=== PATIENT | female | born 1970 | race Caucasian/White ===

== ENCOUNTER 2022-07-17 17:46 | Outpatient (CLI) | payer OTHER | END 2022-07-17 17:47 | disposition short-term general hospital (02) | LOC: EMS 17:46 | DX: R51.9 Headache, unspecified (principal); R07.9 Chest pain, unspecified; R06.02 Shortness of breath; R11.0 Nausea; H53.8 Other visual disturbances; I10 Essential (primary) hypertension | CPT/HCPCS: A0425; A0429 ==

== ENCOUNTER 2022-10-08 18:05 | Emergency (ER) | payer OTHER ==
[2022-10-08] MEDS ORDERED: SODIUM CHLORIDE 0.9% 1,000 ML IV STA (18:20)
--- NOTE | 2022-10-08 18:20 | ED Physician Documentation ---
History of Present Illness - Stated complaint Stated Complaint: DIZZY/COLD SWEATS - Chief complaint Chief Complaint: Cardiac - History obtained from History obtained from: Patient - Additonal information Additional information: 52-year-old woman who works nights. She thinks she took her regular dose of medications, her routine meds at 10 and then inadvertently repeated them about 1 PM. Now she feels kind of dizzy and lightheaded with cold sweats. PD PAST MEDICAL HISTORY - Present Medications Home Medications: Ambulatory Orders Medication Instructions Recorded Confirmed Amlodipine Besylate [Norvasc] 10 mg PO DAILY 10/08/22 10/08/22 Carvedilol [Coreg] 25 mg PO BID 10/08/22 10/08/22 Estradiol 0.05 mg Patch [Climara 1 each TOP Q3D 10/08/22 10/08/22 0.05 mg] Losartan/Hydrochlorothiazide 1 each PO DAILY 10/08/22 10/08/22 [Losartan-Hctz 100-12.5 mg Tab] Metoprolol Tartrate [Lopressor] 50 mg PO BID 10/08/22 10/08/22 Spironolactone [Aldactone] 25 mg PO 10/08/22 10/08/22 - Allergies Allergies/Adverse Reactions: Allergies Allergy/AdvReac Type Severity Reaction Status Date / Time Penicillins Allergy Itching Verified 10/08/22 18:11 PD ED PE NORMAL - Vitals Vital signs reviewed: Yes - General General: Alert and oriented X 3, No acute distress - HEENT HEENT: PERRL, EOMI - Neck Neck: Supple, no meningeal sign, No bony TTP - Cardiac Cardiac: RRR, No murmur - Respiratory Respiratory: No respiratory distress, Clear bilaterally - Abdomen Abdomen: Non tender - Neuro Neuro: Alert and oriented X 3, Normal speech - Psych Psych: Normal mood, Normal affect Results - Vitals Vitals: Vital Signs - 24 hr 10/08/22 10/08/22 18:08 19:09 Temperature 36.6 C Heart Rate 82 67 Respiratory 16 21 Rate Blood Pressure 109/62 103/55 L O2 Saturation 96 97 Oxygen O2 Source Room air - EKG (time done) 1691 EKG releavant findings:: EKG personally interpreted by author of this note. Relevant findings are: Rate: Rate (enter#) (72) Rhythm: NSR [place]: Normal Intervals: Other (ivcd) Ischemia: Normal ST segments - Labs Labs: Laboratory Tests 10/08/22 10/08/22 18:31 18:31 WBC 10.9 H RBC 4.37 Hgb 13.3 Hct 38.6 MCV 88.3 MCH 30.4 MCHC 34.5 RDW 12.3 Plt Count 265 MPV 11.4 H Neut # (Auto) 7.9 H Lymph # (Auto) 1.9 [place] # (Auto) 0.9 Eos # (Auto) 0.2 Baso # (Auto) 0.0 Absolute Nucleated RBC 0.00 Nucleated RBC % 0.0 Sodium 140 Potassium 3.8 Chloride 105 Carbon Dioxide 24 Anion Gap 11.0 BUN 37 H Creatinine 1.1 H Estimated GFR (MDRD) 52 L Glucose 112 H Calcium 9.6 Magnesium 2.0 Total Bilirubin 0.5 AST 21 ALT 41 Alkaline Phosphatase 64 Total Protein 7.3 Albumin 4.2 Globulin 3.1 Albumin/Globulin Ratio 1.4 PD Medical Decision Making - ED course ED course: 52-year-old woman accidentally probably took an extra dose of her meds today. These are for the most part antihypertensives. She was feeling weak and dizzy. After the administration of 1 L of normal saline she felt back to normal. Work-up here shows a CBC with a mild nonspecific leukocytosis. CMP showing mild prerenal azotemia. Departure - Departure Disposition: 01 Home, Self Care Clinical Impression: Dizziness, Dehydration Condition: Good Record reviewed to determine appropriate education?: Yes Instructions: ED Near Syncope Unkn Comments: You were seen after inadvertently taking extra dose of your medications tonight which caused dehydration and dizziness. We gave you 1 L of IV fluids and you were feeling better. I would still recommend taking it easy tonight and not taking any more meds until tomorrow. Return if worse. Forms: Activity restrictions
[2022-10-08 18:39] LABS: BASOPHILS % (AUTO) 0.3 %; EOSINOPHILS # (AUTO) 0.2 10^3/uL (0.0-0.7); EOSINOPHILS % (AUTO) 2.1 %; HCT - HEMATOCRIT 38.6 % (37.0-47.0); HGB - HEMOGLOBIN 13.3 g/dL (12.0-16.0); LYMPHOCYTES # (AUTO) 1.9 10^3/uL (1.5-3.5); MEAN CORPUSCULAR HEMOGLOBIN 30.4 pg (27.0-31.0); MEAN CORPUSCULAR HGB CONC 34.5 g/dL (32.0-36.0); MEAN CORPUSCULAR VOLUME 88.3 fL (81.0-99.0); MEAN PLATELET VOLUME 11.4 fL (7.9-10.8); MONOCYTES # (AUTO) 0.9 10^3/uL (0.0-1.0); MONOCYTES % (AUTO) 7.9 %; NEUTROPHILS # (AUTO) 7.9 10^3/uL (1.5-6.6); NEUTROPHILS % (AUTO) 72.2 %; PLT - PLATELET COUNT 265 10^3/uL (130-450); RED BLOOD COUNT 4.37 10^6/uL (4.20-5.40); RED CELL DISTRIBUTION WIDTH 12.3 % (12.0-15.0); WHITE BLOOD COUNT 10.9 x10^3/uL (4.8-10.8)
--- OUTSIDE RECORDS SUMMARY | 2022-10-08 18:48 | EXTERNAL MEDICAL SUMMARY RPT | Continuity of Care Document ---
:1970 Author Organization [facility] Address [address] [place] [address] Phone Care Team Providers Name Role Phone Unavailable Unavailable Unavailable Poncho Cassidy Pa-C Unavailable Unavailable Leonardo Tate Unavailable Unavailable Allergies and Intolerances date description facility type (no date) Mild [facility] (unknown) (no date) PENICILLIN V POTASSIUM All (unknow n) (no date) Penicillins [facility] (unknown) (no date) amoxicillin [facility] (unknown) (no date) diphenhydramine [facility] (unknown) (no date) latex [facility] (unknown) (no date) magnesium citrate [facility] (unknown) Encounters No information. Functional Status No information. Immunizations No information. Medications date description facility 2022-07-17 00:00 losartan-hydrochlorothiazide [facility] 2022-07-22 00:00 losartan-hydrochlorothiazide All 2022-07-17 00:00 estradiol All 2022-07-22 00:00 estradiol [facility] 2022-07-17 00:00 carvedilol All 2022-07-22 00:00 carvedilol All 2022-07-17 00:[address] [facility] 2022-07-19 00:[address] [facility] 2022-07-17 00:00 estradiol All 2022-07-22 00:00 estradiol All 2022-07-17 00:00 estradiol All 2022-07-22 00:00 estradiol All 2022-07-18 00:[address] [facility] 2022-07-17 00:00 carvedilol All 2022-07-22 00:00 carvedilol All 2022-07-17 00:00 losartan-hydrochlorothiazide All 2022-07-22 00:00 losartan-hydrochlorothiazide All 2022-07-17 00:00 carvedilol All 2022-07-22 00:00 carvedilol All 2022-07-17 00:00 losartan-hydrochlorothiazide All 2022-07-22 00:00 losartan-hydrochlorothiazide All 2022-07-17 00:00 estradiol All 2022-07-22 00:00 estradiol All 2022-07-17 00:00 carvedilol All 2022-07-22 00:00 carvedilol All 2022-07-17 00:00 losartan-hydrochlorothiazide All 2022-07-22 00:00 losartan-hydrochlorothiazide All Problems date description facility 2022-07-17 00:00 Unspecified essential hypertension [facility] 2022-07-17 00:00 Hypertensive emergency [facility] 2022-07-17 00:[address] [facility] 2022-07-17 00:[address] [facility] 2022-07-17 00:[address] [facility] 2022-07-23 12:25 Essential (primary) hypertension [facility] 2022-08-10 00:[address] [facility] 2022-08-10 00:00 Sensation of chest pressure [facility] 2022-08-25 00:[address] [facility] Procedures date description facility 2022-07-17 00:[address] angio chest [facility] 2022-07-17 00:00 Visit Code Hold All 2022-07-17 00:00 Computed tomography of head or brain [facility] contrast 2022-07-17 00:00 X-ray of chest, single view [facility] 2022-07-18 00:00 Complete Doppler echocardiography [facility] 2022-07-17 00:00 CT angio abdomen pelvis [facility] Results/Labs test date author facility value unit interpret ation Result panel 1 (unknown) (no date) (unknown) [facility] Result panel 2 (unknown) (no date) (unknown) [facility] Result panel 3 (unknown) (no date) (unknown) [facility] Result panel 4 (unknown) (no date) (unknown) [facility] Result panel 5 (unknown) (no date[facility]) Result panel 6 (unknown) (no date) ([facility] Result panel 7 (unknown) (no date) ([facility] Result panel 8 (unknown) (no date) ([facility] Result panel 9 (unknown) (no date) (unknown[facility] Result panel 10 (unknown) (no date) (unknown[facility] Result panel 11 (unknown) (no date) (unknown[facility] Result panel 12 (unknown) (no date) (unknown[facility] Result panel 13 (unknown) (no date) (unknown[facility] Result panel 14 (unknown) (no date) (unknown[facility] Result panel 15 (unknown) (no date) (unknown[facility] Result panel 16 (unknown) (no date) (unknown[facility] Result panel 17 (unknown) (no date) (unknown[facility] Result panel 18 (unknown) (no date) (unknown[facility] Result panel 19 (unknown) (no date) (unknown[facility] Result panel 20 (unknown) (no date) (unknown[facility] Result panel 21 (unknown) (no date) (unknown[facility] Result panel 22 (unknown) (no date) (unknown[facility] Result panel 23 (unknown) (no date) (unknown[facility] Result panel 24 (unknown) (no date) (unknown[facility]) Result panel 25 (unknown) (no date) (unknown[facility] Result panel 26 (unknown) (no date) (unknown[facility] Result panel 27 (unknown) (no date) (unknown[facility] Result panel 28 (unknown) (no date) (unknown[facility] Result panel 29 (unknown) (no date) (unknown[facility] Result panel 30 (unknown) (no date) (unknown[facility]) Result panel 31 (unknown) (no date) (unknown[facility] Result panel 32 (unknown) (no date) (unknown[facility] Result panel 33 (unknown) (no date) (unknown[facility] Result panel 34 (unknown) (no date) (unknown[facility] Result panel 35 (unknown) (no date) (unknown[facility] Result panel 36 (unknown) (no date) (unknown[facility] Result panel 37 (unknown) (no date) (unknown[facility] Result panel 38 (unknown) (no date) (unknown[facility] Result panel 39 (unknown) (no date) (unknown[facility] Result panel 40 (unknown) (no date) (unknown[facility]) Result panel 41 (unknown) (no date) (unknown[facility] Result panel 42 (unknown) (no date) (unknown[facility] Result panel 43 (unknown) (no date) (unknown[facility] Result panel 44 (unknown) (no date) (unknown[facility] Result panel 45 (unknown) (no date) (unknown[facility] Result panel 46 (unknown) (no date) (unknown[facility] Result panel 47 (unknown) (no date) (unknown[facility]) Result panel 48 (unknown) (no date) (unknown[facility] Result panel 49 (unknown) (no date) (unknown[facility]) Result panel 50 (unknown) (no date) (unknown[facility] Result panel 51 (unknown) (no date) (unknown[facility]) Result panel 52 (unknown) (no date) (unknown[facility] Result panel 53 (unknown) (no date) (unknown[facility] Result panel 54 (unknown) (no date) (unknown[facility] Result panel 55 (unknown) (no date) (unknown[facility]) Result panel 56 (unknown) (no date) (unknown[facility] Result panel 57 (unknown) (no date) (unknown[facility] Result panel 58 (unknown) (no date) (unknown[facility] Result panel 59 (unknown) (no date) (unknown[facility] Result panel 60 (unknown) (no date) (unknown[facility] Result panel 61 (unknown) (no date) (unknown[facility] Result panel 62 (unknown) (no date) (unknown[facility] Result panel 63 (unknown) (no date) (unknown[facility]) Result panel 64 (unknown) (no date) (unknown[facility] Result panel 65 (unknown) (no date) (unknown[facility]) Result panel 66 (unknown) (no date) (unknown[facility]) Result panel 67 (unknown) (no date) (unknown[facility]) Result panel 68 (unknown) (no date) (unknown[facility] Result panel 69 (unknown) (no date) (unknown[facility] Result panel 70 (unknown) (no date) (unknown[facility]) Result panel 71 (unknown) (no date) (unknown[facility] Result panel 72 (unknown) (no date) (unknown[facility]) Result panel 73 (unknown) (no date) (unknown[facility] Result panel 74 (unknown) (no date) (unknown[facility]) Result panel 75 (unknown) (no date) (unknown[facility]) Result panel 76 (unknown) (no date) (unknown[facility] Result panel 77 (unknown) (no date) (unknown[facility]) Result panel 78 (unknown) (no date) (unknown[facility] Result panel 79 (unknown) (no date) (unknown[facility]) Result panel 80 (unknown) (no date) (unknown[facility] Result panel 81 (unknown) (no date) (unknown[facility]) Result panel 82 (unknown) (no date) (unknown[facility]) Result panel 83 (unknown) (no date) (unknown[facility]) Result panel 84 (unknown) (no date) (unknown[facility] Result panel 85 (unknown) (no date) (unknown[facility]) Result panel 86 (unknown) (no date) (unknown[facility]) Result panel 87 (unknown) (no date) (unknown[facility]) Result panel 88 (unknown) (no date) (unknown[facility] Result panel 89 (unknown) (no date) (unknown[facility]) Result panel 90 (unknown) (no date) (unknown[facility] Result panel 91 (unknown) (no date) (unknown[facility]) Result panel 92 (unknown) (no date) (unknown[facility]) Result panel 93 (unknown) (no date) (unknown[facility]) Result panel 94 (unknown) (no date) (unknown[facility] Result panel 95 (unknown) (no date) (unknown[facility]) Result panel 96 (unknown) (no date) (unknown[facility]) Result panel 97 (unknown) (no date) (unknown[facility]) Result panel 98 (unknown) (no date) (unknown[facility]) Result panel 99 (unknown) (no date) (unknown[facility]) Result panel 100 (unknown) (no date) (unknown[facility] Result panel 101 (unknown) (no date) (unknown[facility]) Result panel 102 (unknown) (no date) (unknown[facility] Result panel 103 (unknown) (no date) (unknown[facility]) Result panel 104 (unknown) (no date) (unknown[facility]) Result panel 105 (unknown) (no date) (unknown[facility] Result panel 106 (unknown) (no date) (unknown[facility]) Result panel 107 (unknown) (no date) (unknown[facility]) Result panel 108 (unknown) (no date) (unknown[facility] Result panel 109 (unknown) (no date) (unknown[facility]) Result panel 110 (unknown) (no date) (unknown[facility]) Result panel 111 (unknown) (no date) (unknown[facility]) Result panel 112 (unknown) (no date) (unknown[facility]) Result panel 113 (unknown) (no date) (unknown[facility]) Result panel 114 (unknown) (no date) (unknown[facility] Result panel 115 (unknown) (no date) (unknown[facility]) Result panel 116 (unknown) (no date) (unknown[facility] Result panel 117 (unknown) (no date) (unknown[facility]) Result panel 118 (unknown) (no date) (unknown[facility] Result panel 119 (unknown) (no date) (unknown[facility]) Result panel 120 (unknown) (no date) (unknown[facility]) Result panel 121 (unknown) (no date) (unknown[facility]) Result panel 122 (unknown) (no date) (unknown[facility]) Result panel 123 (unknown) (no date) (unknown[facility]) Result panel 124 (unknown) (no date) (unknown[facility]) Result panel 125 (unknown) (no date) (unknown[facility]) Result panel 126 (unknown) (no date) (unknown[facility]) Result panel 127 (unknown) (no date) (unknown[facility]) Result panel 128 (unknown) (no date) (unknown[facility]) Result panel 129 (unknown) (no date) (unknown[facility]) Result panel 130 (unknown) (no date) (unknown[facility] Result panel 131 (unknown) (no date) (unknown[facility]) Result panel 132 (unknown) (no date) (unknown[facility] Result panel 133 (unknown) (no date) (unknown[facility]) Result panel 134 (unknown) (no date) (unknown[facility]) Result panel 135 (unknown) (no date) (unknown[facility]) Result panel 136 (unknown) (no date) (unknown[facility]) Result panel 137 (unknown) (no date) (unknown[facility]) Result panel 138 (unknown) (no date) (unknown[facility]) Result panel 139 (unknown) (no date) (unknown[facility]) Result panel 140 (unknown) (no date) (unknown[facility]) Result panel 141 (unknown) (no date) (unknown[facility]) Result panel 142 (unknown) (no date) (unknown[facility]) Result panel 143 (unknown) (no date) (unknown[facility]) Result panel 144 (unknown) (no date) (unknown[facility]) Result panel 145 (unknown) (no date) (unknown[facility]) Result panel 146 (unknown) (no date) (unknown[facility]) Result panel 147 (unknown) (no date) (unknown[facility]) Result panel 148 (unknown) (no date) (unknown[facility]) Result panel 149 (unknown) (no date) (unknown[facility]) Result panel 150 (unknown) (no date) (unknown[facility]) Result panel 151 (unknown) (no date) (unknown[facility]) Result panel 152 (unknown) (no date) (unknown[facility]) Result panel 153 (unknown) (no date) (unknown[facility]) Result panel 154 (unknown) (no date) (unknown[facility] Result panel 155 (unknown) (no date) (unknown[facility]) Result panel 156 (unknown) (no date) (unknown[facility]) Result panel 157 (unknown) (no date) (unknown[facility]) Result panel 158 (unknown) (no date) (unknown[facility] Result panel 159 (unknown) (no date) (unknown[facility]) Result panel 160 (unknown) (no date) (unknown[facility]) Result panel 161 (unknown) (no date) (unknown[facility]) Result panel 162 (unknown) (no date) (unknown[facility]) Result panel 163 (unknown) (no date) (unknown[facility]) Result panel 164 (unknown) (no date) (unknown[facility]) Result panel 165 (unknown) (no date) (unknown[facility]) Result panel 166 (unknown) (no date) (unknown) [facility]) Result panel 167 (unknown) (no date) (unknown) [facility]) Result panel 168 (unknown) (no date) (unknown) [facility]) Result panel 169 (unknown) (no date) (unknown) [facility]) Result panel 170 (unknown) (no date) (unknown[facility] Result panel 171 (unknown) (no date) (unknown) [facility]) Result panel 172 (unknown) (no date) (unknown[facility]) Result panel 173 (unknown) (no date) (unknown[facility]) Result panel 174 (unknown) (no date) (unknown[facility]) Result panel 175 (unknown) (no date) (unknown[facility]) Result panel 176 (unknown) (no date) (unknown[facility]) Result panel 177 (unknown) (no date) (unknown) [facility]) Result panel 178 (unknown) (no date) (unknown) [facility]) Result panel 179 (unknown) (no date) (unknown) [facility]) Result panel 180 (unknown) (no date) (unknown) [facility]) Result panel 181 (unknown) (no date) (unknown[facility] Result panel 182 (unknown) (no date) (unknown[facility]) Result panel 183 (unknown) (no date) (unknown[facility] Result panel 184 (unknown) (no date) (unknown[facility]) Result panel 185 (unknown) (no date) (unknown[facility] Result panel 186 (unknown) (no date) (unknown[facility]) Result panel 187 (unknown) (no date) (unknown[facility] Result panel 188 (unknown) (no date) (unknown[facility]) Result panel 189 (unknown) (no date) (unknown[facility] Result panel 190 (unknown) (no date) (unknown[facility] Result panel 191 (unknown) (no date) (unknown[facility]) Result panel 192 (unknown) (no date) (unknown[facility] Result panel 193 (unknown) (no date) (unknown[facility] Result panel 194 (unknown) (no date) (unknown[facility]) Result panel 195 (unknown) (no date) (unknown[facility] Result panel 196 (unknown) (no date) (unknown[facility] Result panel 197 (unknown) (no date) (unknown[facility]) Result panel 198 (unknown) (no date) (unknown[facility] Result panel 199 (unknown) (no date) (unknown[facility] Result panel 200 (unknown) (no date) (unknown[facility]) Result panel 201 (unknown) (no date) (unknown[facility] Result panel 202 (unknown) (no date) (unknown[facility]) Result panel 203 (unknown) (no date) (unknown[facility] Result panel 204 (unknown) (no date) (unknown[facility] Result panel 205 (unknown) (no date) (unknown[facility] Result panel 206 (unknown) (no date) (unknown[facility]) Result panel 207 (unknown) (no date) (unknown[facility]) Result panel 208 (unknown) (no date) (unknown) [facility] [facility] Result panel 209 (unknown) (no date) (unknown) [facility]) Result panel 210 (unknown) (no date) (unknown) [facility]) Result panel 211 (unknown) (no date) (unknown) [facility] Result panel 212 (unknown) (no date) (unknown) [facility]) Result panel 213 (unknown) (no date) (unknown) [facility] Result panel 214 (unknown) (no date) (unknown) [facility]) Result panel 215 (unknown) (no date) (unknown[facility]) Result panel 216 (unknown) (no date) (unknown) [facility]) Result panel 217 (unknown) (no date) (unknown) [facility]) Result panel 218 (unknown) (no date) (unknown) [facility]) Result panel 219 (unknown) (no date) (unknown[facility]) Result panel 220 (unknown) (no date) (unknown) [facility]) Result panel 221 (unknown) (no date) (unknown) [facility]) Result panel 222 (unknown) (no date) (unknown) [facility]) Result panel 223 (unknown) (no date) (unknown) [facility]) Result panel 224 (unknown) (no date) (unknown) [facility]) Result panel 225 (unknown) (no date) (unknown) [facility]) Result panel 226 (unknown) (no date) (unknown) [facility]) Result panel 227 (unknown) (no date) (unknown) [facility]) Result panel 228 (unknown) (no date) (unknown) [facility]) Result panel 229 (unknown) (no date) (unknown) [facility]) Result panel 230 (unknown) (no date) (unknown) [facility]) Result panel 231 (unknown) (no date) (unknown) [facility]) Result panel 232 (unknown) (no date) (unknown) [facility]) Result panel 233 (unknown) (no date) (unknown) [facility] Result panel 234 (unknown) (no date) (unknown) [facility]) Result panel 235 (unknown) (no date) (unknown) [facility]) Result panel 236 (unknown) (no date) (unknown[facility]) Result panel 237 (unknown) (no date) (unknown[facility]) Result panel 238 (unknown) (no date) (unknown) [facility]) Result panel 239 (unknown) (no date) (unknown) [facility]) Result panel 240 (unknown) (no date) (unknown) [facility]) Result panel 241 (unknown) (no date) (unknown) [facility]) Result panel 242 (unknown) (no date) (unknown) [facility]) Result panel 243 (unknown) (no date) (unknown[facility]) Result panel 244 (unknown) (no date) (unknown) [facility]) Result panel 245 (unknown) (no date) (unknown) [facility]) Result panel 246 (unknown) (no date) (unknown) [facility]) Result panel 247 (unknown) (no date) (unknown) [facility]) Result panel 248 (unknown) (no date) (unknown) [facility]) Result panel 249 (unknown) (no date) (unknown) [facility]) Result panel 250 (unknown) (no date) (unknown) [facility]) Result panel 251 (unknown) (no date) (unknown) [facility]) Result panel 252 (unknown) (no date) (unknown) [facility]) Result panel 253 (unknown) (no date) (unknown) [facility]) Result panel 254 (unknown) (no date) (unknown) [facility]) Result panel 255 (unknown) (no date) (unknown) [facility]) Result panel 256 (unknown) (no date) (unknown) [facility]) Result panel 257 (unknown) (no date) (unknown) [facility]) Result panel 258 (unknown) (no date) (unknown) [facility]) Result panel 259 (unknown) (no date) (unknown) [facility]) Result panel 260 (unknown) (no date) (unknown) [facility]) Result panel 261 (unknown) (no date) (unknown) [facility]) Result panel 262 (unknown) (no date) (unknown) [facility]) Result panel 263 (unknown) (no date) (unknown) [facility] Result panel 264 (unknown) (no date) (unknown[facility]) Result panel 265 (unknown) (no date) (unknown) [facility]) Result panel 266 (unknown) (no date) (unknown) [facility]) Result panel 267 (unknown) (no date) (unknown) [facility]) Result panel 268 (unknown) (no date) (unknown) [facility]) Result panel 269 (unknown) (no date) (unknown) [facility]) Result panel 270 (unknown) (no date) (unknown[facility]) Result panel 271 (unknown) (no date) (unknown) [facility]) Result panel 272 (unknown) (no date) (unknown) [facility]) Result panel 273 (unknown) (no date) (unknown) [facility]) Result panel 274 (unknown) (no date) (unknown) [facility]) Result panel 275 (unknown) (no date) (unknown) [facility]) Result panel 276 (unknown) (no date) (unknown) [facility]) Result panel 277 (unknown) (no date) (unknown) [facility]) Result panel 278 (unknown) (no date) (unknown) [facility]) Result panel 279 (unknown) (no date) (unknown) [facility]) Result panel 280 (unknown) (no date) (unknown) [facility]) Result panel 281 (unknown) (no date) (unknown) [facility]) Result panel 282 (unknown) (no date) (unknown) [facility]) Result panel 283 (unknown) (no date) (unknown) [facility]) Result panel 284 (unknown) (no date) (unknown) [facility]) Result panel 285 (unknown) (no date) (unknown) [facility]) Result panel 286 (unknown) (no date) (unknown) [facility]) Result panel 287 (unknown) (no date) (unknown) [facility]) Result panel 288 (unknown) (no date) (unknown) [facility]) Result panel 289 (unknown) (no date) (unknown) [facility]) Result panel 290 (unknown) (no date) (unknown) [facility]) Result panel 291 (unknown) (no date) (unknown) [facility]) Result panel 292 (unknown) (no date) (unknown) [facility]) Result panel 293 (unknown) (no date) (unknown) [facility]) Result panel 294 (unknown) (no date) (unknown) [facility]) Result panel 295 (unknown) (no date) (unknown) [facility]) Result panel 296 (unknown) (no date) (unknown) [facility]) Result panel 297 (unknown) (no date) (unknown) [facility]) Result panel 298 (unknown) (no date) (unknown) [facility]) Result panel 299 (unknown) (no date) (unknown) [facility]) Result panel 300 (unknown) (no date) (unknown) [facility]) Result panel 301 (unknown) (no date) (unknown) [facility]) Result panel 302 (unknown) (no date) (unknown) [facility]) Result panel 303 (unknown) (no date) (unknown) [facility]) Result panel 304 (unknown) (no date) (unknown) [facility]) Result panel 305 (unknown) (no date) (unknown) [facility]) Result panel 306 (unknown) (no date) (unknown) [facility]) Result panel 307 (unknown) (no date) (unknown) [facility]) Result panel 308 (unknown) (no date) (unknown[facility]) Result panel 309 (unknown) (no date) (unknown) [facility]) Result panel 310 (unknown) (no date) (unknown[facility]) Result panel 311 (unknown) (no date) (unknown) [facility]) Result panel 312 (unknown) (no date) (unknown) [facility]) Result panel 313 (unknown) (no date) (unknown) [facility]) Result panel 314 (unknown) (no date) (unknown) [facility]) Result panel 315 (unknown) (no date) (unknown) [facility]) Result panel 316 (unknown) (no date) (unknown) [facility]) Result panel 317 (unknown) (no date) (unknown) [facility]) Result panel 318 (unknown) (no date) (unknown) [facility]) Result panel 319 (unknown) (no date) (unknown[facility]) Result panel 320 (unknown) (no date) (unknown) [facility]) Result panel 321 (unknown) (no date) (unknown) [facility]) Result panel 322 (unknown) (no date) (unknown) [facility]) Result panel 323 (unknown) (no date) (unknown[facility]) Result panel 324 (unknown) (no date) (unknown) [facility]) Result panel 325 (unknown) (no date) (unknown) [facility]) Result panel 326 (unknown) (no date) (unknown) [facility]) Result panel 327 (unknown) (no date) (unknown) [facility]) Result panel 328 (unknown) (no date) (unknown) [facility]) Result panel 329 (unknown) (no date) (unknown) [facility]) Result panel 330 (unknown) (no date) (unknown) [facility]) Result panel 331 (unknown) (no date) (unknown) [facility]) Result panel 332 (unknown) (no date) (unknown) [facility]) Result panel 333 (unknown) (no date) (unknown) [facility]) Result panel 334 (unknown) (no date) (unknown) [facility]) Result panel 335 (unknown) (no date) (unknown) [facility]) Result panel 336 (unknown) (no date) (unknown) [facility]) Result panel 337 (unknown) (no date) (unknown) [facility]) Result panel 338 (unknown) (no date) (unknown) [facility]) Result panel 339 (unknown) (no date) (unknown) [facility]) Result panel 340 (unknown) (no date) (unknown) [facility]) Result panel 341 (unknown) (no date) (unknown) [facility]) Result panel 342 (unknown) (no date) (unknown) [facility]) Result panel 343 (unknown) (no date) (unknown) [facility]) Result panel 344 (unknown) (no date) (unknown) [facility]) Result panel 345 (unknown) (no date) (unknown) [facility]) Result panel 346 (unknown) (no date) (unknown) [facility]) Result panel 347 (unknown) (no date) (unknown) [facility]) Result panel 348 (unknown) (no date) (unknown) [facility]) Result panel 349 (unknown) (no date) (unknown) [facility]) Result panel 350 (unknown) (no date) (unknown) [facility]) Result panel 351 (unknown) (no date) (unknown) [facility]) Result panel 352 (unknown) (no date) (unknown) [facility]) Result panel 353 (unknown) (no date) (unknown) [facility]) Result panel 354 (unknown) (no date) (unknown) [facility]) Result panel 355 (unknown) (no date) (unknown) [facility]) Result panel 356 (unknown) (no date) (unknown) [facility]) Result panel 357 (unknown) (no date) (unknown) [facility]) Result panel 358 (unknown) (no date) (unknown) [facility]) Result panel 359 (unknown) (no date) (unknown) [facility]) Result panel 360 (unknown) (no date) (unknown) [facility]) Result panel 361 (unknown) (no date) (unknown) [facility]) Result panel 362 (unknown) (no date) (unknown) [facility]) Result panel 363 (unknown) (no date) (unknown) [facility]) Result panel 364 (unknown) (no date) (unknown) [facility]) Result panel 365 (unknown) (no date) (unknown) [facility]) Result panel 366 (unknown) (no date) (unknown) [facility]) Result panel 367 (unknown) (no date) (unknown) [facility]) Result panel 368 (unknown) (no date) (unknown) [facility]) Result panel 369 (unknown) (no date) (unknown) [facility]) Result panel 370 (unknown) (no date) (unknown) [facility]) Result panel 371 (unknown) (no date) (unknown) [facility]) Result panel 372 (unknown) (no date) (unknown) [facility]) Result panel 373 (unknown) (no date) (unknown) [facility]) Result panel 374 (unknown) (no date) (unknown) [facility]) Result panel 375 (unknown) (no date) (unknown) [facility]) Result panel 376 (unknown) (no date) (unknown) [facility]) Result panel 377 (unknown) (no date) (unknown) [facility]) Result panel 378 (unknown) (no date) (unknown) [facility]) Result panel 379 (unknown) (no date) (unknown) [facility]) Result panel 380 (unknown) (no date) (unknown) [facility]) Result panel 381 (unknown) (no date) (unknown) [facility]) Result panel 382 (unknown) (no date) (unknown) [facility]) Result panel 383 (unknown) (no date) (unknown) [facility]) Result panel 384 (unknown) (no date) (unknown) [facility]) Result panel 385 (unknown) (no date) (unknown) [facility]) Result panel 386 (unknown) (no date) (unknown[facility]) Result panel 387 (unknown) (no date) (unknown) [facility]) Result panel 388 (unknown) (no date) (unknown) [facility]) Result panel 389 (unknown) (no date) (unknown[facility]) Result panel 390 (unknown) (no date) (unknown) [facility]) Result panel 391 (unknown) (no date) (unknown) [facility]) Result panel 392 (unknown) (no date) (unknown) [facility]) Result panel 393 (unknown) (no date) (unknown) [facility]) Result panel 394 (unknown) (no date) (unknown) [facility]) Result panel 395 (unknown) (no date) (unknown[facility]) Result panel 396 (unknown) (no date) (unknown) [facility]) Result panel 397 (unknown) (no date) (unknown) [facility]) Result panel 398 (unknown) (no date) (unknown) [facility]) Result panel 399 (unknown) (no date) (unknown) [facility]) Result panel 400 (unknown) (no date) (unknown) [facility]) Result panel 401 (unknown) (no date) (unknown) [facility]) Result panel 402 (unknown) (no date) (unknown) [facility]) Result panel 403 (unknown) (no date) (unknown) [facility]) Result panel 404 (unknown) (no date) (unknown) [facility]) Result panel 405 (unknown) (no date) (unknown) [facility]) Result panel 406 (unknown) (no date) (unknown) [facility]) Result panel 407 (unknown) (no date) (unknown) [facility]) Result panel 408 (unknown) (no date) (unknown) [facility]) Result panel 409 (unknown) (no date) (unknown) [facility]) Result panel 410 (unknown) (no date) (unknown) [facility]) Result panel 411 (unknown) (no date) (unknown) [facility]) Result panel 412 (unknown) (no date) (unknown) [facility]) Result panel 413 (unknown) (no date) (unknown) [facility]) Result panel 414 (unknown) (no date) (unknown) [facility]) Result panel 415 (unknown) (no date) (unknown) [facility]) Result panel 416 (unknown) (no date) (unknown) [facility]) Result panel 417 (unknown) (no date) (unknown) [facility]) Result panel 418 (unknown) (no date) (unknown) [facility]) Result panel 419 (unknown) (no date) (unknown) [facility]) Result panel 420 (unknown) (no date) (unknown) [facility]) Result panel 421 (unknown) (no date) (unknown) [facility]) Result panel 422 (unknown) (no date) (unknown) [facility]) Result panel 423 (unknown) (no date) (unknown) [facility]) Result panel 424 (unknown) (no date) (unknown) [facility]) Result panel 425 (unknown) (no date) (unknown) [facility]) Result panel 426 (unknown) (no date) (unknown) [facility]) Result panel 427 (unknown) (no date) (unknown) [facility]) Result panel 428 (unknown) (no date) (unknown) [facility]) Result panel 429 (unknown) (no date) (unknown) [facility]) Result panel 430 (unknown) (no date) (unknown) [facility]) Result panel 431 (unknown) (no date) (unknown) [facility]) Result panel 432 (unknown) (no date) (unknown) [facility]) Result panel 433 (unknown) (no date) (unknown) [facility]) Result panel 434 (unknown) (no date) (unknown[facility]) Result panel 435 (unknown) (no date) (unknown[facility]) Result panel 436 (unknown) (no date) (unknown) [facility]) Result panel 437 (unknown) (no date) (unknown) [facility]) Result panel 438 (unknown) (no date) (unknown) [facility]) Result panel 439 (unknown) (no date) (unknown) [facility]) Result panel 440 (unknown) (no date) (unknown) [facility]) Result panel 441 (unknown) (no date) (unknown) [facility]) Result panel 442 (unknown) (no date) (unknown) [facility]) Result panel 443 (unknown) (no date) (unknown) [facility]) Result panel 444 (unknown) (no date) (unknown) [facility]) Result panel 445 (unknown) (no date) (unknown) [facility]) Result panel 446 (unknown) (no date) (unknown[facility]) Result panel 447 (unknown) (no date) (unknown) [facility] Result panel 448 (unknown) (no date) (unknown) [facility] Result panel 449 (unknown) (no date) (unknown) [facility]) Result panel 450 (unknown) (no date) (unknown) [facility]) Result panel 451 (unknown) (no date) (unknown) [facility]) Result panel 452 (unknown) (no date) (unknown) [facility]) Result panel 453 (unknown) (no date) (unknown) [facility]) Result panel 454 (unknown) (no date) (unknown) [facility]) Result panel 455 (unknown) (no date) (unknown) [facility]) Result panel 456 (unknown) (no date) (unknown) [facility]) Result panel 457 (unknown) (no date) (unknown) [facility] Result panel 458 (unknown) (no date) (unknown[facility]) Result panel 459 (unknown) (no date) (unknown) [facility]) Result panel 460 (unknown) (no date) (unknown) [facility]) Result panel 461 (unknown) (no date) (unknown) [facility]) Result panel 462 (unknown) (no date) (unknown) [facility]) Result panel 463 (unknown) (no date) (unknown) [facility] Result panel 464 (unknown) (no date) (unknown) [facility]) Result panel 465 (unknown) (no date) (unknown) [facility]) Result panel 466 (unknown) (no date) (unknown) [facility]) Result panel 467 (unknown) (no date) (unknown) [facility]) Result panel 468 (unknown) (no date) (unknown) [facility]) Result panel 469 (unknown) (no date) (unknown) [facility]) Result panel 470 (unknown) (no date) (unknown) [facility]) Result panel 471 (unknown) (no date) (unknown) [facility]) Result panel 472 (unknown) (no date) (unknown) [facility]) Result panel 473 (unknown) (no date) (unknown) [facility]) Result panel 474 (unknown) (no date) (unknown) [facility]) Result panel 475 (unknown) (no date) (unknown) [facility]) Result panel 476 (unknown) (no date) (unknown) [facility]) Result panel 477 (unknown) (no date) (unknown) [facility]) Result panel 478 (unknown) (no date) (unknown) [facility]) Result panel 479 (unknown) (no date) (unknown) [facility]) Result panel 480 (unknown) (no date) (unknown) [facility]) Result panel 481 (unknown) (no date) (unknown) [facility]) Result panel 482 (unknown) (no date) (unknown) [facility]) Result panel 483 (unknown) (no date) (unknown) [facility]) Result panel 484 (unknown) (no date) (unknown) [facility]) Result panel 485 (unknown) (no date) (unknown) [facility]) Result panel 486 (unknown) (no date) (unknown) [facility]) Result panel 487 (unknown) (no date) (unknown) [facility]) Result panel 488 (unknown) (no date) (unknown) [facility]) Result panel 489 (unknown) (no date) (unknown) [facility]) Result panel 490 (unknown) (no date) (unknown) [facility]) Result panel 491 (unknown) (no date) (unknown) [facility]) Result panel 492 (unknown) (no date) (unknown) [facility]) Result panel 493 (unknown) (no date) (unknown) [facility]) Result panel 494 (unknown) (no date) (unknown) [facility]) Result panel 495 (unknown) (no date) (unknown) [facility]) Result panel 496 (unknown) (no date) (unknown) [facility]) Result panel 497 (unknown) (no date) (unknown) [facility]) Result panel 498 (unknown) (no date) (unknown) [facility]) Result panel 499 (unknown) (no date) (unknown) [facility]) Result panel 500 (unknown) (no date) (unknown) [facility]) Result panel 501 (unknown) (no date) (unknown) [facility]) Result panel 502 (unknown) (no date) (unknown) [facility]) Result panel 503 (unknown) (no date) (unknown) [facility]) Result panel 504 (unknown) (no date) (unknown) [facility]) Result panel 505 (unknown) (no date) (unknown) [facility]) Result panel 506 (unknown) (no date) (unknown) [facility]) Result panel 507 (unknown) (no date) (unknown) [facility]) Result panel 508 (unknown) (no date) (unknown) [facility]) Result panel 509 (unknown) (no date) (unknown) [facility]) Result panel 510 (unknown) (no date) (unknown) [facility]) Result panel 511 (unknown) (no date) (unknown) [facility]) Result panel 512 (unknown) (no date) (unknown) [facility]) Result panel 513 (unknown) (no (unknown) (unknown) (no value) (units (unk nown) date) unknown) (unknown) (no (unknown) (unknown) [id number] (units (unkn own) date) unknown) (unknown) (no (unknown) (unknown) 07/17/22 (units (unkno wn) date) unknown) (unknown) (no (unknown) (unknown) [address] [place] [address] (units (unknown) date) unknown) (unknown) (no (unknown) (unknown) 03/09/2022, 9:01. (units (unknown) date) unknown) (unknown) (no (unknown) (unknown) Accession Number: (units (unknown) date) [id number] unknown) (unknown) (no (unknown) (unknown) Age/Sex: 51 / F (units (unknown) date) Date of Service: unknown) (unknown) (no (unknown) (unknown) [facility] [place] (units ( unknown) date) [id number] unknown) (unknown) (no (unknown) (unknown) Approved by: (units (u nknown) date) devora Goodrich M.D. on 07/17/2022 at 18:00 (unknown) (no (unknown) (unknown) Bones and chest (units (unknown) date) wall: No unknown) suspicious bony lesions. Overlying soft tissues (unknown) (no (unknown) (unknown) CHEST 1V, (units (unkn own) date) 07/01/2019, 15:03. unknown) [facility], CT, CT ANGIO CHEST ABDOMEN (unknown) (no (unknown) (unknown) COMPARISON: (units (un known) date) [facility], unknown) CR, XR CHEST 1V, 03/09/2022, 8:25. [facility] ([facility] (no (unknown) (unknown) : 1970 (units (unknown) date) Acct:[id number] unknown) (unknown) (no (unknown) (unknown) Dictated by: (units (u nknown) date) Rudy Aden, unknownBrooke Merrill on 07/17/2022 at 17:59 (unknown) (no (unknown) (unknown) FINDINGS: (units (unkn own) date) unknown) (unknown) (no (unknown) (unknown) Hospital, CR, XR (units (unknown) date) unknown) (unknown) (no (unknown) (unknown) IMPRESSION: (units (un known) date) unknown) (unknown) (no (unknown) (unknown) INDICATIONS: (units (u nknown) date) chest pain unknown) (unknown) (no (unknown) (unknown) [facility] (units (unknown) date) unknown) (unknown) (no (unknown) (unknown) Loc: ED (units (unkno wn) date) unknown) (unknown) (no (unknown) (unknown) Lungs and pleura: (units (unknown) date) Lungs are clear. unknown) No pleural effusions or pneumothorax. (unknown) (no (unknown) (unknown) Mediastinum: (units (u nknown) date) Mediastinal unknown) contours appear normal. Heart size is normal. (unknown) (no (unknown) (unknown) No acute (units (unkno wn) date) cardiopulmonary unknown) process is seen. (unknown) (no (unknown) (unknown) Ordering (units (unkno wn) date) Provider: unknown) Marycruz Kim MD (unknown) (no (unknown) (unknown) PELVIS, (units (unkno wn) date) unknown) (unknown) (no (unknown) (unknown) PROCEDURE: XR (units ( unknown) date) CHEST 1V unknown) (unknown) (no (unknown) (unknown) Patient: (units (unkno wn) date) Nona Guzman unknown) MR#: [id number] (unknown) (no (unknown) (unknown) Procedure: XR (units ( unknown) date) chest 1V unknown) (unknown) (no (unknown) (unknown) Signed (units (unkno wn) date) unknown) (unknown) (no (unknown) (unknown) Surgical changes (units (unknown) date) and devices: Left unknown) upper quadrant postoperative change is (unknown) (no (unknown) (unknown) TECHNIQUE: One (units (unknown) date) view of the chest unknown) was acquired. (unknown) (no (unknown) (unknown) XRay Report (units (un known) date) unknown) (unknown) (no (unknown) (unknown) appear (units (unkno wn) date) unknown) (unknown) (no (unknown) (unknown) partially (units (unkn own) date) unknown) (unknown) (no (unknown) (unknown) seen. (units (unkno wn) date) unknown) (unknown) (no (unknown) (unknown) unremarkable. (units ( unknown) date) unknown) Result panel 514 (unknown) (no (unknown) (unknown) (no value) (units (unk nown) date) unknown) (unknown) (no (unknown) (unknown) 0.1 mg topical (units (unknown) date) QWEEK Qty: 4 2RF unknown) (unknown) (no (unknown) (unknown) [id number] (units (unkno wn) date) unknown) (unknown) (no (unknown) (unknown) 07/17/22 18:24 (units (unknown) date) unknown) (unknown) (no (unknown) (unknown) 07/17/22 (units (unkno wn) date) unknown) (unknown) (no (unknown) (unknown) 1 tab PO DAILY (units (unknown) date) Qty: 30 2RF unknown) (unknown) (no (unknown) (unknown) 12.5 mg PO BID (units (unknown) date) Qty: 60 1RF unknown) (unknown) (no (unknown) (unknown) 18:20 (units (unkno wn) date) unknown) (unknown) (no (unknown) (unknown) 18:24 (units (unkno wn) date) unknown) (unknown) (no (unknown) (unknown) 6.25 mg PO BID (units (unknown) date) Qty: 180 1RF unknown) (unknown) (no (unknown) (unknown) Age/Sex: 51 / F (units (unknown) date) unknown) (unknown) (no (unknown) (unknown) Allergies (units (unkn own) date) unknown) (unknown) (no (unknown) (unknown) Allergy/AdvReac (units (unknown) date) Type Severity unknown) Reaction Status Date / Time (unknown) (no (unknown) (unknown) Apply 1 patch, (units (unknown) date) once a week unknown) (unknown) (no (unknown) (unknown) BREATHING. (units (unk nown) date) unknown) (unknown) (no (unknown) (unknown) Blood Pressure (units (unknown) date) 202/89 H 07/17/22 unknown) 18:20 (unknown) (no (unknown) (unknown) Blood Pressure (units (unknown) date) 202/89 H unknown) (unknown) (no (unknown) (unknown) Chief complaint: (units (unknown) date) Hypertension unknown) (unknown) (no (unknown) (unknown) Complete Blood (units (unknown) date) Count AUTO DIFF unknown) Stat (unknown) (no (unknown) (unknown) Comprehensive (units ( unknown) date) Metabolic Panel unknown) Stat (unknown) (no (unknown) (unknown) Course (units (unkno wn) date) unknown) (unknown) (no (unknown) (unknown) : 1970 (units (unknown) date) Acct:[id number] unknown) (unknown) (no (unknown) (unknown) Date of Service: (units (unknown) date) 07/17/22 unknown) (unknown) (no (unknown) (unknown) Departure (units (unkn own) date) unknown) (unknown) (no (unknown) (unknown) Discharge Plan (units (unknown) date) unknown) (unknown) (no (unknown) (unknown) ED Orders (units (unkn own) date) unknown) (unknown) (no (unknown) (unknown) EKG-12 Lead Stat (units (unknown) date) unknown) (unknown) (no (unknown) (unknown) ER Physician: (units ( unknown) date) Marycruz Kim unknown) (unknown) (no (unknown) (unknown) Emergency Report (units (unknown) date) unknown) (unknown) (no (unknown) (unknown) Exam (units (unkno wn) date) unknown) (unknown) (no (unknown) (unknown) FACE, (units (unkno wn) date) unknown) (unknown) (no (unknown) (unknown) Fibromyalgia (units (u nknown) date) unknown) (unknown) (no (unknown) (unknown) General (units (unkno wn) date) unknown) (unknown) (no (unknown) (unknown) H/O gastric (units (un known) date) bypass unknown) (unknown) (no (unknown) (unknown) HIVES ALL (units (unkn own) date) unknown) (unknown) (no (unknown) (unknown) HPI - General (units ( unknown) date) Adult unknown) (unknown) (no (unknown) (unknown) History of (units (unk nown) date) prediabetes unknown) (unknown) (no (unknown) (unknown) Hypertension (units (u nknown) date) unknown) (unknown) (no (unknown) (unknown) Initial Vital (units ( unknown) date) Signs unknown) (unknown) (no (unknown) (unknown) Initial Vital (units ( unknown) date) Signs: unknown) (unknown) (no (unknown) (unknown) [facility] (units (unknown) date) [address] [place] [address] unknown) [place] [address] (unknown) (no (unknown) (unknown) Lipase Stat (units (un known) date) unknown) (unknown) (no (unknown) (unknown) Magnesium Stat (units (unknown) date) unknown) (unknown) (no (unknown) (unknown) Medical History (units (unknown) date) (Reviewed 06/04/22 unknown) @ 15:01 by Julio Sandoval DO) (unknown) (no (unknown) (unknown) Medication (units (unk nown) date) Instructions unknown) Recorded (unknown) (no (unknown) (unknown) Mode of arrival: (units (unknown) date) EMS unknown) (unknown) (no (unknown) (unknown) No Action (units (unkn own) date) unknown) (unknown) (no (unknown) (unknown) OVER. (units (unkno wn) date) unknown) (unknown) (no (unknown) (unknown) Ordered: (units (unkno wn) date) unknown) (unknown) (no (unknown) (unknown) Orders (units (unkno wn) date) unknown) (unknown) (no (unknown) (unknown) Oxygen Delivery (units (unknown) date) Method 07/17/22 unknown) 18:20 (unknown) (no (unknown) (unknown) Oxygen Delivery (units (unknown) date) Method Room Air unknown) (unknown) (no (unknown) (unknown) Partial (units (unkno wn) date) Thromboplastin unknown) Time Stat (unknown) (no (unknown) (unknown) Patient History (units (unknown) date) unknown) (unknown) (no (unknown) (unknown) Patient: (units (unkno wn) date) Nona Guzman unknown) MR#: [id number] (unknown) (no (unknown) (unknown) Penicillins (units (un known) date) [PENICILLINS] unknown) Allergy Intermediate RASH/ITCHING, Verified 07/17/22 (unknown) (no (unknown) (unknown) Julio Sandoval, (units (unknown) date) DO [Primary Care unknown) Provider] (unknown) (no (unknown) (unknown) Prescriptions: (units (unknown) date) unknown) (unknown) (no (unknown) (unknown) Previous Rx's (units ( unknown) date) unknown) (unknown) (no (unknown) (unknown) Prothrombin Time (units (unknown) date) INR Stat unknown) (unknown) (no (unknown) (unknown) Pulse Oximetry 99 (units (unknown) date) 07/17/22 18:20 unknown) (unknown) (no (unknown) (unknown) Pulse Oximetry 99 (units (unknown) date) unknown) (unknown) (no (unknown) (unknown) Pulse Rate 67 (units ( unknown) date) 07/17/22 18:20 unknown) (unknown) (no (unknown) (unknown) Pulse Rate 67 (units ( unknown) date) unknown) (unknown) (no (unknown) (unknown) Referrals: (units (unk nown) date) unknown) (unknown) (no (unknown) (unknown) Related Data (units (u nknown) date) unknown) (unknown) (no (unknown) (unknown) Respiratory Rate (units (unknown) date) 16 07/17/22 18:20 unknown) (unknown) (no (unknown) (unknown) Respiratory Rate (units (unknown) date) 16 unknown) (unknown) (no (unknown) (unknown) Rx Instructions: (units (unknown) date) unknown) (unknown) (no (unknown) (unknown) Signed By: (units (unk nown) date) unknown) (unknown) (no (unknown) (unknown) Smoking Status: (units (unknown) date) Current every day unknown) smoker (unknown) (no (unknown) (unknown) Social History (units (unknown) date) (Reviewed 03/09/22 unknown) @ 10:33 by Mariella Rico DO) (unknown) (no (unknown) (unknown) Source: patient (units (unknown) date) and EMS unknown) (unknown) (no (unknown) (unknown) Stated complaint: (units (unknown) date) Nausea and HTN unknown) (unknown) (no (unknown) (unknown) Substance Use (units ( unknown) date) Type: does not use unknown) (unknown) (no (unknown) (unknown) Surgical History (units (unknown) date) (Reviewed 06/04/22 unknown) @ 15:01 by Julio Sandoval DO) (unknown) (no (unknown) (unknown) THROAT (units (unkno wn) date) unknown) (unknown) (no (unknown) (unknown) TROUBLE (units (unkno wn) date) unknown) (unknown) (no (unknown) (unknown) Temperature 97.6 (units (unknown) date) F 07/17/22 18:20 unknown) (unknown) (no (unknown) (unknown) Temperature 97.6 (units (unknown) date) F unknown) (unknown) (no (unknown) (unknown) Time Seen by (units (u nknown) date) Provider: 07/17/22 unknown) 18:29 (unknown) (no (unknown) (unknown) Troponin + CK (units ( unknown) date) Cardiac Panel Stat unknown) (unknown) (no (unknown) (unknown) Vital Signs - 8 (units (unknown) date) hr unknown) (unknown) (no (unknown) (unknown) Vital Signs (units (un known) date) unknown) (unknown) (no (unknown) (unknown) Vital signs: (units (u nknown) date) unknown) (unknown) (no (unknown) (unknown) XR chest 1V Stat (units (unknown) date) unknown) (unknown) (no (unknown) (unknown) [DIPHENHYDRAMINE] (units (unknown) date) unknown) (unknown) (no (unknown) (unknown) [MAGNESIUM (units (unk nown) date) CITRATE] unknown) (unknown) (no (unknown) (unknown) alcohol intake (units (unknown) date) frequency: 0-2 unknown) drinks per day (unknown) (no (unknown) (unknown) amoxicillin (units (un known) date) [AMOXICILLIN] unknown) Allergy Severe SWELLING Verified 07/17/22 18:24 (unknown) (no (unknown) (unknown) carvedilol 12.5 (units (unknown) date) mg tablet 12.5 mg unknown) PO BID #60 tabs 07/17/22 (unknown) (no (unknown) (unknown) carvedilol 12.5 (units (unknown) date) mg tablet unknown) (unknown) (no (unknown) (unknown) carvedilol 6.25 (units (unknown) date) mg tablet 6.25 mg unknown) PO BID #180 tabs 05/14/22 (unknown) (no (unknown) (unknown) carvedilol 6.25 (units (unknown) date) mg tablet unknown) (unknown) (no (unknown) (unknown) diphenhydramine (units (unknown) date) Allergy Mild unknown) SWELLING. Verified 07/17/22 18:24 (unknown) (no (unknown) (unknown) estradiol 0.1 (units ( unknown) date) mg/24 hr patch unknown) weekly (unknown) (no (unknown) (unknown) estradiol 0.1 (units ( unknown) date) mg/24 hr weekly unknown) 0.1 mg topical QWEEK #4 ea 06/04/22 (unknown) (no (unknown) (unknown) latex [LATEX] (units ( unknown) date) Allergy Mild RASH unknown) Verified 07/17/22 18:24 (unknown) (no (unknown) (unknown) losartan 100 1 (units (unknown) date) tab PO DAILY #30 unknown) tabs 06/03/22 (unknown) (no (unknown) (unknown) losartan-hydrochl (units (unknown) date) orothiazide 100-25 unknown) mg tablet (unknown) (no (unknown) (unknown) magnesium citrate (units (unknown) date) AdvReac Unknown unknown) VOMITING Verified 07/17/22 18:24 (unknown) (no (unknown) (unknown) mg-hydrochlorothi (units (unknown) date) azide 25 mg tablet unknown) (unknown) (no (unknown) (unknown) must administer (units (unknown) date) with a meal/food unknown) (unknown) (no (unknown) (unknown) transdermal patch (units (unknown) date) unknown) Result panel 515 (unknown) (no (unknown) (unknown) (no value) (units (unk nown) date) unknown) (unknown) (no (unknown) (unknown) [id number] (units (unkn own) date) unknown) (unknown) (no (unknown) (unknown) 07/17/22 (units (unkno wn) date) unknown) (unknown) (no (unknown) (unknown) [address] [place] [address] (units (unknown) date) unknown) (unknown) (no (unknown) (unknown) 9:01. (units (unkno wn) date) unknown) (unknown) (no (unknown) (unknown) Accession Number: (units (unknown) date) [id number] unknown) (unknown) (no (unknown) (unknown) Accession Number: (units (unknown) date) [id number] unknown) (unknown) (no (unknown) (unknown) After the (units (unkn own) date) administration of unknown) intravenous contrast, 2.5 mm thick sections (unknown) (no (unknown) (unknown) Age/Sex: 51 / F (units (unknown) date) Date of Service: unknown) (unknown) (no (unknown) (unknown) [facility] (units ( unknown) date) [id number] unknown) (unknown) (no (unknown) (unknown) Approved by: (units (u nknown) date) Poncho Headley M.D. on unknown) 07/17/2022 at 19:58 (unknown) (no (unknown) (unknown) Approved by: (units (u nknown) date) Poncho Headley M.D. on unknown) 07/17/2022 at 20:11 (unknown) (no (unknown) (unknown) Body wall: (units (unk nown) date) Unremarkable unknown) (unknown) (no (unknown) (unknown) Bones: No acute (units (unknown) date) or suspicious unknown) osseous abnormality. (unknown) (no (unknown) (unknown) Bowel and (units (unkn own) date) peritoneum: No unknown) pathologic adenopathy by size criteria. (unknown) (no (unknown) (unknown) Brain: Stable (units ( unknown) date) hypoattenuating unknown) focus adjacent to the left lateral ventricle (unknown) (no (unknown) (unknown) COMPARISON: (units (un known) date) [facility], unknown) CT, CT ANGIO CHEST ABDOMEN PELVIS, 03/09/2022, (unknown) (no (unknown) (unknown) COMPARISON: (units (un known) date) [facility], unknown) CT, HEAD WITHOUT CONTRAST, 02/25/2017, 14:59. (unknown) (no (unknown) (unknown) CSF spaces: Basal (units (unknown) date) cisterns are unknown) patent. Lateral ventricles are symmetric. (unknown) (no (unknown) (unknown) CT Scan Report (units (unknown) date) unknown) (unknown) (no (unknown) (unknown) Craniofacial (units (u nknown) date) structures: Mild unknown) paranasal sinus opacification. (unknown) (no (unknown) (unknown) : 1970 (units (unknown) date) Acct:[id number] unknown) (unknown) (no (unknown) (unknown) Dictated by: (units (u nknown) date) Poncho Headley M.D. on unknown) 07/17/2022 at 19:55 (unknown) (no (unknown) (unknown) Dictated by: (units (u nknown) date) Poncho Headley M.D. on unknown) 07/17/2022 at 20:04 (unknown) (no (unknown) (unknown) FINDINGS: (units (unkn own) date) unknown) (unknown) (no (unknown) (unknown) IMPRESSION: No (units (unknown) date) acute unknown) abdominopelvic pathology. No evidence of aneurysm, (unknown) (no (unknown) (unknown) IMPRESSION: No (units (unknown) date) acute intracranial unknown) abnormality. (unknown) (no (unknown) (unknown) INDICATIONS: (units (u nknown) date) hypertensive unknown) crisis with headache, prior bleed with similar (unknown) (no (unknown) (unknown) INDICATIONS: (units (u nknown) date) hypertensive unknown) emergency with severe mediastinal pain (unknown) (no (unknown) (unknown) Image quality: (units (unknown) date) Good unknown) (unknown) (no (unknown) (unknown) [facility] (units (unknown) date) unknown) (unknown) (no (unknown) (unknown) Loc: ED (units (unkno wn) date) unknown) (unknown) (no (unknown) (unknown) Lower chest: (units (u nknown) date) Unremarkable. unknown) Postsurgical bypass changes of the stomach and (unknown) (no (unknown) (unknown) No hydronephrosis (units (unknown) date) unknown) (unknown) (no (unknown) (unknown) Noncontrast 4.5 (units (unknown) date) mm thick angled unknown) axial sections acquired from the foramen magnum (unknown) (no (unknown) (unknown) Ordering (units (unkno wn) date) Provider: unknown) Marycruz Kim MD (unknown) (no (unknown) (unknown) PROCEDURE: CT (units ( unknown) date) ANGIO ABDOMEN unknown) PELVIS (unknown) (no (unknown) (unknown) PROCEDURE: CT (units ( unknown) date) HEAD/BRAIN WO CON unknown) (unknown) (no (unknown) (unknown) Patient: (units (unkno wn) date) Nona Guzman unknown) MR#: [id number] (unknown) (no (unknown) (unknown) Pelvis: There is (units (unknown) date) air at the vaginal unknown) cuff, of uncertain etiology. Pelvis is (unknown) (no (unknown) (unknown) Procedure: CT (units ( unknown) date) angio abdomen unknown) pelvis (unknown) (no (unknown) (unknown) Procedure: CT (units ( unknown) date) head/brain wo con unknown) (unknown) (no (unknown) (unknown) Signed (units (unkno wn) date) unknown) (unknown) (no (unknown) (unknown) Solid organs: (units ( unknown) date) Mild hepatic unknown) steatosis. Gallbladder is absent. No (unknown) (no (unknown) (unknown) TECHNIQUE: (units (unk nown) date) unknown) (unknown) (no (unknown) (unknown) The (units (unkno wn) date) unknown) (unknown) (no (unknown) (unknown) Vessels and lymph (units (unknown) date) nodes: No unknown) dissection, aneurysm. No high-grade stenosis. (unknown) (no (unknown) (unknown) Volume: Minimal (units (unknown) date) volume loss unknown) (unknown) (no (unknown) (unknown) acquired from the (units (unknown) date) unknown) (unknown) (no (unknown) (unknown) acquired. For (units ( unknown) date) radiation dose unknown) reduction, the following was used: automated (unknown) (no (unknown) (unknown) adenomatous (units (un known) date) unknown) (unknown) (no (unknown) (unknown) artery partially (units (unknown) date) seen may be unknown) iatrogenic, trace volume. (unknown) (no (unknown) (unknown) control. (units (unkno wn) date) unknown) (unknown) (no (unknown) (unknown) diaphragm to the (units (unknown) date) symphysis. 10 mm unknown) maximum-intensity projection (MIP) reformats (unknown) (no (unknown) (unknown) disease. The (units (u nknown) date) unknown) (unknown) (no (unknown) (unknown) dissection, or (units (unknown) date) unknown) (unknown) (no (unknown) (unknown) esophagus, (units (unk nown) date) unknown) (unknown) (no (unknown) (unknown) evaluated on CT. (units (unknown) date) Bladder is unknown) unremarkable. (unknown) (no (unknown) (unknown) exposure (units (unkno wn) date) unknown) (unknown) (no (unknown) (unknown) following (units (unkn own) date) unknown) (unknown) (no (unknown) (unknown) high-grade (units (unk nown) date) stenosis. Other unknown) findings as above. (unknown) (no (unknown) (unknown) mesenteric (units (unk nown) date) vessels and renal unknown) arteries are patent. Mild atherosclerotic (unknown) (no (unknown) (unknown) not well (units (unkno wn) date) unknown) (unknown) (no (unknown) (unknown) pathologic (units (unk nown) date) dilation of the unknown) biliary tree or pancreatic duct. Left adrenal (unknown) (no (unknown) (unknown) patient (units (unkno wn) date) unknown) (unknown) (no (unknown) (unknown) possibly a (units (unk nown) date) unknown) (unknown) (no (unknown) (unknown) prior infarct or (units (unknown) date) perivascular unknown) space. No acute hemorrhage. (unknown) (no (unknown) (unknown) pulmonary (units (unkn own) date) unknown) (unknown) (no (unknown) (unknown) renal cysts. (units (u nknown) date) unknown) (unknown) (no (unknown) (unknown) size. (units (unkno wn) date) unknown) (unknown) (no (unknown) (unknown) splenomegaly. No (units (unknown) date) unknown) (unknown) (no (unknown) (unknown) thickening, as (units (unknown) date) before. No unknown) hydronephrosis. Possible small left parapelvic (unknown) (no (unknown) (unknown) to the (units (unkno wn) date) unknown) (unknown) (no (unknown) (unknown) veins and portal (units (unknown) date) system are not unknown) well evaluated on this study. Air in the main (unknown) (no (unknown) (unknown) vertex, with (units (u nknown) date) coronal and unknown) sagittal reformats. For radiation dose reduction, the (unknown) (no (unknown) (unknown) was used: (units (unkn own) date) automated exposure unknown) control, adjustment of mA and/or kV according to (unknown) (no (unknown) (unknown) were then (units (unkn own) date) unknown) (unknown) (no (unknown) (unknown) with hiatal (units (un known) date) hernia unknown) Result panel 516 (unknown) (no (unknown) (unknown) (no value) (units (unk nown) date) unknown) (unknown) (no (unknown) (unknown) 0.1 mg topical (units (unknown) date) QWEEK Qty: 4 2RF unknown) (unknown) (no (unknown) (unknown) [id number] (units (unkno wn) date) unknown) (unknown) (no (unknown) (unknown) 07/17/22 18:24 (units (unknown) date) unknown) (unknown) (no (unknown) (unknown) 07/17/22 18:49 (units (unknown) date) unknown) (unknown) (no (unknown) (unknown) 07/17/22 (units (unkno wn) date) unknown) (unknown) (no (unknown) (unknown) 1 tab PO DAILY (units (unknown) date) Qty: 30 2RF unknown) (unknown) (no (unknown) (unknown) 12.5 mg PO BID (units (unknown) date) Qty: 60 1RF unknown) (unknown) (no (unknown) (unknown) 18:20 07/17/22 (units (unknown) date) unknown) (unknown) (no (unknown) (unknown) 18:24 (units (unkno wn) date) unknown) (unknown) (no (unknown) (unknown) 18:43 (units (unkno wn) date) unknown) (unknown) (no (unknown) (unknown) 6.25 mg PO BID (units (unknown) date) Qty: 180 1RF unknown) (unknown) (no (unknown) (unknown) Acetaminophen (units ( unknown) date) (Acetaminophen 325 unknown) Mg Tablet) 975 mg PO NOW ONE (unknown) (no (unknown) (unknown) Age/Sex: 51 / F (units (unknown) date) unknown) (unknown) (no (unknown) (unknown) Allergies (units (unkn own) date) unknown) (unknown) (no (unknown) (unknown) Allergy/AdvReac (units (unknown) date) Type Severity unknown) Reaction Status Date / Time (unknown) (no (unknown) (unknown) Apply 1 patch, (units (unknown) date) once a week unknown) (unknown) (no (unknown) (unknown) BREATHING. (units (unk nown) date) unknown) (unknown) (no (unknown) (unknown) Blood Pressure (units (unknown) date) 202/89 H 07/17/22 unknown) 18:20 (unknown) (no (unknown) (unknown) Blood Pressure (units (unknown) date) 202/89 H 202/89 H unknown) (unknown) (no (unknown) (unknown) Chief complaint: (units (unknown) date) Hypertension unknown) (unknown) (no (unknown) (unknown) Complete Blood (units (unknown) date) Count AUTO DIFF unknown) Stat (unknown) (no (unknown) (unknown) Comprehensive (units ( unknown) date) Metabolic Panel unknown) Stat (unknown) (no (unknown) (unknown) Course (units (unkno wn) date) unknown) (unknown) (no (unknown) (unknown) : 1970 (units (unknown) date) Acct:[id number] unknown) (unknown) (no (unknown) (unknown) Date of Service: (units (unknown) date) 07/17/22 unknown) (unknown) (no (unknown) (unknown) Departure (units (unkn own) date) unknown) (unknown) (no (unknown) (unknown) Discharge Plan (units (unknown) date) unknown) (unknown) (no (unknown) (unknown) Discontinued (units (u nknown) date) Medications unknown) (unknown) (no (unknown) (unknown) ED Orders (units (unkn own) date) unknown) (unknown) (no (unknown) (unknown) EKG-12 Lead Stat (units (unknown) date) unknown) (unknown) (no (unknown) (unknown) ER Physician: (units ( unknown) date) Marycruz Kim unknown) (unknown) (no (unknown) (unknown) Emergency Report (units (unknown) date) unknown) (unknown) (no (unknown) (unknown) Exam (units (unkno wn) date) unknown) (unknown) (no (unknown) (unknown) FACE, (units (unkno wn) date) unknown) (unknown) (no (unknown) (unknown) Fibromyalgia (units (u nknown) date) unknown) (unknown) (no (unknown) (unknown) General (units (unkno wn) date) unknown) (unknown) (no (unknown) (unknown) H/O gastric (units (un known) date) bypass unknown) (unknown) (no (unknown) (unknown) HIVES ALL (units (unkn own) date) unknown) (unknown) (no (unknown) (unknown) HPI - General (units ( unknown) date) Adult unknown) (unknown) (no (unknown) (unknown) History of (units (unk nown) date) prediabetes unknown) (unknown) (no (unknown) (unknown) Hypertension (units (u nknown) date) unknown) (unknown) (no (unknown) (unknown) Initial Vital (units ( unknown) date) Signs unknown) (unknown) (no (unknown) (unknown) Initial Vital (units ( unknown) date) Signs: unknown) (unknown) (no (unknown) (unknown) [facility] (units (unknown) date) [address] [place] [address] unknown) [place] [address] (unknown) (no (unknown) (unknown) Lab Data (units (unkno wn) date) unknown) (unknown) (no (unknown) (unknown) Last Admin: (units (un known) date) 07/17/22 18:43 unknown) Dose: 4 mg (unknown) (no (unknown) (unknown) Last Admin: (units (un known) date) 07/17/22 18:43 unknown) Dose: 50 mg (unknown) (no (unknown) (unknown) Last Admin: (units (un known) date) 07/17/22 18:43 unknown) Dose: 975 mg (unknown) (no (unknown) (unknown) Lipase Stat (units (un known) date) unknown) (unknown) (no (unknown) (unknown) Losartan (units (unkno wn) date) Potassium unknown) (Losartan 50 Mg Tablet) 50 mg PO NOW ONE (unknown) (no (unknown) (unknown) Magnesium Stat (units (unknown) date) unknown) (unknown) (no (unknown) (unknown) Medical Decision (units (unknown) date) Making unknown) (unknown) (no (unknown) (unknown) Medical History (units (unknown) date) (Reviewed 06/04/22 unknown) @ 15:01 by Julio Sandoval DO) (unknown) (no (unknown) (unknown) Medication (units (unk nown) date) Instructions unknown) Recorded (unknown) (no (unknown) (unknown) Mode of arrival: (units (unknown) date) EMS unknown) (unknown) (no (unknown) (unknown) No Action (units (unkn own) date) unknown) (unknown) (no (unknown) (unknown) OVER. (units (unkno wn) date) unknown) (unknown) (no (unknown) (unknown) Ondansetron HCl (units (unknown) date) (Ondansetron 4 unknown) Mg/2 Ml Inj) 4 mg IV NOW ONE (unknown) (no (unknown) (unknown) Ordered: (units (unkno wn) date) unknown) (unknown) (no (unknown) (unknown) Orders (units (unkno wn) date) unknown) (unknown) (no (unknown) (unknown) Oxygen Delivery (units (unknown) date) Method 07/17/22 unknown) 18:20 (unknown) (no (unknown) (unknown) Oxygen Delivery (units (unknown) date) Method Room Air unknown) (unknown) (no (unknown) (unknown) Partial (units (unkno wn) date) Thromboplastin unknown) Time Stat (unknown) (no (unknown) (unknown) Patient History (units (unknown) date) unknown) (unknown) (no (unknown) (unknown) Patient: (units (unkno wn) date) Nona Guzman unknown) MR#: [id number] (unknown) (no (unknown) (unknown) Penicillins (units (un known) date) [PENICILLINS] unknown) Allergy Intermediate RASH/ITCHING, Verified 07/17/22 (unknown) (no (unknown) (unknown) Julio Sandoval, (units (unknown) date) [Primary Care unknown) Provider] (unknown) (no (unknown) (unknown) Prescriptions: (units (unknown) date) unknown) (unknown) (no (unknown) (unknown) Previous Rx's (units ( unknown) date) unknown) (unknown) (no (unknown) (unknown) Prothrombin Time (units (unknown) date) INR Stat unknown) (unknown) (no (unknown) (unknown) Pulse Oximetry 99 (units (unknown) date) 07/17/22 18:20 unknown) (unknown) (no (unknown) (unknown) Pulse Oximetry 99 (units (unknown) date) unknown) (unknown) (no (unknown) (unknown) Pulse Rate 67 (units ( unknown) date) 07/17/22 18:20 unknown) (unknown) (no (unknown) (unknown) Pulse Rate 67 (units ( unknown) date) unknown) (unknown) (no (unknown) (unknown) Referrals: (units (unk nown) date) unknown) (unknown) (no (unknown) (unknown) Related Data (units (u nknown) date) unknown) (unknown) (no (unknown) (unknown) Respiratory Rate (units (unknown) date) 16 07/17/22 18:20 unknown) (unknown) (no (unknown) (unknown) Respiratory Rate (units (unknown) date) 16 unknown) (unknown) (no (unknown) (unknown) Rx Instructions: (units (unknown) date) unknown) (unknown) (no (unknown) (unknown) Signed By: (units (unk nown) date) unknown) (unknown) (no (unknown) (unknown) Smoking Status: (units (unknown) date) Current every day unknown) smoker (unknown) (no (unknown) (unknown) Social History (units (unknown) date) (Reviewed 03/09/22 unknown) @ 10:33 by Mariella Rico DO) (unknown) (no (unknown) (unknown) Source: patient (units (unknown) date) and EMS unknown) (unknown) (no (unknown) (unknown) Stated complaint: (units (unknown) date) Nausea and HTN unknown) (unknown) (no (unknown) (unknown) Stop: 07/17/22 (units (unknown) date) 18:31 unknown) (unknown) (no (unknown) (unknown) Substance Use (units ( unknown) date) Type: does not use unknown) (unknown) (no (unknown) (unknown) Surgical History (units (unknown) date) (Reviewed 06/04/22 unknown) @ 15:01 by Julio Sandoval DO) (unknown) (no (unknown) (unknown) THROAT (units (unkno wn) date) unknown) (unknown) (no (unknown) (unknown) TROUBLE (units (unkno wn) date) unknown) (unknown) (no (unknown) (unknown) Temperature 97.6 (units (unknown) date) F 07/17/22 18:20 unknown) (unknown) (no (unknown) (unknown) Temperature 97.6 (units (unknown) date) F unknown) (unknown) (no (unknown) (unknown) Time Seen by (units (u nknown) date) Provider: 07/17/22 unknown) 18:29 (unknown) (no (unknown) (unknown) Troponin + CK (units ( unknown) date) Cardiac Panel Stat unknown) (unknown) (no (unknown) (unknown) Vital Signs - 8 (units (unknown) date) hr unknown) (unknown) (no (unknown) (unknown) Vital Signs (units (un known) date) unknown) (unknown) (no (unknown) (unknown) Vital signs: (units (u nknown) date) unknown) (unknown) (no (unknown) (unknown) XR chest 1V Stat (units (unknown) date) unknown) (unknown) (no (unknown) (unknown) [DIPHENHYDRAMINE] (units (unknown) date) unknown) (unknown) (no (unknown) (unknown) [Embedded Image (units (unknown) date) Not Available] unknown) (unknown) (no (unknown) (unknown) [MAGNESIUM (units (unk nown) date) CITRATE] unknown) (unknown) (no (unknown) (unknown) alcohol intake (units (unknown) date) frequency: 0-2 unknown) drinks per day (unknown) (no (unknown) (unknown) amoxicillin (units (un known) date) [AMOXICILLIN] unknown) Allergy Severe SWELLING Verified 07/17/22 18:24 (unknown) (no (unknown) (unknown) carvedilol 12.5 (units (unknown) date) mg tablet 12.5 mg unknown) PO BID #60 tabs 07/17/22 (unknown) (no (unknown) (unknown) carvedilol 12.5 (units (unknown) date) mg tablet unknown) (unknown) (no (unknown) (unknown) carvedilol 6.25 (units (unknown) date) mg tablet 6.25 mg unknown) PO BID #180 tabs 05/14/22 (unknown) (no (unknown) (unknown) carvedilol 6.25 (units (unknown) date) mg tablet unknown) (unknown) (no (unknown) (unknown) diphenhydramine (units (unknown) date) Allergy Mild unknown) SWELLING. Verified 07/17/22 18:24 (unknown) (no (unknown) (unknown) estradiol 0.1 (units ( unknown) date) mg/24 hr patch unknown) weekly (unknown) (no (unknown) (unknown) estradiol 0.1 (units ( unknown) date) mg/24 hr weekly unknown) 0.1 mg topical QWEEK #4 ea 06/04/22 (unknown) (no (unknown) (unknown) latex [LATEX] (units ( unknown) date) Allergy Mild RASH unknown) Verified 07/17/22 18:24 (unknown) (no (unknown) (unknown) losartan 100 1 (units (unknown) date) tab PO DAILY #30 unknown) tabs 06/03/22 (unknown) (no (unknown) (unknown) losartan-hydrochl (units (unknown) date) orothiazide 100-25 unknown) mg tablet (unknown) (no (unknown) (unknown) magnesium citrate (units (unknown) date) AdvReac Unknown unknown) VOMITING Verified 07/17/22 18:24 (unknown) (no (unknown) (unknown) mg-hydrochlorothi (units (unknown) date) azide 25 mg tablet unknown) (unknown) (no (unknown) (unknown) must administer (units (unknown) date) with a meal/food unknown) (unknown) (no (unknown) (unknown) transdermal patch (units (unknown) date) unknown) Result panel 517 (unknown) (no date) (unknown) (unknown) 0.7 % (unkn own) (unknown) (no date) (unknown) (unknown) 0.8 % (unkn own) (unknown) (no date) (unknown) (unknown) 100 /ul (unkn own) (unknown) (no date) (unknown) (unknown) 100 /ul (unkn own) (unknown) (no date) (unknown) (unknown) 14.0 g/dl (unkn own) (unknown) (no date) (unknown) (unknown) 14.2 % (unkn own) (unknown) (no date) (unknown) (unknown) 1900 /ul (unkn own) (unknown) (no date) (unknown) (unknown) 229 x10 3/ul (unkn own) (unknown) (no date) (unknown) (unknown) 23.2 % (unkn own) (unknown) (no date) (unknown) (unknown) 30.8 pg (unkn own) (unknown) (no date) (unknown) (unknown) 33.3 % (unkn own) (unknown) (no date) (unknown) (unknown) 4.56 x10 6/ul (unkn own) (unknown) (no date) (unknown) (unknown) 400 /ul (unkn own) (unknown) (no date) (unknown) (unknown) 42.1 % (unkn own) (unknown) (no date) (unknown) (unknown) 5.4 % (unkn own) (unknown) (no date) (unknown) (unknown) 5700 /ul (unkn own) (unknown) (no date) (unknown) (unknown) 69.9 % (unkn own) (unknown) (no date) (unknown) (unknown) 8.1 x10 3/ul (unkn own) (unknown) (no date) (unknown) (unknown) 92.5 fl (unkn own) Result panel 518 (unknown) (no date) (unknown) (unknown) > 60 ml/min (unkn own) (unknown) (no date) (unknown) (unknown) > 60 ml/min (unkn own) (unknown) (no date) (unknown) (unknown) 0.7 mg/dl (unkn own) (unknown) (no date) (unknown) (unknown) 0.74 mg/dl (unkn own) (unknown) (no date) (unknown) (unknown) 1.3 (units (unkn own) unknown) (unknown) (no date) (unknown) (unknown) 100 u/l (unkn own) (unknown) (no date) (unknown) (unknown) 104 mmol/l (unkn own) (unknown) (no date) (unknown) (unknown) 139 mmol/l (unkn own) (unknown) (no date) (unknown) (unknown) 185 u/l (unkn own) (unknown) (no date) (unknown) (unknown) 19 mg/dl (unkn own) (unknown) (no date) (unknown) (unknown) 2.0 mg/dl (unkn own) (unknown) (no date) (unknown) (unknown) 24 iu/l (unkn own) (unknown) (no date) (unknown) (unknown) 25.7 (units (unkn own) unknown) (unknown) (no date) (unknown) (unknown) 28 mmol/l (unkn own) (unknown) (no date) (unknown) (unknown) 3.1 g/dl (unkn own) (unknown) (no date) (unknown) (unknown) 3.7 mmol/l (unkn own) (unknown) (no date) (unknown) (unknown) 30 iu/l (unkn own) (unknown) (no date) (unknown) (unknown) 35 u/l (unkn own) (unknown) (no date) (unknown) (unknown) 4.1 g/dl (unkn own) (unknown) (no date) (unknown) (unknown) 7.2 g/dl (unkn own) (unknown) (no date) (unknown) (unknown) 9.2 mg/dl (unkn own) (unknown) (no date) (unknown) (unknown) 91 mg/dl (unkn own) (unknown) (no date) (unknown) (unknown) 91 mg/dl (unkn own) (unknown) (no date) (unknown) (unknown) Test not % (unkn own) performed (unknown) (no date) (unknown) (unknown) Test not % (unkn own) performed (unknown) (no date) (unknown) (unknown) Test not ng/ml (unkn own) performed (unknown) (no date) (unknown) (unknown) Test not ng/ml (unkn own) performed Result panel 519 (unknown) (no date) (unknown) (unknown) > 60 ml/min (unkn own) (unknown) (no date) (unknown) (unknown) > 60 ml/min (unkn own) (unknown) (no date) (unknown) (unknown) < 0.012 ng/ml (unkn own) (unknown) (no date) (unknown) (unknown) < 0.012 ng/ml (unkn own) (unknown) (no date) (unknown) (unknown) 0.7 mg/dl (unkn own) (unknown) (no date) (unknown) (unknown) 0.74 mg/dl (unkn own) (unknown) (no date) (unknown) (unknown) 1.3 (units (unkn own) unknown) (unknown) (no date) (unknown) (unknown) 100 u/l (unkn own) (unknown) (no date) (unknown) (unknown) 104 mmol/l (unkn own) (unknown) (no date) (unknown) (unknown) 139 mmol/l (unkn own) (unknown) (no date) (unknown) (unknown) 185 u/l (unkn own) (unknown) (no date) (unknown) (unknown) 19 mg/dl (unkn own) (unknown) (no date) (unknown) (unknown) 2.0 mg/dl (unkn own) (unknown) (no date) (unknown) (unknown) 24 iu/l (unkn own) (unknown) (no date) (unknown) (unknown) 25.7 (units (unkn own) unknown) (unknown) (no date) (unknown) (unknown) 28 mmol/l (unkn own) (unknown) (no date) (unknown) (unknown) 3.1 g/dl (unkn own) (unknown) (no date) (unknown) (unknown) 3.7 mmol/l (unkn own) (unknown) (no date) (unknown) (unknown) 30 iu/l (unkn own) (unknown) (no date) (unknown) (unknown) 35 u/l (unkn own) (unknown) (no date) (unknown) (unknown) 4.1 g/dl (unkn own) (unknown) (no date) (unknown) (unknown) 7.2 g/dl (unkn own) (unknown) (no date) (unknown) (unknown) 9.2 mg/dl (unkn own) (unknown) (no date) (unknown) (unknown) 91 mg/dl (unkn own) (unknown) (no date) (unknown) (unknown) 91 mg/dl (unkn own) (unknown) (no date) (unknown) (unknown) Test not % (unkn own) performed (unknown) (no date) (unknown) (unknown) Test not % (unkn own) performed (unknown) (no date) (unknown) (unknown) Test not ng/ml (unkn own) performed (unknown) (no date) (unknown) (unknown) Test not ng/ml (unkn own) performed Result panel 520 (unknown) (no date) (unknown) (unknown) 0.9 (units unknown) (unknown) (unknown) (no date) (unknown) (unknown) 10.7 seconds (unkn own) (unknown) (no date) (unknown) (unknown) 32 seconds (unkn own) (unknown) (no date) (unknown) (unknown) 32 seconds (unkn own) Result panel 521 (unknown) (no (unknown) (unknown) (no value) (units (unk nown) date) unknown) (unknown) (no (unknown) (unknown) 0.1 mg topical (units (unknown) date) QWEEK Qty: 4 2RF unknown) (unknown) (no (unknown) (unknown) [id number] (units (unkno wn) date) unknown) (unknown) (no (unknown) (unknown) 07/17/22 07/17/22 (units (unknown) date) 07/17/22 unknown) Range/Units (unknown) (no (unknown) (unknown) 07/17/22 18:24 (units (unknown) date) unknown) (unknown) (no (unknown) (unknown) 07/17/22 18:49 (units (unknown) date) unknown) (unknown) (no (unknown) (unknown) 07/17/22 19:01 (units (unknown) date) unknown) (unknown) (no (unknown) (unknown) 07/17/22 19:02 (units (unknown) date) unknown) (unknown) (no (unknown) (unknown) 07/17/22 (units (unkno wn) date) unknown) (unknown) (no (unknown) (unknown) 1 tab PO DAILY (units (unknown) date) Qty: 30 2RF unknown) (unknown) (no (unknown) (unknown) 12.5 mg PO BID (units (unknown) date) Qty: 60 1RF unknown) (unknown) (no (unknown) (unknown) 18:20 07/17/22 (units (unknown) date) unknown) (unknown) (no (unknown) (unknown) 18:24 (units (unkno wn) date) unknown) (unknown) (no (unknown) (unknown) 18:38 (units (unkno wn) date) unknown) (unknown) (no (unknown) (unknown) 18:43 07/17/22 (units (unknown) date) unknown) (unknown) (no (unknown) (unknown) 18:49 07/17/22 (units (unknown) date) unknown) (unknown) (no (unknown) (unknown) 18:49 18:49 18:49 (units (unknown) date) unknown) (unknown) (no (unknown) (unknown) 19:00 07/17/22 (units (unknown) date) unknown) (unknown) (no (unknown) (unknown) 19:00 (units (unkno wn) date) unknown) (unknown) (no (unknown) (unknown) 19:09 07/17/22 (units (unknown) date) unknown) (unknown) (no (unknown) (unknown) 19:09 (units (unkno wn) date) unknown) (unknown) (no (unknown) (unknown) 6.25 mg PO BID (units (unknown) date) Qty: 180 1RF unknown) (unknown) (no (unknown) (unknown) ALT 30 (<35) IU/L (units (unknown) date) unknown) (unknown) (no (unknown) (unknown) APTT 32 (26-36) (units (unknown) date) SECONDS unknown) (unknown) (no (unknown) (unknown) AST 24 (14-36) (units (unknown) date) IU/L unknown) (unknown) (no (unknown) (unknown) Acetaminophen (units ( unknown) date) (Acetaminophen 325 unknown) Mg Tablet) 975 mg PO NOW ONE (unknown) (no (unknown) (unknown) Age/Sex: 51 / F (units (unknown) date) unknown) (unknown) (no (unknown) (unknown) Albumin 4.1 (units (un known) date) (3.5-5.0) g/dL unknown) (unknown) (no (unknown) (unknown) Albumin/Globulin (units (unknown) date) Ratio 1.3 unknown) (1.0-2.8) (unknown) (no (unknown) (unknown) Alkaline (units (unkno wn) date) Phosphatase 100 unknown) (38-126) U/L (unknown) (no (unknown) (unknown) Allergies (units (unkn own) date) unknown) (unknown) (no (unknown) (unknown) Allergy/AdvReac (units (unknown) date) Type Severity unknown) Reaction Status Date / Time (unknown) (no (unknown) (unknown) Apply 1 patch, (units (unknown) date) once a week unknown) (unknown) (no (unknown) (unknown) BREATHING. (units (unk nown) date) unknown) (unknown) (no (unknown) (unknown) BUN 19 H (7-17) (units (unknown) date) mg/dL unknown) (unknown) (no (unknown) (unknown) BUN/Creatinine (units (unknown) date) Ratio 25.7 H unknown) (6-22) (unknown) (no (unknown) (unknown) Baso # (Auto) 100 (units (unknown) date) (0-100) /uL unknown) (unknown) (no (unknown) (unknown) Baso % (Auto) 0.8 (units (unknown) date) (0-2) % unknown) (unknown) (no (unknown) (unknown) Blood Pressure (units (unknown) date) 202/79 H unknown) (unknown) (no (unknown) (unknown) Blood Pressure (units (unknown) date) 202/89 H /09/03 unknown) 18:20 (unknown) (no (unknown) (unknown) Blood Pressure (units (unknown) date) 202/89 H 202/89 H unknown) (unknown) (no (unknown) (unknown) Blood Pressure (units (unknown) date) 218/93 H 208/93 H unknown) (unknown) (no (unknown) (unknown) CK-MB (CK-2) Rel (units (unknown) date) Index TNP unknown) (unknown) (no (unknown) (unknown) CK-MB (CK-2) TNP (units (unknown) date) unknown) (unknown) (no (unknown) (unknown) COVID19 -Nasal (units (unknown) date) RAPID/Pre-Proc unknown) Stat (unknown) (no (unknown) (unknown) CT angio abdomen (units (unknown) date) pelvis Stat unknown) (unknown) (no (unknown) (unknown) CT head/brain wo (units (unknown) date) con Stat unknown) (unknown) (no (unknown) (unknown) Calcium 9.2 (units (un known) date) (8.4-10.2) mg/dL unknown) (unknown) (no (unknown) (unknown) Carbon Dioxide 28 (units (unknown) date) (22-32) mmol/L unknown) (unknown) (no (unknown) (unknown) Chief complaint: (units (unknown) date) Hypertension unknown) (unknown) (no (unknown) (unknown) Chloride 104 (units (u nknown) date) (98-107) mmol/L unknown) (unknown) (no (unknown) (unknown) Complete Blood (units (unknown) date) Count AUTO DIFF unknown) Stat (unknown) (no (unknown) (unknown) Comprehensive (units ( unknown) date) Metabolic Panel unknown) Stat (unknown) (no (unknown) (unknown) Course (units (unkno wn) date) unknown) (unknown) (no (unknown) (unknown) Creatinine 0.74 (units (unknown) date) (0.52-1.04) mg/dL unknown) (unknown) (no (unknown) (unknown) : 1970 (units (unknown) date) Acct:[id number] unknown) (unknown) (no (unknown) (unknown) Date of Service: (units (unknown) date) 07/17/22 unknown) (unknown) (no (unknown) (unknown) Departure (units (unkn own) date) unknown) (unknown) (no (unknown) (unknown) Discharge Plan (units (unknown) date) unknown) (unknown) (no (unknown) (unknown) Discontinued (units (u nknown) date) Medications unknown) (unknown) (no (unknown) (unknown) ED Orders (units (unkn own) date) unknown) (unknown) (no (unknown) (unknown) EKG-12 Lead Stat (units (unknown) date) unknown) (unknown) (no (unknown) (unknown) ER Physician: (units ( unknown) date) Marycruz Kim unknown) (unknown) (no (unknown) (unknown) Emergency Report (units (unknown) date) unknown) (unknown) (no (unknown) (unknown) Eos # (Auto) 100 (units (unknown) date) (0-450) /uL unknown) (unknown) (no (unknown) (unknown) Eos % (Auto) 0.7 (units (unknown) date) L (2-4) % unknown) (unknown) (no (unknown) (unknown) Estimated GFR > (units (unknown) date) 60 (>60) mL/min unknown) (unknown) (no (unknown) (unknown) Exam (units (unkno wn) date) unknown) (unknown) (no (unknown) (unknown) FACE, (units (unkno wn) date) unknown) (unknown) (no (unknown) (unknown) Fibromyalgia (units (u nknown) date) unknown) (unknown) (no (unknown) (unknown) General (units (unkno wn) date) unknown) (unknown) (no (unknown) (unknown) Globulin 3.1 (units (u nknown) date) (1.7-4.1) g/dL unknown) (unknown) (no (unknown) (unknown) Glucose 91 (units (unk nown) date) (70-100) mg/dL unknown) (unknown) (no (unknown) (unknown) H/O gastric (units (un known) date) bypass unknown) (unknown) (no (unknown) (unknown) HIVES ALL (units (unkn own) date) unknown) (unknown) (no (unknown) (unknown) HPI - General (units ( unknown) date) Adult unknown) (unknown) (no (unknown) (unknown) Hct 42.1 (36-46) (units (unknown) date) % unknown) (unknown) (no (unknown) (unknown) Hgb 14.0 (units (unkno wn) date) (12.0-16.0) g/dL unknown) (unknown) (no (unknown) (unknown) History of (units (unk nown) date) prediabetes unknown) (unknown) (no (unknown) (unknown) Hypertension (units (u nknown) date) unknown) (unknown) (no (unknown) (unknown) INR 0.9 (0.9-1.3) (units (unknown) date) unknown) (unknown) (no (unknown) (unknown) Initial Vital (units ( unknown) date) Signs unknown) (unknown) (no (unknown) (unknown) Initial Vital (units ( unknown) date) Signs: unknown) (unknown) (no (unknown) (unknown) [facility] (units (unknown) date) [address] unknown) [place] [address] (unknown) (no (unknown) (unknown) Lab Data (units (unkno wn) date) unknown) (unknown) (no (unknown) (unknown) Lab Results (units (un known) date) unknown) (unknown) (no (unknown) (unknown) Labs: (units (unkno wn) date) unknown) (unknown) (no (unknown) (unknown) Last Admin: (units (un known) date) 07/17/22 18:43 unknown) Dose: 4 mg (unknown) (no (unknown) (unknown) Last Admin: (units (un known) date) 07/17/22 18:43 unknown) Dose: 50 mg (unknown) (no (unknown) (unknown) Last Admin: (units (un known) date) 07/17/22 18:43 unknown) Dose: 975 mg (unknown) (no (unknown) (unknown) Last Admin: (units (un known) date) 07/17/22 19:09 unknown) Dose: 5 mg/hr, 50 mls/hr (unknown) (no (unknown) (unknown) Lipase 185 (units (unk nown) date) (23-300) U/L unknown) (unknown) (no (unknown) (unknown) Lipase Stat (units (un known) date) unknown) (unknown) (no (unknown) (unknown) Losartan (units (unkno wn) date) Potassium unknown) (Losartan 50 Mg Tablet) 50 mg PO NOW ONE (unknown) (no (unknown) (unknown) Lymph # (Auto) (units (unknown) date) 1900 (7911-5705) unknown) /uL (unknown) (no (unknown) (unknown) Lymph % (Auto) (units (unknown) date) 23.2 L (25-40) % unknown) (unknown) (no (unknown) (unknown) MCH 30.8 (26-34) (units (unknown) date) PG unknown) (unknown) (no (unknown) (unknown) MCHC 33.3 (30-36) (units (unknown) date) % unknown) (unknown) (no (unknown) (unknown) MCV 92.5 (80-100) (units (unknown) date) fL unknown) (unknown) (no (unknown) (unknown) Magnesium 2.0 (units ( unknown) date) (1.6-2.3) mg/dL unknown) (unknown) (no (unknown) (unknown) Magnesium Stat (units (unknown) date) unknown) (unknown) (no (unknown) (unknown) Medical Decision (units (unknown) date) Making unknown) (unknown) (no (unknown) (unknown) Medical History (units (unknown) date) (Reviewed 06/04/22 unknown) @ 15:01 by Julio Sandoval DO) (unknown) (no (unknown) (unknown) Medication (units (unk nown) date) Instructions unknown) Recorded (unknown) (no (unknown) (unknown) Mode of arrival: (units (unknown) date) EMS unknown) (unknown) (no (unknown) (unknown) Larue # (Auto) 400 (units (unknown) date) (0-900) /uL unknown) (unknown) (no (unknown) (unknown) Larue % (Auto) 5.4 (units (unknown) date) (3-14) % unknown) (unknown) (no (unknown) (unknown) Neut # (Auto) (units ( unknown) date) 5700 (2568-3431) unknown) /uL (unknown) (no (unknown) (unknown) Neut % (Auto) (units ( unknown) date) 69.9 (50-75) % unknown) (unknown) (no (unknown) (unknown) Nicardipine HCl (units (unknown) date) 25 mg/ Sodium unknown) (Chloride) 250 mls @ 50 mls/hr IV TITRATE SHANA; (unknown) (no (unknown) (unknown) No Action (units (unkn own) date) unknown) (unknown) (no (unknown) (unknown) OVER. (units (unkno wn) date) unknown) (unknown) (no (unknown) (unknown) Ondansetron HCl (units (unknown) date) (Ondansetron 4 unknown) Mg/2 Ml Inj) 4 mg IV NOW ONE (unknown) (no (unknown) (unknown) Ordered: (units (unkno wn) date) unknown) (unknown) (no (unknown) (unknown) Orders (units (unkno wn) date) unknown) (unknown) (no (unknown) (unknown) Oxygen Delivery (units (unknown) date) Method 07/17/22 unknown) 18:20 (unknown) (no (unknown) (unknown) Oxygen Delivery (units (unknown) date) Method Room Air unknown) (unknown) (no (unknown) (unknown) Oxygen Delivery (units (unknown) date) Method unknown) (unknown) (no (unknown) (unknown) PT 10.7 (units (unkno wn) date) (10.1-12.7) unknown) SECONDS (unknown) (no (unknown) (unknown) Partial (units (unkno wn) date) Thromboplastin unknown) Time Stat (unknown) (no (unknown) (unknown) Patient History (units (unknown) date) unknown) (unknown) (no (unknown) (unknown) Patient: (units (unkno wn) date) Nona Guzman unknown) MR#: [id number] (unknown) (no (unknown) (unknown) Penicillins (units (un known) date) [PENICILLINS] unknown) Allergy Intermediate RASH/ITCHING, Verified 07/17/22 (unknown) (no (unknown) (unknown) Julio Sandoval, (units (unknown) date) DO [Primary Care unknown) Provider] (unknown) (no (unknown) (unknown) Plt Count 229 (units ( unknown) date) (150-400) X103/uL unknown) (unknown) (no (unknown) (unknown) Potassium 3.7 (units ( unknown) date) (3.4-5.1) mmol/L unknown) (unknown) (no (unknown) (unknown) Prescriptions: (units (unknown) date) unknown) (unknown) (no (unknown) (unknown) Previous Rx's (units ( unknown) date) unknown) (unknown) (no (unknown) (unknown) Prothrombin Time (units (unknown) date) INR Stat unknown) (unknown) (no (unknown) (unknown) Protocol (units (unkno wn) date) unknown) (unknown) (no (unknown) (unknown) Pulse Oximetry (units (unknown) date) 100 unknown) (unknown) (no (unknown) (unknown) Pulse Oximetry 98 (units (unknown) date) 98 unknown) (unknown) (no (unknown) (unknown) Pulse Oximetry 99 (units (unknown) date) 07/17/22 18:20 unknown) (unknown) (no (unknown) (unknown) Pulse Oximetry 99 (units (unknown) date) 99 unknown) (unknown) (no (unknown) (unknown) Pulse Rate 65 (units ( unknown) date) unknown) (unknown) (no (unknown) (unknown) Pulse Rate 67 (units ( unknown) date) 07/17/22 18:20 unknown) (unknown) (no (unknown) (unknown) Pulse Rate 67 65 (units (unknown) date) unknown) (unknown) (no (unknown) (unknown) Pulse Rate 68 68 (units (unknown) date) unknown) (unknown) (no (unknown) (unknown) RBC 4.56 (units (unkno wn) date) (4.0-5.2) X106/uL unknown) (unknown) (no (unknown) (unknown) RDW 14.2 (units (unkno wn) date) (11.6-14.8) % unknown) (unknown) (no (unknown) (unknown) Referrals: (units (unk nown) date) unknown) (unknown) (no (unknown) (unknown) Related Data (units (u nknown) date) unknown) (unknown) (no (unknown) (unknown) Respiratory Rate (units (unknown) date) 16 07/17/22 18:20 unknown) (unknown) (no (unknown) (unknown) Respiratory Rate (units (unknown) date) 16 31 H unknown) (unknown) (no (unknown) (unknown) Respiratory Rate (units (unknown) date) 30 H 23 unknown) (unknown) (no (unknown) (unknown) Respiratory Rate (units (unknown) date) 35 H unknown) (unknown) (no (unknown) (unknown) Rx Instructions: (units (unknown) date) unknown) (unknown) (no (unknown) (unknown) Signed By: (units (unk nown) date) unknown) (unknown) (no (unknown) (unknown) Smoking Status: (units (unknown) date) Current every day unknown) smoker (unknown) (no (unknown) (unknown) Social History (units (unknown) date) (Reviewed 03/09/22 unknown) @ 10:33 by Mariella Rico DO) (unknown) (no (unknown) (unknown) Sodium 139 (units (unk nown) date) (137-145) mmol/L unknown) (unknown) (no (unknown) (unknown) Source: patient (units (unknown) date) and EMS unknown) (unknown) (no (unknown) (unknown) Stated complaint: (units (unknown) date) Nausea and HTN unknown) (unknown) (no (unknown) (unknown) Stop: 07/17/22 (units (unknown) date) 18:31 unknown) (unknown) (no (unknown) (unknown) Substance Use (units ( unknown) date) Type: does not use unknown) (unknown) (no (unknown) (unknown) Surgical History (units (unknown) date) (Reviewed 06/04/22 unknown) @ 15:01 by Julio Sandoval DO) (unknown) (no (unknown) (unknown) THROAT (units (unkno wn) date) unknown) (unknown) (no (unknown) (unknown) TROUBLE (units (unkno wn) date) unknown) (unknown) (no (unknown) (unknown) Temperature 97.6 (units (unknown) date) F 07/17/22 18:20 unknown) (unknown) (no (unknown) (unknown) Temperature 97.6 (units (unknown) date) F unknown) (unknown) (no (unknown) (unknown) Temperature (units (un known) date) unknown) (unknown) (no (unknown) (unknown) Time Seen by (units (u nknown) date) Provider: 07/17/22 unknown) 18:29 (unknown) (no (unknown) (unknown) Total Bilirubin (units (unknown) date) 0.7 (0.2-1.3) unknown) mg/dL (unknown) (no (unknown) (unknown) Total Creatine (units (unknown) date) Kinase 35 (30-135) unknown) U/L (unknown) (no (unknown) (unknown) Total Protein 7.2 (units (unknown) date) (6.3-8.2) g/dL unknown) (unknown) (no (unknown) (unknown) Troponin + CK (units ( unknown) date) Cardiac Panel Stat unknown) (unknown) (no (unknown) (unknown) Troponin I < (units (u nknown) date) 0.012 (0.01-0.034) unknown) ng/mL (unknown) (no (unknown) (unknown) Vital Signs - 8 (units (unknown) date) hr unknown) (unknown) (no (unknown) (unknown) Vital Signs (units (un known) date) unknown) (unknown) (no (unknown) (unknown) Vital signs: (units (u nknown) date) unknown) (unknown) (no (unknown) (unknown) WBC 8.1 (units (unkno wn) date) (4.5-11.0) X103/uL unknown) (unknown) (no (unknown) (unknown) XR chest 1V Stat (units (unknown) date) unknown) (unknown) (no (unknown) (unknown) [DIPHENHYDRAMINE] (units (unknown) date) unknown) (unknown) (no (unknown) (unknown) [Embedded Image (units (unknown) date) Not Available] unknown) (unknown) (no (unknown) (unknown) [MAGNESIUM (units (unk nown) date) CITRATE] unknown) (unknown) (no (unknown) (unknown) alcohol intake (units (unknown) date) frequency: 0-2 unknown) drinks per day (unknown) (no (unknown) (unknown) amoxicillin (units (un known) date) [AMOXICILLIN] unknown) Allergy Severe SWELLING Verified 07/17/22 18:24 (unknown) (no (unknown) (unknown) carvedilol 12.5 (units (unknown) date) mg tablet 12.5 mg unknown) PO BID #60 tabs 07/17/22 (unknown) (no (unknown) (unknown) carvedilol 12.5 (units (unknown) date) mg tablet unknown) (unknown) (no (unknown) (unknown) carvedilol 6.25 (units (unknown) date) mg tablet 6.25 mg unknown) PO BID #180 tabs 05/14/22 (unknown) (no (unknown) (unknown) carvedilol 6.25 (units (unknown) date) mg tablet unknown) (unknown) (no (unknown) (unknown) diphenhydramine (units (unknown) date) Allergy Mild unknown) SWELLING. Verified 07/17/22 18:24 (unknown) (no (unknown) (unknown) estradiol 0.1 (units ( unknown) date) mg/24 hr patch unknown) weekly (unknown) (no (unknown) (unknown) estradiol 0.1 (units ( unknown) date) mg/24 hr weekly unknown) 0.1 mg topical QWEEK #4 ea 06/04/22 (unknown) (no (unknown) (unknown) latex [LATEX] (units ( unknown) date) Allergy Mild RASH unknown) Verified 07/17/22 18:24 (unknown) (no (unknown) (unknown) losartan 100 1 (units (unknown) date) tab PO DAILY #30 unknown) tabs 06/03/22 (unknown) (no (unknown) (unknown) losartan-hydrochl (units (unknown) date) orothiazide 100-25 unknown) mg tablet (unknown) (no (unknown) (unknown) magnesium citrate (units (unknown) date) AdvReac Unknown unknown) VOMITING Verified 07/17/22 18:24 (unknown) (no (unknown) (unknown) mg-hydrochlorothi (units (unknown) date) azide 25 mg tablet unknown) (unknown) (no (unknown) (unknown) must administer (units (unknown) date) with a meal/food unknown) (unknown) (no (unknown) (unknown) transdermal patch (units (unknown) date) unknown) Result panel 522 (unknown) (no (unknown) (unknown) (no value) (units (unk nown) date) unknown) (unknown) (no (unknown) (unknown) 0.1 mg topical QWEEK (uni ts (unknown) date) Qty: 4 2RF unknown) (unknown) (no (unknown) (unknown) [id number] (units (unkno wn) date) unknown) (unknown) (no (unknown) (unknown) 07/17/22 07/17/22 (units (unknown) date) 07/17/22 Range/Units unknown) (unknown) (no (unknown) (unknown) 07/17/22 18:24 (units (unknown) date) unknown) (unknown) (no (unknown) (unknown) 07/17/22 18:49 (units (unknown) date) unknown) (unknown) (no (unknown) (unknown) 07/17/22 19:01 (units (unknown) date) unknown) (unknown) (no (unknown) (unknown) 07/17/22 19:02 (units (unknown) date) unknown) (unknown) (no (unknown) (unknown) 07/17/22 (units (unkno wn) date) unknown) (unknown) (no (unknown) (unknown) 1 tab PO DAILY Qty: (unit s (unknown) date) 30 2RF unknown) (unknown) (no (unknown) (unknown) 12.5 mg PO BID Qty: (unit s (unknown) date) 60 1RF unknown) (unknown) (no (unknown) (unknown) 18:20 07/17/22 (units (unknown) date) unknown) (unknown) (no (unknown) (unknown) 18:24 (units (unkno wn) date) unknown) (unknown) (no (unknown) (unknown) 18:38 (units (unkno wn) date) unknown) (unknown) (no (unknown) (unknown) 18:43 07/17/22 (units (unknown) date) unknown) (unknown) (no (unknown) (unknown) 18:49 07/17/22 (units (unknown) date) unknown) (unknown) (no (unknown) (unknown) 18:49 18:49 18:49 (units (unknown) date) unknown) (unknown) (no (unknown) (unknown) 19:00 07/17/22 (units (unknown) date) unknown) (unknown) (no (unknown) (unknown) 19:00 (units (unkno wn) date) unknown) (unknown) (no (unknown) (unknown) 19:09 07/17/22 (units (unknown) date) unknown) (unknown) (no (unknown) (unknown) 19:09 (units (unkno wn) date) unknown) (unknown) (no (unknown) (unknown) 6.25 mg PO BID Qty: (unit s (unknown) date) 180 1RF unknown) (unknown) (no (unknown) (unknown) 8pm blood pressures (unit s (unknown) date) come down nicely with unknown) carvedilol drip currently at 157/68 (unknown) (no (unknown) (unknown) ALT 30 (<35) IU/L (units (unknown) date) unknown) (unknown) (no (unknown) (unknown) APTT 32 (26-36) (units (unknown) date) SECONDS unknown) (unknown) (no (unknown) (unknown) AST 24 (14-36) IU/L (unit s (unknown) date) unknown) (unknown) (no (unknown) (unknown) Acetaminophen (units ( unknown) date) (Acetaminophen 325 Mg unknown) Tablet) 975 mg PO NOW ONE (unknown) (no (unknown) (unknown) Age/Sex: 51 / F (units (unknown) date) unknown) (unknown) (no (unknown) (unknown) Albumin 4.1 (units (un known) date) (3.5-5.0) g/dL unknown) (unknown) (no (unknown) (unknown) Albumin/Globulin (units (unknown) date) Ratio 1.3 (1.0-2.8) unknown) (unknown) (no (unknown) (unknown) Alkaline Phosphatase (uni ts (unknown) date) 100 (38-126) U/L unknown) (unknown) (no (unknown) (unknown) Allergies (units (unkn own) date) unknown) (unknown) (no (unknown) (unknown) Allergy/AdvReac Type (uni ts (unknown) date) Severity Reaction unknown) Status Date / Time (unknown) (no (unknown) (unknown) Apply 1 patch, once (unit s (unknown) date) a week unknown) (unknown) (no (unknown) (unknown) BREATHING. (units (unk nown) date) unknown) (unknown) (no (unknown) (unknown) BUN 19 H (7-17) (units (unknown) date) mg/dL unknown) (unknown) (no (unknown) (unknown) BUN/Creatinine Ratio (uni ts (unknown) date) 25.7 H (6-22) unknown) (unknown) (no (unknown) (unknown) Baso # (Auto) 100 (units (unknown) date) (0-100) /uL unknown) (unknown) (no (unknown) (unknown) Baso % (Auto) 0.8 (units (unknown) date) (0-2) % unknown) (unknown) (no (unknown) (unknown) Blood Pressure (units (unknown) date) 202/79 H unknown) (unknown) (no (unknown) (unknown) Blood Pressure (units (unknown) date) 202/89 H 07/17/22 unknown) 18:20 (unknown) (no (unknown) (unknown) Blood Pressure (units (unknown) date) 202/89 H 202/89 H unknown) (unknown) (no (unknown) (unknown) Blood Pressure (units (unknown) date) 218/93 H 208/93 H unknown) (unknown) (no (unknown) (unknown) CC: Hypertensive (units (unknown) date) crisis with headache unknown) and chest pain. New diagnosis, uncertain (unknown) (no (unknown) (unknown) CK-MB (CK-2) Rel (units (unknown) date) Index TNP unknown) (unknown) (no (unknown) (unknown) CK-MB (CK-2) TNP (units (unknown) date) unknown) (unknown) (no (unknown) (unknown) COVID19 -Nasal (units (unknown) date) RAPID/Pre-Proc Stat unknown) (unknown) (no (unknown) (unknown) CT angio abdomen (units (unknown) date) pelvis Stat unknown) (unknown) (no (unknown) (unknown) CT head/brain wo con (uni ts (unknown) date) Stat unknown) (unknown) (no (unknown) (unknown) Calcium 9.2 (units (un known) date) (8.4-10.2) mg/dL unknown) (unknown) (no (unknown) (unknown) Carbon Dioxide 28 (units (unknown) date) (22-32) mmol/L unknown) (unknown) (no (unknown) (unknown) Chief complaint: (units (unknown) date) Hypertension unknown) (unknown) (no (unknown) (unknown) Chloride 104 (units (u nknown) date) (98-107) mmol/L unknown) (unknown) (no (unknown) (unknown) Complete Blood Count (uni ts (unknown) date) AUTO DIFF Stat unknown) (unknown) (no (unknown) (unknown) Complicating (units (u nknown) date) co-morbidities: unknown) Baseline hypertension poorly controlled with (unknown) (no (unknown) (unknown) Comprehensive (units ( unknown) date) Metabolic Panel Stat unknown) (unknown) (no (unknown) (unknown) Consultations: (units (unknown) date) unknown) (unknown) (no (unknown) (unknown) Corroborating data: (unit s (unknown) date) unknown) (unknown) (no (unknown) (unknown) Course (units (unkno wn) date) unknown) (unknown) (no (unknown) (unknown) Creatinine 0.74 (units (unknown) date) (0.52-1.04) mg/dL unknown) (unknown) (no (unknown) (unknown) : 1970 (units (unknown) date) Acct:[id number] unknown) (unknown) (no (unknown) (unknown) Data collected from: (uni ts (unknown) date) patient, unknown) (unknown) (no (unknown) (unknown) Date of Service: (units (unknown) date) 07/17/22 unknown) (unknown) (no (unknown) (unknown) Departure (units (unkn own) date) unknown) (unknown) (no (unknown) (unknown) Differential (units (u nknown) date) considered: unknown) Hypertensive emergency, intracranial hemorrhage, (unknown) (no (unknown) (unknown) Discharge Plan (units (unknown) date) unknown) (unknown) (no (unknown) (unknown) Discontinued (units (u nknown) date) Medications unknown) (unknown) (no (unknown) (unknown) Discussion: (units (un known) date) unknown) (unknown) (no (unknown) (unknown) Disposition: see (units (unknown) date) below, along with unknown) detailed discharge instructions that have (unknown) (no (unknown) (unknown) ED Orders (units (unkn own) date) unknown) (unknown) (no (unknown) (unknown) EKG-12 Lead Stat (units (unknown) date) unknown) (unknown) (no (unknown) (unknown) ER Physician: (units ( unknown) date) Marycruz Kim MD unknown) (unknown) (no (unknown) (unknown) Emergency Report (units (unknown) date) unknown) (unknown) (no (unknown) (unknown) Eos # (Auto) 100 (units (unknown) date) (0-450) /uL unknown) (unknown) (no (unknown) (unknown) Eos % (Auto) 0.7 L (units (unknown) date) (2-4) % unknown) (unknown) (no (unknown) (unknown) Estimated GFR > 60 (units (unknown) date) (>60) mL/min unknown) (unknown) (no (unknown) (unknown) Exam documented (units (unknown) date) above, pertinent unknown) findings include: Alert and appropriate, (unknown) (no (unknown) (unknown) Exam (units (unkno wn) date) unknown) (unknown) (no (unknown) (unknown) FACE, (units (unkno wn) date) unknown) (unknown) (no (unknown) (unknown) Fibromyalgia (units (u nknown) date) unknown) (unknown) (no (unknown) (unknown) General (units (unkno wn) date) unknown) (unknown) (no (unknown) (unknown) Globulin 3.1 (units (u nknown) date) (1.7-4.1) g/dL unknown) (unknown) (no (unknown) (unknown) Glucose 91 (70-100) (unit s (unknown) date) mg/dL unknown) (unknown) (no (unknown) (unknown) H/O gastric bypass (units (unknown) date) unknown) (unknown) (no (unknown) (unknown) HIVES ALL (units (unkn own) date) unknown) (unknown) (no (unknown) (unknown) HPI - General Adult (unit s (unknown) date) unknown) (unknown) (no (unknown) (unknown) Hct 42.1 (36-46) % (units (unknown) date) unknown) (unknown) (no (unknown) (unknown) Hgb 14.0 (12.0-16.0) (uni ts (unknown) date) g/dL unknown) (unknown) (no (unknown) (unknown) History of (units (unk nown) date) prediabetes unknown) (unknown) (no (unknown) (unknown) Hypertension (units (u nknown) date) unknown) (unknown) (no (unknown) (unknown) INR 0.9 (0.9-1.3) (units (unknown) date) unknown) (unknown) (no (unknown) (unknown) Imaging studies (units (unknown) date) independently unknown) reviewed: (unknown) (no (unknown) (unknown) Independently (units ( unknown) date) reviewed EKG as above unknown) (unknown) (no (unknown) (unknown) Initial Vital Signs (unit s (unknown) date) unknown) (unknown) (no (unknown) (unknown) Initial Vital Signs: (uni ts (unknown) date) unknown) (unknown) (no (unknown) (unknown) [facility] [address] (uni ts (unknown) date) [address] unknown) [place] [address] (unknown) (no (unknown) (unknown) Lab Data (units (unkno wn) date) unknown) (unknown) (no (unknown) (unknown) Lab Results (units (un known) date) unknown) (unknown) (no (unknown) (unknown) Lab Test results (units (unknown) date) independently unknown) reviewed as above. Pertinent findings: (unknown) (no (unknown) (unknown) Labs: (units (unkno wn) date) unknown) (unknown) (no (unknown) (unknown) Last Admin: 07/17/22 (uni ts (unknown) date) 18:43 Dose: 4 mg unknown) (unknown) (no (unknown) (unknown) Last Admin: 07/17/22 (uni ts (unknown) date) 18:43 Dose: 50 mg unknown) (unknown) (no (unknown) (unknown) Last Admin: 07/17/22 (uni ts (unknown) date) 18:43 Dose: 975 mg unknown) (unknown) (no (unknown) (unknown) Last Admin: 07/17/22 (uni ts (unknown) date) 19:09 Dose: 5 mg/hr, unknown) 50 mls/hr (unknown) (no (unknown) (unknown) Lipase 185 (23-300) (unit s (unknown) date) U/L unknown) (unknown) (no (unknown) (unknown) Lipase Stat (units (un known) date) unknown) (unknown) (no (unknown) (unknown) Losartan Potassium (units (unknown) date) (Losartan 50 Mg unknown) Tablet) 50 mg PO NOW ONE (unknown) (no (unknown) (unknown) Lymph # (Auto) 1900 (unit s (unknown) date) ([id number]) /uL unknown) (unknown) (no (unknown) (unknown) Lymph % (Auto) 23.2 (unit s (unknown) date) L (25-40) % unknown) (unknown) (no (unknown) (unknown) MCH 30.8 (26-34) PG (unit s (unknown) date) unknown) (unknown) (no (unknown) (unknown) MCHC 33.3 (30-36) % (unit s (unknown) date) unknown) (unknown) (no (unknown) (unknown) MCV 92.5 (80-100) fL (uni ts (unknown) date) unknown) (unknown) (no (unknown) (unknown) MDM Narrative (units ( unknown) date) unknown) (unknown) (no (unknown) (unknown) Magnesium 2.0 (units ( unknown) date) (1.6-2.3) mg/dL unknown) (unknown) (no (unknown) (unknown) Magnesium Stat (units (unknown) date) unknown) (unknown) (no (unknown) (unknown) Medical Decision (units (unknown) date) Making unknown) (unknown) (no (unknown) (unknown) Medical History (units (unknown) date) (Reviewed 06/04/22 @ unknown) 15:01 by Julio Sandoval DO) (unknown) (no (unknown) (unknown) Medical decision (units (unknown) date) making narrative: unknown) (unknown) (no (unknown) (unknown) Medical records (units (unknown) date) reviewed: Primary unknown) care notes, today her carvedilol which had (unknown) (no (unknown) (unknown) Medication (units (unk nown) date) Instructions Recorded unknown) (unknown) (no (unknown) (unknown) Mode of arrival: EMS (uni ts (unknown) date) unknown) (unknown) (no (unknown) (unknown) Larue # (Auto) 400 (units (unknown) date) (0-900) /uL unknown) (unknown) (no (unknown) (unknown) Larue % (Auto) 5.4 (units (unknown) date) (3-14) % unknown) (unknown) (no (unknown) (unknown) Neut # (Auto) 5700 (units (unknown) date) (0871-3448) /uL unknown) (unknown) (no (unknown) (unknown) Neut % (Auto) 69.9 (units (unknown) date) (50-75) % unknown) (unknown) (no (unknown) (unknown) Nicardipine HCl 25 (units (unknown) date) mg/ Sodium (Chloride) unknown) 250 mls @ 50 mls/hr IV TITRATE SHANA; (unknown) (no (unknown) (unknown) No Action (units (unkn own) date) unknown) (unknown) (no (unknown) (unknown) OVER. (units (unkno wn) date) unknown) (unknown) (no (unknown) (unknown) Ondansetron HCl (units (unknown) date) (Ondansetron 4 Mg/2 unknown) Ml Inj) 4 mg IV NOW ONE (unknown) (no (unknown) (unknown) Ordered: (units (unkno wn) date) unknown) (unknown) (no (unknown) (unknown) Orders (units (unkno wn) date) unknown) (unknown) (no (unknown) (unknown) Oxygen Delivery (units (unknown) date) Method 07/17/22 18:20 unknown) (unknown) (no (unknown) (unknown) Oxygen Delivery (units (unknown) date) Method Room Air unknown) (unknown) (no (unknown) (unknown) Oxygen Delivery (units (unknown) date) Method unknown) (unknown) (no (unknown) (unknown) PT 10.7 (10.1-12.7) (unit s (unknown) date) SECONDS unknown) (unknown) (no (unknown) (unknown) Partial (units (unkno wn) date) Thromboplastin Time unknown) Stat (unknown) (no (unknown) (unknown) Patient History (units (unknown) date) unknown) (unknown) (no (unknown) (unknown) Patient: (units (unkno wn) date) GuzmanNona MR#: unknown) M0 (unknown) (no (unknown) (unknown) Penicillins (units (un known) date) [PENICILLINS] Allergy unknown) Intermediate RASH/ITCHING, Verified 07/17/22 (unknown) (no (unknown) (unknown) Julio Sandoval DO (units (unknown) date) [Primary Care unknown) Provider] (unknown) (no (unknown) (unknown) Plt Count 229 (units ( unknown) date) (150-400) X103/uL unknown) (unknown) (no (unknown) (unknown) Potassium 3.7 (units ( unknown) date) (3.4-5.1) mmol/L unknown) (unknown) (no (unknown) (unknown) Prescriptions: (units (unknown) date) unknown) (unknown) (no (unknown) (unknown) Previous Rx's (units ( unknown) date) unknown) (unknown) (no (unknown) (unknown) Prothrombin Time INR (uni ts (unknown) date) Stat unknown) (unknown) (no (unknown) (unknown) Protocol (units (unkno wn) date) unknown) (unknown) (no (unknown) (unknown) Pulse Oximetry 100 (units (unknown) date) unknown) (unknown) (no (unknown) (unknown) Pulse Oximetry 98 98 (uni ts (unknown) date) unknown) (unknown) (no (unknown) (unknown) Pulse Oximetry 99 (units (unknown) date) 07/17/22 18:20 unknown) (unknown) (no (unknown) (unknown) Pulse Oximetry 99 99 (uni ts (unknown) date) unknown) (unknown) (no (unknown) (unknown) Pulse Rate 65 (units ( unknown) date) unknown) (unknown) (no (unknown) (unknown) Pulse Rate 67 (units ( unknown) date) 07/17/22 18:20 unknown) (unknown) (no (unknown) (unknown) Pulse Rate 67 65 (units (unknown) date) unknown) (unknown) (no (unknown) (unknown) Pulse Rate 68 68 (units (unknown) date) unknown) (unknown) (no (unknown) (unknown) RBC 4.56 (4.0-5.2) (units (unknown) date) X106/uL unknown) (unknown) (no (unknown) (unknown) RDW 14.2 (11.6-14.8) (uni ts (unknown) date) % unknown) (unknown) (no (unknown) (unknown) Re-evaluations: (units (unknown) date) unknown) (unknown) (no (unknown) (unknown) Referrals: (units (unk nown) date) unknown) (unknown) (no (unknown) (unknown) Related Data (units (u nknown) date) unknown) (unknown) (no (unknown) (unknown) Respiratory Rate 16 (unit s (unknown) date) 07/17/22 18:20 unknown) (unknown) (no (unknown) (unknown) Respiratory Rate 16 (unit s (unknown) date) 31 H unknown) (unknown) (no (unknown) (unknown) Respiratory Rate 30 (unit s (unknown) date) H 23 unknown) (unknown) (no (unknown) (unknown) Respiratory Rate 35 (unit s (unknown) date) H unknown) (unknown) (no (unknown) (unknown) Rx Instructions: (units (unknown) date) unknown) (unknown) (no (unknown) (unknown) Signed By: (units (unk nown) date) unknown) (unknown) (no (unknown) (unknown) Smoking Status: (units (unknown) date) Current every day unknown) smoker (unknown) (no (unknown) (unknown) Social History (units (unknown) date) (Reviewed 03/09/22 @ unknown) 10:33 by Mariella Rico DO) (unknown) (no (unknown) (unknown) Sodium 139 (137-145) (uni ts (unknown) date) mmol/L unknown) (unknown) (no (unknown) (unknown) Source: patient and (unit s (unknown) date) EMS unknown) (unknown) (no (unknown) (unknown) Stated complaint: (units (unknown) date) Nausea and HTN unknown) (unknown) (no (unknown) (unknown) Stop: 07/17/22 18:31 (uni ts (unknown) date) unknown) (unknown) (no (unknown) (unknown) Substance Use Type: (unit s (unknown) date) does not use unknown) (unknown) (no (unknown) (unknown) Surgical History (units (unknown) date) (Reviewed 06/04/22 @ unknown) 15:01 by Julio Sandoval DO) (unknown) (no (unknown) (unknown) THROAT (units (unkno wn) date) unknown) (unknown) (no (unknown) (unknown) TROUBLE (units (unkno wn) date) unknown) (unknown) (no (unknown) (unknown) Temperature 97.6 F (units (unknown) date) 07/17/22 18:20 unknown) (unknown) (no (unknown) (unknown) Temperature 97.6 F (units (unknown) date) unknown) (unknown) (no (unknown) (unknown) Temperature (units (un known) date) unknown) (unknown) (no (unknown) (unknown) Time Seen by (units (u nknown) date) Provider: 07/17/22 unknown) 18:29 (unknown) (no (unknown) (unknown) Total Bilirubin 0.7 (unit s (unknown) date) (0.2-1.3) mg/dL unknown) (unknown) (no (unknown) (unknown) Total Creatine (units (unknown) date) Kinase 35 (30-135) unknown) U/L (unknown) (no (unknown) (unknown) Total Protein 7.2 (units (unknown) date) (6.3-8.2) g/dL unknown) (unknown) (no (unknown) (unknown) Treatments: (units (un known) date) unknown) (unknown) (no (unknown) (unknown) Troponin + CK (units ( unknown) date) Cardiac Panel Stat unknown) (unknown) (no (unknown) (unknown) Troponin I < 0.012 (units (unknown) date) (0.01-0.034) ng/mL unknown) (unknown) (no (unknown) (unknown) Vital Signs - 8 hr (units (unknown) date) unknown) (unknown) (no (unknown) (unknown) Vital Signs (units (un known) date) unknown) (unknown) (no (unknown) (unknown) Vital signs: (units (u nknown) date) unknown) (unknown) (no (unknown) (unknown) WBC 8.1 (4.5-11.0) (units (unknown) date) X103/uL unknown) (unknown) (no (unknown) (unknown) XR chest 1V Stat (units (unknown) date) unknown) (unknown) (no (unknown) (unknown) [DIPHENHYDRAMINE] (units (unknown) date) unknown) (unknown) (no (unknown) (unknown) [Embedded Image Not (unit s (unknown) date) Available] unknown) (unknown) (no (unknown) (unknown) [MAGNESIUM CITRATE] (unit s (unknown) date) unknown) (unknown) (no (unknown) (unknown) additional (units (unk nown) date) outpatient follow up unknown) (unknown) (no (unknown) (unknown) alcohol intake (units (unknown) date) frequency: 0-2 drinks unknown) per day (unknown) (no (unknown) (unknown) amoxicillin (units (un known) date) [AMOXICILLIN] Allergy unknown) Severe SWELLING Verified 07/17/22 18:24 (unknown) (no (unknown) (unknown) and 25 mg of (units (u nknown) date) hydrochlorothiazide unknown) (unknown) (no (unknown) (unknown) angiogram from that (unit s (unknown) date) date does not support unknown) this. (unknown) (no (unknown) (unknown) been 6.25 b.i.d. was (uni ts (unknown) date) increased to 12.5 unknown) b.i.d.. She remains on 100 of losartan (unknown) (no (unknown) (unknown) been reviewed with (units (unknown) date) patient as well as unknown) indications for ED re-evaluation and (unknown) (no (unknown) (unknown) carvedilol 12.5 mg (units (unknown) date) tablet 12.5 mg PO BID unknown) #60 tabs 07/17/22 (unknown) (no (unknown) (unknown) carvedilol 12.5 mg (units (unknown) date) tablet unknown) (unknown) (no (unknown) (unknown) carvedilol 6.25 mg (units (unknown) date) tablet 6.25 mg PO BID unknown) #180 tabs 05/14/22 (unknown) (no (unknown) (unknown) carvedilol 6.25 mg (units (unknown) date) tablet unknown) (unknown) (no (unknown) (unknown) chest pain through (units (unknown) date) the center of her unknown) body, GCS of 15 (unknown) (no (unknown) (unknown) diphenhydramine (units (unknown) date) Allergy Mild unknown) SWELLING. Verified 07/17/22 18:24 (unknown) (no (unknown) (unknown) dissection, acute (units (unknown) date) coronary syndrome, unknown) reflux, medication noncompliance (unknown) (no (unknown) (unknown) documented blood (units (unknown) date) pressures over the unknown) last number of months in the 220/140 range (unknown) (no (unknown) (unknown) estradiol 0.1 mg/24 (unit s (unknown) date) hr patch weekly unknown) (unknown) (no (unknown) (unknown) estradiol 0.1 mg/24 (unit s (unknown) date) hr weekly 0.1 mg unknown) topical QWEEK #4 ea 06/04/22 (unknown) (no (unknown) (unknown) fairly (units (unkno wn) date) consistently,. Prior unknown) difficulties with hypertension, reported (unknown) (no (unknown) (unknown) intracranial bleed (units (unknown) date) associated with unknown) hypertensive urgency in February however CT (unknown) (no (unknown) (unknown) latex [LATEX] (units ( unknown) date) Allergy Mild RASH unknown) Verified 07/17/22 18:24 (unknown) (no (unknown) (unknown) losartan 100 1 tab (units (unknown) date) PO DAILY #30 tabs unknown) 06/03/22 (unknown) (no (unknown) (unknown) losartan-hydrochloro (uni ts (unknown) date) thiazide 100-25 mg unknown) tablet (unknown) (no (unknown) (unknown) magnesium citrate (units (unknown) date) AdvReac Unknown unknown) VOMITING Verified 07/17/22 18:24 (unknown) (no (unknown) (unknown) mg-hydrochlorothiazi (uni ts (unknown) date) de 25 mg tablet unknown) (unknown) (no (unknown) (unknown) mortality (units (unkn own) date) unknown) (unknown) (no (unknown) (unknown) must administer with (uni ts (unknown) date) a meal/food unknown) (unknown) (no (unknown) (unknown) patient continues to (uni ts (unknown) date) complain of unknown) significant fatigue. Notes the headache is (unknown) (no (unknown) (unknown) prognosis with (units (unknown) date) systemic symptoms and unknown) potential for significant morbidity and (unknown) (no (unknown) (unknown) significantly (units (u nknown) date) elevated blood unknown) pressures even on repeat, complains of headache and (unknown) (no (unknown) (unknown) still present even (units (unknown) date) after Tylenol. The unknown) central chest pain has resolved. (unknown) (no (unknown) (unknown) transdermal patch (units (unknown) date) unknown) Result panel 523 (unknown) (no (unknown) (unknown) (no value) (units (unk nown) date) unknown) (unknown) (no (unknown) (unknown) [id number] (units (unkn own) date) unknown) (unknown) (no (unknown) (unknown) 07/17/22 (units (unkno wn) date) unknown) (unknown) (no (unknown) (unknown) 1. No evidence of (units (unknown) date) aortic aneurysm or unknown) dissection within the thoracic aorta. (unknown) (no (unknown) (unknown) [address] [place] [address] (units (unknown) date) unknown) (unknown) (no (unknown) (unknown) 2. No evidence of (units (unknown) date) pulmonary unknown) embolism. (unknown) (no (unknown) (unknown) 3. No acute (units (un known) date) airspace unknown) consolidation. (unknown) (no (unknown) (unknown) Abdomen: (units (unkno wn) date) Visualized upper unknown) abdomen demonstrates postsurgical changes consistent (unknown) (no (unknown) (unknown) Accession Number: (units (unknown) date) [id number] unknown) (unknown) (no (unknown) (unknown) After the (units (unkn own) date) administration of unknown) intravenous contrast, 2.5 mm thick sections (unknown) (no (unknown) (unknown) Age/Sex: 51 / F (units (unknown) date) Date of Service: unknown) (unknown) (no (unknown) (unknown) [place], [place] (units ( unknown) date) [id number] unknown) (unknown) (no (unknown) (unknown) Aorta: The (units (unk nown) date) thoracic and unknown) visualized abdominal aorta is normal in caliber and (unknown) (no (unknown) (unknown) Approved by: (units (u nknown) date) Obed Mccollum unknownBrooke Merrill on 07/17/2022 at 22:05 (unknown) (no (unknown) (unknown) Axillae: No (units (un known) date) lymphadenopathy by unknown) size criteria. (unknown) (no (unknown) (unknown) Bones: Visualized (units (unknown) date) osseous structures unknown) demonstrate no suspicious lesions. (unknown) (no (unknown) (unknown) COMPARISON: (units (un known) date) [facility], unknown) CT, CT ANGIO ABDOMEN PELVIS, 07/17/2022, 19:16. (unknown) (no (unknown) (unknown) CT Scan Report (units (unknown) date) unknown) (unknown) (no (unknown) (unknown) Chest Wall: (units (un known) date) Unremarkable. unknown) (unknown) (no (unknown) (unknown) : 1970 (units (unknown) date) Acct:[id number] unknown) (unknown) (no (unknown) (unknown) Dictated by: (units (u nknown) date) Obed Mccollum, unknown) [place] on 07/17/2022 at 22:01 (unknown) (no (unknown) (unknown) Esophagus: No (units ( unknown) date) wall thickening. unknown) There is a small hiatal hernia. (unknown) (no (unknown) (unknown) FINDINGS: (units (unkn own) date) unknown) (unknown) (no (unknown) (unknown) Heart: Heart size (units (unknown) date) is normal. No unknown) pericardial effusion. (unknown) (no (unknown) (unknown) Hospital, CT, CT (units (unknown) date) ANGIO CHEST unknown) ABDOMEN PELVIS, 03/09/2022, 9:01. (unknown) (no (unknown) (unknown) IMPRESSION: (units (un known) date) unknown) (unknown) (no (unknown) (unknown) INDICATIONS: to (units (unknown) date) complete entire unknown) aortic study - abd/pelvis done earlier (unknown) (no (unknown) (unknown) Image quality: (units (unknown) date) Excellent. unknown) (unknown) (no (unknown) (unknown) [facility] (units (unknown) date) unknown) (unknown) (no (unknown) (unknown) [place] (units (unkno wn) date) unknown) (unknown) (no (unknown) (unknown) Loc: AC 90A-1 (units ( unknown) date) unknown) (unknown) (no (unknown) (unknown) [place]: No (units (unknown) date) lymphadenopathy by unknown) size criteria. (unknown) (no (unknown) (unknown) Lungs and (units (unkn own) date) Airways: No acute unknown) consolidation. There is mild dependent (unknown) (no (unknown) (unknown) Mediastinum and (units (unknown) date) Sivan: No unknown) lymphadenopathy by size criteria. (unknown) (no (unknown) (unknown) Ordering (units (unkno wn) date) Provider: unknown) Marycruz Kim MD (unknown) (no (unknown) (unknown) PROCEDURE: CT (units ( unknown) date) ANGIO CHEST unknown) (unknown) (no (unknown) (unknown) Patient: (units (unkno wn) date) Nona Guzman unknown) MR#: M (unknown) (no (unknown) (unknown) Pleura: No (units (unk nown) date) pneumothorax or unknown) pleural effusions. (unknown) (no (unknown) (unknown) Procedure: CT (units ( unknown) date) angio chest unknown) (unknown) (no (unknown) (unknown) Signed (units (unkno wn) date) unknown) (unknown) (no (unknown) (unknown) TECHNIQUE: (units (unk nown) date) unknown) (unknown) (no (unknown) (unknown) Thoracic Vessels: (units (unknown) date) The pulmonary unknown) arteries are normal in size and demonstrate no (unknown) (no (unknown) (unknown) Thyroid: (units (unkno wn) date) Visualized thyroid unknown) demonstrates no discrete nodules. (unknown) (no (unknown) (unknown) acquired from the (units (unknown) date) unknown) (unknown) (no (unknown) (unknown) aortic arch. The (units (unknown) date) visualized great unknown) vessels are normal in caliber and appear (unknown) (no (unknown) (unknown) atelectasis. The (units (unknown) date) unknown) (unknown) (no (unknown) (unknown) bilaterally. (units (u nknown) date) unknown) (unknown) (no (unknown) (unknown) contour (units (unkno wn) date) unknown) (unknown) (no (unknown) (unknown) defects to (units (unk nown) date) suggest central unknown) pulmonary embolism. (unknown) (no (unknown) (unknown) filling (units (unkno wn) date) unknown) (unknown) (no (unknown) (unknown) lung apices to (units (unknown) date) the posterior lung unknown) bases. Maximum intensity projection (MIP) (unknown) (no (unknown) (unknown) oblique (units (unkno wn) date) unknown) (unknown) (no (unknown) (unknown) of the (units (unkno wn) date) unknown) (unknown) (no (unknown) (unknown) patent. (units (unkno wn) date) unknown) (unknown) (no (unknown) (unknown) prior gastric (units ( unknown) date) bypass. There is unknown) nodular thickening of the adrenal glands (unknown) (no (unknown) (unknown) radiation dose (units (unknown) date) unknown) (unknown) (no (unknown) (unknown) redemonstrated (units (unknown) date) unknown) (unknown) (no (unknown) (unknown) reduction, the (units (unknown) date) following was unknown) used: automated exposure control. (unknown) (no (unknown) (unknown) sagittal (units (unkno wn) date) reformats were unknown) then acquired parallel to the aortic arch. For (unknown) (no (unknown) (unknown) trachea and (units (un known) date) central airways unknown) are patent. (unknown) (no (unknown) (unknown) with (units (unkno wn) date) unknown) (unknown) (no (unknown) (unknown) without intimal (units (unknown) date) flaps to suggest unknown) dissection. There is conventional branching Result panel 524 (unknown) (no (unknown) (unknown) (no value) (units (unk nown) date) unknown) (unknown) (no (unknown) (unknown) 0.1 mg topical QWEEK (uni ts (unknown) date) Qty: 4 2RF unknown) (unknown) (no (unknown) (unknown) [id number] (units (unkno wn) date) unknown) (unknown) (no (unknown) (unknown) 07/17/22 07/17/22 (units (unknown) date) 07/17/22 Range/Units unknown) (unknown) (no (unknown) (unknown) 07/17/22 18:24 (units (unknown) date) unknown) (unknown) (no (unknown) (unknown) 07/17/22 18:49 (units (unknown) date) unknown) (unknown) (no (unknown) (unknown) 07/17/22 19:01 (units (unknown) date) unknown) (unknown) (no (unknown) (unknown) 07/17/22 19:02 (units (unknown) date) unknown) (unknown) (no (unknown) (unknown) 07/17/22 20:19 (units (unknown) date) unknown) (unknown) (no (unknown) (unknown) 07/17/22 (units (unkno wn) date) unknown) (unknown) (no (unknown) (unknown) 1 tab PO DAILY Qty: (unit s (unknown) date) 30 2RF unknown) (unknown) (no (unknown) (unknown) 12.5 mg PO BID Qty: (unit s (unknown) date) 60 1RF unknown) (unknown) (no (unknown) (unknown) 18:20 07/17/22 (units (unknown) date) unknown) (unknown) (no (unknown) (unknown) 18:24 (units (unkno wn) date) unknown) (unknown) (no (unknown) (unknown) 18:38 (units (unkno wn) date) unknown) (unknown) (no (unknown) (unknown) 18:43 07/17/22 (units (unknown) date) unknown) (unknown) (no (unknown) (unknown) 18:49 07/17/22 (units (unknown) date) unknown) (unknown) (no (unknown) (unknown) 18:49 18:49 18:49 (units (unknown) date) unknown) (unknown) (no (unknown) (unknown) 19:00 07/17/22 (units (unknown) date) unknown) (unknown) (no (unknown) (unknown) 19:00 (units (unkno wn) date) unknown) (unknown) (no (unknown) (unknown) 19:09 07/17/22 (units (unknown) date) unknown) (unknown) (no (unknown) (unknown) 19:09 (units (unkno wn) date) unknown) (unknown) (no (unknown) (unknown) 19:30 02/03/23 (units (unknown) date) unknown) (unknown) (no (unknown) (unknown) 19:35 07/17/22 (units (unknown) date) unknown) (unknown) (no (unknown) (unknown) 19:35 (units (unkno wn) date) unknown) (unknown) (no (unknown) (unknown) 19:40 07/17/22 (units (unknown) date) unknown) (unknown) (no (unknown) (unknown) 19:50 07/17/22 (units (unknown) date) unknown) (unknown) (no (unknown) (unknown) 19:50 (units (unkno wn) date) unknown) (unknown) (no (unknown) (unknown) 20:00 07/17/22 (units (unknown) date) unknown) (unknown) (no (unknown) (unknown) 20:00 (units (unkno wn) date) unknown) (unknown) (no (unknown) (unknown) 20:10 07/17/22 (units (unknown) date) unknown) (unknown) (no (unknown) (unknown) 20:20 (units (unkno wn) date) unknown) (unknown) (no (unknown) (unknown) 6.25 mg PO BID Qty: (unit s (unknown) date) 180 1RF unknown) (unknown) (no (unknown) (unknown) 8pm blood pressures (unit s (unknown) date) come down nicely with unknown) carvedilol drip currently at 157/68 (unknown) (no (unknown) (unknown) ALT 30 (<35) IU/L (units (unknown) date) unknown) (unknown) (no (unknown) (unknown) APTT 32 (26-36) (units (unknown) date) SECONDS unknown) (unknown) (no (unknown) (unknown) AST 24 (14-36) IU/L (unit s (unknown) date) unknown) (unknown) (no (unknown) (unknown) Acetaminophen (units ( unknown) date) (Acetaminophen 325 Mg unknown) Tablet) 975 mg PO NOW ONE (unknown) (no (unknown) (unknown) Age/Sex: 51 / F (units (unknown) date) unknown) (unknown) (no (unknown) (unknown) Albumin 4.1 (units (un known) date) (3.5-5.0) g/dL unknown) (unknown) (no (unknown) (unknown) Albumin/Globulin (units (unknown) date) Ratio 1.3 (1.0-2.8) unknown) (unknown) (no (unknown) (unknown) Alkaline Phosphatase (uni ts (unknown) date) 100 (38-126) U/L unknown) (unknown) (no (unknown) (unknown) Allergies (units (unkn own) date) unknown) (unknown) (no (unknown) (unknown) Allergy/AdvReac Type (uni ts (unknown) date) Severity Reaction unknown) Status Date / Time (unknown) (no (unknown) (unknown) Apply 1 patch, once (unit s (unknown) date) a week unknown) (unknown) (no (unknown) (unknown) BREATHING. (units (unk nown) date) unknown) (unknown) (no (unknown) (unknown) BUN 19 H (7-17) (units (unknown) date) mg/dL unknown) (unknown) (no (unknown) (unknown) BUN/Creatinine Ratio (uni ts (unknown) date) 25.7 H (6-22) unknown) (unknown) (no (unknown) (unknown) Baso # (Auto) 100 (units (unknown) date) (0-100) /uL unknown) (unknown) (no (unknown) (unknown) Baso % (Auto) 0.8 (units (unknown) date) (0-2) % unknown) (unknown) (no (unknown) (unknown) Blood Pressure (units (unknown) date) 154/70 H 150/68 H unknown) (unknown) (no (unknown) (unknown) Blood Pressure (units (unknown) date) 157/68 H 155/68 H unknown) (unknown) (no (unknown) (unknown) Blood Pressure (units (unknown) date) 175/56 H unknown) (unknown) (no (unknown) (unknown) Blood Pressure (units (unknown) date) 202/79 H unknown) (unknown) (no (unknown) (unknown) Blood Pressure (units (unknown) date) 202/89 H 07/17/22 unknown) 18:20 (unknown) (no (unknown) (unknown) Blood Pressure (units (unknown) date) 202/89 H 202/89 H unknown) (unknown) (no (unknown) (unknown) Blood Pressure (units (unknown) date) 210/84 H unknown) (unknown) (no (unknown) (unknown) Blood Pressure (units (unknown) date) 218/93 H 208/93 H unknown) (unknown) (no (unknown) (unknown) Blood Pressure (units (unknown) date) unknown) (unknown) (no (unknown) (unknown) CC: Hypertensive (units (unknown) date) crisis with headache unknown) and chest pain. New diagnosis, uncertain (unknown) (no (unknown) (unknown) CK-MB (CK-2) Rel (units (unknown) date) Index TNP unknown) (unknown) (no (unknown) (unknown) CK-MB (CK-2) TNP (units (unknown) date) unknown) (unknown) (no (unknown) (unknown) COVID19 -Nasal (units (unknown) date) RAPID/Pre-Proc Stat unknown) (unknown) (no (unknown) (unknown) CT angio abdomen (units (unknown) date) pelvis Stat unknown) (unknown) (no (unknown) (unknown) CT angio chest Stat (unit s (unknown) date) unknown) (unknown) (no (unknown) (unknown) CT head/brain wo con (uni ts (unknown) date) Stat unknown) (unknown) (no (unknown) (unknown) Calcium 9.2 (units (un known) date) (8.4-10.2) mg/dL unknown) (unknown) (no (unknown) (unknown) Carbon Dioxide 28 (units (unknown) date) (22-32) mmol/L unknown) (unknown) (no (unknown) (unknown) Chief complaint: (units (unknown) date) Hypertension unknown) (unknown) (no (unknown) (unknown) Chloride 104 (units (u nknown) date) (98-107) mmol/L unknown) (unknown) (no (unknown) (unknown) Complete Blood Count (uni ts (unknown) date) AUTO DIFF Stat unknown) (unknown) (no (unknown) (unknown) Complicating (units (u nknown) date) co-morbidities: unknown) Baseline hypertension poorly controlled with (unknown) (no (unknown) (unknown) Comprehensive (units ( unknown) date) Metabolic Panel Stat unknown) (unknown) (no (unknown) (unknown) Consultations: (units (unknown) date) unknown) (unknown) (no (unknown) (unknown) Corroborating data: (unit s (unknown) date) unknown) (unknown) (no (unknown) (unknown) Course (units (unkno wn) date) unknown) (unknown) (no (unknown) (unknown) Creatinine 0.74 (units (unknown) date) (0.52-1.04) mg/dL unknown) (unknown) (no (unknown) (unknown) : 1970 (units (unknown) date) Acct:[id number] unknown) (unknown) (no (unknown) (unknown) Data collected from: (uni ts (unknown) date) patient, unknown) (unknown) (no (unknown) (unknown) Date of Service: (units (unknown) date) 07/17/22 unknown) (unknown) (no (unknown) (unknown) Departure (units (unkn own) date) unknown) (unknown) (no (unknown) (unknown) Differential (units (u nknown) date) considered: unknown) Hypertensive emergency, intracranial hemorrhage, (unknown) (no (unknown) (unknown) Discharge Plan (units (unknown) date) unknown) (unknown) (no (unknown) (unknown) Discontinued (units (u nknown) date) Medications unknown) (unknown) (no (unknown) (unknown) Discussion: (units (un known) date) unknown) (unknown) (no (unknown) (unknown) Disposition: see (units (unknown) date) below, along with unknown) detailed discharge instructions that have (unknown) (no (unknown) (unknown) Documented By: CTS (units (unknown) date) unknown) (unknown) (no (unknown) (unknown) Documented By: GC (units (unknown) date) unknown) (unknown) (no (unknown) (unknown) Documented By: KB (units (unknown) date) unknown) (unknown) (no (unknown) (unknown) ED Orders (units (unkn own) date) unknown) (unknown) (no (unknown) (unknown) EKG-12 Lead Stat (units (unknown) date) unknown) (unknown) (no (unknown) (unknown) ER Physician: (units ( unknown) date) Marycruz Kim MD unknown) (unknown) (no (unknown) (unknown) Emergency Report (units (unknown) date) unknown) (unknown) (no (unknown) (unknown) Eos # (Auto) 100 (units (unknown) date) (0-450) /uL unknown) (unknown) (no (unknown) (unknown) Eos % (Auto) 0.7 L (units (unknown) date) (2-4) % unknown) (unknown) (no (unknown) (unknown) Estimated GFR > 60 (units (unknown) date) (>60) mL/min unknown) (unknown) (no (unknown) (unknown) Exam documented (units (unknown) date) above, pertinent unknown) findings include: Alert and appropriate, (unknown) (no (unknown) (unknown) Exam (units (unkno wn) date) unknown) (unknown) (no (unknown) (unknown) FACE, (units (unkno wn) date) unknown) (unknown) (no (unknown) (unknown) Fibromyalgia (units (u nknown) date) unknown) (unknown) (no (unknown) (unknown) General (units (unkno wn) date) unknown) (unknown) (no (unknown) (unknown) Globulin 3.1 (units (u nknown) date) (1.7-4.1) g/dL unknown) (unknown) (no (unknown) (unknown) Glucose 91 (70-100) (unit s (unknown) date) mg/dL unknown) (unknown) (no (unknown) (unknown) H/O gastric bypass (units (unknown) date) unknown) (unknown) (no (unknown) (unknown) HIVES ALL (units (unkn own) date) unknown) (unknown) (no (unknown) (unknown) HPI - General Adult (unit s (unknown) date) unknown) (unknown) (no (unknown) (unknown) Hct 42.1 (36-46) % (units (unknown) date) unknown) (unknown) (no (unknown) (unknown) Hgb 14.0 (12.0-16.0) (uni ts (unknown) date) g/dL unknown) (unknown) (no (unknown) (unknown) History of (units (unk nown) date) prediabetes unknown) (unknown) (no (unknown) (unknown) Hydromorphone HCl (units (unknown) date) (Hydromorphone 0.5 Mg unknown) Inj) 0.5 mg IV Q15MIN PRN (unknown) (no (unknown) (unknown) Hypertension (units (u nknown) date) unknown) (unknown) (no (unknown) (unknown) INR 0.9 (0.9-1.3) (units (unknown) date) unknown) (unknown) (no (unknown) (unknown) Imaging studies (units (unknown) date) independently unknown) reviewed: (unknown) (no (unknown) (unknown) Independently (units ( unknown) date) reviewed EKG as above unknown) (unknown) (no (unknown) (unknown) Initial Vital Signs (unit s (unknown) date) unknown) (unknown) (no (unknown) (unknown) Initial Vital Signs: (uni ts (unknown) date) unknown) (unknown) (no (unknown) (unknown) [facility] [address] (uni ts (unknown) date) [address] unknown) [place] [address] (unknown) (no (unknown) (unknown) Lab Data (units (unkno wn) date) unknown) (unknown) (no (unknown) (unknown) Lab Results (units (un known) date) unknown) (unknown) (no (unknown) (unknown) Lab Test results (units (unknown) date) independently unknown) reviewed as above. Pertinent findings: (unknown) (no (unknown) (unknown) Labs: (units (unkno wn) date) unknown) (unknown) (no (unknown) (unknown) Last Admin: 07/17/22 (uni ts (unknown) date) 18:43 Dose: 4 mg unknown) (unknown) (no (unknown) (unknown) Last Admin: 07/17/22 (uni ts (unknown) date) 18:43 Dose: 50 mg unknown) (unknown) (no (unknown) (unknown) Last Admin: 07/17/22 (uni ts (unknown) date) 18:43 Dose: 975 mg unknown) (unknown) (no (unknown) (unknown) Last Admin: 07/17/22 (uni ts (unknown) date) 19:09 Dose: 5 mg/hr, unknown) 50 mls/hr (unknown) (no (unknown) (unknown) Last Admin: 07/17/22 (uni ts (unknown) date) 21:26 Dose: 0.5 mg unknown) (unknown) (no (unknown) (unknown) Lipase 185 (23-300) (unit s (unknown) date) U/L unknown) (unknown) (no (unknown) (unknown) Lipase Stat (units (un known) date) unknown) (unknown) (no (unknown) (unknown) Losartan Potassium (units (unknown) date) (Losartan 50 Mg unknown) Tablet) 50 mg PO NOW ONE (unknown) (no (unknown) (unknown) Lymph # (Auto) 1900 (unit s (unknown) date) (1096-7643) /uL unknown) (unknown) (no (unknown) (unknown) Lymph % (Auto) 23.2 (unit s (unknown) date) L (25-40) % unknown) (unknown) (no (unknown) (unknown) MCH 30.8 (26-34) PG (unit s (unknown) date) unknown) (unknown) (no (unknown) (unknown) MCHC 33.3 (30-36) % (unit s (unknown) date) unknown) (unknown) (no (unknown) (unknown) MCV 92.5 (80-100) fL (uni ts (unknown) date) unknown) (unknown) (no (unknown) (unknown) MDM Narrative (units ( unknown) date) unknown) (unknown) (no (unknown) (unknown) Magnesium 2.0 (units ( unknown) date) (1.6-2.3) mg/dL unknown) (unknown) (no (unknown) (unknown) Magnesium Stat (units (unknown) date) unknown) (unknown) (no (unknown) (unknown) Medical Decision (units (unknown) date) Making unknown) (unknown) (no (unknown) (unknown) Medical History (units (unknown) date) (Reviewed 06/04/22 @ unknown) 15:01 by Julio Sandoval DO) (unknown) (no (unknown) (unknown) Medical decision (units (unknown) date) making narrative: unknown) (unknown) (no (unknown) (unknown) Medical records (units (unknown) date) reviewed: Primary unknown) care notes, today her carvedilol which had (unknown) (no (unknown) (unknown) Medication (units (unk nown) date) Instructions Recorded unknown) (unknown) (no (unknown) (unknown) Mode of arrival: EMS (uni ts (unknown) date) unknown) (unknown) (no (unknown) (unknown) Larue # (Auto) 400 (units (unknown) date) (0-900) /uL unknown) (unknown) (no (unknown) (unknown) Larue % (Auto) 5.4 (units (unknown) date) (3-14) % unknown) (unknown) (no (unknown) (unknown) Neut # (Auto) 5700 (units (unknown) date) (8317-2955) /uL unknown) (unknown) (no (unknown) (unknown) Neut % (Auto) 69.9 (units (unknown) date) (50-75) % unknown) (unknown) (no (unknown) (unknown) Nicardipine HCl 25 (units (unknown) date) mg/ Sodium (Chloride) unknown) 250 mls @ 50 mls/hr IV TITRATE SHANA; (unknown) (no (unknown) (unknown) No Action (units (unkn own) date) unknown) (unknown) (no (unknown) (unknown) OVER. (units (unkno wn) date) unknown) (unknown) (no (unknown) (unknown) Ondansetron HCl (units (unknown) date) (Ondansetron 4 Mg/2 unknown) Ml Inj) 4 mg IV NOW ONE (unknown) (no (unknown) (unknown) Ordered: (units (unkno wn) date) unknown) (unknown) (no (unknown) (unknown) Orders (units (unkno wn) date) unknown) (unknown) (no (unknown) (unknown) Oxygen Delivery (units (unknown) date) Method 07/17/22 18:20 unknown) (unknown) (no (unknown) (unknown) Oxygen Delivery (units (unknown) date) Method Room Air unknown) (unknown) (no (unknown) (unknown) Oxygen Delivery (units (unknown) date) Method unknown) (unknown) (no (unknown) (unknown) PRN Reason: Pain, (units (unknown) date) unknown) (unknown) (no (unknown) (unknown) PT 10.7 (10.1-12.7) (unit s (unknown) date) SECONDS unknown) (unknown) (no (unknown) (unknown) Partial (units (unkno wn) date) Thromboplastin Time unknown) Stat (unknown) (no (unknown) (unknown) Patient History (units (unknown) date) unknown) (unknown) (no (unknown) (unknown) Patient: (units (unkno wn) date) Nona Guzman MR#: unknown) M0 (unknown) (no (unknown) (unknown) Penicillins (units (un known) date) [PENICILLINS] Allergy unknown) Intermediate RASH/ITCHING, Verified 07/17/22 (unknown) (no (unknown) (unknown) Julio Sandoval DO (units (unknown) date) [Primary Care unknown) Provider] (unknown) (no (unknown) (unknown) Plt Count 229 (units ( unknown) date) (150-400) X103/uL unknown) (unknown) (no (unknown) (unknown) Potassium 3.7 (units ( unknown) date) (3.4-5.1) mmol/L unknown) (unknown) (no (unknown) (unknown) Prescriptions: (units (unknown) date) unknown) (unknown) (no (unknown) (unknown) Previous Rx's (units ( unknown) date) unknown) (unknown) (no (unknown) (unknown) Prothrombin Time INR (uni ts (unknown) date) Stat unknown) (unknown) (no (unknown) (unknown) Protocol (units (unkno wn) date) unknown) (unknown) (no (unknown) (unknown) Pulse Oximetry 100 (units (unknown) date) unknown) (unknown) (no (unknown) (unknown) Pulse Oximetry 95 (units (unknown) date) unknown) (unknown) (no (unknown) (unknown) Pulse Oximetry 96 96 (uni ts (unknown) date) unknown) (unknown) (no (unknown) (unknown) Pulse Oximetry 96 (units (unknown) date) unknown) (unknown) (no (unknown) (unknown) Pulse Oximetry 98 98 (uni ts (unknown) date) unknown) (unknown) (no (unknown) (unknown) Pulse Oximetry 99 (units (unknown) date) 07/17/22 18:20 unknown) (unknown) (no (unknown) (unknown) Pulse Oximetry 99 99 (uni ts (unknown) date) unknown) (unknown) (no (unknown) (unknown) Pulse Oximetry 99 (units (unknown) date) unknown) (unknown) (no (unknown) (unknown) Pulse Rate 65 (units ( unknown) date) unknown) (unknown) (no (unknown) (unknown) Pulse Rate 67 (units ( unknown) date) 07/17/22 18:20 unknown) (unknown) (no (unknown) (unknown) Pulse Rate 67 65 (units (unknown) date) unknown) (unknown) (no (unknown) (unknown) Pulse Rate 68 68 (units (unknown) date) unknown) (unknown) (no (unknown) (unknown) Pulse Rate 71 65 (units (unknown) date) unknown) (unknown) (no (unknown) (unknown) Pulse Rate 72 75 (units (unknown) date) unknown) (unknown) (no (unknown) (unknown) Pulse Rate 77 (units ( unknown) date) unknown) (unknown) (no (unknown) (unknown) Pulse Rate 78 (units ( unknown) date) unknown) (unknown) (no (unknown) (unknown) RBC 4.56 (4.0-5.2) (units (unknown) date) X106/uL unknown) (unknown) (no (unknown) (unknown) RDW 14.2 (11.6-14.8) (uni ts (unknown) date) % unknown) (unknown) (no (unknown) (unknown) Re-evaluations: (units (unknown) date) unknown) (unknown) (no (unknown) (unknown) Referrals: (units (unk nown) date) unknown) (unknown) (no (unknown) (unknown) Related Data (units (u nknown) date) unknown) (unknown) (no (unknown) (unknown) Respiratory Rate 14 (unit s (unknown) date) unknown) (unknown) (no (unknown) (unknown) Respiratory Rate 16 (unit s (unknown) date) 07/17/22 18:20 unknown) (unknown) (no (unknown) (unknown) Respiratory Rate 16 (unit s (unknown) date) 31 H unknown) (unknown) (no (unknown) (unknown) Respiratory Rate 20 (unit s (unknown) date) 17 unknown) (unknown) (no (unknown) (unknown) Respiratory Rate 20 (unit s (unknown) date) unknown) (unknown) (no (unknown) (unknown) Respiratory Rate 21 (unit s (unknown) date) unknown) (unknown) (no (unknown) (unknown) Respiratory Rate 30 (unit s (unknown) date) H 23 unknown) (unknown) (no (unknown) (unknown) Respiratory Rate 35 (unit s (unknown) date) H unknown) (unknown) (no (unknown) (unknown) Rx Instructions: (units (unknown) date) unknown) (unknown) (no (unknown) (unknown) Signed By: (units (unk nown) date) unknown) (unknown) (no (unknown) (unknown) Smoking Status: (units (unknown) date) Current every day unknown) smoker (unknown) (no (unknown) (unknown) Social History (units (unknown) date) (Reviewed 03/09/22 @ unknown) 10:33 by Mariella Rico DO) (unknown) (no (unknown) (unknown) Sodium 139 (137-145) (uni ts (unknown) date) mmol/L unknown) (unknown) (no (unknown) (unknown) Source: patient and (unit s (unknown) date) EMS unknown) (unknown) (no (unknown) (unknown) Stated complaint: (units (unknown) date) Nausea and HTN unknown) (unknown) (no (unknown) (unknown) Stop: 07/17/22 18:31 (uni ts (unknown) date) unknown) (unknown) (no (unknown) (unknown) Substance Use Type: (unit s (unknown) date) does not use unknown) (unknown) (no (unknown) (unknown) Surgical History (units (unknown) date) (Reviewed 06/04/22 @ unknown) 15:01 by Julio Sandoval DO) (unknown) (no (unknown) (unknown) THROAT (units (unkno wn) date) unknown) (unknown) (no (unknown) (unknown) TROUBLE (units (unkno wn) date) unknown) (unknown) (no (unknown) (unknown) Temperature 97.6 F (units (unknown) date) 07/17/22 18:20 unknown) (unknown) (no (unknown) (unknown) Temperature 97.6 F (units (unknown) date) unknown) (unknown) (no (unknown) (unknown) Temperature (units (un known) date) unknown) (unknown) (no (unknown) (unknown) Time Seen by (units (u nknown) date) Provider: 07/17/22 unknown) 18:29 (unknown) (no (unknown) (unknown) Total Bilirubin 0.7 (unit s (unknown) date) (0.2-1.3) mg/dL unknown) (unknown) (no (unknown) (unknown) Total Creatine (units (unknown) date) Kinase 35 (30-135) unknown) U/L (unknown) (no (unknown) (unknown) Total Protein 7.2 (units (unknown) date) (6.3-8.2) g/dL unknown) (unknown) (no (unknown) (unknown) Treatments: (units (un known) date) unknown) (unknown) (no (unknown) (unknown) Troponin + CK (units ( unknown) date) Cardiac Panel Stat unknown) (unknown) (no (unknown) (unknown) Troponin I < 0.012 (units (unknown) date) (0.01-0.034) ng/mL unknown) (unknown) (no (unknown) (unknown) Vital Signs - 8 hr (units (unknown) date) unknown) (unknown) (no (unknown) (unknown) Vital Signs (units (un known) date) unknown) (unknown) (no (unknown) (unknown) Vital signs: (units (u nknown) date) unknown) (unknown) (no (unknown) (unknown) WBC 8.1 (4.5-11.0) (units (unknown) date) X103/uL unknown) (unknown) (no (unknown) (unknown) XR chest 1V Stat (units (unknown) date) unknown) (unknown) (no (unknown) (unknown) [DIPHENHYDRAMINE] (units (unknown) date) unknown) (unknown) (no (unknown) (unknown) [Embedded Image Not (unit s (unknown) date) Available] unknown) (unknown) (no (unknown) (unknown) [MAGNESIUM CITRATE] (unit s (unknown) date) unknown) (unknown) (no (unknown) (unknown) additional (units (unk nown) date) outpatient follow up unknown) (unknown) (no (unknown) (unknown) alcohol intake (units (unknown) date) frequency: 0-2 drinks unknown) per day (unknown) (no (unknown) (unknown) amoxicillin (units (un known) date) [AMOXICILLIN] Allergy unknown) Severe SWELLING Verified 07/17/22 18:24 (unknown) (no (unknown) (unknown) and 25 mg of (units (u nknown) date) hydrochlorothiazide unknown) (unknown) (no (unknown) (unknown) angiogram from that (unit s (unknown) date) date does not support unknown) this. (unknown) (no (unknown) (unknown) been 6.25 b.i.d. was (uni ts (unknown) date) increased to 12.5 unknown) b.i.d.. She remains on 100 of losartan (unknown) (no (unknown) (unknown) been reviewed with (units (unknown) date) patient as well as unknown) indications for ED re-evaluation and (unknown) (no (unknown) (unknown) carvedilol 12.5 mg (units (unknown) date) tablet 12.5 mg PO BID unknown) #60 tabs 07/17/22 (unknown) (no (unknown) (unknown) carvedilol 12.5 mg (units (unknown) date) tablet unknown) (unknown) (no (unknown) (unknown) carvedilol 6.25 mg (units (unknown) date) tablet 6.25 mg PO BID unknown) #180 tabs 05/14/22 (unknown) (no (unknown) (unknown) carvedilol 6.25 mg (units (unknown) date) tablet unknown) (unknown) (no (unknown) (unknown) chest pain through (units (unknown) date) the center of her unknown) body, GCS of 15 (unknown) (no (unknown) (unknown) diphenhydramine (units (unknown) date) Allergy Mild unknown) SWELLING. Verified 07/17/22 18:24 (unknown) (no (unknown) (unknown) dissection, acute (units (unknown) date) coronary syndrome, unknown) reflux, medication noncompliance (unknown) (no (unknown) (unknown) documented blood (units (unknown) date) pressures over the unknown) last number of months in the 220/140 range (unknown) (no (unknown) (unknown) estradiol 0.1 mg/24 (unit s (unknown) date) hr patch weekly unknown) (unknown) (no (unknown) (unknown) estradiol 0.1 mg/24 (unit s (unknown) date) hr weekly 0.1 mg unknown) topical QWEEK #4 ea 06/04/22 (unknown) (no (unknown) (unknown) fairly (units (unkno wn) date) consistently,. Prior unknown) difficulties with hypertension, reported (unknown) (no (unknown) (unknown) intracranial bleed (units (unknown) date) associated with unknown) hypertensive urgency in February however CT (unknown) (no (unknown) (unknown) latex [LATEX] (units ( unknown) date) Allergy Mild RASH unknown) Verified 07/17/22 18:24 (unknown) (no (unknown) (unknown) losartan 100 1 tab (units (unknown) date) PO DAILY #30 tabs unknown) 06/03/22 (unknown) (no (unknown) (unknown) losartan-hydrochloro (uni ts (unknown) date) thiazide 100-25 mg unknown) tablet (unknown) (no (unknown) (unknown) magnesium citrate (units (unknown) date) AdvReac Unknown unknown) VOMITING Verified 07/17/22 18:24 (unknown) (no (unknown) (unknown) mg-hydrochlorothiazi (uni ts (unknown) date) de 25 mg tablet unknown) (unknown) (no (unknown) (unknown) mortality (units (unkn own) date) unknown) (unknown) (no (unknown) (unknown) must administer with (uni ts (unknown) date) a meal/food unknown) (unknown) (no (unknown) (unknown) patient continues to (uni ts (unknown) date) complain of unknown) significant fatigue. Notes the headache is (unknown) (no (unknown) (unknown) prognosis with (units (unknown) date) systemic symptoms and unknown) potential for significant morbidity and (unknown) (no (unknown) (unknown) significantly (units (u nknown) date) elevated blood unknown) pressures even on repeat, complains of headache and (unknown) (no (unknown) (unknown) still present even (units (unknown) date) after Tylenol. The unknown) central chest pain has resolved. (unknown) (no (unknown) (unknown) transdermal patch (units (unknown) date) unknown) Result panel 525 (unknown) (no (unknown) (unknown) (no value) (units (unk nown) date) unknown) (unknown) (no (unknown) (unknown) 0.1 mg topical QWEEK (uni ts (unknown) date) Qty: 4 2RF unknown) (unknown) (no (unknown) (unknown) [id number] (units (unkno wn) date) unknown) (unknown) (no (unknown) (unknown) 07/17/22 07/17/22 (units (unknown) date) 07/17/22 Range/Units unknown) (unknown) (no (unknown) (unknown) 07/17/22 18:24 (units (unknown) date) unknown) (unknown) (no (unknown) (unknown) 07/17/22 18:49 (units (unknown) date) unknown) (unknown) (no (unknown) (unknown) 07/17/22 19:01 (units (unknown) date) unknown) (unknown) (no (unknown) (unknown) 07/17/22 19:02 (units (unknown) date) unknown) (unknown) (no (unknown) (unknown) 07/17/22 20:19 (units (unknown) date) unknown) (unknown) (no (unknown) (unknown) 07/17/22 (units (unkno wn) date) unknown) (unknown) (no (unknown) (unknown) 1 tab PO DAILY Qty: (unit s (unknown) date) 30 2RF unknown) (unknown) (no (unknown) (unknown) 10pm imaging studies (uni ts (unknown) date) do not show acute unknown) abnormalities. She was inadvertently (unknown) (no (unknown) (unknown) 12.5 mg PO BID Qty: (unit s (unknown) date) 60 1RF unknown) (unknown) (no (unknown) (unknown) 18:20 07/17/22 (units (unknown) date) unknown) (unknown) (no (unknown) (unknown) 18:24 (units (unkno wn) date) unknown) (unknown) (no (unknown) (unknown) 18:38 (units (unkno wn) date) unknown) (unknown) (no (unknown) (unknown) 18:43 07/17/22 (units (unknown) date) unknown) (unknown) (no (unknown) (unknown) 18:49 07/17/22 (units (unknown) date) unknown) (unknown) (no (unknown) (unknown) 18:49 18:49 18:49 (units (unknown) date) unknown) (unknown) (no (unknown) (unknown) 19:00 07/17/22 (units (unknown) date) unknown) (unknown) (no (unknown) (unknown) 19:00 (units (unkno wn) date) unknown) (unknown) (no (unknown) (unknown) 19:09 07/17/22 (units (unknown) date) unknown) (unknown) (no (unknown) (unknown) 19:09 (units (unkno wn) date) unknown) (unknown) (no (unknown) (unknown) 19:30 07/17/22 (units (unknown) date) unknown) (unknown) (no (unknown) (unknown) 19:35 07/17/22 (units (unknown) date) unknown) (unknown) (no (unknown) (unknown) 19:35 (units (unkno wn) date) unknown) (unknown) (no (unknown) (unknown) 19:40 07/17/22 (units (unknown) date) unknown) (unknown) (no (unknown) (unknown) 19:50 07/17/22 (units (unknown) date) unknown) (unknown) (no (unknown) (unknown) 19:50 (units (unkno wn) date) unknown) (unknown) (no (unknown) (unknown) 20:00 07/17/22 (units (unknown) date) unknown) (unknown) (no (unknown) (unknown) 20:00 (units (unkno wn) date) unknown) (unknown) (no (unknown) (unknown) 20:10 07/17/22 (units (unknown) date) unknown) (unknown) (no (unknown) (unknown) 20:20 (units (unkno wn) date) unknown) (unknown) (no (unknown) (unknown) 242-260 systolic (units (unknown) date) range and 110-140 unknown) diastolic range. (unknown) (no (unknown) (unknown) 260/140 she was (units (unknown) date) started on a unknown) nicardipine drip with excellent response. It did (unknown) (no (unknown) (unknown) 51-year-old woman (units (unknown) date) with a history of unknown) severe and poorly controlled hypertension (unknown) (no (unknown) (unknown) 6.25 mg PO BID Qty: (unit s (unknown) date) 180 1RF unknown) (unknown) (no (unknown) (unknown) 8pm blood pressures (unit s (unknown) date) come down nicely with unknown) carvedilol drip currently at 157/68 (unknown) (no (unknown) (unknown) ALT 30 (<35) IU/L (units (unknown) date) unknown) (unknown) (no (unknown) (unknown) APTT 32 (26-36) (units (unknown) date) SECONDS unknown) (unknown) (no (unknown) (unknown) AST 24 (14-36) IU/L (unit s (unknown) date) unknown) (unknown) (no (unknown) (unknown) Abdomen: Soft, (units (unknown) date) nontender, good bowel unknown) tones, no flank pain (unknown) (no (unknown) (unknown) Acetaminophen (units ( unknown) date) (Acetaminophen 325 Mg unknown) Tablet) 975 mg PO NOW ONE (unknown) (no (unknown) (unknown) Age/Sex: 51 / F (units (unknown) date) unknown) (unknown) (no (unknown) (unknown) Albumin 4.1 (units (un known) date) (3.5-5.0) g/dL unknown) (unknown) (no (unknown) (unknown) Albumin/Globulin (units (unknown) date) Ratio 1.3 (1.0-2.8) unknown) (unknown) (no (unknown) (unknown) Alkaline Phosphatase (uni ts (unknown) date) 100 (38-126) U/L unknown) (unknown) (no (unknown) (unknown) Allergies (units (unkn own) date) unknown) (unknown) (no (unknown) (unknown) Allergy/AdvReac Type (uni ts (unknown) date) Severity Reaction unknown) Status Date / Time (unknown) (no (unknown) (unknown) Apply 1 patch, once (unit s (unknown) date) a week unknown) (unknown) (no (unknown) (unknown) Attestation: (units (u nknown) date) unknown) (unknown) (no (unknown) (unknown) BREATHING. (units (unk nown) date) unknown) (unknown) (no (unknown) (unknown) BUN 19 H (7-17) (units (unknown) date) mg/dL unknown) (unknown) (no (unknown) (unknown) BUN/Creatinine Ratio (uni ts (unknown) date) 25.7 H (6-22) unknown) (unknown) (no (unknown) (unknown) Baso # (Auto) 100 (units (unknown) date) (0-100) /uL unknown) (unknown) (no (unknown) (unknown) Baso % (Auto) 0.8 (units (unknown) date) (0-2) % unknown) (unknown) (no (unknown) (unknown) Blood Pressure (units (unknown) date) 154/70 H 150/68 H unknown) (unknown) (no (unknown) (unknown) Blood Pressure (units (unknown) date) 157/68 H 155/68 H unknown) (unknown) (no (unknown) (unknown) Blood Pressure (units (unknown) date) 175/56 H unknown) (unknown) (no (unknown) (unknown) Blood Pressure (units (unknown) date) 202/79 H unknown) (unknown) (no (unknown) (unknown) Blood Pressure (units (unknown) date) 202/89 H 07/17/22 unknown) 18:20 (unknown) (no (unknown) (unknown) Blood Pressure (units (unknown) date) 202/89 H 202/89 H unknown) (unknown) (no (unknown) (unknown) Blood Pressure (units (unknown) date) 210/84 H unknown) (unknown) (no (unknown) (unknown) Blood Pressure (units (unknown) date) 218/93 H 208/93 H unknown) (unknown) (no (unknown) (unknown) Blood Pressure (units (unknown) date) unknown) (unknown) (no (unknown) (unknown) CC: Hypertensive (units (unknown) date) crisis with headache unknown) and chest pain. New diagnosis, uncertain (unknown) (no (unknown) (unknown) CK-MB (CK-2) Rel (units (unknown) date) Index TNP unknown) (unknown) (no (unknown) (unknown) CK-MB (CK-2) TNP (units (unknown) date) unknown) (unknown) (no (unknown) (unknown) COVID19 -Nasal (units (unknown) date) RAPID/Pre-Proc Stat unknown) (unknown) (no (unknown) (unknown) CT angio abdomen (units (unknown) date) pelvis Stat unknown) (unknown) (no (unknown) (unknown) CT angio chest Stat (unit s (unknown) date) unknown) (unknown) (no (unknown) (unknown) CT angiogram of the (unit s (unknown) date) chest abdomen and unknown) pelvis does not show dissection or other (unknown) (no (unknown) (unknown) CT head/brain wo con (uni ts (unknown) date) Stat unknown) (unknown) (no (unknown) (unknown) Calcium 9.2 (units (un known) date) (8.4-10.2) mg/dL unknown) (unknown) (no (unknown) (unknown) Carbon Dioxide 28 (units (unknown) date) (22-32) mmol/L unknown) (unknown) (no (unknown) (unknown) Cardiac: Regular (units (unknown) date) rate and rhythm no unknown) murmurs no bruits (unknown) (no (unknown) (unknown) Chief complaint: (units (unknown) date) Hypertension unknown) (unknown) (no (unknown) (unknown) Chloride 104 (units (u nknown) date) (98-107) mmol/L unknown) (unknown) (no (unknown) (unknown) Clinical Impression: (uni ts (unknown) date) unknown) (unknown) (no (unknown) (unknown) Complete Blood Count (uni ts (unknown) date) AUTO DIFF Stat unknown) (unknown) (no (unknown) (unknown) Complicating (units (u nknown) date) co-morbidities: unknown) Baseline hypertension poorly controlled with (unknown) (no (unknown) (unknown) Comprehensive (units ( unknown) date) Metabolic Panel Stat unknown) (unknown) (no (unknown) (unknown) Consultations: (units (unknown) date) unknown) (unknown) (no (unknown) (unknown) Corroborating data: (unit s (unknown) date) unknown) (unknown) (no (unknown) (unknown) Course (units (unkno wn) date) unknown) (unknown) (no (unknown) (unknown) Creatinine 0.74 (units (unknown) date) (0.52-1.04) mg/dL unknown) (unknown) (no (unknown) (unknown) Critical Care Time (units (unknown) date) unknown) (unknown) (no (unknown) (unknown) Critical Care Time: (unit s (unknown) date) Yes unknown) (unknown) (no (unknown) (unknown) Critical care time (units (unknown) date) is separate from unknown) other billable procedures. There is a high (unknown) (no (unknown) (unknown) : 1970 (units (unknown) date) Acct:[id number] unknown) (unknown) (no (unknown) (unknown) Data collected from: (uni ts (unknown) date) patient, unknown) (unknown) (no (unknown) (unknown) Date of Service: (units (unknown) date) 07/17/22 unknown) (unknown) (no (unknown) (unknown) Departure (units (unkn own) date) unknown) (unknown) (no (unknown) (unknown) Differential (units (u nknown) date) considered: unknown) Hypertensive emergency, intracranial hemorrhage, (unknown) (no (unknown) (unknown) Discharge Plan (units (unknown) date) unknown) (unknown) (no (unknown) (unknown) Discontinued (units (u nknown) date) Medications unknown) (unknown) (no (unknown) (unknown) Discussion: (units (un known) date) 51-year-old woman unknown) with dramatically elevated blood pressure witn (unknown) (no (unknown) (unknown) Disposition: see (units (unknown) date) below, along with unknown) detailed discharge instructions that have (unknown) (no (unknown) (unknown) Documented By: CTS (units (unknown) date) unknown) (unknown) (no (unknown) (unknown) Documented By: GC (units (unknown) date) unknown) (unknown) (no (unknown) (unknown) Documented By: KB (units (unknown) date) unknown) (unknown) (no (unknown) (unknown) ECG Data (units (unkno wn) date) unknown) (unknown) (no (unknown) (unknown) ED Orders (units (unkn own) date) unknown) (unknown) (no (unknown) (unknown) EKG-12 Lead Stat (units (unknown) date) unknown) (unknown) (no (unknown) (unknown) ER Physician: (units ( unknown) date) Marycruz Kim MD unknown) (unknown) (no (unknown) (unknown) Emergency Report (units (unknown) date) unknown) (unknown) (no (unknown) (unknown) Eos # (Auto) 100 (units (unknown) date) (0-450) /uL unknown) (unknown) (no (unknown) (unknown) Eos % (Auto) 0.7 L (units (unknown) date) (2-4) % unknown) (unknown) (no (unknown) (unknown) Estimated GFR > 60 (units (unknown) date) (>60) mL/min unknown) (unknown) (no (unknown) (unknown) Exam documented (units (unknown) date) above, pertinent unknown) findings include: Alert and appropriate, (unknown) (no (unknown) (unknown) Exam (units (unkno wn) date) unknown) (unknown) (no (unknown) (unknown) Extremities: No (units (unknown) date) trauma, well perfused unknown) (unknown) (no (unknown) (unknown) FACE, (units (unkno wn) date) unknown) (unknown) (no (unknown) (unknown) Fibromyalgia (units (u nknown) date) unknown) (unknown) (no (unknown) (unknown) Full and symmetrical (uni ts (unknown) date) air movement unknown) (unknown) (no (unknown) (unknown) General (units (unkno wn) date) unknown) (unknown) (no (unknown) (unknown) General: Healthy (units (unknown) date) appearing, in mild unknown) distress secondary to headache and chest (unknown) (no (unknown) (unknown) Globulin 3.1 (units (u nknown) date) (1.7-4.1) g/dL unknown) (unknown) (no (unknown) (unknown) Glucose 91 (70-100) (unit s (unknown) date) mg/dL unknown) (unknown) (no (unknown) (unknown) H/O gastric bypass (units (unknown) date) unknown) (unknown) (no (unknown) (unknown) HEENT: Moist mucous (unit s (unknown) date) membranes, normal unknown) sclera with reactive pupils, (unknown) (no (unknown) (unknown) HIVES ALL (units (unkn own) date) unknown) (unknown) (no (unknown) (unknown) HPI - General Adult (unit s (unknown) date) unknown) (unknown) (no (unknown) (unknown) HPI narrative: (units (unknown) date) unknown) (unknown) (no (unknown) (unknown) Hct 42.1 (36-46) % (units (unknown) date) unknown) (unknown) (no (unknown) (unknown) Hgb 14.0 (12.0-16.0) (uni ts (unknown) date) g/dL unknown) (unknown) (no (unknown) (unknown) History of Present (units (unknown) date) Illness unknown) (unknown) (no (unknown) (unknown) History of (units (unk nown) date) prediabetes unknown) (unknown) (no (unknown) (unknown) Hydromorphone HCl (units (unknown) date) (Hydromorphone 0.5 Mg unknown) Inj) 0.5 mg IV Q15MIN PRN (unknown) (no (unknown) (unknown) Hypertension (units (u nknown) date) unknown) (unknown) (no (unknown) (unknown) Hypertensive crisis, (uni ts (unknown) date) Chest pain, Headache unknown) (unknown) (no (unknown) (unknown) INR 0.9 (0.9-1.3) (units (unknown) date) unknown) (unknown) (no (unknown) (unknown) Imaging studies (units (unknown) date) independently unknown) reviewed: CT head does not show any acute bleeds. (unknown) (no (unknown) (unknown) Independently (units ( unknown) date) reviewed EKG as above unknown) (unknown) (no (unknown) (unknown) Initial Vital Signs (unit s (unknown) date) unknown) (unknown) (no (unknown) (unknown) Initial Vital Signs: (uni ts (unknown) date) unknown) (unknown) (no (unknown) (unknown) Interpretation: (units (unknown) date) unknown) (unknown) (no (unknown) (unknown) [facility] [address] (uni ts (unknown) date) [address] unknown) [place] [address] (unknown) (no (unknown) (unknown) Lab Data (units (unkno wn) date) unknown) (unknown) (no (unknown) (unknown) Lab Results (units (un known) date) unknown) (unknown) (no (unknown) (unknown) Lab Test results (units (unknown) date) independently unknown) reviewed as above. Pertinent findings: (unknown) (no (unknown) (unknown) Labs: (units (unkno wn) date) unknown) (unknown) (no (unknown) (unknown) Last Admin: 07/17/22 (uni ts (unknown) date) 18:43 Dose: 4 mg unknown) (unknown) (no (unknown) (unknown) Last Admin: 07/17/22 (uni ts (unknown) date) 18:43 Dose: 50 mg unknown) (unknown) (no (unknown) (unknown) Last Admin: 07/17/22 (uni ts (unknown) date) 18:43 Dose: 975 mg unknown) (unknown) (no (unknown) (unknown) Last Admin: 07/17/22 (uni ts (unknown) date) 19:09 Dose: 5 mg/hr, unknown) 50 mls/hr (unknown) (no (unknown) (unknown) Last Admin: 07/17/22 (uni ts (unknown) date) 21:26 Dose: 0.5 mg unknown) (unknown) (no (unknown) (unknown) Lipase 185 (23-300) (unit s (unknown) date) U/L unknown) (unknown) (no (unknown) (unknown) Lipase Stat (units (un known) date) unknown) (unknown) (no (unknown) (unknown) Losartan Potassium (units (unknown) date) (Losartan 50 Mg unknown) Tablet) 50 mg PO NOW ONE (unknown) (no (unknown) (unknown) Lymph # (Auto) 1900 (unit s (unknown) date) (9481-0664) /uL unknown) (unknown) (no (unknown) (unknown) Lymph % (Auto) 23.2 (unit s (unknown) date) L (25-40) % unknown) (unknown) (no (unknown) (unknown) MCH 30.8 (26-34) PG (unit s (unknown) date) unknown) (unknown) (no (unknown) (unknown) MCHC 33.3 (30-36) % (unit s (unknown) date) unknown) (unknown) (no (unknown) (unknown) MCV 92.5 (80-100) fL (uni ts (unknown) date) unknown) (unknown) (no (unknown) (unknown) MDM Narrative (units ( unknown) date) unknown) (unknown) (no (unknown) (unknown) Magnesium 2.0 (units ( unknown) date) (1.6-2.3) mg/dL unknown) (unknown) (no (unknown) (unknown) Magnesium Stat (units (unknown) date) unknown) (unknown) (no (unknown) (unknown) Medical Decision (units (unknown) date) Making unknown) (unknown) (no (unknown) (unknown) Medical History (units (unknown) date) (Reviewed 06/04/22 @ unknown) 15:01 by Julio Sandoval DO) (unknown) (no (unknown) (unknown) Medical decision (units (unknown) date) making narrative: unknown) (unknown) (no (unknown) (unknown) Medical records (units (unknown) date) reviewed: Primary unknown) care notes, today her carvedilol which had (unknown) (no (unknown) (unknown) Medication (units (unk nown) date) Instructions Recorded unknown) (unknown) (no (unknown) (unknown) Mode of arrival: EMS (uni ts (unknown) date) unknown) (unknown) (no (unknown) (unknown) Larue # (Auto) 400 (units (unknown) date) (0-900) /uL unknown) (unknown) (no (unknown) (unknown) Larue % (Auto) 5.4 (units (unknown) date) (3-14) % unknown) (unknown) (no (unknown) (unknown) Narrative: (units (unk nown) date) unknown) (unknown) (no (unknown) (unknown) Neck: No JVD, supple (uni ts (unknown) date) unknown) (unknown) (no (unknown) (unknown) Neurologic: Grossly (unit s (unknown) date) neurologically intact unknown) with no obvious asymmetries or (unknown) (no (unknown) (unknown) Neut # (Auto) 5700 (units (unknown) date) (4304-4044) /uL unknown) (unknown) (no (unknown) (unknown) Neut % (Auto) 69.9 (units (unknown) date) (50-75) % unknown) (unknown) (no (unknown) (unknown) Nicardipine HCl 25 (units (unknown) date) mg/ Sodium (Chloride) unknown) 250 mls @ 50 mls/hr IV TITRATE SHANA; (unknown) (no (unknown) (unknown) No Action (units (unkn own) date) unknown) (unknown) (no (unknown) (unknown) No acute ischemic (units (unknown) date) changes unknown) (unknown) (no (unknown) (unknown) Normal intervals, (units (unknown) date) normal axis unknown) (unknown) (no (unknown) (unknown) OVER. (units (unkno wn) date) unknown) (unknown) (no (unknown) (unknown) Ondansetron HCl (units (unknown) date) (Ondansetron 4 Mg/2 unknown) Ml Inj) 4 mg IV NOW ONE (unknown) (no (unknown) (unknown) Ordered: (units (unkno wn) date) unknown) (unknown) (no (unknown) (unknown) Orders (units (unkno wn) date) unknown) (unknown) (no (unknown) (unknown) Oxygen Delivery (units (unknown) date) Method 07/17/22 18:20 unknown) (unknown) (no (unknown) (unknown) Oxygen Delivery (units (unknown) date) Method Room Air unknown) (unknown) (no (unknown) (unknown) Oxygen Delivery (units (unknown) date) Method unknown) (unknown) (no (unknown) (unknown) PRN Reason: Pain, (units (unknown) date) unknown) (unknown) (no (unknown) (unknown) PT 10.7 (10.1-12.7) (unit s (unknown) date) SECONDS unknown) (unknown) (no (unknown) (unknown) Partial (units (unkno wn) date) Thromboplastin Time unknown) Stat (unknown) (no (unknown) (unknown) Patient Disposition: (uni ts (unknown) date) Admitted as unknown) Observation (unknown) (no (unknown) (unknown) Patient History (units (unknown) date) unknown) (unknown) (no (unknown) (unknown) Patient: (units (unkno wn) date) Nona Guzman MR#: unknown) M0 (unknown) (no (unknown) (unknown) Penicillins (units (un known) date) [PENICILLINS] Allergy unknown) Intermediate RASH/ITCHING, Verified 07/17/22 (unknown) (no (unknown) (unknown) Julio Sandoval DO (units (unknown) date) [Primary Care unknown) Provider] (unknown) (no (unknown) (unknown) Plt Count 229 (units ( unknown) date) (150-400) X103/uL unknown) (unknown) (no (unknown) (unknown) Potassium 3.7 (units ( unknown) date) (3.4-5.1) mmol/L unknown) (unknown) (no (unknown) (unknown) Prescriptions: (units (unknown) date) unknown) (unknown) (no (unknown) (unknown) Previous Rx's (units ( unknown) date) unknown) (unknown) (no (unknown) (unknown) Prothrombin Time INR (uni ts (unknown) date) Stat unknown) (unknown) (no (unknown) (unknown) Protocol (units (unkno wn) date) unknown) (unknown) (no (unknown) (unknown) Psych: Cooperative, (unit s (unknown) date) appropriate insight unknown) and affect (unknown) (no (unknown) (unknown) Pulse Oximetry 100 (units (unknown) date) unknown) (unknown) (no (unknown) (unknown) Pulse Oximetry 95 (units (unknown) date) unknown) (unknown) (no (unknown) (unknown) Pulse Oximetry 96 96 (uni ts (unknown) date) unknown) (unknown) (no (unknown) (unknown) Pulse Oximetry 96 (units (unknown) date) unknown) (unknown) (no (unknown) (unknown) Pulse Oximetry 98 98 (uni ts (unknown) date) unknown) (unknown) (no (unknown) (unknown) Pulse Oximetry 99 (units (unknown) date) 07/17/22 18:20 unknown) (unknown) (no (unknown) (unknown) Pulse Oximetry 99 99 (uni ts (unknown) date) unknown) (unknown) (no (unknown) (unknown) Pulse Oximetry 99 (units (unknown) date) unknown) (unknown) (no (unknown) (unknown) Pulse Rate 65 (units ( unknown) date) unknown) (unknown) (no (unknown) (unknown) Pulse Rate 67 (units ( unknown) date) 07/17/22 18:20 unknown) (unknown) (no (unknown) (unknown) Pulse Rate 67 65 (units (unknown) date) unknown) (unknown) (no (unknown) (unknown) Pulse Rate 68 68 (units (unknown) date) unknown) (unknown) (no (unknown) (unknown) Pulse Rate 71 65 (units (unknown) date) unknown) (unknown) (no (unknown) (unknown) Pulse Rate 72 75 (units (unknown) date) unknown) (unknown) (no (unknown) (unknown) Pulse Rate 77 (units ( unknown) date) unknown) (unknown) (no (unknown) (unknown) Pulse Rate 78 (units ( unknown) date) unknown) (unknown) (no (unknown) (unknown) RBC 4.56 (4.0-5.2) (units (unknown) date) X106/uL unknown) (unknown) (no (unknown) (unknown) RDW 14.2 (11.6-14.8) (uni ts (unknown) date) % unknown) (unknown) (no (unknown) (unknown) Re-evaluations: (units (unknown) date) unknown) (unknown) (no (unknown) (unknown) Referrals: (units (unk nown) date) unknown) (unknown) (no (unknown) (unknown) Related Data (units (u nknown) date) unknown) (unknown) (no (unknown) (unknown) Remainder of (units (u nknown) date) complete review of unknown) systems is otherwise unremarkable except for (unknown) (no (unknown) (unknown) Respiratory Rate 14 (unit s (unknown) date) unknown) (unknown) (no (unknown) (unknown) Respiratory Rate 16 (unit s (unknown) date) 07/17/22 18:20 unknown) (unknown) (no (unknown) (unknown) Respiratory Rate 16 (unit s (unknown) date) 31 H unknown) (unknown) (no (unknown) (unknown) Respiratory Rate 20 (unit s (unknown) date) 17 unknown) (unknown) (no (unknown) (unknown) Respiratory Rate 20 (unit s (unknown) date) unknown) (unknown) (no (unknown) (unknown) Respiratory Rate 21 (unit s (unknown) date) unknown) (unknown) (no (unknown) (unknown) Respiratory Rate 30 (unit s (unknown) date) H 23 unknown) (unknown) (no (unknown) (unknown) Respiratory Rate 35 (unit s (unknown) date) H unknown) (unknown) (no (unknown) (unknown) Respiratory: Lungs (units (unknown) date) are clear to unknown) auscultation, no wheezing no rales no rhonchi. (unknown) (no (unknown) (unknown) Review of Systems (units (unknown) date) unknown) (unknown) (no (unknown) (unknown) Rx Instructions: (units (unknown) date) unknown) (unknown) (no (unknown) (unknown) Signed By: (units (unk nown) date) unknown) (unknown) (no (unknown) (unknown) Sinus rhythm at a (units (unknown) date) rate of 64 unknown) (unknown) (no (unknown) (unknown) Skin: Warm and dry, (unit s (unknown) date) no rashes unknown) (unknown) (no (unknown) (unknown) Smoking Status: (units (unknown) date) Current every day unknown) smoker (unknown) (no (unknown) (unknown) Social History (units (unknown) date) (Reviewed 03/09/22 @ unknown) 10:33 by Mariella Rico DO) (unknown) (no (unknown) (unknown) Sodium 139 (137-145) (uni ts (unknown) date) mmol/L unknown) (unknown) (no (unknown) (unknown) Source: patient and (unit s (unknown) date) EMS unknown) (unknown) (no (unknown) (unknown) Stated complaint: (units (unknown) date) Nausea and HTN unknown) (unknown) (no (unknown) (unknown) Stop: 07/17/22 18:31 (uni ts (unknown) date) unknown) (unknown) (no (unknown) (unknown) Substance Use Type: (unit s (unknown) date) does not use unknown) (unknown) (no (unknown) (unknown) Surgical History (units (unknown) date) (Reviewed 06/04/22 @ unknown) 15:01 by Julio Sandoval DO) (unknown) (no (unknown) (unknown) THROAT (units (unkno wn) date) unknown) (unknown) (no (unknown) (unknown) TROUBLE (units (unkno wn) date) unknown) (unknown) (no (unknown) (unknown) Temperature 97.6 F (units (unknown) date) 07/17/22 18:20 unknown) (unknown) (no (unknown) (unknown) Temperature 97.6 F (units (unknown) date) unknown) (unknown) (no (unknown) (unknown) Temperature (units (un known) date) unknown) (unknown) (no (unknown) (unknown) This critical care (units (unknown) date) time includes unknown) consultation with family and other consulting (unknown) (no (unknown) (unknown) Time Seen by (units (u nknown) date) Provider: 07/17/22 unknown) 18:29 (unknown) (no (unknown) (unknown) Total Bilirubin 0.7 (unit s (unknown) date) (0.2-1.3) mg/dL unknown) (unknown) (no (unknown) (unknown) Total Creatine (units (unknown) date) Kinase 35 (30-135) unknown) U/L (unknown) (no (unknown) (unknown) Total Critical Care (unit s (unknown) date) Time: 36 unknown) (unknown) (no (unknown) (unknown) Total Protein 7.2 (units (unknown) date) (6.3-8.2) g/dL unknown) (unknown) (no (unknown) (unknown) Treatments: Upon (units (unknown) date) arrival complaining unknown) initially of hypertension with mild (unknown) (no (unknown) (unknown) Troponin + CK (units ( unknown) date) Cardiac Panel Stat unknown) (unknown) (no (unknown) (unknown) Troponin I < 0.012 (units (unknown) date) (0.01-0.034) ng/mL unknown) (unknown) (no (unknown) (unknown) Vital Signs - 8 hr (units (unknown) date) unknown) (unknown) (no (unknown) (unknown) Vital Signs (units (un known) date) unknown) (unknown) (no (unknown) (unknown) Vital signs: (units (u nknown) date) unknown) (unknown) (no (unknown) (unknown) WBC 8.1 (4.5-11.0) (units (unknown) date) X103/uL unknown) (unknown) (no (unknown) (unknown) XR chest 1V Stat (units (unknown) date) unknown) (unknown) (no (unknown) (unknown) [DIPHENHYDRAMINE] (units (unknown) date) unknown) (unknown) (no (unknown) (unknown) [Embedded Image Not (unit s (unknown) date) Available] unknown) (unknown) (no (unknown) (unknown) [MAGNESIUM CITRATE] (unit s (unknown) date) unknown) (unknown) (no (unknown) (unknown) abnormalities (units ( unknown) date) unknown) (unknown) (no (unknown) (unknown) additional (units (unk nown) date) outpatient follow up unknown) (unknown) (no (unknown) (unknown) alcohol intake (units (unknown) date) frequency: 0-2 drinks unknown) per day (unknown) (no (unknown) (unknown) amoxicillin (units (un known) date) [AMOXICILLIN] Allergy unknown) Severe SWELLING Verified 07/17/22 18:24 (unknown) (no (unknown) (unknown) and 25 mg of (units (u nknown) date) hydrochlorothiazide unknown) (unknown) (no (unknown) (unknown) and blood pressure (units (unknown) date) is 167/80. unknown) (unknown) (no (unknown) (unknown) angiogram from that (unit s (unknown) date) date does not support unknown) this. (unknown) (no (unknown) (unknown) associated severe (units (unknown) date) headache and then unknown) central chest pain radiating through to her (unknown) (no (unknown) (unknown) back concerning for (unit s (unknown) date) dissection. Imaging unknown) studies do not confirm stroke or (unknown) (no (unknown) (unknown) been 6.25 b.i.d. was (uni ts (unknown) date) increased to 12.5 unknown) b.i.d.. She remains on 100 of losartan (unknown) (no (unknown) (unknown) been reviewed with (units (unknown) date) patient as well as unknown) indications for ED re-evaluation and (unknown) (no (unknown) (unknown) blood pressure (units (unknown) date) medication. Since unknown) that time she has been more consistent in his (unknown) (no (unknown) (unknown) carvedilol 12.5 mg (units (unknown) date) tablet 12.5 mg PO BID unknown) #60 tabs 07/17/22 (unknown) (no (unknown) (unknown) carvedilol 12.5 mg (units (unknown) date) tablet unknown) (unknown) (no (unknown) (unknown) carvedilol 6.25 mg (units (unknown) date) tablet 6.25 mg PO BID unknown) #180 tabs 05/14/22 (unknown) (no (unknown) (unknown) carvedilol 6.25 mg (units (unknown) date) tablet unknown) (unknown) (no (unknown) (unknown) chest pain through (units (unknown) date) the center of her unknown) body, GCS of 15 (unknown) (no (unknown) (unknown) chills recently. She (uni ts (unknown) date) has been checking her unknown) blood pressures recently and has (unknown) (no (unknown) (unknown) currently on losartan (uni ts (unknown) date) 100 mg with unknown) hydrochlorothiazide 25 mg and carvedilol today (unknown) (no (unknown) (unknown) diphenhydramine (units (unknown) date) Allergy Mild unknown) SWELLING. Verified 07/17/22 18:24 (unknown) (no (unknown) (unknown) dissection, acute (units (unknown) date) coronary syndrome, unknown) reflux, medication noncompliance (unknown) (no (unknown) (unknown) dissection. She is (units (unknown) date) slightly more unknown) comfortable with nicardipine drip running. We (unknown) (no (unknown) (unknown) doctors, review of (units (unknown) date) records, and unknown) interpretation of data from labs, EKGs and (unknown) (no (unknown) (unknown) documented blood (units (unknown) date) pressures over the unknown) last number of months in the 220/140 range (unknown) (no (unknown) (unknown) during that (units (un known) date) consultation she unknown) checked her home blood pressure and found it to be (unknown) (no (unknown) (unknown) emergency department (uni ts (unknown) date) she is complaining of unknown) severe headache, slightly blurry (unknown) (no (unknown) (unknown) estradiol 0.1 mg/24 (unit s (unknown) date) hr patch weekly unknown) (unknown) (no (unknown) (unknown) estradiol 0.1 mg/24 (unit s (unknown) date) hr weekly 0.1 mg unknown) topical QWEEK #4 ea 06/04/22 (unknown) (no (unknown) (unknown) extremity edema, no (unit s (unknown) date) nausea, vomiting, unknown) diarrhea. Has not been having fevers or (unknown) (no (unknown) (unknown) fairly (units (unkno wn) date) consistently,. Prior unknown) difficulties with hypertension, reported (unknown) (no (unknown) (unknown) headache she was (units (unknown) date) given an additional unknown) 50 mg of her losartan and Tylenol. When (unknown) (no (unknown) (unknown) help with (units (unkn own) date) transitioning to unknown) additional oral hypertensives for safe discharge (unknown) (no (unknown) (unknown) home. (units (unkno wn) date) unknown) (unknown) (no (unknown) (unknown) imaging as well as (units (unknown) date) managements of unknown) hypertensive crisis with IV blood pressure (unknown) (no (unknown) (unknown) in the in the (units ( unknown) date) 220/120 range. She unknown) did have a headache and was instructed come to (unknown) (no (unknown) (unknown) intracranial bleed (units (unknown) date) associated with unknown) hypertensive urgency in February however CT (unknown) (no (unknown) (unknown) latex [LATEX] (units ( unknown) date) Allergy Mild RASH unknown) Verified 07/17/22 18:24 (unknown) (no (unknown) (unknown) losartan 100 1 tab (units (unknown) date) PO DAILY #30 tabs unknown) 06/03/22 (unknown) (no (unknown) (unknown) losartan-hydrochloro (uni ts (unknown) date) thiazide 100-25 mg unknown) tablet (unknown) (no (unknown) (unknown) magnesium citrate (units (unknown) date) AdvReac Unknown unknown) VOMITING Verified 07/17/22 18:24 (unknown) (no (unknown) (unknown) management required (unit s (unknown) date) unknown) (unknown) (no (unknown) (unknown) mg-hydrochlorothiazi (uni ts (unknown) date) de 25 mg tablet unknown) (unknown) (no (unknown) (unknown) mortality (units (unkn own) date) unknown) (unknown) (no (unknown) (unknown) must administer with (uni ts (unknown) date) a meal/food unknown) (unknown) (no (unknown) (unknown) not alleviate her (units (unknown) date) headache to have her unknown) blood pressure in the 160/80 range. She (unknown) (no (unknown) (unknown) pain. Able to give a (uni ts (unknown) date) complete and coherent unknown) history. Well-nourished well-develo (unknown) (no (unknown) (unknown) patient continues to (uni ts (unknown) date) complain of unknown) significant fatigue. Notes the headache is (unknown) (no (unknown) (unknown) ped (units (unkno wn) date) unknown) (unknown) (no (unknown) (unknown) photographs of the (units (unknown) date) device reading and unknown) blood pressures are consistently in the (unknown) (no (unknown) (unknown) presents with (units ( unknown) date) significantly unknown) elevated blood pressure. She was having a tele (unknown) (no (unknown) (unknown) probability of a (units (unknown) date) significant, sudden unknown) or life-threatening deterioration that (unknown) (no (unknown) (unknown) prognosis with (units (unknown) date) systemic symptoms and unknown) potential for significant morbidity and (unknown) (no (unknown) (unknown) reports chronic (units (unknown) date) headaches, occasional unknown) chest pain, no palpitations no lower (unknown) (no (unknown) (unknown) requires my full and (uni ts (unknown) date) direct attention, unknown) intervention and personal management. (unknown) (no (unknown) (unknown) sharp pain through (units (unknown) date) the center of her unknown) chest radiating through to her back. She (unknown) (no (unknown) (unknown) she began (units (unkn own) date) complaining of chest unknown) pain and her blood pressure was found to be (unknown) (no (unknown) (unknown) significantly (units (u nknown) date) elevated blood unknown) pressures even on repeat, complains of headache and (unknown) (no (unknown) (unknown) specific (units (unkno wn) date) abnormalities to unknown) explain her pain (unknown) (no (unknown) (unknown) still present even (units (unknown) date) after Tylenol. The unknown) central chest pain has resolved. (unknown) (no (unknown) (unknown) taken off her (units ( unknown) date) nicardipine for the unknown) 2nd imaging study and blood pressure was back (unknown) (no (unknown) (unknown) that included in the (uni ts (unknown) date) HPI. unknown) (unknown) (no (unknown) (unknown) the emergency (units ( unknown) date) department. She would unknown) similar complaints in February of last (unknown) (no (unknown) (unknown) transdermal patch (units (unknown) date) unknown) (unknown) (no (unknown) (unknown) up to 190/100 (units ( unknown) date) shortly after the unknown) nicardipine was discontinued. It is restarted (unknown) (no (unknown) (unknown) video appointment (units (unknown) date) with her primary care unknown) doctor to discuss her hypertension and (unknown) (no (unknown) (unknown) vision and shortly (units (unknown) date) after arrival with unknown) blood pressure appreciated 240/120 noted a (unknown) (no (unknown) (unknown) was given a dose of (unit s (unknown) date) hydromorphone with unknown) some relief. (unknown) (no (unknown) (unknown) was increased from (units (unknown) date) 6.25 mg b.i.d. up to unknown) 12.5 mg b.i.d.. On arrival in the (unknown) (no (unknown) (unknown) will recommend (units (unknown) date) hospitalization for unknown) management of her hypertensive crisis and (unknown) (no (unknown) (unknown) year with headache (units (unknown) date) and blurry vision and unknown) notes that she had not been taking her Result panel 526 (unknown) (no (unknown) (unknown) (no value) (units (unk nown) date) unknown) (unknown) (no (unknown) (unknown) [id number] (units (unkno wn) date) unknown) (unknown) (no (unknown) (unknown) 07/17/22 07/17/22 (units (unknown) date) 07/17/22 Range/Units unknown) (unknown) (no (unknown) (unknown) 07/17/22 18:24 (units (unknown) date) unknown) (unknown) (no (unknown) (unknown) 07/17/22 18:49 (units (unknown) date) unknown) (unknown) (no (unknown) (unknown) 07/17/22 19:01 (units (unknown) date) unknown) (unknown) (no (unknown) (unknown) 07/17/22 19:02 (units (unknown) date) unknown) (unknown) (no (unknown) (unknown) 07/17/22 20:19 (units (unknown) date) unknown) (unknown) (no (unknown) (unknown) 07/17/22 (units (unkno wn) date) unknown) (unknown) (no (unknown) (unknown) 10pm imaging studies (uni ts (unknown) date) do not show acute unknown) abnormalities. She was inadvertently (unknown) (no (unknown) (unknown) 18:20 07/17/22 (units (unknown) date) unknown) (unknown) (no (unknown) (unknown) 18:24 (units (unkno wn) date) unknown) (unknown) (no (unknown) (unknown) 18:38 (units (unkno wn) date) unknown) (unknown) (no (unknown) (unknown) 18:43 07/17/22 (units (unknown) date) unknown) (unknown) (no (unknown) (unknown) 18:49 07/17/22 (units (unknown) date) unknown) (unknown) (no (unknown) (unknown) 18:49 18:49 18:49 (units (unknown) date) unknown) (unknown) (no (unknown) (unknown) 19:00 07/17/22 (units (unknown) date) unknown) (unknown) (no (unknown) (unknown) 19:00 (units (unkno wn) date) unknown) (unknown) (no (unknown) (unknown) 19:09 07/17/22 (units (unknown) date) unknown) (unknown) (no (unknown) (unknown) 19:09 (units (unkno wn) date) unknown) (unknown) (no (unknown) (unknown) 19:30 07/17/22 (units (unknown) date) unknown) (unknown) (no (unknown) (unknown) 19:35 07/17/22 (units (unknown) date) unknown) (unknown) (no (unknown) (unknown) 19:35 (units (unkno wn) date) unknown) (unknown) (no (unknown) (unknown) 19:40 07/17/22 (units (unknown) date) unknown) (unknown) (no (unknown) (unknown) 19:50 07/17/22 (units (unknown) date) unknown) (unknown) (no (unknown) (unknown) 19:50 (units (unkno wn) date) unknown) (unknown) (no (unknown) (unknown) 20:00 07/17/22 (units (unknown) date) unknown) (unknown) (no (unknown) (unknown) 20:00 (units (unkno wn) date) unknown) (unknown) (no (unknown) (unknown) 20:10 07/17/22 (units (unknown) date) unknown) (unknown) (no (unknown) (unknown) 20:20 (units (unkno wn) date) unknown) (unknown) (no (unknown) (unknown) 242-260 systolic (units (unknown) date) range and 110-140 unknown) diastolic range. (unknown) (no (unknown) (unknown) 260/140 she was (units (unknown) date) started on a unknown) nicardipine drip with excellent response. It did (unknown) (no (unknown) (unknown) 51-year-old woman (units (unknown) date) with a history of unknown) severe and poorly controlled hypertension (unknown) (no (unknown) (unknown) 8pm blood pressures (unit s (unknown) date) come down nicely with unknown) nicardipine drip currently at 157/68 (unknown) (no (unknown) (unknown) ALT 30 (<35) IU/L (units (unknown) date) unknown) (unknown) (no (unknown) (unknown) APTT 32 (26-36) (units (unknown) date) SECONDS unknown) (unknown) (no (unknown) (unknown) AST 24 (14-36) IU/L (unit s (unknown) date) unknown) (unknown) (no (unknown) (unknown) Abdomen: Soft, (units (unknown) date) nontender, good bowel unknown) tones, no flank pain (unknown) (no (unknown) (unknown) Acetaminophen (units ( unknown) date) (Acetaminophen 325 Mg unknown) Tablet) 975 mg PO NOW ONE (unknown) (no (unknown) (unknown) Admit Date/Time: (units (unknown) date) 07/17/22 22:04 unknown) (unknown) (no (unknown) (unknown) Age/Sex: 51 / F (units (unknown) date) unknown) (unknown) (no (unknown) (unknown) Albumin 4.1 (units (un known) date) (3.5-5.0) g/dL unknown) (unknown) (no (unknown) (unknown) Albumin/Globulin (units (unknown) date) Ratio 1.3 (1.0-2.8) unknown) (unknown) (no (unknown) (unknown) Alkaline Phosphatase (uni ts (unknown) date) 100 (38-126) U/L unknown) (unknown) (no (unknown) (unknown) Allergies (units (unkn own) date) unknown) (unknown) (no (unknown) (unknown) Allergy/AdvReac Type (uni ts (unknown) date) Severity Reaction unknown) Status Date / Time (unknown) (no (unknown) (unknown) Attestation: (units (u nknown) date) unknown) (unknown) (no (unknown) (unknown) BREATHING. (units (unk nown) date) unknown) (unknown) (no (unknown) (unknown) BUN 19 H (7-17) (units (unknown) date) mg/dL unknown) (unknown) (no (unknown) (unknown) BUN/Creatinine Ratio (uni ts (unknown) date) 25.7 H (6-22) unknown) (unknown) (no (unknown) (unknown) Baso # (Auto) 100 (units (unknown) date) (0-100) /uL unknown) (unknown) (no (unknown) (unknown) Baso % (Auto) 0.8 (units (unknown) date) (0-2) % unknown) (unknown) (no (unknown) (unknown) Blood Pressure (units (unknown) date) 154/70 H 150/68 H unknown) (unknown) (no (unknown) (unknown) Blood Pressure (units (unknown) date) 157/68 H 155/68 H unknown) (unknown) (no (unknown) (unknown) Blood Pressure (units (unknown) date) 175/56 H unknown) (unknown) (no (unknown) (unknown) Blood Pressure (units (unknown) date) 202/79 H unknown) (unknown) (no (unknown) (unknown) Blood Pressure (units (unknown) date) 202/89 H 07/17/22 unknown) 18:20 (unknown) (no (unknown) (unknown) Blood Pressure (units (unknown) date) 202/89 H 202/89 H unknown) (unknown) (no (unknown) (unknown) Blood Pressure (units (unknown) date) 210/84 H unknown) (unknown) (no (unknown) (unknown) Blood Pressure (units (unknown) date) 218/93 H 208/93 H unknown) (unknown) (no (unknown) (unknown) Blood Pressure (units (unknown) date) unknown) (unknown) (no (unknown) (unknown) CC: Hypertensive (units (unknown) date) crisis with headache unknown) and chest pain. New diagnosis, uncertain (unknown) (no (unknown) (unknown) CK-MB (CK-2) Rel (units (unknown) date) Index TNP unknown) (unknown) (no (unknown) (unknown) CK-MB (CK-2) TNP (units (unknown) date) unknown) (unknown) (no (unknown) (unknown) COVID19 -Nasal (units (unknown) date) RAPID/Pre-Proc Stat unknown) (unknown) (no (unknown) (unknown) CT angio abdomen (units (unknown) date) pelvis Stat unknown) (unknown) (no (unknown) (unknown) CT angio chest Stat (unit s (unknown) date) unknown) (unknown) (no (unknown) (unknown) CT angiogram of the (unit s (unknown) date) chest abdomen and unknown) pelvis does not show dissection or other (unknown) (no (unknown) (unknown) CT head/brain wo con (uni ts (unknown) date) Stat unknown) (unknown) (no (unknown) (unknown) Calcium 9.2 (units (un known) date) (8.4-10.2) mg/dL unknown) (unknown) (no (unknown) (unknown) Carbon Dioxide 28 (units (unknown) date) (22-32) mmol/L unknown) (unknown) (no (unknown) (unknown) Cardiac: Regular (units (unknown) date) rate and rhythm no unknown) murmurs no bruits (unknown) (no (unknown) (unknown) Chest pain type: (units (unknown) date) unspecified Qualified unknown) Code(s): R07.9 - Chest pain, unspecified (unknown) (no (unknown) (unknown) Chest pain (units (unk nown) date) unknown) (unknown) (no (unknown) (unknown) Chief complaint: (units (unknown) date) Hypertension unknown) (unknown) (no (unknown) (unknown) Chloride 104 (units (u nknown) date) (98-107) mmol/L unknown) (unknown) (no (unknown) (unknown) Clinical Impression: (uni ts (unknown) date) unknown) (unknown) (no (unknown) (unknown) Complete Blood Count (uni ts (unknown) date) AUTO DIFF Stat unknown) (unknown) (no (unknown) (unknown) Complicating (units (u nknown) date) co-morbidities: unknown) Baseline hypertension poorly controlled with (unknown) (no (unknown) (unknown) Comprehensive (units ( unknown) date) Metabolic Panel Stat unknown) (unknown) (no (unknown) (unknown) Consultations: Night (uni ts (unknown) date) [facility] hospitalist, unknown) accepts admit (unknown) (no (unknown) (unknown) Corroborating data: (unit s (unknown) date) unknown) (unknown) (no (unknown) (unknown) Course (units (unkno wn) date) unknown) (unknown) (no (unknown) (unknown) Creatinine 0.74 (units (unknown) date) (0.52-1.04) mg/dL unknown) (unknown) (no (unknown) (unknown) Critical Care Time (units (unknown) date) unknown) (unknown) (no (unknown) (unknown) Critical Care Time: (unit s (unknown) date) Yes unknown) (unknown) (no (unknown) (unknown) Critical care time (units (unknown) date) is separate from unknown) other billable procedures. There is a high (unknown) (no (unknown) (unknown) : 1970 (units (unknown) date) Acct:[id number] unknown) (unknown) (no (unknown) (unknown) Data collected from: (uni ts (unknown) date) patient, unknown) (unknown) (no (unknown) (unknown) Date of Service: (units (unknown) date) 07/17/22 unknown) (unknown) (no (unknown) (unknown) Departure (units (unkn own) date) unknown) (unknown) (no (unknown) (unknown) Differential (units (u nknown) date) considered: unknown) Hypertensive emergency, intracranial hemorrhage, (unknown) (no (unknown) (unknown) Discharge Plan (units (unknown) date) unknown) (unknown) (no (unknown) (unknown) Discontinued (units (u nknown) date) Medications unknown) (unknown) (no (unknown) (unknown) Discussion: (units (un known) date) 51-year-old woman unknown) with dramatically elevated blood pressure witn (unknown) (no (unknown) (unknown) Documented By: CTS (units (unknown) date) unknown) (unknown) (no (unknown) (unknown) Documented By: GC (units (unknown) date) unknown) (unknown) (no (unknown) (unknown) Documented By: KB (units (unknown) date) unknown) (unknown) (no (unknown) (unknown) ECG Data (units (unkno wn) date) unknown) (unknown) (no (unknown) (unknown) ED Orders (units (unkn own) date) unknown) (unknown) (no (unknown) (unknown) EKG-12 Lead Stat (units (unknown) date) unknown) (unknown) (no (unknown) (unknown) ER Physician: (units ( unknown) date) Marycruz Kim MD unknown) (unknown) (no (unknown) (unknown) Emergency Report (units (unknown) date) unknown) (unknown) (no (unknown) (unknown) Eos # (Auto) 100 (units (unknown) date) (0-450) /uL unknown) (unknown) (no (unknown) (unknown) Eos % (Auto) 0.7 L (units (unknown) date) (2-4) % unknown) (unknown) (no (unknown) (unknown) Estimated GFR > 60 (units (unknown) date) (>60) mL/min unknown) (unknown) (no (unknown) (unknown) Exam documented (units (unknown) date) above, pertinent unknown) findings include: Alert and appropriate, (unknown) (no (unknown) (unknown) Exam (units (unkno wn) date) unknown) (unknown) (no (unknown) (unknown) Extremities: No (units (unknown) date) trauma, well perfused unknown) (unknown) (no (unknown) (unknown) FACE, (units (unkno wn) date) unknown) (unknown) (no (unknown) (unknown) Fibromyalgia (units (u nknown) date) unknown) (unknown) (no (unknown) (unknown) Full and symmetrical (uni ts (unknown) date) air movement unknown) (unknown) (no (unknown) (unknown) General (units (unkno wn) date) unknown) (unknown) (no (unknown) (unknown) General: Healthy (units (unknown) date) appearing, in mild unknown) distress secondary to headache and chest (unknown) (no (unknown) (unknown) Globulin 3.1 (units (u nknown) date) (1.7-4.1) g/dL unknown) (unknown) (no (unknown) (unknown) Glucose 91 (70-100) (unit s (unknown) date) mg/dL unknown) (unknown) (no (unknown) (unknown) H/O gastric bypass (units (unknown) date) unknown) (unknown) (no (unknown) (unknown) HEENT: Moist mucous (unit s (unknown) date) membranes, normal unknown) sclera with reactive pupils, (unknown) (no (unknown) (unknown) HIVES ALL (units (unkn own) date) unknown) (unknown) (no (unknown) (unknown) HPI - General Adult (unit s (unknown) date) unknown) (unknown) (no (unknown) (unknown) HPI narrative: (units (unknown) date) unknown) (unknown) (no (unknown) (unknown) Hct 42.1 (36-46) % (units (unknown) date) unknown) (unknown) (no (unknown) (unknown) Headache type: (units (unknown) date) unspecified Headache unknown) chronicity pattern: acute headache (unknown) (no (unknown) (unknown) Headache (units (unkno wn) date) unknown) (unknown) (no (unknown) (unknown) Hgb 14.0 (12.0-16.0) (uni ts (unknown) date) g/dL unknown) (unknown) (no (unknown) (unknown) History of Present (units (unknown) date) Illness unknown) (unknown) (no (unknown) (unknown) History of (units (unk nown) date) prediabetes unknown) (unknown) (no (unknown) (unknown) Hydromorphone HCl (units (unknown) date) (Hydromorphone 0.5 Mg unknown) Inj) 0.5 mg IV Q15MIN PRN (unknown) (no (unknown) (unknown) Hypertension (units (u nknown) date) unknown) (unknown) (no (unknown) (unknown) Hypertensive crisis (unit s (unknown) date) unknown) (unknown) (no (unknown) (unknown) INR 0.9 (0.9-1.3) (units (unknown) date) unknown) (unknown) (no (unknown) (unknown) Imaging studies (units (unknown) date) independently unknown) reviewed: CT head does not show any acute bleeds. (unknown) (no (unknown) (unknown) Independently (units ( unknown) date) reviewed EKG as above unknown) (unknown) (no (unknown) (unknown) Initial Vital Signs (unit s (unknown) date) unknown) (unknown) (no (unknown) (unknown) Initial Vital Signs: (uni ts (unknown) date) unknown) (unknown) (no (unknown) (unknown) Interpretation: (units (unknown) date) unknown) (unknown) (no (unknown) (unknown) Intractability: not (units (unknown) date) intractable Qualified unknown) Code(s): R51.9 - Headache, unspecified (unknown) (no (unknown) (unknown) [facility] [address] (uni ts (unknown) date) [address]) [place] [address] (unknown) (no (unknown) (unknown) Lab Data (units (unkno wn) date) unknown) (unknown) (no (unknown) (unknown) Lab Results (units (un known) date) unknown) (unknown) (no (unknown) (unknown) Lab Test results (units (unknown) date) independently unknown) reviewed as above. Pertinent findings: (unknown) (no (unknown) (unknown) Labs: (units (unkno wn) date) unknown) (unknown) (no (unknown) (unknown) Last Admin: 07/17/22 (uni ts (unknown) date) 18:43 Dose: 4 mg unknown) (unknown) (no (unknown) (unknown) Last Admin: 07/17/22 (uni ts (unknown) date) 18:43 Dose: 50 mg unknown) (unknown) (no (unknown) (unknown) Last Admin: 07/17/22 (uni ts (unknown) date) 18:43 Dose: 975 mg unknown) (unknown) (no (unknown) (unknown) Last Admin: 07/17/22 (uni ts (unknown) date) 19:09 Dose: 5 mg/hr, unknown) 50 mls/hr (unknown) (no (unknown) (unknown) Last Admin: 07/17/22 (uni ts (unknown) date) 21:26 Dose: 0.5 mg unknown) (unknown) (no (unknown) (unknown) Lipase 185 (23-300) (unit s (unknown) date) U/L unknown) (unknown) (no (unknown) (unknown) Lipase Stat (units (un known) date) unknown) (unknown) (no (unknown) (unknown) Losartan Potassium (units (unknown) date) (Losartan 50 Mg unknown) Tablet) 50 mg PO NOW ONE (unknown) (no (unknown) (unknown) Lymph # (Auto) 1900 (unit s (unknown) date) (8993-0146) /uL unknown) (unknown) (no (unknown) (unknown) Lymph % (Auto) 23.2 (unit s (unknown) date) L (25-40) % unknown) (unknown) (no (unknown) (unknown) MCH 30.8 (26-34) PG (unit s (unknown) date) unknown) (unknown) (no (unknown) (unknown) MCHC 33.3 (30-36) % (unit s (unknown) date) unknown) (unknown) (no (unknown) (unknown) MCV 92.5 (80-100) fL (uni ts (unknown) date) unknown) (unknown) (no (unknown) (unknown) MDM Narrative (units ( unknown) date) unknown) (unknown) (no (unknown) (unknown) Magnesium 2.0 (units ( unknown) date) (1.6-2.3) mg/dL unknown) (unknown) (no (unknown) (unknown) Magnesium Stat (units (unknown) date) unknown) (unknown) (no (unknown) (unknown) Medical Decision (units (unknown) date) Making unknown) (unknown) (no (unknown) (unknown) Medical History (units (unknown) date) (Reviewed 06/04/22 @ unknown) 15:01 by Julio Sandoval DO) (unknown) (no (unknown) (unknown) Medical decision (units (unknown) date) making narrative: unknown) (unknown) (no (unknown) (unknown) Medical records (units (unknown) date) reviewed: Primary unknown) care notes, today her carvedilol which had (unknown) (no (unknown) (unknown) Medication (units (unk nown) date) Instructions Recorded unknown) (unknown) (no (unknown) (unknown) Mode of arrival: EMS (uni ts (unknown) date) unknown) (unknown) (no (unknown) (unknown) Larue # (Auto) 400 (units (unknown) date) (0-900) /uL unknown) (unknown) (no (unknown) (unknown) Larue % (Auto) 5.4 (units (unknown) date) (3-14) % unknown) (unknown) (no (unknown) (unknown) Narrative: (units (unk nown) date) unknown) (unknown) (no (unknown) (unknown) Neck: No JVD, supple (uni ts (unknown) date) unknown) (unknown) (no (unknown) (unknown) Neurologic: Grossly (unit s (unknown) date) neurologically intact unknown) with no obvious asymmetries or (unknown) (no (unknown) (unknown) Neut # (Auto) 5700 (units (unknown) date) (1421-8517) /uL unknown) (unknown) (no (unknown) (unknown) Neut % (Auto) 69.9 (units (unknown) date) (50-75) % unknown) (unknown) (no (unknown) (unknown) Nicardipine HCl 25 (units (unknown) date) mg/ Sodium (Chloride) unknown) 250 mls @ 50 mls/hr IV TITRATE SHANA; (unknown) (no (unknown) (unknown) No acute ischemic (units (unknown) date) changes unknown) (unknown) (no (unknown) (unknown) Normal intervals, (units (unknown) date) normal axis unknown) (unknown) (no (unknown) (unknown) OVER. (units (unkno wn) date) unknown) (unknown) (no (unknown) (unknown) Ondansetron HCl (units (unknown) date) (Ondansetron 4 Mg/2 unknown) Ml Inj) 4 mg IV NOW ONE (unknown) (no (unknown) (unknown) Ordered: (units (unkno wn) date) unknown) (unknown) (no (unknown) (unknown) Orders (units (unkno wn) date) unknown) (unknown) (no (unknown) (unknown) Oxygen Delivery (units (unknown) date) Method 07/17/22 18:20 unknown) (unknown) (no (unknown) (unknown) Oxygen Delivery (units (unknown) date) Method Room Air unknown) (unknown) (no (unknown) (unknown) Oxygen Delivery (units (unknown) date) Method unknown) (unknown) (no (unknown) (unknown) PRN Reason: Pain, (units (unknown) date) unknown) (unknown) (no (unknown) (unknown) PT 10.7 (10.1-12.7) (unit s (unknown) date) SECONDS unknown) (unknown) (no (unknown) (unknown) Partial (units (unkno wn) date) Thromboplastin Time unknown) Stat (unknown) (no (unknown) (unknown) Patient Disposition: (uni ts (unknown) date) Admitted as unknown) Observation (unknown) (no (unknown) (unknown) Patient History (units (unknown) date) unknown) (unknown) (no (unknown) (unknown) Patient: (units (unkno wn) date) Nona Guzman MR#: unknown) M0 (unknown) (no (unknown) (unknown) Penicillins (units (un known) date) [PENICILLINS] Allergy unknown) Intermediate RASH/ITCHING, Verified 07/17/22 (unknown) (no (unknown) (unknown) Plt Count 229 (units ( unknown) date) (150-400) X103/uL unknown) (unknown) (no (unknown) (unknown) Potassium 3.7 (units ( unknown) date) (3.4-5.1) mmol/L unknown) (unknown) (no (unknown) (unknown) Previous Rx's (units ( unknown) date) unknown) (unknown) (no (unknown) (unknown) Prothrombin Time INR (uni ts (unknown) date) Stat unknown) (unknown) (no (unknown) (unknown) Protocol (units (unkno wn) date) unknown) (unknown) (no (unknown) (unknown) Psych: Cooperative, (unit s (unknown) date) appropriate insight unknown) and affect (unknown) (no (unknown) (unknown) Pulse Oximetry 100 (units (unknown) date) unknown) (unknown) (no (unknown) (unknown) Pulse Oximetry 95 (units (unknown) date) unknown) (unknown) (no (unknown) (unknown) Pulse Oximetry 96 96 (uni ts (unknown) date) unknown) (unknown) (no (unknown) (unknown) Pulse Oximetry 96 (units (unknown) date) unknown) (unknown) (no (unknown) (unknown) Pulse Oximetry 98 98 (uni ts (unknown) date) unknown) (unknown) (no (unknown) (unknown) Pulse Oximetry 99 (units (unknown) date) 07/17/22 18:20 unknown) (unknown) (no (unknown) (unknown) Pulse Oximetry 99 99 (uni ts (unknown) date) unknown) (unknown) (no (unknown) (unknown) Pulse Oximetry 99 (units (unknown) date) unknown) (unknown) (no (unknown) (unknown) Pulse Rate 65 (units ( unknown) date) unknown) (unknown) (no (unknown) (unknown) Pulse Rate 67 (units ( unknown) date) 07/17/22 18:20 unknown) (unknown) (no (unknown) (unknown) Pulse Rate 67 65 (units (unknown) date) unknown) (unknown) (no (unknown) (unknown) Pulse Rate 68 68 (units (unknown) date) unknown) (unknown) (no (unknown) (unknown) Pulse Rate 71 65 (units (unknown) date) unknown) (unknown) (no (unknown) (unknown) Pulse Rate 72 75 (units (unknown) date) unknown) (unknown) (no (unknown) (unknown) Pulse Rate 77 (units ( unknown) date) unknown) (unknown) (no (unknown) (unknown) Pulse Rate 78 (units ( unknown) date) unknown) (unknown) (no (unknown) (unknown) Qualifiers: (units (un known) date) unknown) (unknown) (no (unknown) (unknown) RBC 4.56 (4.0-5.2) (units (unknown) date) X106/uL unknown) (unknown) (no (unknown) (unknown) RDW 14.2 (11.6-14.8) (uni ts (unknown) date) % unknown) (unknown) (no (unknown) (unknown) Re-evaluations: (units (unknown) date) unknown) (unknown) (no (unknown) (unknown) Related Data (units (u nknown) date) unknown) (unknown) (no (unknown) (unknown) Remainder of (units (u nknown) date) complete review of unknown) systems is otherwise unremarkable except for (unknown) (no (unknown) (unknown) Respiratory Rate 14 (unit s (unknown) date) unknown) (unknown) (no (unknown) (unknown) Respiratory Rate 16 (unit s (unknown) date) 07/17/22 18:20 unknown) (unknown) (no (unknown) (unknown) Respiratory Rate 16 (unit s (unknown) date) 31 H unknown) (unknown) (no (unknown) (unknown) Respiratory Rate 20 (unit s (unknown) date) 17 unknown) (unknown) (no (unknown) (unknown) Respiratory Rate 20 (unit s (unknown) date) unknown) (unknown) (no (unknown) (unknown) Respiratory Rate 21 (unit s (unknown) date) unknown) (unknown) (no (unknown) (unknown) Respiratory Rate 30 (unit s (unknown) date) H 23 unknown) (unknown) (no (unknown) (unknown) Respiratory Rate 35 (unit s (unknown) date) H unknown) (unknown) (no (unknown) (unknown) Respiratory: Lungs (units (unknown) date) are clear to unknown) auscultation, no wheezing no rales no rhonchi. (unknown) (no (unknown) (unknown) Review of Systems (units (unknown) date) unknown) (unknown) (no (unknown) (unknown) Signed By: (units (unk nown) date) unknown) (unknown) (no (unknown) (unknown) Sinus rhythm at a (units (unknown) date) rate of 64 unknown) (unknown) (no (unknown) (unknown) Skin: Warm and dry, (unit s (unknown) date) no rashes unknown) (unknown) (no (unknown) (unknown) Smoking Status: (units (unknown) date) Current every day unknown) smoker (unknown) (no (unknown) (unknown) Social History (units (unknown) date) (Reviewed 03/09/22 @ unknown) 10:33 by Mariella Rico DO) (unknown) (no (unknown) (unknown) Sodium 139 (137-145) (uni ts (unknown) date) mmol/L unknown) (unknown) (no (unknown) (unknown) Source: patient and (unit s (unknown) date) EMS unknown) (unknown) (no (unknown) (unknown) Stated complaint: (units (unknown) date) Nausea and HTN unknown) (unknown) (no (unknown) (unknown) Stop: 07/17/22 18:31 (uni ts (unknown) date) unknown) (unknown) (no (unknown) (unknown) Substance Use Type: (unit s (unknown) date) does not use unknown) (unknown) (no (unknown) (unknown) Surgical History (units (unknown) date) (Reviewed 06/04/22 @ unknown) 15:01 by Julio Sandoval DO) (unknown) (no (unknown) (unknown) THROAT (units (unkno wn) date) unknown) (unknown) (no (unknown) (unknown) TROUBLE (units (unkno wn) date) unknown) (unknown) (no (unknown) (unknown) Temperature 97.6 F (units (unknown) date) 07/17/22 18:20 unknown) (unknown) (no (unknown) (unknown) Temperature 97.6 F (units (unknown) date) unknown) (unknown) (no (unknown) (unknown) Temperature (units (un known) date) unknown) (unknown) (no (unknown) (unknown) Time Seen by (units (u nknown) date) Provider: 07/17/22 unknown) 18:29 (unknown) (no (unknown) (unknown) Total Bilirubin 0.7 (unit s (unknown) date) (0.2-1.3) mg/dL unknown) (unknown) (no (unknown) (unknown) Total Creatine (units (unknown) date) Kinase 35 (30-135) unknown) U/L (unknown) (no (unknown) (unknown) Total Critical Care (unit s (unknown) date) Time: 36 unknown) (unknown) (no (unknown) (unknown) Total Protein 7.2 (units (unknown) date) (6.3-8.2) g/dL unknown) (unknown) (no (unknown) (unknown) Treatments: Upon (units (unknown) date) arrival complaining unknown) initially of hypertension with mild (unknown) (no (unknown) (unknown) Troponin + CK (units ( unknown) date) Cardiac Panel Stat unknown) (unknown) (no (unknown) (unknown) Troponin I < 0.012 (units (unknown) date) (0.01-0.034) ng/mL unknown) (unknown) (no (unknown) (unknown) Vital Signs - 8 hr (units (unknown) date) unknown) (unknown) (no (unknown) (unknown) Vital Signs (units (un known) date) unknown) (unknown) (no (unknown) (unknown) Vital signs: (units (u nknown) date) unknown) (unknown) (no (unknown) (unknown) WBC 8.1 (4.5-11.0) (units (unknown) date) X103/uL unknown) (unknown) (no (unknown) (unknown) XR chest 1V Stat (units (unknown) date) unknown) (unknown) (no (unknown) (unknown) [DIPHENHYDRAMINE] (units (unknown) date) unknown) (unknown) (no (unknown) (unknown) [Embedded Image Not (unit s (unknown) date) Available] unknown) (unknown) (no (unknown) (unknown) [MAGNESIUM CITRATE] (unit s (unknown) date) unknown) (unknown) (no (unknown) (unknown) abnormalities (units ( unknown) date) unknown) (unknown) (no (unknown) (unknown) alcohol intake (units (unknown) date) frequency: 0-2 drinks unknown) per day (unknown) (no (unknown) (unknown) amoxicillin (units (un known) date) [AMOXICILLIN] Allergy unknown) Severe SWELLING Verified 07/17/22 18:24 (unknown) (no (unknown) (unknown) and 25 mg of (units (u nknown) date) hydrochlorothiazide unknown) (unknown) (no (unknown) (unknown) and blood pressure (units (unknown) date) is 167/80. unknown) (unknown) (no (unknown) (unknown) angiogram from that (unit s (unknown) date) date does not support unknown) this. (unknown) (no (unknown) (unknown) associated severe (units (unknown) date) headache and then unknown) central chest pain radiating through to her (unknown) (no (unknown) (unknown) back concerning for (unit s (unknown) date) dissection. Imaging unknown) studies do not confirm stroke or (unknown) (no (unknown) (unknown) been 6.25 b.i.d. was (uni ts (unknown) date) increased to 12.5 unknown) b.i.d.. She remains on 100 of losartan (unknown) (no (unknown) (unknown) blood pressure (units (unknown) date) medication. Since unknown) that time she has been more consistent in his (unknown) (no (unknown) (unknown) carvedilol 12.5 mg (units (unknown) date) tablet 12.5 mg PO BID unknown) #60 tabs 07/17/22 (unknown) (no (unknown) (unknown) carvedilol 6.25 mg (units (unknown) date) tablet 6.25 mg PO BID unknown) #180 tabs 05/14/22 (unknown) (no (unknown) (unknown) chest pain through (units (unknown) date) the center of her unknown) body, GCS of 15 (unknown) (no (unknown) (unknown) chills recently. She (uni ts (unknown) date) has been checking her unknown) blood pressures recently and has (unknown) (no (unknown) (unknown) critical care time (units (unknown) date) includes consultation unknown) with family and other consulting (unknown) (no (unknown) (unknown) currently on losartan (uni ts (unknown) date) 100 mg with unknown) hydrochlorothiazide 25 mg and carvedilol today (unknown) (no (unknown) (unknown) diphenhydramine (units (unknown) date) Allergy Mild unknown) SWELLING. Verified 07/17/22 18:24 (unknown) (no (unknown) (unknown) dissection, acute (units (unknown) date) coronary syndrome, unknown) reflux, medication noncompliance (unknown) (no (unknown) (unknown) dissection. She is (units (unknown) date) slightly more unknown) comfortable with nicardipine drip running. We (unknown) (no (unknown) (unknown) doctors, review of (units (unknown) date) records, and unknown) interpretation of data from labs, EKGs and (unknown) (no (unknown) (unknown) documented blood (units (unknown) date) pressures over the unknown) last number of months in the 220/140 range (unknown) (no (unknown) (unknown) during that (units (un known) date) consultation she unknown) checked her home blood pressure and found it to be (unknown) (no (unknown) (unknown) emergency department (uni ts (unknown) date) she is complaining of unknown) severe headache, slightly blurry (unknown) (no (unknown) (unknown) estradiol 0.1 mg/24 (unit s (unknown) date) hr weekly 0.1 mg unknown) topical QWEEK #4 ea 06/04/22 (unknown) (no (unknown) (unknown) extremity edema, no (unit s (unknown) date) nausea, vomiting, unknown) diarrhea. Has not been having fevers or (unknown) (no (unknown) (unknown) fairly (units (unkno wn) date) consistently,. Prior unknown) difficulties with hypertension, reported (unknown) (no (unknown) (unknown) headache she was (units (unknown) date) given an additional unknown) 50 mg of her losartan and Tylenol. When (unknown) (no (unknown) (unknown) help with (units (unkn own) date) transitioning to unknown) additional oral hypertensives for safe discharge (unknown) (no (unknown) (unknown) home. Second trop is (uni ts (unknown) date) ordered and 5mg of unknown) oral nifedipine is administered to help (unknown) (no (unknown) (unknown) imaging as well as (units (unknown) date) managements of unknown) hypertensive crisis with IV blood pressure (unknown) (no (unknown) (unknown) in the in the (units ( unknown) date) 220/120 range. She unknown) did have a headache and was instructed come to (unknown) (no (unknown) (unknown) intracranial bleed (units (unknown) date) associated with unknown) hypertensive urgency in February however CT (unknown) (no (unknown) (unknown) latex [LATEX] (units ( unknown) date) Allergy Mild RASH unknown) Verified 07/17/22 18:24 (unknown) (no (unknown) (unknown) losartan 100 1 tab (units (unknown) date) PO DAILY #30 tabs unknown) 06/03/22 (unknown) (no (unknown) (unknown) magnesium citrate (units (unknown) date) AdvReac Unknown unknown) VOMITING Verified 07/17/22 18:24 (unknown) (no (unknown) (unknown) management required (unit s (unknown) date) unknown) (unknown) (no (unknown) (unknown) mg-hydrochlorothiazi (uni ts (unknown) date) de 25 mg tablet unknown) (unknown) (no (unknown) (unknown) mortality (units (unkn own) date) unknown) (unknown) (no (unknown) (unknown) not alleviate her (units (unknown) date) headache to have her unknown) blood pressure in the 160/80 range. She (unknown) (no (unknown) (unknown) pain. Able to give a (uni ts (unknown) date) complete and coherent unknown) history. Well-nourished well-develo (unknown) (no (unknown) (unknown) patient continues to (uni ts (unknown) date) complain of unknown) significant fatigue. Notes the headache is (unknown) (no (unknown) (unknown) ped (units (unkno wn) date) unknown) (unknown) (no (unknown) (unknown) photographs of the (units (unknown) date) device reading and unknown) blood pressures are consistently in the (unknown) (no (unknown) (unknown) presents with (units ( unknown) date) significantly unknown) elevated blood pressure. She was having a tele (unknown) (no (unknown) (unknown) probability of a (units (unknown) date) significant, sudden unknown) or life-threatening deterioration that req (unknown) (no (unknown) (unknown) prognosis with (units (unknown) date) systemic symptoms and unknown) potential for significant morbidity and (unknown) (no (unknown) (unknown) reports chronic (units (unknown) date) headaches, occasional unknown) chest pain, no palpitations no lower (unknown) (no (unknown) (unknown) sharp pain through (units (unknown) date) the center of her unknown) chest radiating through to her back. She (unknown) (no (unknown) (unknown) she began (units (unkn own) date) complaining of chest unknown) pain and her blood pressure was found to be (unknown) (no (unknown) (unknown) significantly (units (u nknown) date) elevated blood unknown) pressures even on repeat, complains of headache and (unknown) (no (unknown) (unknown) specific (units (unkno wn) date) abnormalities to unknown) explain her pain (unknown) (no (unknown) (unknown) still present even (units (unknown) date) after Tylenol. The unknown) central chest pain has resolved. (unknown) (no (unknown) (unknown) taken off her (units ( unknown) date) nicardipine for the unknown) 2nd imaging study and blood pressure was back (unknown) (no (unknown) (unknown) that included in the (uni ts (unknown) date) HPI. unknown) (unknown) (no (unknown) (unknown) the emergency (units ( unknown) date) department. She would unknown) similar complaints in February of last (unknown) (no (unknown) (unknown) transdermal patch (units (unknown) date) unknown) (unknown) (no (unknown) (unknown) uires my full and (units (unknown) date) direct attention, unknown) intervention and personal management. This (unknown) (no (unknown) (unknown) up to 190/100 (units ( unknown) date) shortly after the unknown) nicardipine was discontinued. It is restarted (unknown) (no (unknown) (unknown) video appointment (units (unknown) date) with her primary care unknown) doctor to discuss her hypertension and (unknown) (no (unknown) (unknown) vision and shortly (units (unknown) date) after arrival with unknown) blood pressure appreciated 240/120 noted a (unknown) (no (unknown) (unknown) was given a dose of (unit s (unknown) date) hydromorphone with unknown) some relief. (unknown) (no (unknown) (unknown) was increased from (units (unknown) date) 6.25 mg b.i.d. up to unknown) 12.5 mg b.i.d.. On arrival in the (unknown) (no (unknown) (unknown) will recommend (units (unknown) date) hospitalization for unknown) management of her hypertensive crisis and (unknown) (no (unknown) (unknown) wtih weaning the IV (unit s (unknown) date) nicardipine over the unknown) next hours (unknown) (no (unknown) (unknown) year with headache (units (unknown) date) and blurry vision and unknown) notes that she had not been taking her Result panel 527 (unknown) (no date) (unknown) (unknown) < 0.012 ng/ml (unkn own) (unknown) (no date) (unknown) (unknown) < 0.012 ng/ml (unkn own) Result panel 528 (unknown) (no date) (unknown) (unknown) Negative (units (unkn own) unknown) (unknown) (no date) (unknown) (unknown) Negative (units (unkn own) unknown) Result panel 529 (unknown) (no (unknown) (unknown) (no value) (units (unk nown) date) unknown) (unknown) (no (unknown) (unknown) +---------+ (units (un known) date) [phone] +--------- unknown) (unknown) (no (unknown) (unknown) +---------+ (units (un known) date) Hospital +--------- unknown) (unknown) (no (unknown) (unknown) + (units (unknown) date) unknown) --- (unknown) (no (unknown) (unknown) [phone] (units (unkn own) date) unknown) (unknown) (no (unknown) (unknown) 07/18/22 (units (unkno wn) date) unknown) (unknown) (no (unknown) (unknown) 1) Small left (units ( unknown) date) ventricular cavity unknown) with normal systolic function (EF 65-70%). (unknown) (no (unknown) (unknown) [address] (units (unknown) date) unknown) (unknown) (no (unknown) (unknown) 192mmHg. The (units (u nknown) date) ejection fraction unknown) is estimated to be 65-70%. Left ventricular (unknown) (no (unknown) (unknown) 2) Increased (units (u nknown) date) septal thickness unknown) (1.4cm) with systolic anterior motion of the (unknown) (no (unknown) (unknown) 3) The right (units (u nknown) date) ventricle is normal unknown) in size and function. (unknown) (no (unknown) (unknown) 4) No signficant (units (unknown) date) valvular stenosis unknown) or regurgitation. (unknown) (no (unknown) (unknown) 5) Compared to the (units (unknown) date) Echo done unknown) 09/07/2014, hypertrophic obstructive (unknown) (no (unknown) (unknown) : : [address] (units (unknown) date) : : unknown) (unknown) (no (unknown) (unknown) : : [id number] : : (units ( unknown) date) unknown) (unknown) (no (unknown) (unknown) : : GWEN Lobo (units (unknown) date) : : unknown) (unknown) (no (unknown) (unknown) : : Phone: [phone] (units (unknown) date) : unknown) (unknown) (no (unknown) (unknown) :Account #: (units (un known) date) [id number] Gender: unknown) Female BSA: 2.1 m2 : (unknown) (no (unknown) (unknown) :: 1970 (units (unknown) date) Age: 51 yrs BP: unknown) 122/59 mmHg: (unknown) (no (unknown) (unknown) :Hospital MRN #: (units (unknown) date) [id number] unknown) ReadingLocation: Weight: 234 lb : (unknown) (no (unknown) (unknown) :Name: JUAN CARLOS, (units (unknown) date) NONA [place] Study unknown) Date: 07/18/2022 Height: 64 in : (unknown) (no (unknown) (unknown) :Ordering (units (unkn own) date) Physician: ENDY, unknown) DEBRAPerformed By: Sujatha Davalos : (unknown) (no (unknown) (unknown) :Reason For Study: (units (unknown) date) HYPERTENSIVE unknown) EMERGENCY, CHEST PAIN : (unknown) (no (unknown) (unknown) :Referring: ENDY, (units (unknown) date) CLARISSA : unknown) (unknown) (no (unknown) (unknown) Accession Number: (units (unknown) date) [id number] unknown) (unknown) (no (unknown) (unknown) Age/Sex: 51 / F (units (unknown) date) Date of Service: unknown) (unknown) (no (unknown) (unknown) [place], [place] (units ( unknown) date) [address] unknown) (unknown) (no (unknown) (unknown) Ao V2 VTI: 49.2 cm (units (unknown) date) E/E' med: 10.9 unknown) (unknown) (no (unknown) (unknown) Ao V2 max: 240.3 (units (unknown) date) cm/sec MV E max unknown) bipin: 75.7 cm/sec (unknown) (no (unknown) (unknown) Ao V2 mean: 177.0 (units (unknown) date) cm/sec MV A max unknown) bipin: 97.7 cm/sec (unknown) (no (unknown) (unknown) Ao max P.1 (units (unknown) date) mmHg MV E/A: 0.77 unknown) (unknown) (no (unknown) (unknown) Ao mean P.3 (units (unknown) date) mmHg Med Peak E' unknown) Bipin: 6.9 cm/sec (unknown) (no (unknown) (unknown) Aortic Valve: The (units (unknown) date) aortic valve is not unknown) well visualized. There is no aortic (unknown) (no (unknown) (unknown) Atria: The left (units (unknown) date) atrial size is unknown) normal. Right atrial size is normal. There is (unknown) (no (unknown) (unknown) Comparison is made (units (unknown) date) with the unknown) echocardiogram of 09/07/2014. The patient was in (unknown) (no (unknown) (unknown) : 1970 (units (unknown) date) Acct:[id number] unknown) (unknown) (no (unknown) (unknown) Diastolic (units (unkn own) date) parameters suggest unknown) a relaxation abnormality of the left ventricle, (unknown) (no (unknown) (unknown) Doppler (units (unkno wn) date) Measurements + unknown) Calculations (unknown) (no (unknown) (unknown) E/E' lat: 9.6 (units ( unknown) date) unknown) (unknown) (no (unknown) (unknown) E/e' average: 10.3 (units (unknown) date) unknown) (unknown) (no (unknown) (unknown) Echocardiogram (units (unknown) date) Report unknown) (unknown) (no (unknown) (unknown) Echocardiography (units (unknown) date) Report unknown) (unknown) (no (unknown) (unknown) Electronically (units (unknown) date) signed by: Monika unknown) Garfield Truong on 07/18/2022 (unknown) (no (unknown) (unknown) FS: 35.7 % asc (units (unknown) date) Aorta Diam: 3.6 cm unknown) (unknown) (no (unknown) (unknown) Great Vessels: The (units (unknown) date) aortic root is unknown) normal size. The ascending aorta is at the (unknown) (no (unknown) (unknown) IVSd: 1.4 cm Ao (units (unknown) date) Arch Diam (Prox unknown) Trans): 3.2 cm (unknown) (no (unknown) (unknown) Interpretation (units (unknown) date) Summary unknown) (unknown) (no (unknown) (unknown) [facility] (units (unknown) date) unknown) (unknown) (no (unknown) (unknown) [place] (units (unkno wn) date) unknown) (unknown) (no (unknown) (unknown) LA A2 area: 22.8 (units (unknown) date) cm2 RA long axis: unknown) 4.6 cm (unknown) (no (unknown) (unknown) LA A4 area: 16.9 (units (unknown) date) cm2 RA area: 11.4 unknown) cm2 (unknown) (no (unknown) (unknown) LA length (vol): (units (unknown) date) 5.1 cm RA vol: 24.1 unknown) ml (unknown) (no (unknown) (unknown) LA vol index: 30.5 (units (unknown) date) ml/m2 IVC diam: unknown) 0.97 cm (unknown) (no (unknown) (unknown) LA vol: 63.9 ml RA (units (unknown) date) : 11.5 ml/m2 unknown) (unknown) (no (unknown) (unknown) LV salter. (units () date) diameter/BSA unknown) (cm/m2): 2.0 (unknown) (no (unknown) (unknown) LV sys. (units () date) diameter/BSA unknown) (cm/m2): 1.3 (unknown) (no (unknown) (unknown) LVIDd: 4.1 cm LVOT (units (unknown) date) diam: 2.0 cm unknown) (unknown) (no (unknown) (unknown) LVIDs: 2.7 cm Ao (units (unknown) date) root diam: 3.0 cm unknown) (unknown) (no (unknown) (unknown) LVPWd: 1.0 cm (units ( unknown) date) unknown) (unknown) (no (unknown) (unknown) Lat Peak E' Bipin: (units (unknown) date) 7.9 cm/sec unknown) (unknown) (no (unknown) (unknown) Left Ventricle: (units (unknown) date) The left unknown) ventricular cavity is small. There is normal left (unknown) (no (unknown) (unknown) Loc: AC 208-1 (units ( unknown) date) unknown) (unknown) (no (unknown) (unknown) MMode/2D (units () ) Measurements + unknown) Calculations (unknown) (no (unknown) (unknown) MV dec time: 0.23 (units (unknown) date) sec unknown) (unknown) (no (unknown) (unknown) Mitral Valve: (units ( unknown) date) There is systolic unknown) anterior motion of the mitral valve. There (unknown) (no (unknown) (unknown) Ordering Provider: (units (unknown) date) Clarissa Washington unknown) (unknown) (no (unknown) (unknown) PA V2 max: 103.0 (units (unknown) date) cm/sec unknown) (unknown) (no (unknown) (unknown) PA V2 mean: 76.2 (units (unknown) date) cm/sec unknown) (unknown) (no (unknown) (unknown) PA mean P.5 (units (unknown) date) mmHg unknown) (unknown) (no (unknown) (unknown) PA pr(Accel): 32.8 (units (unknown) date) mmHg unknown) (unknown) (no (unknown) (unknown) Patient: (units (unkno wn) date) Nona Guzman unknown) MR#: M (unknown) (no (unknown) (unknown) Pericardium/ (units (u nknown) date) Pleura There is no unknown) pericardial effusion. There is no pleural (unknown) (no (unknown) (unknown) Procedure: A (units (u nknown) date) two-dimensional unknown) transthoracic echocardiogram with color flow (unknown) (no (unknown) (unknown) Procedure: EC echo (units (unknown) date) doppler complete unknown) (unknown) (no (unknown) (unknown) Pulmonic Valve: (units (unknown) date) The pulmonic valve unknown) is not well visualized. There is no (unknown) (no (unknown) (unknown) RVD1 (basal): 3.7 (units (unknown) date) cm unknown) (unknown) (no (unknown) (unknown) RVD2 (mid): 2.7 cm (units (unknown) date) unknown) (unknown) (no (unknown) (unknown) Reading (units (unkno wn) date) Physician:12:54 PM unknown) (unknown) (no (unknown) (unknown) Right Ventricle: (units (unknown) date) The right ventricle unknown) is normal in size and function. (unknown) (no (unknown) (unknown) Signed (units (unkno wn) date) unknown) (unknown) (no (unknown) (unknown) TAPSE: 2.3 cm (units ( unknown) date) unknown) (unknown) (no (unknown) (unknown) There is trace (units (unknown) date) tricuspid unknown) regurgitation. (unknown) (no (unknown) (unknown) Tricuspid Valve: (units (unknown) date) The tricuspid valve unknown) is normal in structure and function. (unknown) (no (unknown) (unknown) (units (unknown) date) unknown) ___ (unknown) (no (unknown) (unknown) and Doppler was (units (unknown) date) performed. The unknown) study quality was technically adequate. (unknown) (no (unknown) (unknown) cardiomyopathy is (units (unknown) date) apparent on this unknown) study. (unknown) (no (unknown) (unknown) consistent with (units (unknown) date) probable normal unknown) filling pressures. (unknown) (no (unknown) (unknown) effusion. (units (unkn own) date) unknown) (unknown) (no (unknown) (unknown) greater than 50% (units (unknown) date) with a sniff. 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 (unknown) (no (unknown) (unknown) is mild mitral (units (unknown) date) regurgitation. unknown) (unknown) (no (unknown) (unknown) mitral valve and (units (unknown) date) peak LVOT gradient unknown) 192mmHg. This is suggestive of (unknown) (no (unknown) (unknown) mm Hg. (units (unkno wn) date) unknown) (unknown) (no (unknown) (unknown) no Doppler (units (unk nown) date) evidence for an unknown) interatrial shunt. (unknown) (no (unknown) (unknown) pulmonic valvular (units (unknown) date) regurgitation. unknown) (unknown) (no (unknown) (unknown) sinus rhythm with (units (unknown) date) heart rates between unknown) 64-76 bpm during the exam. (unknown) (no (unknown) (unknown) systolic function (units (unknown) date) appears normal unknown) without focal wall motion abnormalities. (unknown) (no (unknown) (unknown) upper limits of (units (unknown) date) normal in size. The unknown) IVC is of normal diameter and collapses (unknown) (no (unknown) (unknown) valve stenosis. No (units (unknown) date) aortic unknown) regurgitation is present. (unknown) (no (unknown) (unknown) ventricular (units (un known) date) outflow velocity unknown) with valsalva is 6.93. Peak LVOT gradient (unknown) (no (unknown) (unknown) ventricular wall (units (unknown) date) thickness. Proximal unknown) septal thickening is noted. The left Result panel 530 (unknown) (no (unknown) (unknown) (no value) (units (unk nown) date) unknown) (unknown) (no (unknown) (unknown) (past 8 hours): (units (unknown) date) unknown) (unknown) (no (unknown) (unknown) * Echo in the am (units (unknown) date) unknown) (unknown) (no (unknown) (unknown) * Fasting lipids (units (unknown) date) in the am unknown) (unknown) (no (unknown) (unknown) * She had an A1c (units (unknown) date) in May 2022 unknown) and it was 5.0 (unknown) (no (unknown) (unknown) * She is admitted (units (unknown) date) to ICU status, unknown) however, she is boarding in the ED due to lack (unknown) (no (unknown) (unknown) * She is on a (units ( unknown) date) nifedipine drip unknown) which is cross tapored w/amlodipine 5 mg (unknown) (no (unknown) (unknown) * She is (units (unkno wn) date) recommended to unknown) cease estrogen patches and tobacco use. (unknown) (no (unknown) (unknown) * TSH (units (unkno wn) date) unknown) (unknown) (no (unknown) (unknown) [id number] (units (unkno wn) date) unknown) (unknown) (no (unknown) (unknown) 07/17/22 07/17/22 (units (unknown) date) 07/17/22 unknown) (unknown) (no (unknown) (unknown) 07/17/22 07/17/22 (units (unknown) date) unknown) (unknown) (no (unknown) (unknown) 07/17/22 18:49 (units (unknown) date) unknown) (unknown) (no (unknown) (unknown) 07/17/22 (units (unkno wn) date) unknown) (unknown) (no (unknown) (unknown) 125 lbs, she (units (u nknown) date) attempted to unknown) increase her weight as she stated she looked poorly. (unknown) (no (unknown) (unknown) 18:20 07/17/22 (units (unknown) date) unknown) (unknown) (no (unknown) (unknown) 18:24 (units (unkno wn) date) unknown) (unknown) (no (unknown) (unknown) 18:38 (units (unkno wn) date) unknown) (unknown) (no (unknown) (unknown) 18:43 07/17/22 (units (unknown) date) unknown) (unknown) (no (unknown) (unknown) 18:49 07/17/22 (units (unknown) date) unknown) (unknown) (no (unknown) (unknown) 18:49 18:49 18:49 (units (unknown) date) unknown) (unknown) (no (unknown) (unknown) 19:00 07/17/22 (units (unknown) date) unknown) (unknown) (no (unknown) (unknown) 19:00 (units (unkno wn) date) unknown) (unknown) (no (unknown) (unknown) 19:09 07/17/22 (units (unknown) date) unknown) (unknown) (no (unknown) (unknown) 19:09 (units (unkno wn) date) unknown) (unknown) (no (unknown) (unknown) 19:30 07/17/22 (units (unknown) date) unknown) (unknown) (no (unknown) (unknown) 19:35 07/17/22 (units (unknown) date) unknown) (unknown) (no (unknown) (unknown) 19:35 (units (unkno wn) date) unknown) (unknown) (no (unknown) (unknown) 19:40 07/17/22 (units (unknown) date) unknown) (unknown) (no (unknown) (unknown) 19:50 07/17/22 (units (unknown) date) unknown) (unknown) (no (unknown) (unknown) 19:50 (units (unkno wn) date) unknown) (unknown) (no (unknown) (unknown) 20:00 07/17/22 (units (unknown) date) unknown) (unknown) (no (unknown) (unknown) 20:00 (units (unkno wn) date) unknown) (unknown) (no (unknown) (unknown) 20:10 07/17/22 (units (unknown) date) unknown) (unknown) (no (unknown) (unknown) 20:20 07/17/22 (units (unknown) date) unknown) (unknown) (no (unknown) (unknown) 20:20 (units (unkno wn) date) unknown) (unknown) (no (unknown) (unknown) 20:30 07/17/22 (units (unknown) date) unknown) (unknown) (no (unknown) (unknown) 20:30 (units (unkno wn) date) unknown) (unknown) (no (unknown) (unknown) 20:40 07/17/22 (units (unknown) date) unknown) (unknown) (no (unknown) (unknown) 21:00 (units (unkno wn) date) unknown) (unknown) (no (unknown) (unknown) 21:20 07/17/22 (units (unknown) date) unknown) (unknown) (no (unknown) (unknown) 21:25 07/17/22 (units (unknown) date) unknown) (unknown) (no (unknown) (unknown) 21:25 (units (unkno wn) date) unknown) (unknown) (no (unknown) (unknown) 21:30 07/17/22 (units (unknown) date) unknown) (unknown) (no (unknown) (unknown) 21:40 07/17/22 (units (unknown) date) unknown) (unknown) (no (unknown) (unknown) 21:40 (units (unkno wn) date) unknown) (unknown) (no (unknown) (unknown) 21:44 07/17/22 (units (unknown) date) unknown) (unknown) (no (unknown) (unknown) 21:44 (units (unkno wn) date) unknown) (unknown) (no (unknown) (unknown) 21:50 07/17/22 (units (unknown) date) unknown) (unknown) (no (unknown) (unknown) 22:00 07/17/22 (units (unknown) date) unknown) (unknown) (no (unknown) (unknown) 22:00 (units (unkno wn) date) unknown) (unknown) (no (unknown) (unknown) 22:11 07/17/22 (units (unknown) date) unknown) (unknown) (no (unknown) (unknown) 22:11 (units (unkno wn) date) unknown) (unknown) (no (unknown) (unknown) 22:20 07/17/22 (units (unknown) date) unknown) (unknown) (no (unknown) (unknown) 22:25 23:26 (units (un known) date) unknown) (unknown) (no (unknown) (unknown) 22:30 07/17/22 (units (unknown) date) unknown) (unknown) (no (unknown) (unknown) 22:30 (units (unkno wn) date) unknown) (unknown) (no (unknown) (unknown) 22:40 07/17/22 (units (unknown) date) unknown) (unknown) (no (unknown) (unknown) 22:40 (units (unkno wn) date) unknown) (unknown) (no (unknown) (unknown) 22:50 07/17/22 (units (unknown) date) unknown) (unknown) (no (unknown) (unknown) 23:02 (units (unkno wn) date) unknown) (unknown) (no (unknown) (unknown) 23:03 07/17/22 (units (unknown) date) unknown) (unknown) (no (unknown) (unknown) 23:10 07/17/22 (units (unknown) date) unknown) (unknown) (no (unknown) (unknown) 23:10 (units (unkno wn) date) unknown) (unknown) (no (unknown) (unknown) 23:20 07/17/22 (units (unknown) date) unknown) (unknown) (no (unknown) (unknown) 23:20 (units (unkno wn) date) unknown) (unknown) (no (unknown) (unknown) 23:30 07/17/22 (units (unknown) date) unknown) (unknown) (no (unknown) (unknown) 23:40 (units (unkno wn) date) unknown) (unknown) (no (unknown) (unknown) ALT 30 (units (unkno wn) date) unknown) (unknown) (no (unknown) (unknown) ALT (units (unkno wn) date) unknown) (unknown) (no (unknown) (unknown) APTT 32 (units (unkno wn) date) unknown) (unknown) (no (unknown) (unknown) APTT (units (unkno wn) date) unknown) (unknown) (no (unknown) (unknown) AST 24 (units (unkno wn) date) unknown) (unknown) (no (unknown) (unknown) AST (units (unkno wn) date) unknown) (unknown) (no (unknown) (unknown) Abd: soft, (units (unk nown) date) non-tender, unknown) normoactive BTs (unknown) (no (unknown) (unknown) Advanced care (units ( unknown) date) planning [ ] unknown) minutes. (unknown) (no (unknown) (unknown) Age/Sex: 51 / F (units (unknown) date) unknown) (unknown) (no (unknown) (unknown) Albumin 4.1 (units (un known) date) unknown) (unknown) (no (unknown) (unknown) Albumin (units (unkno wn) date) unknown) (unknown) (no (unknown) (unknown) Albumin/Globulin (units (unknown) date) Ratio 1.3 unknown) (unknown) (no (unknown) (unknown) Albumin/Globulin (units (unknown) date) Ratio unknown) (unknown) (no (unknown) (unknown) Alkaline (units (unkno wn) date) Phosphatase 100 unknown) (unknown) (no (unknown) (unknown) Alkaline (units (unkno wn) date) Phosphatase unknown) (unknown) (no (unknown) (unknown) Allergies (units (unkn own) date) unknown) (unknown) (no (unknown) (unknown) Allergy/AdvReac (units (unknown) date) Type Severity unknown) Reaction Status Date / Time (unknown) (no (unknown) (unknown) Assessment + Plan (units (unknown) date) narrative: unknown) (unknown) (no (unknown) (unknown) Assessment + Plan (units (unknown) date) unknown) (unknown) (no (unknown) (unknown) BREATHING. (units (unk nown) date) unknown) (unknown) (no (unknown) (unknown) BUN 19 H (units (unkno wn) date) unknown) (unknown) (no (unknown) (unknown) BUN (units (unkno wn) date) unknown) (unknown) (no (unknown) (unknown) BUN/Creatinine (units (unknown) date) Ratio 25.7 H unknown) (unknown) (no (unknown) (unknown) BUN/Creatinine (units (unknown) date) Ratio unknown) (unknown) (no (unknown) (unknown) Baso # (Auto) 100 (units (unknown) date) unknown) (unknown) (no (unknown) (unknown) Baso # (Auto) (units ( unknown) date) unknown) (unknown) (no (unknown) (unknown) Baso % (Auto) 0.8 (units (unknown) date) unknown) (unknown) (no (unknown) (unknown) Baso % (Auto) (units ( unknown) date) unknown) (unknown) (no (unknown) (unknown) Been Physically (units (unknown) date) Hurt or No unknown) (unknown) (no (unknown) (unknown) Blood Pressure (units (unknown) date) 126/64 unknown) (unknown) (no (unknown) (unknown) Blood Pressure (units (unknown) date) 138/78 unknown) (unknown) (no (unknown) (unknown) Blood Pressure (units (unknown) date) 143/67 H unknown) (unknown) (no (unknown) (unknown) Blood Pressure (units (unknown) date) 144/90 H unknown) (unknown) (no (unknown) (unknown) Blood Pressure (units (unknown) date) 145/85 H 147/76 H unknown) (unknown) (no (unknown) (unknown) Blood Pressure (units (unknown) date) 147/80 H unknown) (unknown) (no (unknown) (unknown) Blood Pressure (units (unknown) date) 152/87 H unknown) (unknown) (no (unknown) (unknown) Blood Pressure (units (unknown) date) 153/87 H 147/83 H unknown) (unknown) (no (unknown) (unknown) Blood Pressure (units (unknown) date) 154/70 H 150/68 H unknown) (unknown) (no (unknown) (unknown) Blood Pressure (units (unknown) date) 157/68 H 155/68 H unknown) (unknown) (no (unknown) (unknown) Blood Pressure (units (unknown) date) 158/78 H unknown) (unknown) (no (unknown) (unknown) Blood Pressure (units (unknown) date) 167/80 H 169/78 H unknown) (unknown) (no (unknown) (unknown) Blood Pressure (units (unknown) date) 170/88 H unknown) (unknown) (no (unknown) (unknown) Blood Pressure (units (unknown) date) 171/89 H unknown) (unknown) (no (unknown) (unknown) Blood Pressure (units (unknown) date) 175/56 H unknown) (unknown) (no (unknown) (unknown) Blood Pressure (units (unknown) date) 177/81 H unknown) (unknown) (no (unknown) (unknown) Blood Pressure (units (unknown) date) 180/91 H 187/100 H unknown) (unknown) (no (unknown) (unknown) Blood Pressure (units (unknown) date) 202/79 H unknown) (unknown) (no (unknown) (unknown) Blood Pressure (units (unknown) date) 202/89 H 202/89 H unknown) (unknown) (no (unknown) (unknown) Blood Pressure (units (unknown) date) 210/84 H unknown) (unknown) (no (unknown) (unknown) Blood Pressure (units (unknown) date) 218/93 H 208/93 H unknown) (unknown) (no (unknown) (unknown) CK-MB (CK-2) Rel (units (unknown) date) Index TNP unknown) (unknown) (no (unknown) (unknown) CK-MB (CK-2) Rel (units (unknown) date) Index unknown) (unknown) (no (unknown) (unknown) CK-MB (CK-2) TNP (units (unknown) date) unknown) (unknown) (no (unknown) (unknown) CK-MB (CK-2) (units (u nknown) date) unknown) (unknown) (no (unknown) (unknown) COVID-19 status: (units (unknown) date) Negative unknown) (unknown) (no (unknown) (unknown) COVID-19 (units (unkno wn) date) unknown) (unknown) (no (unknown) (unknown) CV: RRR, no (units (un known) date) murmur or rubs unknown) (unknown) (no (unknown) (unknown) Calcium 9.2 (units (un known) date) unknown) (unknown) (no (unknown) (unknown) Calcium (units (unkno wn) date) unknown) (unknown) (no (unknown) (unknown) Carbon Dioxide 28 (units (unknown) date) unknown) (unknown) (no (unknown) (unknown) Carbon Dioxide (units (unknown) date) unknown) (unknown) (no (unknown) (unknown) Chief complaint: (units (unknown) date) Nausea and HTN unknown) (unknown) (no (unknown) (unknown) Chloride 104 (units (u nknown) date) unknown) (unknown) (no (unknown) (unknown) Chloride (units (unkno wn) date) unknown) (unknown) (no (unknown) (unknown) Code status: [] as (units (unknown) date) discussed with the unknown) patient who identifies [] as [] his [] her (unknown) (no (unknown) (unknown) Consultants [] (units (unknown) date) None [] care and unknown) involvement in the patient?s care is (unknown) (no (unknown) (unknown) Creatinine 0.74 (units (unknown) date) unknown) (unknown) (no (unknown) (unknown) Creatinine (units (unk nown) date) unknown) (unknown) (no (unknown) (unknown) Critical Care (units ( unknown) date) time: unknown) (unknown) (no (unknown) (unknown) : 1970 (units (unknown) date) Acct:[id number] unknown) (unknown) (no (unknown) (unknown) Date Patient (units (u nknown) date) Seen: 07/18/22 unknown) (unknown) (no (unknown) (unknown) Date of Service: (units (unknown) date) 07/17/22 unknown) (unknown) (no (unknown) (unknown) Nona Guzman is (units (unknown) date) a 51 y.o. female unknown) who with a history of severe and poorly (unknown) (no (unknown) (unknown) Nona Guzman is (units (unknown) date) admitted to ICU unknown) status for a hypertensive urgency. (unknown) (no (unknown) (unknown) Deep Vein (units (unkn own) date) Thrombosis/Pulmona unknown) ry Embolism Present on Admission: No (unknown) (no (unknown) (unknown) Discussion of (units ( unknown) date) results, plan of unknown) care with independent HCP/other ED provider (unknown) (no (unknown) (unknown) Dispo: [] (units (unkn own) date) unknown) (unknown) (no (unknown) (unknown) Environment (units (un known) date) unknown) (unknown) (no (unknown) (unknown) Eos # (Auto) 100 (units (unknown) date) unknown) (unknown) (no (unknown) (unknown) Eos # (Auto) (units (u nknown) date) unknown) (unknown) (no (unknown) (unknown) Eos % (Auto) 0.7 (units (unknown) date) L unknown) (unknown) (no (unknown) (unknown) Eos % (Auto) (units (u nknown) date) unknown) (unknown) (no (unknown) (unknown) Estimated GFR > (units (unknown) date) 60 unknown) (unknown) (no (unknown) (unknown) Estimated GFR (units ( unknown) date) unknown) (unknown) (no (unknown) (unknown) Exam Narrative: (units (unknown) date) unknown) (unknown) (no (unknown) (unknown) Exam (units (unkno wn) date) unknown) (unknown) (no (unknown) (unknown) Extremities: (units (u nknown) date) moves all 4 unknown) extremities, is ambulatory, negative Garret?s sign (unknown) (no (unknown) (unknown) FACE, (units (unkno wn) date) unknown) (unknown) (no (unknown) (unknown) FEN: IV fluids: (units (unknown) date) saline lock, diet: unknown) heart healthy, labs: CBC, C/BMP, liver (unknown) (no (unknown) (unknown) Family + Social (units (unknown) date) History unknown) (unknown) (no (unknown) (unknown) Feels Safe in (units ( unknown) date) Current Yes unknown) (unknown) (no (unknown) (unknown) Fibromyalgia (units (u nknown) date) unknown) (unknown) (no (unknown) (unknown) Gen: Alert, (units (un known) date) oriented, morbidly unknown) obese 51 y.o. female, NAD (unknown) (no (unknown) (unknown) Globulin 3.1 (units (u nknown) date) unknown) (unknown) (no (unknown) (unknown) Globulin (units (unkno wn) date) unknown) (unknown) (no (unknown) (unknown) Glucose 91 (units (unk nown) date) unknown) (unknown) (no (unknown) (unknown) Glucose (units (unkno wn) date) unknown) (unknown) (no (unknown) (unknown) H/O gastric (units (un known) date) bypass unknown) (unknown) (no (unknown) (unknown) HEENT: (units (unkno wn) date) normocephalic, unknown) atraumatic, conjunctiva clear, sclera non-icteric, oral (unknown) (no (unknown) (unknown) HIVES ALL (units (unkn own) date) unknown) (unknown) (no (unknown) (unknown) Hct 42.1 (units (unkno wn) date) unknown) (unknown) (no (unknown) (unknown) Hct (units (unkno wn) date) unknown) (unknown) (no (unknown) (unknown) Hgb 14.0 (units (unkno wn) date) unknown) (unknown) (no (unknown) (unknown) Hgb (units (unkno wn) date) unknown) (unknown) (no (unknown) (unknown) History + (units (unkn own) date) Physical Report unknown) (unknown) (no (unknown) (unknown) History of (units (unk nown) date) Present Illness unknown) (unknown) (no (unknown) (unknown) History of (units (unk nown) date) prediabetes unknown) (unknown) (no (unknown) (unknown) Home Medications (units (unknown) date) and Allergies unknown) (unknown) (no (unknown) (unknown) Home Medications (units (unknown) date) unknown) (unknown) (no (unknown) (unknown) Hypertension (units (u nknown) date) unknown) (unknown) (no (unknown) (unknown) Hypertensive (units (u nknown) date) urgency, unknown) malignant, acute and present on admission (unknown) (no (unknown) (unknown) I confirm the (units (u nknown) date) patient?s Advance unknown) Care Plan is present, Code status is documented, (unknown) (no (unknown) (unknown) I spent a total (units (unknown) date) of [] minutes of unknown) critical care time on this patient's care (unknown) (no (unknown) (unknown) INR 0.9 (units (unkno wn) date) unknown) (unknown) (no (unknown) (unknown) INR (units (unkno wn) date) unknown) (unknown) (no (unknown) (unknown) In the ED, she (units (unknown) date) was started on a unknown) nifedipine drip, then administered a one time (unknown) (no (unknown) (unknown) [facility] (units (unknown) date) [address] unknown) [place] [address] (unknown) (no (unknown) (unknown) Laboratory (units (unk nown) date) Results - last 24 unknown) hr (unknown) (no (unknown) (unknown) Labs (units (unkno wn) date) unknown) (unknown) (no (unknown) (unknown) Labs: (units (unkno wn) date) unknown) (unknown) (no (unknown) (unknown) Lipase 185 (units (unk nown) date) unknown) (unknown) (no (unknown) (unknown) Lipase (units (unkno wn) date) unknown) (unknown) (no (unknown) (unknown) Lymph # (Auto) (units (unknown) date) 1900 unknown) (unknown) (no (unknown) (unknown) Lymph # (Auto) (units (unknown) date) unknown) (unknown) (no (unknown) (unknown) Lymph % (Auto) (units (unknown) date) 23.2 L unknown) (unknown) (no (unknown) (unknown) Lymph % (Auto) (units (unknown) date) unknown) (unknown) (no (unknown) (unknown) MCH 30.8 (units (unkno wn) date) unknown) (unknown) (no (unknown) (unknown) MCH (units (unkno wn) date) unknown) (unknown) (no (unknown) (unknown) MCHC 33.3 (units (unkn own) date) unknown) (unknown) (no (unknown) (unknown) MCHC (units (unkno wn) date) unknown) (unknown) (no (unknown) (unknown) MCV 92.5 (units (unkno wn) date) unknown) (unknown) (no (unknown) (unknown) MCV (units (unkno wn) date) unknown) (unknown) (no (unknown) (unknown) MIPS - Admit (units (u nknown) date) unknown) (unknown) (no (unknown) (unknown) MIPS - DC (units (unkn own) date) unknown) (unknown) (no (unknown) (unknown) Magnesium 2.0 (units ( unknown) date) unknown) (unknown) (no (unknown) (unknown) Magnesium (units (unkn own) date) unknown) (unknown) (no (unknown) (unknown) Medical History (units (unknown) date) (Reviewed 07/18/22 unknown) @ 00:52 by EDENILSON Amezquita) (unknown) (no (unknown) (unknown) Medication (units (unk nown) date) Instructions unknown) Recorded Confirmed Type (unknown) (no (unknown) (unknown) Meds (units (unkno wn) date) unknown) (unknown) (no (unknown) (unknown) Larue # (Auto) 400 (units (unknown) date) unknown) (unknown) (no (unknown) (unknown) Larue # (Auto) (units ( unknown) date) unknown) (unknown) (no (unknown) (unknown) Larue % (Auto) 5.4 (units (unknown) date) unknown) (unknown) (no (unknown) (unknown) Larue % (Auto) (units ( unknown) date) unknown) (unknown) (no (unknown) (unknown) Narrative (units (unkn own) date) unknown) (unknown) (no (unknown) (unknown) Narrative: (units (unk nown) date) unknown) (unknown) (no (unknown) (unknown) Neck: supple, (units ( unknown) date) full ROM, no JVD, unknown) trachea is midline (unknown) (no (unknown) (unknown) Neuro: Alert and (units (unknown) date) oriented X 4 w/no unknown) focal deficits. Speech clear and coherent. (unknown) (no (unknown) (unknown) Neut # (Auto) (units ( unknown) date) 5700 unknown) (unknown) (no (unknown) (unknown) Neut # (Auto) (units ( unknown) date) unknown) (unknown) (no (unknown) (unknown) Neut % (Auto) (units ( unknown) date) 69.9 unknown) (unknown) (no (unknown) (unknown) Neut % (Auto) (units ( unknown) date) unknown) (unknown) (no (unknown) (unknown) OVER. (units (unkno wn) date) unknown) (unknown) (no (unknown) (unknown) Objective (units (unkn own) date) unknown) (unknown) (no (unknown) (unknown) Other independent (units (unknown) date) historians: none unknown) (unknown) (no (unknown) (unknown) Oxygen Delivery (units (unknown) date) Method Room Air unknown) Room Air (unknown) (no (unknown) (unknown) Oxygen Delivery (units (unknown) date) Method Room Air unknown) (unknown) (no (unknown) (unknown) Oxygen Delivery (units (unknown) date) Method unknown) (unknown) (no (unknown) (unknown) PCR is negative. (units (unknown) date) unknown) (unknown) (no (unknown) (unknown) PT 10.7 (units (unkno wn) date) unknown) (unknown) (no (unknown) (unknown) PT (units (unkno wn) date) unknown) (unknown) (no (unknown) (unknown) Patient History (units (unknown) date) unknown) (unknown) (no (unknown) (unknown) Patient is (units (unk nown) date) admitted to the unknown) inpatient intensive service due to the severity of (unknown) (no (unknown) (unknown) Patient states (units (unknown) date) she uses estrogen unknown) patches, smokes 4 cigarrettes/day and drinks 2 (unknown) (no (unknown) (unknown) Patient: (units (unkno wn) date) Nona Guzman unknown) MR#: [id number] (unknown) (no (unknown) (unknown) Penicillins (units (un known) date) [PENICILLINS] unknown) Allergy Intermediate RASH/ITCHING, Verified 07/17/22 (unknown) (no (unknown) (unknown) Plt Count 229 (units ( unknown) date) unknown) (unknown) (no (unknown) (unknown) Plt Count (units (unkn own) date) unknown) (unknown) (no (unknown) (unknown) Potassium 3.7 (units ( unknown) date) unknown) (unknown) (no (unknown) (unknown) Potassium (units (unkn own) date) unknown) (unknown) (no (unknown) (unknown) Provider: (units (unkn own) date) Clarissa Washington unknown) (unknown) (no (unknown) (unknown) Psyche: normal (units (unknown) date) mood and affect. unknown) (unknown) (no (unknown) (unknown) Pulse Oximetry (units (unknown) date) 100 unknown) (unknown) (no (unknown) (unknown) Pulse Oximetry 94 (units (unknown) date) 94 unknown) (unknown) (no (unknown) (unknown) Pulse Oximetry 94 (units (unknown) date) 95 unknown) (unknown) (no (unknown) (unknown) Pulse Oximetry 94 (units (unknown) date) unknown) (unknown) (no (unknown) (unknown) Pulse Oximetry 95 (units (unknown) date) 94 unknown) (unknown) (no (unknown) (unknown) Pulse Oximetry 95 (units (unknown) date) 97 unknown) (unknown) (no (unknown) (unknown) Pulse Oximetry 95 (units (unknown) date) unknown) (unknown) (no (unknown) (unknown) Pulse Oximetry 96 (units (unknown) date) 94 unknown) (unknown) (no (unknown) (unknown) Pulse Oximetry 96 (units (unknown) date) 96 unknown) (unknown) (no (unknown) (unknown) Pulse Oximetry 96 (units (unknown) date) unknown) (unknown) (no (unknown) (unknown) Pulse Oximetry 97 (units (unknown) date) 97 unknown) (unknown) (no (unknown) (unknown) Pulse Oximetry 97 (units (unknown) date) unknown) (unknown) (no (unknown) (unknown) Pulse Oximetry 98 (units (unknown) date) 98 unknown) (unknown) (no (unknown) (unknown) Pulse Oximetry 98 (units (unknown) date) unknown) (unknown) (no (unknown) (unknown) Pulse Oximetry 99 (units (unknown) date) 95 unknown) (unknown) (no (unknown) (unknown) Pulse Oximetry 99 (units (unknown) date) 99 unknown) (unknown) (no (unknown) (unknown) Pulse Oximetry 99 (units (unknown) date) unknown) (unknown) (no (unknown) (unknown) Pulse Oximetry (units (unknown) date) unknown) (unknown) (no (unknown) (unknown) Pulse Rate 65 (units ( unknown) date) unknown) (unknown) (no (unknown) (unknown) Pulse Rate 67 65 (units (unknown) date) unknown) (unknown) (no (unknown) (unknown) Pulse Rate 67 77 (units (unknown) date) unknown) (unknown) (no (unknown) (unknown) Pulse Rate 68 68 (units (unknown) date) unknown) (unknown) (no (unknown) (unknown) Pulse Rate 70 78 (units (unknown) date) unknown) (unknown) (no (unknown) (unknown) Pulse Rate 71 65 (units (unknown) date) unknown) (unknown) (no (unknown) (unknown) Pulse Rate 71 67 (units (unknown) date) unknown) (unknown) (no (unknown) (unknown) Pulse Rate 72 75 (units (unknown) date) unknown) (unknown) (no (unknown) (unknown) Pulse Rate 76 (units ( unknown) date) unknown) (unknown) (no (unknown) (unknown) Pulse Rate 77 79 (units (unknown) date) unknown) (unknown) (no (unknown) (unknown) Pulse Rate 77 (units ( unknown) date) unknown) (unknown) (no (unknown) (unknown) Pulse Rate 78 87 (units (unknown) date) unknown) (unknown) (no (unknown) (unknown) Pulse Rate 78 (units ( unknown) date) unknown) (unknown) (no (unknown) (unknown) Pulse Rate 79 77 (units (unknown) date) unknown) (unknown) (no (unknown) (unknown) Pulse Rate 79 94 (units (unknown) date) H unknown) (unknown) (no (unknown) (unknown) Pulse Rate 79 (units ( unknown) date) unknown) (unknown) (no (unknown) (unknown) Pulse Rate 80 75 (units (unknown) date) unknown) (unknown) (no (unknown) (unknown) Pulse Rate 84 (units ( unknown) date) unknown) (unknown) (no (unknown) (unknown) Pulse Rate 91 H (units (unknown) date) 83 unknown) (unknown) (no (unknown) (unknown) Pulse Rate (units (unk nown) date) unknown) (unknown) (no (unknown) (unknown) RBC 4.56 (units (unkno wn) date) unknown) (unknown) (no (unknown) (unknown) RBC (units (unkno wn) date) unknown) (unknown) (no (unknown) (unknown) RDW 14.2 (units (unkno wn) date) unknown) (unknown) (no (unknown) (unknown) RDW (units (unkno wn) date) unknown) (unknown) (no (unknown) (unknown) ROS: Yes All (units (u nknown) date) systems reviewed unknown) with the patient and are negative except as (unknown) (no (unknown) (unknown) Resp: Lungs CTA, (units (unknown) date) non-labored unknown) breathing (unknown) (no (unknown) (unknown) Respiratory Rate (units (unknown) date) 14 unknown) (unknown) (no (unknown) (unknown) Respiratory Rate (units (unknown) date) 16 31 H unknown) (unknown) (no (unknown) (unknown) Respiratory Rate (units (unknown) date) 20 17 unknown) (unknown) (no (unknown) (unknown) Respiratory Rate (units (unknown) date) 20 20 unknown) (unknown) (no (unknown) (unknown) Respiratory Rate (units (unknown) date) 20 unknown) (unknown) (no (unknown) (unknown) Respiratory Rate (units (unknown) date) 21 unknown) (unknown) (no (unknown) (unknown) Respiratory Rate (units (unknown) date) 30 H 23 unknown) (unknown) (no (unknown) (unknown) Respiratory Rate (units (unknown) date) 35 H unknown) (unknown) (no (unknown) (unknown) Respiratory Rate (units (unknown) date) unknown) (unknown) (no (unknown) (unknown) Result date/Date (units (unknown) date) tested (Pos, unknown) Neg/Pending): 07/18/22 (unknown) (no (unknown) (unknown) Review of Systems (units (unknown) date) unknown) (unknown) (no (unknown) (unknown) Reviewed outside (units (unknown) date) records: PCP unknown) records (unknown) (no (unknown) (unknown) Risk (units (unkno wn) date) stratification unknown) (unknown) (no (unknown) (unknown) SARS-CoV-2 (PCR) (units (unknown) date) Negative unknown) (unknown) (no (unknown) (unknown) SARS-CoV-2 (PCR) (units (unknown) date) unknown) (unknown) (no (unknown) (unknown) SCDs (units (unkno wn) date) unknown) (unknown) (no (unknown) (unknown) Safety + (units (unkno wn) date) Behavioral: unknown) (unknown) (no (unknown) (unknown) Signed By: (units (unk nown) date) unknown) (unknown) (no (unknown) (unknown) Skin: trace edema (units (unknown) date) bilat. LE. No unknown) lesions or rashes, dry and intact (unknown) (no (unknown) (unknown) Smoking Status (units (unknown) date) Current every day unknown) smoker (unknown) (no (unknown) (unknown) Social (units (unkno wn) date) determinants of unknown) health: [ ] (unknown) (no (unknown) (unknown) Sodium 139 (units (unk nown) date) unknown) (unknown) (no (unknown) (unknown) Sodium (units (unkno wn) date) unknown) (unknown) (no (unknown) (unknown) States her (units (unkn own) date) father's side has unknown) had heart disease, he at age 59 of asbestosis, (unknown) (no (unknown) (unknown) Substance Use (units ( unknown) date) Type does not use unknown) (unknown) (no (unknown) (unknown) Surgical History (units (unknown) date) (Reviewed 07/18/22 unknown) @ 00:52 by EDENILSON Amezquita) (unknown) (no (unknown) (unknown) Surrogate (units (unkn own) date) decision maker is unknown) in patient?s record: Yes (unknown) (no (unknown) (unknown) THROAT (units (unkno wn) date) unknown) (unknown) (no (unknown) (unknown) TROUBLE (units (unkno wn) date) unknown) (unknown) (no (unknown) (unknown) Temperature 97.6 (units (unknown) date) F unknown) (unknown) (no (unknown) (unknown) Temperature (units (un known) date) unknown) (unknown) (no (unknown) (unknown) The patient has (units (unknown) date) current or prior unknown) documentation of left ventricular ejection (unknown) (no (unknown) (unknown) Threatened By a (units (unknown) date) Person unknown) (unknown) (no (unknown) (unknown) Time Patient (units (u nknown) date) Seen: 00:35 unknown) (unknown) (no (unknown) (unknown) Time Spent With (units (unknown) date) Patient unknown) (unknown) (no (unknown) (unknown) Tobacco + (units (unkn own) date) Substance use: unknown) (unknown) (no (unknown) (unknown) Total Bilirubin (units (unknown) date) 0.7 unknown) (unknown) (no (unknown) (unknown) Total Bilirubin (units (unknown) date) unknown) (unknown) (no (unknown) (unknown) Total Creatine (units (unknown) date) Kinase 35 unknown) (unknown) (no (unknown) (unknown) Total Creatine (units (unknown) date) Kinase unknown) (unknown) (no (unknown) (unknown) Total Protein 7.2 (units (unknown) date) unknown) (unknown) (no (unknown) (unknown) Total Protein (units ( unknown) date) unknown) (unknown) (no (unknown) (unknown) Troponin I < (units (u nknown) date) 0.012 unknown) (unknown) (no (unknown) (unknown) VTE Prophylaxis: (units (unknown) date) Wells risk score 1 unknown) Enoxaparin 40 mg subQ once daily Bilateral (unknown) (no (unknown) (unknown) VTE (units (unkno wn) date) unknown) (unknown) (no (unknown) (unknown) Vital Signs (units (un known) date) unknown) (unknown) (no (unknown) (unknown) WBC 8.1 (units (unkno wn) date) unknown) (unknown) (no (unknown) (unknown) WBC (units (unkno wn) date) unknown) (unknown) (no (unknown) (unknown) When the pandemic (units (unknown) date) hit, she states unknown) she put most of the weight back on due to (unknown) (no (unknown) (unknown) [DIPHENHYDRAMINE] (units (unknown) date) unknown) (unknown) (no (unknown) (unknown) [Embedded Image (units (unknown) date) Not Available] unknown) (unknown) (no (unknown) (unknown) [MAGNESIUM (units (unk nown) date) CITRATE] unknown) (unknown) (no (unknown) (unknown) [X] I have (units (unk nown) date) utilized all unknown) available immediate resources to obtain, update, or (unknown) (no (unknown) (unknown) abdominal and (units ( unknown) date) back cramping and unknown) bilateral leg pain. She states she has backed (unknown) (no (unknown) (unknown) alcohol intake (units (unknown) date) frequency 0-2 unknown) drinks per day (unknown) (no (unknown) (unknown) amoxicillin (units (un known) date) [AMOXICILLIN] unknown) Allergy Severe SWELLING Verified 07/17/22 18:24 (unknown) (no (unknown) (unknown) appreciated. (units (u nknown) date) unknown) (unknown) (no (unknown) (unknown) as 218/93. (units (unk nown) date) Currently her unknown) blood pressure is 126/64 she is afebrile heart rate 78 (unknown) (no (unknown) (unknown) blood pressure (units (unknown) date) and found it to be unknown) in the in the 220/120 range.? She did have a (unknown) (no (unknown) (unknown) carvedilol 12.5 (units (unknown) date) mg tablet 12.5 mg unknown) PO BID #60 tabs 07/17/22 Rx (unknown) (no (unknown) (unknown) carvedilol 6.25 (units (unknown) date) mg tablet 6.25 mg unknown) PO BID #180 tabs 05/14/22 06/04/22 Rx (unknown) (no (unknown) (unknown) complaints in (units ( unknown) date) February of last unknown) year with headache, blurred vision and chest (unknown) (no (unknown) (unknown) controlled (units (unk nown) date) hypertension unknown) presented to the ED with significantly elevated blood (unknown) (no (unknown) (unknown) diphenhydramine (units (unknown) date) Allergy Mild unknown) SWELLING. Verified 07/17/22 18:24 (unknown) (no (unknown) (unknown) disease, cardiac (units (unknown) date) drips and close unknown) monitoring, risks of further disease (unknown) (no (unknown) (unknown) dose of (units (unkno wn) date) amlopdipine 5 mg. unknown) Imaging studies ruled out any acute cardiopulmonary (unknown) (no (unknown) (unknown) enzymes, Mag, (units ( unknown) date) PT/INR unknown) (unknown) (no (unknown) (unknown) estradiol 0.1 (units ( unknown) date) mg/24 hr weekly unknown) 0.1 mg topical QWEEK #4 ea 06/04/22 06/04/22 Rx (unknown) (no (unknown) (unknown) fraction (LVEF) (units (unknown) date) less than 40%, or unknown) moderate or severely depressed left (unknown) (no (unknown) (unknown) glasses of (units (unk nown) date) wine/day. 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 She had similar (unknown) (no (unknown) (unknown) latex [LATEX] (units ( unknown) date) Allergy Mild RASH unknown) Verified 07/17/22 18:24 (unknown) (no (unknown) (unknown) losartan 100 1 (units (unknown) date) tab PO DAILY #30 unknown) tabs 06/03/22 06/04/22 Rx (unknown) (no (unknown) (unknown) magnesium citrate (units (unknown) date) AdvReac Unknown unknown) VOMITING Verified 07/17/22 18:24 (unknown) (no (unknown) (unknown) mg-hydrochlorothi (units (unknown) date) azide 25 mg tablet unknown) (unknown) (no (unknown) (unknown) mother age (units (unknown) date) 57 of alcohol unknown) abuse. (unknown) (no (unknown) (unknown) mucosa pink and (units (unknown) date) moist unknown) (unknown) (no (unknown) (unknown) negative. (units (unkn own) date) Presenting blood unknown) pressure in the ED was 202/89 and trended up as high (unknown) (no (unknown) (unknown) of room/staff (units ( unknown) date) availability., She unknown) will likely become floor status by the am. (unknown) (no (unknown) (unknown) off on exersize (units (unknown) date) because she gets unknown) very short of breath. States she does get dizzy (unknown) (no (unknown) (unknown) ompany. (units (unkno wn) date) unknown) (unknown) (no (unknown) (unknown) otherwise (units (unkn own) date) documented unknown) (unknown) (no (unknown) (unknown) pain lasting from (units (unknown) date) 30-45 seconds. She unknown) endorses having nausea and vomiting, (unknown) (no (unknown) (unknown) pressure.? She (units (unknown) date) was having a tele unknown) video appointment with her primary care doctor (unknown) (no (unknown) (unknown) process, ruled (units (unknown) date) out PE, head CT unknown) was negative for CVA or injury, chest x-ray was (unknown) (no (unknown) (unknown) progression and (units (unknown) date) this stay is unknown) expected to exceed 2 midnights. (unknown) (no (unknown) (unknown) respiratory rate (units (unknown) date) 21 oxygen unknown) saturation of 94% on room air she weighs 106.14 kg (unknown) (no (unknown) (unknown) review of the (units ( unknown) date) patient's current unknown) medications (unknown) (no (unknown) (unknown) surrogate and (units ( unknown) date) POA. unknown) (unknown) (no (unknown) (unknown) to discuss her (units (unknown) date) hypertension and unknown) during that consultation she checked her home (unknown) (no (unknown) (unknown) to the point of (units (unknown) date) severe vertigo. unknown) She a a gastric bypass in 2015 and lost about (unknown) (no (unknown) (unknown) today; this time (units (unknown) date) is exclusive of unknown) procedural time. (unknown) (no (unknown) (unknown) transdermal patch (units (unknown) date) unknown) (unknown) (no (unknown) (unknown) ventricular (units (un known) date) systolic unknown) function.: No (unknown) (no (unknown) (unknown) with a BMI of (units ( unknown) date) 40.2. CBC is unknown) unremarkable, chemistry is unremarkable and COVID-19 (unknown) (no (unknown) (unknown) working at home (units (unknown) date) and not being able unknown) to exercise. Result panel 531 (unknown) (no (unknown) (unknown) (no value) (units (unk nown) date) unknown) (unknown) (no (unknown) (unknown) (past 8 hours): (units (unknown) date) unknown) (unknown) (no (unknown) (unknown) * Echo in the am (units (unknown) date) unknown) (unknown) (no (unknown) (unknown) * Fasting lipids (units (unknown) date) in the am unknown) (unknown) (no (unknown) (unknown) * She had an A1c (units (unknown) date) in May 2022 unknown) and it was 5.0 (unknown) (no (unknown) (unknown) * She is admitted (units (unknown) date) to ICU status, unknown) however, she is boarding in the ED due to lack (unknown) (no (unknown) (unknown) * She is on a (units ( unknown) date) nifedipine drip unknown) which is cross tapored w/amlodipine 5 mg (unknown) (no (unknown) (unknown) * She is (units (unkno wn) date) recommended to unknown) cease estrogen patches and tobacco use. (unknown) (no (unknown) (unknown) * TSH (units (unkno wn) date) unknown) (unknown) (no (unknown) (unknown) [id number] (units (unkno wn) date) unknown) (unknown) (no (unknown) (unknown) 07/17/22 07/17/22 (units (unknown) date) 07/17/22 unknown) (unknown) (no (unknown) (unknown) 07/17/22 07/17/22 (units (unknown) date) unknown) (unknown) (no (unknown) (unknown) 07/17/22 18:49 (units (unknown) date) unknown) (unknown) (no (unknown) (unknown) 07/17/22 (units (unkno wn) date) unknown) (unknown) (no (unknown) (unknown) 07/18/22 0106 (units ( unknown) date) unknown) (unknown) (no (unknown) (unknown) 125 lbs, she (units (u nknown) date) attempted to unknown) increase her weight as she stated she looked poorly. (unknown) (no (unknown) (unknown) 18:20 07/17/22 (units (unknown) date) unknown) (unknown) (no (unknown) (unknown) 18:24 (units (unkno wn) date) unknown) (unknown) (no (unknown) (unknown) 18:38 (units (unkno wn) date) unknown) (unknown) (no (unknown) (unknown) 18:43 07/17/22 (units (unknown) date) unknown) (unknown) (no (unknown) (unknown) 18:49 07/17/22 (units (unknown) date) unknown) (unknown) (no (unknown) (unknown) 18:49 18:49 18:49 (units (unknown) date) unknown) (unknown) (no (unknown) (unknown) 19:00 07/17/22 (units (unknown) date) unknown) (unknown) (no (unknown) (unknown) 19:00 (units (unkno wn) date) unknown) (unknown) (no (unknown) (unknown) 19:09 07/17/22 (units (unknown) date) unknown) (unknown) (no (unknown) (unknown) 19:09 (units (unkno wn) date) unknown) (unknown) (no (unknown) (unknown) 19:30 07/17/22 (units (unknown) date) unknown) (unknown) (no (unknown) (unknown) 19:35 07/17/22 (units (unknown) date) unknown) (unknown) (no (unknown) (unknown) 19:35 (units (unkno wn) date) unknown) (unknown) (no (unknown) (unknown) 19:40 07/17/22 (units (unknown) date) unknown) (unknown) (no (unknown) (unknown) 19:50 07/17/22 (units (unknown) date) unknown) (unknown) (no (unknown) (unknown) 19:50 (units (unkno wn) date) unknown) (unknown) (no (unknown) (unknown) 20:00 07/17/22 (units (unknown) date) unknown) (unknown) (no (unknown) (unknown) 20:00 (units (unkno wn) date) unknown) (unknown) (no (unknown) (unknown) 20:10 07/17/22 (units (unknown) date) unknown) (unknown) (no (unknown) (unknown) 20:20 07/17/22 (units (unknown) date) unknown) (unknown) (no (unknown) (unknown) 20:20 (units (unkno wn) date) unknown) (unknown) (no (unknown) (unknown) 20:30 07/17/22 (units (unknown) date) unknown) (unknown) (no (unknown) (unknown) 20:30 (units (unkno wn) date) unknown) (unknown) (no (unknown) (unknown) 20:40 07/17/22 (units (unknown) date) unknown) (unknown) (no (unknown) (unknown) 21:00 (units (unkno wn) date) unknown) (unknown) (no (unknown) (unknown) 21:20 07/17/22 (units (unknown) date) unknown) (unknown) (no (unknown) (unknown) 21:25 02/03/23 (units (unknown) date) unknown) (unknown) (no (unknown) (unknown) 21:25 (units (unkno wn) date) unknown) (unknown) (no (unknown) (unknown) 21:30 07/17/22 (units (unknown) date) unknown) (unknown) (no (unknown) (unknown) 21:40 07/17/22 (units (unknown) date) unknown) (unknown) (no (unknown) (unknown) 21:40 (units (unkno wn) date) unknown) (unknown) (no (unknown) (unknown) 21:44 07/17/22 (units (unknown) date) unknown) (unknown) (no (unknown) (unknown) 21:44 (units (unkno wn) date) unknown) (unknown) (no (unknown) (unknown) 21:50 07/17/22 (units (unknown) date) unknown) (unknown) (no (unknown) (unknown) 22:00 07/17/22 (units (unknown) date) unknown) (unknown) (no (unknown) (unknown) 22:00 (units (unkno wn) date) unknown) (unknown) (no (unknown) (unknown) 22:11 07/17/22 (units (unknown) date) unknown) (unknown) (no (unknown) (unknown) 22:11 (units (unkno wn) date) unknown) (unknown) (no (unknown) (unknown) 22:20 07/17/22 (units (unknown) date) unknown) (unknown) (no (unknown) (unknown) 22:25 23:26 (units (un known) date) unknown) (unknown) (no (unknown) (unknown) 22:30 07/17/22 (units (unknown) date) unknown) (unknown) (no (unknown) (unknown) 22:30 (units (unkno wn) date) unknown) (unknown) (no (unknown) (unknown) 22:40 07/17/22 (units (unknown) date) unknown) (unknown) (no (unknown) (unknown) 22:40 (units (unkno wn) date) unknown) (unknown) (no (unknown) (unknown) 22:50 07/17/22 (units (unknown) date) unknown) (unknown) (no (unknown) (unknown) 23:02 (units (unkno wn) date) unknown) (unknown) (no (unknown) (unknown) 23:03 07/17/22 (units (unknown) date) unknown) (unknown) (no (unknown) (unknown) 23:10 07/17/22 (units (unknown) date) unknown) (unknown) (no (unknown) (unknown) 23:10 (units (unkno wn) date) unknown) (unknown) (no (unknown) (unknown) 23:20 07/17/22 (units (unknown) date) unknown) (unknown) (no (unknown) (unknown) 23:20 (units (unkno wn) date) unknown) (unknown) (no (unknown) (unknown) 23:30 07/17/22 (units (unknown) date) unknown) (unknown) (no (unknown) (unknown) 23:40 (units (unkno wn) date) unknown) (unknown) (no (unknown) (unknown) ALT 30 (units (unkno wn) date) unknown) (unknown) (no (unknown) (unknown) ALT (units (unkno wn) date) unknown) (unknown) (no (unknown) (unknown) APTT 32 (units (unkno wn) date) unknown) (unknown) (no (unknown) (unknown) APTT (units (unkno wn) date) unknown) (unknown) (no (unknown) (unknown) AST 24 (units (unkno wn) date) unknown) (unknown) (no (unknown) (unknown) AST (units (unkno wn) date) unknown) (unknown) (no (unknown) (unknown) Abd: soft, (units (unk nown) date) non-tender, unknown) normoactive BTs (unknown) (no (unknown) (unknown) Advanced care (units ( unknown) date) planning [ ] unknown) minutes. (unknown) (no (unknown) (unknown) Age/Sex: 51 / F (units (unknown) date) unknown) (unknown) (no (unknown) (unknown) Albumin 4.1 (units (un known) date) unknown) (unknown) (no (unknown) (unknown) Albumin (units (unkno wn) date) unknown) (unknown) (no (unknown) (unknown) Albumin/Globulin (units (unknown) date) Ratio 1.3 unknown) (unknown) (no (unknown) (unknown) Albumin/Globulin (units (unknown) date) Ratio unknown) (unknown) (no (unknown) (unknown) Alkaline (units (unkno wn) date) Phosphatase 100 unknown) (unknown) (no (unknown) (unknown) Alkaline (units (unkno wn) date) Phosphatase unknown) (unknown) (no (unknown) (unknown) Allergies (units (unkn own) date) unknown) (unknown) (no (unknown) (unknown) Allergy/AdvReac (units (unknown) date) Type Severity unknown) Reaction Status Date / Time (unknown) (no (unknown) (unknown) Assessment + Plan (units (unknown) date) narrative: unknown) (unknown) (no (unknown) (unknown) Assessment + Plan (units (unknown) date) unknown) (unknown) (no (unknown) (unknown) BREATHING. (units (unk nown) date) unknown) (unknown) (no (unknown) (unknown) BUN 19 H (units (unkno wn) date) unknown) (unknown) (no (unknown) (unknown) BUN (units (unkno wn) date) unknown) (unknown) (no (unknown) (unknown) BUN/Creatinine (units (unknown) date) Ratio 25.7 H unknown) (unknown) (no (unknown) (unknown) BUN/Creatinine (units (unknown) date) Ratio unknown) (unknown) (no (unknown) (unknown) Baso # (Auto) 100 (units (unknown) date) unknown) (unknown) (no (unknown) (unknown) Baso # (Auto) (units ( unknown) date) unknown) (unknown) (no (unknown) (unknown) Baso % (Auto) 0.8 (units (unknown) date) unknown) (unknown) (no (unknown) (unknown) Baso % (Auto) (units ( unknown) date) unknown) (unknown) (no (unknown) (unknown) Been Physically (units (unknown) date) Hurt or No unknown) (unknown) (no (unknown) (unknown) Blood Pressure (units (unknown) date) 126/64 unknown) (unknown) (no (unknown) (unknown) Blood Pressure (units (unknown) date) 138/78 unknown) (unknown) (no (unknown) (unknown) Blood Pressure (units (unknown) date) 143/67 H unknown) (unknown) (no (unknown) (unknown) Blood Pressure (units (unknown) date) 144/90 H unknown) (unknown) (no (unknown) (unknown) Blood Pressure (units (unknown) date) 145/85 H 147/76 H unknown) (unknown) (no (unknown) (unknown) Blood Pressure (units (unknown) date) 147/80 H unknown) (unknown) (no (unknown) (unknown) Blood Pressure (units (unknown) date) 152/87 H unknown) (unknown) (no (unknown) (unknown) Blood Pressure (units (unknown) date) 153/87 H 147/83 H unknown) (unknown) (no (unknown) (unknown) Blood Pressure (units (unknown) date) 154/70 H 150/68 H unknown) (unknown) (no (unknown) (unknown) Blood Pressure (units (unknown) date) 157/68 H 155/68 H unknown) (unknown) (no (unknown) (unknown) Blood Pressure (units (unknown) date) 158/78 H unknown) (unknown) (no (unknown) (unknown) Blood Pressure (units (unknown) date) 167/80 H 169/78 H unknown) (unknown) (no (unknown) (unknown) Blood Pressure (units (unknown) date) 170/88 H unknown) (unknown) (no (unknown) (unknown) Blood Pressure (units (unknown) date) 171/89 H unknown) (unknown) (no (unknown) (unknown) Blood Pressure (units (unknown) date) 175/56 H unknown) (unknown) (no (unknown) (unknown) Blood Pressure (units (unknown) date) 177/81 H unknown) (unknown) (no (unknown) (unknown) Blood Pressure (units (unknown) date) 180/91 H 187/100 H unknown) (unknown) (no (unknown) (unknown) Blood Pressure (units (unknown) date) 202/79 H unknown) (unknown) (no (unknown) (unknown) Blood Pressure (units (unknown) date) 202/89 H 202/89 H unknown) (unknown) (no (unknown) (unknown) Blood Pressure (units (unknown) date) 210/84 H unknown) (unknown) (no (unknown) (unknown) Blood Pressure (units (unknown) date) 218/93 H 208/93 H unknown) (unknown) (no (unknown) (unknown) CK-MB (CK-2) Rel (units (unknown) date) Index TNP unknown) (unknown) (no (unknown) (unknown) CK-MB (CK-2) Rel (units (unknown) date) Index unknown) (unknown) (no (unknown) (unknown) CK-MB (CK-2) TNP (units (unknown) date) unknown) (unknown) (no (unknown) (unknown) CK-MB (CK-2) (units (u nknown) date) unknown) (unknown) (no (unknown) (unknown) COVID-19 status: (units (unknown) date) Negative unknown) (unknown) (no (unknown) (unknown) COVID-19 (units (unkno wn) date) unknown) (unknown) (no (unknown) (unknown) CV: RRR, no (units (un known) date) murmur or rubs unknown) (unknown) (no (unknown) (unknown) Calcium 9.2 (units (un known) date) unknown) (unknown) (no (unknown) (unknown) Calcium (units (unkno wn) date) unknown) (unknown) (no (unknown) (unknown) Carbon Dioxide 28 (units (unknown) date) unknown) (unknown) (no (unknown) (unknown) Carbon Dioxide (units (unknown) date) unknown) (unknown) (no (unknown) (unknown) Chief complaint: (units (unknown) date) Nausea and HTN unknown) (unknown) (no (unknown) (unknown) Chloride 104 (units (u nknown) date) unknown) (unknown) (no (unknown) (unknown) Chloride (units (unkno wn) date) unknown) (unknown) (no (unknown) (unknown) Code status: full (units (unknown) date) as discussed with unknown) the patient who identifies daughter as her (unknown) (no (unknown) (unknown) Consultants eICU (units (unknown) date) care and unknown) involvement in the patient?s care is appreciated. (unknown) (no (unknown) (unknown) Creatinine 0.74 (units (unknown) date) unknown) (unknown) (no (unknown) (unknown) Creatinine (units (unk nown) date) unknown) (unknown) (no (unknown) (unknown) Critical Care (units ( unknown) date) time: unknown) (unknown) (no (unknown) (unknown) : 1970 (units (unknown) date) Acct:[id number] unknown) (unknown) (no (unknown) (unknown) Date Patient (units (u nknown) date) Seen: 07/18/22 unknown) (unknown) (no (unknown) (unknown) Date of Service: (units (unknown) date) 07/17/22 unknown) (unknown) (no (unknown) (unknown) Nona Guzman is (units (unknown) date) a 51 y.o. female unknown) who with a history of severe and poorly (unknown) (no (unknown) (unknown) Nona Guzman is (units (unknown) date) admitted to ICU unknown) status for a hypertensive urgency. (unknown) (no (unknown) (unknown) Deep Vein (units (unkn own) date) Thrombosis/Pulmona unknown) ry Embolism Present on Admission: No (unknown) (no (unknown) (unknown) Discussion of (units ( unknown) date) results, plan of unknown) care with independent HCP/other ED provider (unknown) (no (unknown) (unknown) Dispo: probable (units (unknown) date) d/c to home unknown) (unknown) (no (unknown) (unknown) Environment (units (un known) date) unknown) (unknown) (no (unknown) (unknown) Eos # (Auto) 100 (units (unknown) date) unknown) (unknown) (no (unknown) (unknown) Eos # (Auto) (units (u nknown) date) unknown) (unknown) (no (unknown) (unknown) Eos % (Auto) 0.7 (units (unknown) date) L unknown) (unknown) (no (unknown) (unknown) Eos % (Auto) (units (u nknown) date) unknown) (unknown) (no (unknown) (unknown) Estimated GFR > (units (unknown) date) 60 unknown) (unknown) (no (unknown) (unknown) Estimated GFR (units ( unknown) date) unknown) (unknown) (no (unknown) (unknown) Exam Narrative: (units (unknown) date) unknown) (unknown) (no (unknown) (unknown) Exam (units (unkno wn) date) unknown) (unknown) (no (unknown) (unknown) Extremities: (units (u nknown) date) moves all 4 unknown) extremities, is ambulatory, negative Garret?s sign (unknown) (no (unknown) (unknown) FACE, (units (unkno wn) date) unknown) (unknown) (no (unknown) (unknown) FEN: IV fluids: (units (unknown) date) saline lock, diet: unknown) heart healthy, labs: CBC, C/BMP, liver (unknown) (no (unknown) (unknown) Family + Social (units (unknown) date) History unknown) (unknown) (no (unknown) (unknown) Feels Safe in (units ( unknown) date) Current Yes unknown) (unknown) (no (unknown) (unknown) Fibromyalgia (units (u nknown) date) unknown) (unknown) (no (unknown) (unknown) Gen: Alert, (units (un known) date) oriented, morbidly unknown) obese 51 y.o. female, NAD (unknown) (no (unknown) (unknown) Globulin 3.1 (units (u nknown) date) unknown) (unknown) (no (unknown) (unknown) Globulin (units (unkno wn) date) unknown) (unknown) (no (unknown) (unknown) Glucose 91 (units (unk nown) date) unknown) (unknown) (no (unknown) (unknown) Glucose (units (unkno wn) date) unknown) (unknown) (no (unknown) (unknown) H/O gastric (units (un known) date) bypass unknown) (unknown) (no (unknown) (unknown) HEENT: (units (unkno wn) date) normocephalic, unknown) atraumatic, conjunctiva clear, sclera non-icteric, oral (unknown) (no (unknown) (unknown) HIVES ALL (units (unkn own) date) unknown) (unknown) (no (unknown) (unknown) Hct 42.1 (units (unkno wn) date) unknown) (unknown) (no (unknown) (unknown) Hct (units (unkno wn) date) unknown) (unknown) (no (unknown) (unknown) Hgb 14.0 (units (unkno wn) date) unknown) (unknown) (no (unknown) (unknown) Hgb (units (unkno wn) date) unknown) (unknown) (no (unknown) (unknown) History + (units (unkn own) date) Physical Report unknown) (unknown) (no (unknown) (unknown) History of (units (unk nown) date) Present Illness unknown) (unknown) (no (unknown) (unknown) History of (units (unk nown) date) prediabetes unknown) (unknown) (no (unknown) (unknown) Home Medications (units (unknown) date) and Allergies unknown) (unknown) (no (unknown) (unknown) Home Medications (units (unknown) date) unknown) (unknown) (no (unknown) (unknown) Hypertension (units (u nknown) date) unknown) (unknown) (no (unknown) (unknown) Hypertensive (units (u nknown) date) urgency, unknown) malignant, acute and present on admission (unknown) (no (unknown) (unknown) I confirm the (units (u nknown) date) patient?s Advance unknown) Care Plan is present, Code status is documented, (unknown) (no (unknown) (unknown) I spent a total (units (unknown) date) of [] minutes of unknown) critical care time on this patient's care (unknown) (no (unknown) (unknown) INR 0.9 (units (unkno wn) date) unknown) (unknown) (no (unknown) (unknown) INR (units (unkno wn) date) unknown) (unknown) (no (unknown) (unknown) In the ED, she (units (unknown) date) was started on a unknown) nifedipine drip, then administered a one time (unknown) (no (unknown) (unknown) [facility] (units (unknown) date) [address] unknown) [place] [address] (unknown) (no (unknown) (unknown) Laboratory (units (unk nown) date) Results - last 24 unknown) hr (unknown) (no (unknown) (unknown) Labs (units (unkno wn) date) unknown) (unknown) (no (unknown) (unknown) Labs: (units (unkno wn) date) unknown) (unknown) (no (unknown) (unknown) Lipase 185 (units (unk nown) date) unknown) (unknown) (no (unknown) (unknown) Lipase (units (unkno wn) date) unknown) (unknown) (no (unknown) (unknown) Lymph # (Auto) (units (unknown) date) 1900 unknown) (unknown) (no (unknown) (unknown) Lymph # (Auto) (units (unknown) date) unknown) (unknown) (no (unknown) (unknown) Lymph % (Auto) (units (unknown) date) 23.2 L unknown) (unknown) (no (unknown) (unknown) Lymph % (Auto) (units (unknown) date) unknown) (unknown) (no (unknown) (unknown) MCH 30.8 (units (unkno wn) date) unknown) (unknown) (no (unknown) (unknown) MCH (units (unkno wn) date) unknown) (unknown) (no (unknown) (unknown) MCHC 33.3 (units (unkn own) date) unknown) (unknown) (no (unknown) (unknown) MCHC (units (unkno wn) date) unknown) (unknown) (no (unknown) (unknown) MCV 92.5 (units (unkno wn) date) unknown) (unknown) (no (unknown) (unknown) MCV (units (unkno wn) date) unknown) (unknown) (no (unknown) (unknown) MIPS - Admit (units (u nknown) date) unknown) (unknown) (no (unknown) (unknown) MIPS - DC (units (unkn own) date) unknown) (unknown) (no (unknown) (unknown) Magnesium 2.0 (units ( unknown) date) unknown) (unknown) (no (unknown) (unknown) Magnesium (units (unkn own) date) unknown) (unknown) (no (unknown) (unknown) Medical History (units (unknown) date) (Reviewed 07/18/22 unknown) @ 00:52 by EDENILSON Amezquita) (unknown) (no (unknown) (unknown) Medication (units (unk nown) date) Instructions unknown) Recorded Confirmed Type (unknown) (no (unknown) (unknown) Meds (units (unkno wn) date) unknown) (unknown) (no (unknown) (unknown) Larue # (Auto) 400 (units (unknown) date) unknown) (unknown) (no (unknown) (unknown) Larue # (Auto) (units ( unknown) date) unknown) (unknown) (no (unknown) (unknown) Larue % (Auto) 5.4 (units (unknown) date) unknown) (unknown) (no (unknown) (unknown) Larue % (Auto) (units ( unknown) date) unknown) (unknown) (no (unknown) (unknown) Narrative (units (unkn own) date) unknown) (unknown) (no (unknown) (unknown) Narrative: (units (unk nown) date) unknown) (unknown) (no (unknown) (unknown) Neck: supple, (units ( unknown) date) full ROM, no JVD, unknown) trachea is midline (unknown) (no (unknown) (unknown) Neuro: Alert and (units (unknown) date) oriented X 4 w/no unknown) focal deficits. Speech clear and coherent. (unknown) (no (unknown) (unknown) Neut # (Auto) (units ( unknown) date) 5700 unknown) (unknown) (no (unknown) (unknown) Neut # (Auto) (units ( unknown) date) unknown) (unknown) (no (unknown) (unknown) Neut % (Auto) (units ( unknown) date) 69.9 unknown) (unknown) (no (unknown) (unknown) Neut % (Auto) (units ( unknown) date) unknown) (unknown) (no (unknown) (unknown) OVER. (units (unkno wn) date) unknown) (unknown) (no (unknown) (unknown) Objective (units (unkn own) date) unknown) (unknown) (no (unknown) (unknown) Other independent (units (unknown) date) historians: none unknown) (unknown) (no (unknown) (unknown) Oxygen Delivery (units (unknown) date) Method Room Air unknown) Room Air (unknown) (no (unknown) (unknown) Oxygen Delivery (units (unknown) date) Method Room Air unknown) (unknown) (no (unknown) (unknown) Oxygen Delivery (units (unknown) date) Method unknown) (unknown) (no (unknown) (unknown) PCR is negative. (units (unknown) date) unknown) (unknown) (no (unknown) (unknown) PT 10.7 (units (unkno wn) date) unknown) (unknown) (no (unknown) (unknown) PT (units (unkno wn) date) unknown) (unknown) (no (unknown) (unknown) Patient History (units (unknown) date) unknown) (unknown) (no (unknown) (unknown) Patient is (units (unk nown) date) admitted to the unknown) inpatient intensive service due to the severity of (unknown) (no (unknown) (unknown) Patient states (units (unknown) date) she uses estrogen unknown) patches, smokes 4 cigarrettes/day and drinks 2 (unknown) (no (unknown) (unknown) Patient: (units (unkno wn) date) Nona Guzman unknown) MR#: [id number] (unknown) (no (unknown) (unknown) Penicillins (units (un known) date) [PENICILLINS] unknown) Allergy Intermediate RASH/ITCHING, Verified 07/17/22 (unknown) (no (unknown) (unknown) Plt Count 229 (units ( unknown) date) unknown) (unknown) (no (unknown) (unknown) Plt Count (units (unkn own) date) unknown) (unknown) (no (unknown) (unknown) Potassium 3.7 (units ( unknown) date) unknown) (unknown) (no (unknown) (unknown) Potassium (units (unkn own) date) unknown) (unknown) (no (unknown) (unknown) Provider: (units (unkn own) date) Clarissa Washington unknown) (unknown) (no (unknown) (unknown) Psyche: normal (units (unknown) date) mood and affect. unknown) (unknown) (no (unknown) (unknown) Pulse Oximetry (units (unknown) date) 100 unknown) (unknown) (no (unknown) (unknown) Pulse Oximetry 94 (units (unknown) date) 94 unknown) (unknown) (no (unknown) (unknown) Pulse Oximetry 94 (units (unknown) date) 95 unknown) (unknown) (no (unknown) (unknown) Pulse Oximetry 94 (units (unknown) date) unknown) (unknown) (no (unknown) (unknown) Pulse Oximetry 95 (units (unknown) date) 94 unknown) (unknown) (no (unknown) (unknown) Pulse Oximetry 95 (units (unknown) date) 97 unknown) (unknown) (no (unknown) (unknown) Pulse Oximetry 95 (units (unknown) date) unknown) (unknown) (no (unknown) (unknown) Pulse Oximetry 96 (units (unknown) date) 94 unknown) (unknown) (no (unknown) (unknown) Pulse Oximetry 96 (units (unknown) date) 96 unknown) (unknown) (no (unknown) (unknown) Pulse Oximetry 96 (units (unknown) date) unknown) (unknown) (no (unknown) (unknown) Pulse Oximetry 97 (units (unknown) date) 97 unknown) (unknown) (no (unknown) (unknown) Pulse Oximetry 97 (units (unknown) date) unknown) (unknown) (no (unknown) (unknown) Pulse Oximetry 98 (units (unknown) date) 98 unknown) (unknown) (no (unknown) (unknown) Pulse Oximetry 98 (units (unknown) date) unknown) (unknown) (no (unknown) (unknown) Pulse Oximetry 99 (units (unknown) date) 95 unknown) (unknown) (no (unknown) (unknown) Pulse Oximetry 99 (units (unknown) date) 99 unknown) (unknown) (no (unknown) (unknown) Pulse Oximetry 99 (units (unknown) date) unknown) (unknown) (no (unknown) (unknown) Pulse Oximetry (units (unknown) date) unknown) (unknown) (no (unknown) (unknown) Pulse Rate 65 (units ( unknown) date) unknown) (unknown) (no (unknown) (unknown) Pulse Rate 67 65 (units (unknown) date) unknown) (unknown) (no (unknown) (unknown) Pulse Rate 67 77 (units (unknown) date) unknown) (unknown) (no (unknown) (unknown) Pulse Rate 68 68 (units (unknown) date) unknown) (unknown) (no (unknown) (unknown) Pulse Rate 70 78 (units (unknown) date) unknown) (unknown) (no (unknown) (unknown) Pulse Rate 71 65 (units (unknown) date) unknown) (unknown) (no (unknown) (unknown) Pulse Rate 71 67 (units (unknown) date) unknown) (unknown) (no (unknown) (unknown) Pulse Rate 72 75 (units (unknown) date) unknown) (unknown) (no (unknown) (unknown) Pulse Rate 76 (units ( unknown) date) unknown) (unknown) (no (unknown) (unknown) Pulse Rate 77 79 (units (unknown) date) unknown) (unknown) (no (unknown) (unknown) Pulse Rate 77 (units ( unknown) date) unknown) (unknown) (no (unknown) (unknown) Pulse Rate 78 87 (units (unknown) date) unknown) (unknown) (no (unknown) (unknown) Pulse Rate 78 (units ( unknown) date) unknown) (unknown) (no (unknown) (unknown) Pulse Rate 79 77 (units (unknown) date) unknown) (unknown) (no (unknown) (unknown) Pulse Rate 79 94 (units (unknown) date) H unknown) (unknown) (no (unknown) (unknown) Pulse Rate 79 (units ( unknown) date) unknown) (unknown) (no (unknown) (unknown) Pulse Rate 80 75 (units (unknown) date) unknown) (unknown) (no (unknown) (unknown) Pulse Rate 84 (units ( unknown) date) unknown) (unknown) (no (unknown) (unknown) Pulse Rate 91 H (units (unknown) date) 83 unknown) (unknown) (no (unknown) (unknown) Pulse Rate (units (unk nown) date) unknown) (unknown) (no (unknown) (unknown) RBC 4.56 (units (unkno wn) date) unknown) (unknown) (no (unknown) (unknown) RBC (units (unkno wn) date) unknown) (unknown) (no (unknown) (unknown) RDW 14.2 (units (unkno wn) date) unknown) (unknown) (no (unknown) (unknown) RDW (units (unkno wn) date) unknown) (unknown) (no (unknown) (unknown) ROS: Yes All (units (u nknown) date) systems reviewed unknown) with the patient and are negative except as (unknown) (no (unknown) (unknown) Resp: Lungs CTA, (units (unknown) date) non-labored unknown) breathing (unknown) (no (unknown) (unknown) Respiratory Rate (units (unknown) date) 14 unknown) (unknown) (no (unknown) (unknown) Respiratory Rate (units (unknown) date) 16 31 H unknown) (unknown) (no (unknown) (unknown) Respiratory Rate (units (unknown) date) 20 17 unknown) (unknown) (no (unknown) (unknown) Respiratory Rate (units (unknown) date) 20 20 unknown) (unknown) (no (unknown) (unknown) Respiratory Rate (units (unknown) date) 20 unknown) (unknown) (no (unknown) (unknown) Respiratory Rate (units (unknown) date) 21 unknown) (unknown) (no (unknown) (unknown) Respiratory Rate (units (unknown) date) 30 H 23 unknown) (unknown) (no (unknown) (unknown) Respiratory Rate (units (unknown) date) 35 H unknown) (unknown) (no (unknown) (unknown) Respiratory Rate (units (unknown) date) unknown) (unknown) (no (unknown) (unknown) Result date/Date (units (unknown) date) tested (Pos, unknown) Neg/Pending): 07/18/22 (unknown) (no (unknown) (unknown) Review of Systems (units (unknown) date) unknown) (unknown) (no (unknown) (unknown) Reviewed outside (units (unknown) date) records: PCP unknown) records (unknown) (no (unknown) (unknown) Risk (units (unkno wn) date) stratification unknown) (unknown) (no (unknown) (unknown) SARS-CoV-2 (PCR) (units (unknown) date) Negative unknown) (unknown) (no (unknown) (unknown) SARS-CoV-2 (PCR) (units (unknown) date) unknown) (unknown) (no (unknown) (unknown) SCDs (units (unkno wn) date) unknown) (unknown) (no (unknown) (unknown) Safety + (units (unkno wn) date) Behavioral: unknown) (unknown) (no (unknown) (unknown) Signed (units (unkno wn) date) By:<Electronically unknown) signed by Clarissa Washington> (unknown) (no (unknown) (unknown) Skin: trace edema (units (unknown) date) bilat. LE. No unknown) lesions or rashes, dry and intact (unknown) (no (unknown) (unknown) Smoking Status (units (unknown) date) Current every day unknown) smoker (unknown) (no (unknown) (unknown) Social (units (unkno wn) date) determinants of unknown) health: compliance, access to rx. (unknown) (no (unknown) (unknown) Sodium 139 (units (unk nown) date) unknown) (unknown) (no (unknown) (unknown) Sodium (units (unkno wn) date) unknown) (unknown) (no (unknown) (unknown) States her (units (unkn own) date) father's side has unknown) had heart disease, he at age 59 of asbestosis, (unknown) (no (unknown) (unknown) Substance Use (units ( unknown) date) Type does not use unknown) (unknown) (no (unknown) (unknown) Surgical History (units (unknown) date) (Reviewed 07/18/22 unknown) @ 00:52 by EDENILSON Amezquita) (unknown) (no (unknown) (unknown) Surrogate (units (unkn own) date) decision maker is unknown) in patient?s record: Yes (unknown) (no (unknown) (unknown) THROAT (units (unkno wn) date) unknown) (unknown) (no (unknown) (unknown) TROUBLE (units (unkno wn) date) unknown) (unknown) (no (unknown) (unknown) Temperature 97.6 (units (unknown) date) F unknown) (unknown) (no (unknown) (unknown) Temperature (units (un known) date) unknown) (unknown) (no (unknown) (unknown) The patient has (units (unknown) date) current or prior unknown) documentation of left ventricular ejection (unknown) (no (unknown) (unknown) Threatened By a (units (unknown) date) Person unknown) (unknown) (no (unknown) (unknown) Time Patient (units (u nknown) date) Seen: 00:35 unknown) (unknown) (no (unknown) (unknown) Time Spent With (units (unknown) date) Patient unknown) (unknown) (no (unknown) (unknown) Tobacco + (units (unkn own) date) Substance use: unknown) (unknown) (no (unknown) (unknown) Total Bilirubin (units (unknown) date) 0.7 unknown) (unknown) (no (unknown) (unknown) Total Bilirubin (units (unknown) date) unknown) (unknown) (no (unknown) (unknown) Total Creatine (units (unknown) date) Kinase 35 unknown) (unknown) (no (unknown) (unknown) Total Creatine (units (unknown) date) Kinase unknown) (unknown) (no (unknown) (unknown) Total Protein 7.2 (units (unknown) date) unknown) (unknown) (no (unknown) (unknown) Total Protein (units ( unknown) date) unknown) (unknown) (no (unknown) (unknown) Troponin I < (units (u nknown) date) 0.012 unknown) (unknown) (no (unknown) (unknown) VTE Prophylaxis: (units (unknown) date) Wells risk score 1 unknown) Enoxaparin 40 mg subQ once daily Bilateral (unknown) (no (unknown) (unknown) VTE (units (unkno wn) date) unknown) (unknown) (no (unknown) (unknown) Vital Signs (units (un known) date) unknown) (unknown) (no (unknown) (unknown) WBC 8.1 (units (unkno wn) date) unknown) (unknown) (no (unknown) (unknown) WBC (units (unkno wn) date) unknown) (unknown) (no (unknown) (unknown) When the pandemic (units (unknown) date) hit, she states unknown) she put most of the weight back on due to (unknown) (no (unknown) (unknown) [DIPHENHYDRAMINE] (units (unknown) date) unknown) (unknown) (no (unknown) (unknown) [Embedded Image (units (unknown) date) Not Available] unknown) (unknown) (no (unknown) (unknown) [MAGNESIUM (units (unk nown) date) CITRATE] unknown) (unknown) (no (unknown) (unknown) [X] I have (units (unk nown) date) utilized all unknown) available immediate resources to obtain, update, or (unknown) (no (unknown) (unknown) abdominal and (units ( unknown) date) back cramping and unknown) bilateral leg pain. She states she has backed (unknown) (no (unknown) (unknown) alcohol intake (units (unknown) date) frequency 0-2 unknown) drinks per day (unknown) (no (unknown) (unknown) amoxicillin (units (un known) date) [AMOXICILLIN] unknown) Allergy Severe SWELLING Verified 07/17/22 18:24 (unknown) (no (unknown) (unknown) as 218/93. (units (unk nown) date) Currently her unknown) blood pressure is 126/64 she is afebrile heart rate 78 (unknown) (no (unknown) (unknown) blood pressure (units (unknown) date) and found it to be unknown) in the in the 220/120 range.? She did have a (unknown) (no (unknown) (unknown) carvedilol 12.5 (units (unknown) date) mg tablet 12.5 mg unknown) PO BID #60 tabs 07/17/22 Rx (unknown) (no (unknown) (unknown) carvedilol 6.25 (units (unknown) date) mg tablet 6.25 mg unknown) PO BID #180 tabs 05/14/22 06/04/22 Rx (unknown) (no (unknown) (unknown) company. (units (unkno wn) date) unknown) (unknown) (no (unknown) (unknown) complaints in (units ( unknown) date) February of last unknown) year with headache, blurred vision and chest (unknown) (no (unknown) (unknown) controlled (units (unk nown) date) hypertension unknown) presented to the ED with significantly elevated blood (unknown) (no (unknown) (unknown) diphenhydramine (units (unknown) date) Allergy Mild unknown) SWELLING. Verified 07/17/22 18:24 (unknown) (no (unknown) (unknown) disease, cardiac (units (unknown) date) drips and close unknown) monitoring, risks of further disease (unknown) (no (unknown) (unknown) dose of (units (unkno wn) date) amlopdipine 5 mg. unknown) Imaging studies ruled out any acute cardiopulmonary (unknown) (no (unknown) (unknown) enzymes, Mag, (units ( unknown) date) PT/INR unknown) (unknown) (no (unknown) (unknown) estradiol 0.1 (units ( unknown) date) mg/24 hr weekly unknown) 0.1 mg topical QWEEK #4 ea 06/04/22 06/04/22 Rx (unknown) (no (unknown) (unknown) fraction (LVEF) (units (unknown) date) less than 40%, or unknown) moderate or severely depressed left (unknown) (no (unknown) (unknown) glasses of (units (unk nown) date) wine/day. 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 She had similar (unknown) (no (unknown) (unknown) latex [LATEX] (units ( unknown) date) Allergy Mild RASH unknown) Verified 07/17/22 18:24 (unknown) (no (unknown) (unknown) losartan 100 1 (units (unknown) date) tab PO DAILY #30 unknown) tabs 06/03/22 06/04/22 Rx (unknown) (no (unknown) (unknown) magnesium citrate (units (unknown) date) AdvReac Unknown unknown) VOMITING Verified 07/17/22 18:24 (unknown) (no (unknown) (unknown) medications had (units (unknown) date) been doubled, but unknown) that the EMT said he was concerned because he (unknown) (no (unknown) (unknown) mg-hydrochlorothi (units (unknown) date) azide 25 mg tablet unknown) (unknown) (no (unknown) (unknown) mother age (units (unknown) date) 57 of alcohol unknown) abuse. (unknown) (no (unknown) (unknown) mucosa pink and (units (unknown) date) moist unknown) (unknown) (no (unknown) (unknown) negative. (units (unkn own) date) Presenting blood unknown) pressure in the ED was 202/89 and trended up as high (unknown) (no (unknown) (unknown) of room/staff (units ( unknown) date) availability., She unknown) will likely become floor status by the am. (unknown) (no (unknown) (unknown) off on exersize (units (unknown) date) because she gets unknown) very short of breath. States she does get dizzy (unknown) (no (unknown) (unknown) otherwise (units (unkn own) date) documented unknown) (unknown) (no (unknown) (unknown) pain lasting from (units (unknown) date) 30-45 seconds. She unknown) endorses having nausea and vomiting, (unknown) (no (unknown) (unknown) pressure.? She (units (unknown) date) was having a tele unknown) video appointment with her primary care doctor (unknown) (no (unknown) (unknown) process, ruled (units (unknown) date) out PE, head CT unknown) was negative for CVA or injury, chest x-ray was (unknown) (no (unknown) (unknown) progression and (units (unknown) date) this stay is unknown) expected to exceed 2 midnights. (unknown) (no (unknown) (unknown) respiratory rate (units (unknown) date) 21 oxygen unknown) saturation of 94% on room air she weighs 106.14 kg (unknown) (no (unknown) (unknown) review of the (units ( unknown) date) patient's current unknown) medications (unknown) (no (unknown) (unknown) surrogate and (units ( unknown) date) POA. unknown) (unknown) (no (unknown) (unknown) thought her heart (units (unknown) date) rate was low and unknown) may be lowered. (unknown) (no (unknown) (unknown) to discuss her (units (unknown) date) hypertension and unknown) during that consultation she checked her home (unknown) (no (unknown) (unknown) to the point of (units (unknown) date) severe vertigo. unknown) She a a gastric bypass in 2016 and lost about (unknown) (no (unknown) (unknown) today; this time (units (unknown) date) is exclusive of unknown) procedural time. (unknown) (no (unknown) (unknown) transdermal patch (units (unknown) date) unknown) (unknown) (no (unknown) (unknown) ventricular (units (un known) date) systolic unknown) function.: No (unknown) (no (unknown) (unknown) with a BMI of (units ( unknown) date) 40.2. CBC is unknown) unremarkable, chemistry is unremarkable and COVID-19 (unknown) (no (unknown) (unknown) working at home (units (unknown) date) and not being able unknown) to exercise. She states one of her bp Result panel 532 (unknown) (no date) (unknown) (unknown) 0 /ul (unkn own) (unknown) (no date) (unknown) (unknown) 0.6 % (unkn own) (unknown) (no date) (unknown) (unknown) 1.1 % (unkn own) (unknown) (no date) (unknown) (unknown) 100 /ul (unkn own) (unknown) (no date) (unknown) (unknown) 13.6 g/dl (unkn own) (unknown) (no date) (unknown) (unknown) 14.0 % (unkn own) (unknown) (no date) (unknown) (unknown) 203 x10 3/ul (unkn own) (unknown) (no date) (unknown) (unknown) 2100 /ul (unkn own) (unknown) (no date) (unknown) (unknown) 27.6 % (unkn own) (unknown) (no date) (unknown) (unknown) 31.0 pg (unkn own) (unknown) (no date) (unknown) (unknown) 34.4 % (unkn own) (unknown) (no date) (unknown) (unknown) 39.5 % (unkn own) (unknown) (no date) (unknown) (unknown) 4.39 x10 6/ul (unkn own) (unknown) (no date) (unknown) (unknown) 4900 /ul (unkn own) (unknown) (no date) (unknown) (unknown) 500 /ul (unkn own) (unknown) (no date) (unknown) (unknown) 6.1 % (unkn own) (unknown) (no date) (unknown) (unknown) 64.6 % (unkn own) (unknown) (no date) (unknown) (unknown) 7.6 x10 3/ul (unkn own) (unknown) (no date) (unknown) (unknown) 90.2 fl (unkn own) Result panel 533 (unknown) (no date) (unknown) (unknown) > 60 ml/min (unkn own) (unknown) (no date) (unknown) (unknown) > 60 ml/min (unkn own) (unknown) (no date) (unknown) (unknown) 0.57 mg/dl (unkn own) (unknown) (no date) (unknown) (unknown) 0.8 mg/dl (unkn own) (unknown) (no date) (unknown) (unknown) 1.3 (units unknown) (unknown) (unknown) (no date) (unknown) (unknown) 1.8 mg/dl (unkn own) (unknown) (no date) (unknown) (unknown) 100 mmol/l (unkn own) (unknown) (no date) (unknown) (unknown) 105 mg/dl (unkn own) (unknown) (no date) (unknown) (unknown) 105 mg/dl (unkn own) (unknown) (no date) (unknown) (unknown) 115 mg/dl (unkn own) (unknown) (no date) (unknown) (unknown) 115 mg/dl (unkn own) (unknown) (no date) (unknown) (unknown) 13 mg/dl (unkn own) (unknown) (no date) (unknown) (unknown) 135 mmol/l (unkn own) (unknown) (no date) (unknown) (unknown) 2.9 g/dl (unkn own) (unknown) (no date) (unknown) (unknown) 22.8 (units unknown) (unknown) (unknown) (no date) (unknown) (unknown) 225 mg/dl (unkn own) (unknown) (no date) (unknown) (unknown) 225 mg/dl (unkn own) (unknown) (no date) (unknown) (unknown) 25 iu/l (unkn own) (unknown) (no date) (unknown) (unknown) 28 iu/l (unkn own) (unknown) (no date) (unknown) (unknown) 28 mmol/l (unkn own) (unknown) (no date) (unknown) (unknown) 3.4 mmol/l (unkn own) (unknown) (no date) (unknown) (unknown) 3.9 g/dl (unkn own) (unknown) (no date) (unknown) (unknown) 6.8 g/dl (unkn own) (unknown) (no date) (unknown) (unknown) 8.8 mg/dl (unkn own) (unknown) (no date) (unknown) (unknown) 89 mg/dl (unkn own) (unknown) (no date) (unknown) (unknown) 89 mg/dl (unkn own) (unknown) (no date) (unknown) (unknown) 94 u/l (unkn own) (unknown) (no date) (unknown) (unknown) 99 mg/dl (unkn own) (unknown) (no date) (unknown) (unknown) 99 mg/dl (unkn own) Result panel 534 (unknown) (no date) (unknown) (unknown) < 0.012 ng/ml (unkn own) (unknown) (no date) (unknown) (unknown) < 0.012 ng/ml (unkn own) Result panel 535 (unknown) (no date) (unknown) (unknown) 2.90 uiu/ml (unkn own) Result panel 536 (unknown) (no (unknown) (unknown) (no value) (units (unk nown) date) unknown) (unknown) (no (unknown) (unknown) (past 8 hours): (units (unknown) date) unknown) (unknown) (no (unknown) (unknown) * Echo in the am (units (unknown) date) unknown) (unknown) (no (unknown) (unknown) * Fasting lipids (units (unknown) date) in the am unknown) (unknown) (no (unknown) (unknown) * She had an A1c (units (unknown) date) in May 2022 unknown) and it was 5.0 (unknown) (no (unknown) (unknown) * She is admitted (units (unknown) date) to ICU status, unknown) however, she is boarding in the ED due to lack (unknown) (no (unknown) (unknown) * She is on a (units ( unknown) date) nifedipine drip unknown) which is cross tapored w/amlodipine 5 mg (unknown) (no (unknown) (unknown) * She is (units (unkno wn) date) recommended to unknown) cease estrogen patches and tobacco use. (unknown) (no (unknown) (unknown) * TSH (units (unkno wn) date) unknown) (unknown) (no (unknown) (unknown) ADDENDUM (units (u nknown) date) unknown) (unknown) (no (unknown) (unknown) [id number] (units (unkno wn) date) unknown) (unknown) (no (unknown) (unknown) 07/17/22 07/17/22 (units (unknown) date) 07/17/22 unknown) (unknown) (no (unknown) (unknown) 07/17/22 07/17/22 (units (unknown) date) unknown) (unknown) (no (unknown) (unknown) 07/17/22 18:49 (units (unknown) date) unknown) (unknown) (no (unknown) (unknown) 07/17/22 (units (unkno wn) date) unknown) (unknown) (no (unknown) (unknown) 07/18/22 0106 (units ( unknown) date) unknown) (unknown) (no (unknown) (unknown) 07/18/22 0621 (units ( unknown) date) unknown) (unknown) (no (unknown) (unknown) 125 lbs, she (units (u nknown) date) attempted to unknown) increase her weight as she stated she looked poorly. (unknown) (no (unknown) (unknown) 18:20 07/17/22 (units (unknown) date) unknown) (unknown) (no (unknown) (unknown) 18:24 (units (unkno wn) date) unknown) (unknown) (no (unknown) (unknown) 18:38 (units (unkno wn) date) unknown) (unknown) (no (unknown) (unknown) 18:43 07/17/22 (units (unknown) date) unknown) (unknown) (no (unknown) (unknown) 18:49 07/17/22 (units (unknown) date) unknown) (unknown) (no (unknown) (unknown) 18:49 18:49 18:49 (units (unknown) date) unknown) (unknown) (no (unknown) (unknown) 19:00 07/17/22 (units (unknown) date) unknown) (unknown) (no (unknown) (unknown) 19:00 (units (unkno wn) date) unknown) (unknown) (no (unknown) (unknown) 19:09 07/17/22 (units (unknown) date) unknown) (unknown) (no (unknown) (unknown) 19:09 (units (unkno wn) date) unknown) (unknown) (no (unknown) (unknown) 19:30 07/17/22 (units (unknown) date) unknown) (unknown) (no (unknown) (unknown) 19:35 07/17/22 (units (unknown) date) unknown) (unknown) (no (unknown) (unknown) 19:35 (units (unkno wn) date) unknown) (unknown) (no (unknown) (unknown) 19:40 07/17/22 (units (unknown) date) unknown) (unknown) (no (unknown) (unknown) 19:50 07/17/22 (units (unknown) date) unknown) (unknown) (no (unknown) (unknown) 19:50 (units (unkno wn) date) unknown) (unknown) (no (unknown) (unknown) 20:00 07/17/22 (units (unknown) date) unknown) (unknown) (no (unknown) (unknown) 20:00 (units (unkno wn) date) unknown) (unknown) (no (unknown) (unknown) 20:10 07/17/22 (units (unknown) date) unknown) (unknown) (no (unknown) (unknown) 20:20 07/17/22 (units (unknown) date) unknown) (unknown) (no (unknown) (unknown) 20:20 (units (unkno wn) date) unknown) (unknown) (no (unknown) (unknown) 20:30 07/17/22 (units (unknown) date) unknown) (unknown) (no (unknown) (unknown) 20:30 (units (unkno wn) date) unknown) (unknown) (no (unknown) (unknown) 20:40 07/17/22 (units (unknown) date) unknown) (unknown) (no (unknown) (unknown) 21:00 (units (unkno wn) date) unknown) (unknown) (no (unknown) (unknown) 21:20 07/17/22 (units (unknown) date) unknown) (unknown) (no (unknown) (unknown) 21:25 07/17/22 (units (unknown) date) unknown) (unknown) (no (unknown) (unknown) 21:25 (units (unkno wn) date) unknown) (unknown) (no (unknown) (unknown) 21:30 07/17/22 (units (unknown) date) unknown) (unknown) (no (unknown) (unknown) 21:40 07/17/22 (units (unknown) date) unknown) (unknown) (no (unknown) (unknown) 21:40 (units (unkno wn) date) unknown) (unknown) (no (unknown) (unknown) 21:44 07/17/22 (units (unknown) date) unknown) (unknown) (no (unknown) (unknown) 21:44 (units (unkno wn) date) unknown) (unknown) (no (unknown) (unknown) 21:50 07/17/22 (units (unknown) date) unknown) (unknown) (no (unknown) (unknown) 22:00 07/17/22 (units (unknown) date) unknown) (unknown) (no (unknown) (unknown) 22:00 (units (unkno wn) date) unknown) (unknown) (no (unknown) (unknown) 22:11 07/17/22 (units (unknown) date) unknown) (unknown) (no (unknown) (unknown) 22:11 (units (unkno wn) date) unknown) (unknown) (no (unknown) (unknown) 22:20 07/17/22 (units (unknown) date) unknown) (unknown) (no (unknown) (unknown) 22:25 23:26 (units (un known) date) unknown) (unknown) (no (unknown) (unknown) 22:30 07/17/22 (units (unknown) date) unknown) (unknown) (no (unknown) (unknown) 22:30 (units (unkno wn) date) unknown) (unknown) (no (unknown) (unknown) 22:40 07/17/22 (units (unknown) date) unknown) (unknown) (no (unknown) (unknown) 22:40 (units (unkno wn) date) unknown) (unknown) (no (unknown) (unknown) 22:50 07/17/22 (units (unknown) date) unknown) (unknown) (no (unknown) (unknown) 23:02 (units (unkno wn) date) unknown) (unknown) (no (unknown) (unknown) 23:03 07/17/22 (units (unknown) date) unknown) (unknown) (no (unknown) (unknown) 23:10 07/17/22 (units (unknown) date) unknown) (unknown) (no (unknown) (unknown) 23:10 (units (unkno wn) date) unknown) (unknown) (no (unknown) (unknown) 23:20 07/17/22 (units (unknown) date) unknown) (unknown) (no (unknown) (unknown) 23:20 (units (unkno wn) date) unknown) (unknown) (no (unknown) (unknown) 23:30 02/03/23 (units (unknown) date) unknown) (unknown) (no (unknown) (unknown) 23:40 (units (unkno wn) date) unknown) (unknown) (no (unknown) (unknown) ALT 30 (units (unkno wn) date) unknown) (unknown) (no (unknown) (unknown) ALT (units (unkno wn) date) unknown) (unknown) (no (unknown) (unknown) APTT 32 (units (unkno wn) date) unknown) (unknown) (no (unknown) (unknown) APTT (units (unkno wn) date) unknown) (unknown) (no (unknown) (unknown) AST 24 (units (unkno wn) date) unknown) (unknown) (no (unknown) (unknown) AST (units (unkno wn) date) unknown) (unknown) (no (unknown) (unknown) Abd: soft, (units (unk nown) date) non-tender, unknown) normoactive BTs (unknown) (no (unknown) (unknown) Add new dx: (units (un known) date) unknown) (unknown) (no (unknown) (unknown) Addendum (units (unkno wn) date) Documented By: unknown) Clarissa Washington (unknown) (no (unknown) (unknown) Addendum Signed (units (unknown) date) By: unknown) <Electronically signed by Clarissa Washington> (unknown) (no (unknown) (unknown) Advanced care (units ( unknown) date) planning [ ] unknown) minutes. (unknown) (no (unknown) (unknown) Age/Sex: 51 / F (units (unknown) date) unknown) (unknown) (no (unknown) (unknown) Albumin 4.1 (units (un known) date) unknown) (unknown) (no (unknown) (unknown) Albumin (units (unkno wn) date) unknown) (unknown) (no (unknown) (unknown) Albumin/Globulin (units (unknown) date) Ratio 1.3 unknown) (unknown) (no (unknown) (unknown) Albumin/Globulin (units (unknown) date) Ratio unknown) (unknown) (no (unknown) (unknown) Alkaline (units (unkno wn) date) Phosphatase 100 unknown) (unknown) (no (unknown) (unknown) Alkaline (units (unkno wn) date) Phosphatase unknown) (unknown) (no (unknown) (unknown) Allergies (units (unkn own) date) unknown) (unknown) (no (unknown) (unknown) Allergy/AdvReac (units (unknown) date) Type Severity unknown) Reaction Status Date / Time (unknown) (no (unknown) (unknown) Assessment + Plan (units (unknown) date) narrative: unknown) (unknown) (no (unknown) (unknown) Assessment + Plan (units (unknown) date) unknown) (unknown) (no (unknown) (unknown) BREATHING. (units (unk nown) date) unknown) (unknown) (no (unknown) (unknown) BUN 19 H (units (unkno wn) date) unknown) (unknown) (no (unknown) (unknown) BUN (units (unkno wn) date) unknown) (unknown) (no (unknown) (unknown) BUN/Creatinine (units (unknown) date) Ratio 25.7 H unknown) (unknown) (no (unknown) (unknown) BUN/Creatinine (units (unknown) date) Ratio unknown) (unknown) (no (unknown) (unknown) Baso # (Auto) 100 (units (unknown) date) unknown) (unknown) (no (unknown) (unknown) Baso # (Auto) (units ( unknown) date) unknown) (unknown) (no (unknown) (unknown) Baso % (Auto) 0.8 (units (unknown) date) unknown) (unknown) (no (unknown) (unknown) Baso % (Auto) (units ( unknown) date) unknown) (unknown) (no (unknown) (unknown) Been Physically (units (unknown) date) Hurt or No unknown) (unknown) (no (unknown) (unknown) Blood Pressure (units (unknown) date) 126/64 unknown) (unknown) (no (unknown) (unknown) Blood Pressure (units (unknown) date) 138/78 unknown) (unknown) (no (unknown) (unknown) Blood Pressure (units (unknown) date) 143/67 H unknown) (unknown) (no (unknown) (unknown) Blood Pressure (units (unknown) date) 144/90 H unknown) (unknown) (no (unknown) (unknown) Blood Pressure (units (unknown) date) 145/85 H 147/76 H unknown) (unknown) (no (unknown) (unknown) Blood Pressure (units (unknown) date) 147/80 H unknown) (unknown) (no (unknown) (unknown) Blood Pressure (units (unknown) date) 152/87 H unknown) (unknown) (no (unknown) (unknown) Blood Pressure (units (unknown) date) 153/87 H 147/83 H unknown) (unknown) (no (unknown) (unknown) Blood Pressure (units (unknown) date) 154/70 H 150/68 H unknown) (unknown) (no (unknown) (unknown) Blood Pressure (units (unknown) date) 157/68 H 155/68 H unknown) (unknown) (no (unknown) (unknown) Blood Pressure (units (unknown) date) 158/78 H unknown) (unknown) (no (unknown) (unknown) Blood Pressure (units (unknown) date) 167/80 H 169/78 H unknown) (unknown) (no (unknown) (unknown) Blood Pressure (units (unknown) date) 170/88 H unknown) (unknown) (no (unknown) (unknown) Blood Pressure (units (unknown) date) 171/89 H unknown) (unknown) (no (unknown) (unknown) Blood Pressure (units (unknown) date) 175/56 H unknown) (unknown) (no (unknown) (unknown) Blood Pressure (units (unknown) date) 177/81 H unknown) (unknown) (no (unknown) (unknown) Blood Pressure (units (unknown) date) 180/91 H 187/100 H unknown) (unknown) (no (unknown) (unknown) Blood Pressure (units (unknown) date) 202/79 H unknown) (unknown) (no (unknown) (unknown) Blood Pressure (units (unknown) date) 202/89 H 202/89 H unknown) (unknown) (no (unknown) (unknown) Blood Pressure (units (unknown) date) 210/84 H unknown) (unknown) (no (unknown) (unknown) Blood Pressure (units (unknown) date) 218/93 H 208/93 H unknown) (unknown) (no (unknown) (unknown) CK-MB (CK-2) Rel (units (unknown) date) Index TNP unknown) (unknown) (no (unknown) (unknown) CK-MB (CK-2) Rel (units (unknown) date) Index unknown) (unknown) (no (unknown) (unknown) CK-MB (CK-2) TNP (units (unknown) date) unknown) (unknown) (no (unknown) (unknown) CK-MB (CK-2) (units (u nknown) date) unknown) (unknown) (no (unknown) (unknown) COVID-19 status: (units (unknown) date) Negative unknown) (unknown) (no (unknown) (unknown) COVID-19 (units (unkno wn) date) unknown) (unknown) (no (unknown) (unknown) CV: RRR, no (units (un known) date) murmur or rubs unknown) (unknown) (no (unknown) (unknown) Calcium 9.2 (units (un known) date) unknown) (unknown) (no (unknown) (unknown) Calcium (units (unkno wn) date) unknown) (unknown) (no (unknown) (unknown) Carbon Dioxide 28 (units (unknown) date) unknown) (unknown) (no (unknown) (unknown) Carbon Dioxide (units (unknown) date) unknown) (unknown) (no (unknown) (unknown) Chief complaint: (units (unknown) date) Nausea and HTN unknown) (unknown) (no (unknown) (unknown) Chloride 104 (units (u nknown) date) unknown) (unknown) (no (unknown) (unknown) Chloride (units (unkno wn) date) unknown) (unknown) (no (unknown) (unknown) Code status: full (units (unknown) date) as discussed with unknown) the patient who identifies daughter as her (unknown) (no (unknown) (unknown) Consultants eICU (units (unknown) date) care and unknown) involvement in the patient?s care is appreciated. (unknown) (no (unknown) (unknown) Creatinine 0.74 (units (unknown) date) unknown) (unknown) (no (unknown) (unknown) Creatinine (units (unk nown) date) unknown) (unknown) (no (unknown) (unknown) Critical Care (units ( unknown) date) time: unknown) (unknown) (no (unknown) (unknown) : 1970 (units (unknown) date) Acct:[id number] unknown) (unknown) (no (unknown) (unknown) Date Patient (units (u nknown) date) Seen: 07/18/22 unknown) (unknown) (no (unknown) (unknown) Date of Service: (units (unknown) date) 07/17/22 unknown) (unknown) (no (unknown) (unknown) Nona Guzman is (units (unknown) date) a 51 y.o. female unknown) who with a history of severe and poorly (unknown) (no (unknown) (unknown) Nona Guzman is (units (unknown) date) admitted to ICU unknown) status for a hypertensive urgency. (unknown) (no (unknown) (unknown) Deep Vein (units (unkn own) date) Thrombosis/Pulmona unknown) ry Embolism Present on Admission: No (unknown) (no (unknown) (unknown) Discussion of (units ( unknown) date) results, plan of unknown) care with independent HCP/other ED provider (unknown) (no (unknown) (unknown) Dispo: probable (units (unknown) date) d/c to home unknown) (unknown) (no (unknown) (unknown) Environment (units (un known) date) unknown) (unknown) (no (unknown) (unknown) Eos # (Auto) 100 (units (unknown) date) unknown) (unknown) (no (unknown) (unknown) Eos # (Auto) (units (u nknown) date) unknown) (unknown) (no (unknown) (unknown) Eos % (Auto) 0.7 (units (unknown) date) L unknown) (unknown) (no (unknown) (unknown) Eos % (Auto) (units (u nknown) date) unknown) (unknown) (no (unknown) (unknown) Estimated GFR > (units (unknown) date) 60 unknown) (unknown) (no (unknown) (unknown) Estimated GFR (units ( unknown) date) unknown) (unknown) (no (unknown) (unknown) Exam Narrative: (units (unknown) date) unknown) (unknown) (no (unknown) (unknown) Exam (units (unkno wn) date) unknown) (unknown) (no (unknown) (unknown) Extremities: (units (u nknown) date) moves all 4 unknown) extremities, is ambulatory, negative Garret?s sign (unknown) (no (unknown) (unknown) FACE, (units (unkno wn) date) unknown) (unknown) (no (unknown) (unknown) FEN: IV fluids: (units (unknown) date) saline lock, diet: unknown) heart healthy, labs: CBC, C/BMP, liver (unknown) (no (unknown) (unknown) Family + Social (units (unknown) date) History unknown) (unknown) (no (unknown) (unknown) Feels Safe in (units ( unknown) date) Current Yes unknown) (unknown) (no (unknown) (unknown) Fibromyalgia (units (u nknown) date) unknown) (unknown) (no (unknown) (unknown) Gen: Alert, (units (un known) date) oriented, morbidly unknown) obese 51 y.o. female, NAD (unknown) (no (unknown) (unknown) Globulin 3.1 (units (u nknown) date) unknown) (unknown) (no (unknown) (unknown) Globulin (units (unkno wn) date) unknown) (unknown) (no (unknown) (unknown) Glucose 91 (units (unk nown) date) unknown) (unknown) (no (unknown) (unknown) Glucose (units (unkno wn) date) unknown) (unknown) (no (unknown) (unknown) H/O gastric (units (un known) date) bypass unknown) (unknown) (no (unknown) (unknown) HEENT: (units (unkno wn) date) normocephalic, unknown) atraumatic, conjunctiva clear, sclera non-icteric, oral (unknown) (no (unknown) (unknown) HIVES ALL (units (unkn own) date) unknown) (unknown) (no (unknown) (unknown) Hct 42.1 (units (unkno wn) date) unknown) (unknown) (no (unknown) (unknown) Hct (units (unkno wn) date) unknown) (unknown) (no (unknown) (unknown) Hgb 14.0 (units (unkno wn) date) unknown) (unknown) (no (unknown) (unknown) Hgb (units (unkno wn) date) unknown) (unknown) (no (unknown) (unknown) History + (units (unkn own) date) Physical Report unknown) (unknown) (no (unknown) (unknown) History of (units (unk nown) date) Present Illness unknown) (unknown) (no (unknown) (unknown) History of (units (unk nown) date) prediabetes unknown) (unknown) (no (unknown) (unknown) Home Medications (units (unknown) date) and Allergies unknown) (unknown) (no (unknown) (unknown) Home Medications (units (unknown) date) unknown) (unknown) (no (unknown) (unknown) Hyperlipidemia (units (unknown) date) unknown) (unknown) (no (unknown) (unknown) Hypertension (units (u nknown) date) unknown) (unknown) (no (unknown) (unknown) Hypertensive (units (u nknown) date) urgency, unknown) malignant, acute and present on admission (unknown) (no (unknown) (unknown) I confirm the (units (u nknown) date) patient?s Advance unknown) Care Plan is present, Code status is documented, (unknown) (no (unknown) (unknown) I spent a total (units (unknown) date) of [] minutes of unknown) critical care time on this patient's care (unknown) (no (unknown) (unknown) INR 0.9 (units (unkno wn) date) unknown) (unknown) (no (unknown) (unknown) INR (units (unkno wn) date) unknown) (unknown) (no (unknown) (unknown) In the ED, she (units (unknown) date) was started on a unknown) nifedipine drip, then administered a one time (unknown) (no (unknown) (unknown) [facility] (units (unknown) date) [address] unknown) [place] [address] (unknown) (no (unknown) (unknown) Laboratory (units (unk nown) date) Results - last 24 unknown) hr (unknown) (no (unknown) (unknown) Labs (units (unkno wn) date) unknown) (unknown) (no (unknown) (unknown) Labs: (units (unkno wn) date) unknown) (unknown) (no (unknown) (unknown) Lipase 185 (units (unk nown) date) unknown) (unknown) (no (unknown) (unknown) Lipase (units (unkno wn) date) unknown) (unknown) (no (unknown) (unknown) Lymph # (Auto) (units (unknown) date) 1900 unknown) (unknown) (no (unknown) (unknown) Lymph # (Auto) (units (unknown) date) unknown) (unknown) (no (unknown) (unknown) Lymph % (Auto) (units (unknown) date) 23.2 L unknown) (unknown) (no (unknown) (unknown) Lymph % (Auto) (units (unknown) date) unknown) (unknown) (no (unknown) (unknown) MCH 30.8 (units (unkno wn) date) unknown) (unknown) (no (unknown) (unknown) MCH (units (unkno wn) date) unknown) (unknown) (no (unknown) (unknown) MCHC 33.3 (units (unkn own) date) unknown) (unknown) (no (unknown) (unknown) MCHC (units (unkno wn) date) unknown) (unknown) (no (unknown) (unknown) MCV 92.5 (units (unkno wn) date) unknown) (unknown) (no (unknown) (unknown) MCV (units (unkno wn) date) unknown) (unknown) (no (unknown) (unknown) MIPS - Admit (units (u nknown) date) unknown) (unknown) (no (unknown) (unknown) MIPS - DC (units (unkn own) date) unknown) (unknown) (no (unknown) (unknown) Magnesium 2.0 (units ( unknown) date) unknown) (unknown) (no (unknown) (unknown) Magnesium (units (unkn own) date) unknown) (unknown) (no (unknown) (unknown) Medical History (units (unknown) date) (Reviewed 07/18/22 unknown) @ 00:52 by EDENILSON Amezquita) (unknown) (no (unknown) (unknown) Medication (units (unk nown) date) Instructions unknown) Recorded Confirmed Type (unknown) (no (unknown) (unknown) Meds (units (unkno wn) date) unknown) (unknown) (no (unknown) (unknown) Larue # (Auto) 400 (units (unknown) date) unknown) (unknown) (no (unknown) (unknown) Larue # (Auto) (units ( unknown) date) unknown) (unknown) (no (unknown) (unknown) Larue % (Auto) 5.4 (units (unknown) date) unknown) (unknown) (no (unknown) (unknown) Larue % (Auto) (units ( unknown) date) unknown) (unknown) (no (unknown) (unknown) Narrative (units (unkn own) date) unknown) (unknown) (no (unknown) (unknown) Narrative: (units (unk nown) date) unknown) (unknown) (no (unknown) (unknown) Neck: supple, (units ( unknown) date) full ROM, no JVD, unknown) trachea is midline (unknown) (no (unknown) (unknown) Neuro: Alert and (units (unknown) date) oriented X 4 w/no unknown) focal deficits. Speech clear and coherent. (unknown) (no (unknown) (unknown) Neut # (Auto) (units ( unknown) date) 5700 unknown) (unknown) (no (unknown) (unknown) Neut # (Auto) (units ( unknown) date) unknown) (unknown) (no (unknown) (unknown) Neut % (Auto) (units ( unknown) date) 69.9 unknown) (unknown) (no (unknown) (unknown) Neut % (Auto) (units ( unknown) date) unknown) (unknown) (no (unknown) (unknown) OVER. (units (unkno wn) date) unknown) (unknown) (no (unknown) (unknown) Objective (units (unkn own) date) unknown) (unknown) (no (unknown) (unknown) Other independent (units (unknown) date) historians: none unknown) (unknown) (no (unknown) (unknown) Oxygen Delivery (units (unknown) date) Method Room Air unknown) Room Air (unknown) (no (unknown) (unknown) Oxygen Delivery (units (unknown) date) Method Room Air unknown) (unknown) (no (unknown) (unknown) Oxygen Delivery (units (unknown) date) Method unknown) (unknown) (no (unknown) (unknown) PCR is negative. (units (unknown) date) unknown) (unknown) (no (unknown) (unknown) PT 10.7 (units (unkno wn) date) unknown) (unknown) (no (unknown) (unknown) PT (units (unkno wn) date) unknown) (unknown) (no (unknown) (unknown) Patient History (units (unknown) date) unknown) (unknown) (no (unknown) (unknown) Patient is (units (unk nown) date) admitted to the unknown) inpatient intensive service due to the severity of (unknown) (no (unknown) (unknown) Patient states (units (unknown) date) she uses estrogen unknown) patches, smokes 4 cigarrettes/day and drinks 2 (unknown) (no (unknown) (unknown) Patient: (units (unkno wn) date) Nona Guzman unknown) MR#: [id number] (unknown) (no (unknown) (unknown) Penicillins (units (un known) date) [PENICILLINS] unknown) Allergy Intermediate RASH/ITCHING, Verified 07/17/22 (unknown) (no (unknown) (unknown) Plt Count 229 (units ( unknown) date) unknown) (unknown) (no (unknown) (unknown) Plt Count (units (unkn own) date) unknown) (unknown) (no (unknown) (unknown) Potassium 3.7 (units ( unknown) date) unknown) (unknown) (no (unknown) (unknown) Potassium (units (unkn own) date) unknown) (unknown) (no (unknown) (unknown) Provider: (units (unkn own) date) Clarissa Washington unknown) (unknown) (no (unknown) (unknown) Psyche: normal (units (unknown) date) mood and affect. unknown) (unknown) (no (unknown) (unknown) Pulse Oximetry (units (unknown) date) 100 unknown) (unknown) (no (unknown) (unknown) Pulse Oximetry 94 (units (unknown) date) 94 unknown) (unknown) (no (unknown) (unknown) Pulse Oximetry 94 (units (unknown) date) 95 unknown) (unknown) (no (unknown) (unknown) Pulse Oximetry 94 (units (unknown) date) unknown) (unknown) (no (unknown) (unknown) Pulse Oximetry 95 (units (unknown) date) 94 unknown) (unknown) (no (unknown) (unknown) Pulse Oximetry 95 (units (unknown) date) 97 unknown) (unknown) (no (unknown) (unknown) Pulse Oximetry 95 (units (unknown) date) unknown) (unknown) (no (unknown) (unknown) Pulse Oximetry 96 (units (unknown) date) 94 unknown) (unknown) (no (unknown) (unknown) Pulse Oximetry 96 (units (unknown) date) 96 unknown) (unknown) (no (unknown) (unknown) Pulse Oximetry 96 (units (unknown) date) unknown) (unknown) (no (unknown) (unknown) Pulse Oximetry 97 (units (unknown) date) 97 unknown) (unknown) (no (unknown) (unknown) Pulse Oximetry 97 (units (unknown) date) unknown) (unknown) (no (unknown) (unknown) Pulse Oximetry 98 (units (unknown) date) 98 unknown) (unknown) (no (unknown) (unknown) Pulse Oximetry 98 (units (unknown) date) unknown) (unknown) (no (unknown) (unknown) Pulse Oximetry 99 (units (unknown) date) 95 unknown) (unknown) (no (unknown) (unknown) Pulse Oximetry 99 (units (unknown) date) 99 unknown) (unknown) (no (unknown) (unknown) Pulse Oximetry 99 (units (unknown) date) unknown) (unknown) (no (unknown) (unknown) Pulse Oximetry (units (unknown) date) unknown) (unknown) (no (unknown) (unknown) Pulse Rate 65 (units ( unknown) date) unknown) (unknown) (no (unknown) (unknown) Pulse Rate 67 65 (units (unknown) date) unknown) (unknown) (no (unknown) (unknown) Pulse Rate 67 77 (units (unknown) date) unknown) (unknown) (no (unknown) (unknown) Pulse Rate 68 68 (units (unknown) date) unknown) (unknown) (no (unknown) (unknown) Pulse Rate 70 78 (units (unknown) date) unknown) (unknown) (no (unknown) (unknown) Pulse Rate 71 65 (units (unknown) date) unknown) (unknown) (no (unknown) (unknown) Pulse Rate 71 67 (units (unknown) date) unknown) (unknown) (no (unknown) (unknown) Pulse Rate 72 75 (units (unknown) date) unknown) (unknown) (no (unknown) (unknown) Pulse Rate 76 (units ( unknown) date) unknown) (unknown) (no (unknown) (unknown) Pulse Rate 77 79 (units (unknown) date) unknown) (unknown) (no (unknown) (unknown) Pulse Rate 77 (units ( unknown) date) unknown) (unknown) (no (unknown) (unknown) Pulse Rate 78 87 (units (unknown) date) unknown) (unknown) (no (unknown) (unknown) Pulse Rate 78 (units ( unknown) date) unknown) (unknown) (no (unknown) (unknown) Pulse Rate 79 77 (units (unknown) date) unknown) (unknown) (no (unknown) (unknown) Pulse Rate 79 94 (units (unknown) date) H unknown) (unknown) (no (unknown) (unknown) Pulse Rate 79 (units ( unknown) date) unknown) (unknown) (no (unknown) (unknown) Pulse Rate 80 75 (units (unknown) date) unknown) (unknown) (no (unknown) (unknown) Pulse Rate 84 (units ( unknown) date) unknown) (unknown) (no (unknown) (unknown) Pulse Rate 91 H (units (unknown) date) 83 unknown) (unknown) (no (unknown) (unknown) Pulse Rate (units (unk nown) date) unknown) (unknown) (no (unknown) (unknown) RBC 4.56 (units (unkno wn) date) unknown) (unknown) (no (unknown) (unknown) RBC (units (unkno wn) date) unknown) (unknown) (no (unknown) (unknown) RDW 14.2 (units (unkno wn) date) unknown) (unknown) (no (unknown) (unknown) RDW (units (unkno wn) date) unknown) (unknown) (no (unknown) (unknown) ROS: Yes All (units (u nknown) date) systems reviewed unknown) with the patient and are negative except as (unknown) (no (unknown) (unknown) Resp: Lungs CTA, (units (unknown) date) non-labored unknown) breathing (unknown) (no (unknown) (unknown) Respiratory Rate (units (unknown) date) 14 unknown) (unknown) (no (unknown) (unknown) Respiratory Rate (units (unknown) date) 16 31 H unknown) (unknown) (no (unknown) (unknown) Respiratory Rate (units (unknown) date) 20 17 unknown) (unknown) (no (unknown) (unknown) Respiratory Rate (units (unknown) date) 20 20 unknown) (unknown) (no (unknown) (unknown) Respiratory Rate (units (unknown) date) 20 unknown) (unknown) (no (unknown) (unknown) Respiratory Rate (units (unknown) date) 21 unknown) (unknown) (no (unknown) (unknown) Respiratory Rate (units (unknown) date) 30 H 23 unknown) (unknown) (no (unknown) (unknown) Respiratory Rate (units (unknown) date) 35 H unknown) (unknown) (no (unknown) (unknown) Respiratory Rate (units (unknown) date) unknown) (unknown) (no (unknown) (unknown) Result date/Date (units (unknown) date) tested (Pos, unknown) Neg/Pending): 07/18/22 (unknown) (no (unknown) (unknown) Review of Systems (units (unknown) date) unknown) (unknown) (no (unknown) (unknown) Reviewed outside (units (unknown) date) records: PCP unknown) records (unknown) (no (unknown) (unknown) Risk (units (unkno wn) date) stratification unknown) (unknown) (no (unknown) (unknown) SARS-CoV-2 (PCR) (units (unknown) date) Negative unknown) (unknown) (no (unknown) (unknown) SARS-CoV-2 (PCR) (units (unknown) date) unknown) (unknown) (no (unknown) (unknown) SCDs (units (unkno wn) date) unknown) (unknown) (no (unknown) (unknown) Safety + (units (unkno wn) date) Behavioral: unknown) (unknown) (no (unknown) (unknown) Signed (units (unkno wn) date) By:<Electronically unknown) signed by Clarissa Washington> (unknown) (no (unknown) (unknown) Skin: trace edema (units (unknown) date) bilat. LE. No unknown) lesions or rashes, dry and intact (unknown) (no (unknown) (unknown) Smoking Status (units (unknown) date) Current every day unknown) smoker (unknown) (no (unknown) (unknown) Social (units (unkno wn) date) determinants of unknown) health: compliance, access to rx. (unknown) (no (unknown) (unknown) Sodium 139 (units (unk nown) date) unknown) (unknown) (no (unknown) (unknown) Sodium (units (unkno wn) date) unknown) (unknown) (no (unknown) (unknown) States her (units (unkn own) date) father's side has unknown) had heart disease, he at age 59 of asbestosis, (unknown) (no (unknown) (unknown) Substance Use (units ( unknown) date) Type does not use unknown) (unknown) (no (unknown) (unknown) Surgical History (units (unknown) date) (Reviewed 07/18/22 unknown) @ 00:52 by EDENILSON Amezquita) (unknown) (no (unknown) (unknown) Surrogate (units (unkn own) date) decision maker is unknown) in patient?s record: Yes (unknown) (no (unknown) (unknown) THROAT (units (unkno wn) date) unknown) (unknown) (no (unknown) (unknown) TROUBLE (units (unkno wn) date) unknown) (unknown) (no (unknown) (unknown) Temperature 97.6 (units (unknown) date) F unknown) (unknown) (no (unknown) (unknown) Temperature (units (un known) date) unknown) (unknown) (no (unknown) (unknown) The patient has (units (unknown) date) current or prior unknown) documentation of left ventricular ejection (unknown) (no (unknown) (unknown) Threatened By a (units (unknown) date) Person unknown) (unknown) (no (unknown) (unknown) Time Patient (units (u nknown) date) Seen: 00:35 unknown) (unknown) (no (unknown) (unknown) Time Spent With (units (unknown) date) Patient unknown) (unknown) (no (unknown) (unknown) Tobacco + (units (unkn own) date) Substance use: unknown) (unknown) (no (unknown) (unknown) Total Bilirubin (units (unknown) date) 0.7 unknown) (unknown) (no (unknown) (unknown) Total Bilirubin (units (unknown) date) unknown) (unknown) (no (unknown) (unknown) Total Creatine (units (unknown) date) Kinase 35 unknown) (unknown) (no (unknown) (unknown) Total Creatine (units (unknown) date) Kinase unknown) (unknown) (no (unknown) (unknown) Total Protein 7.2 (units (unknown) date) unknown) (unknown) (no (unknown) (unknown) Total Protein (units ( unknown) date) unknown) (unknown) (no (unknown) (unknown) Total cholesterol (units (unknown) date) is 225, LDL 115 unknown) and triglycerides 105 HDL 89. She is ordered (unknown) (no (unknown) (unknown) Troponin I < (units (u nknown) date) 0.012 unknown) (unknown) (no (unknown) (unknown) VTE Prophylaxis: (units (unknown) date) Wells risk score 1 unknown) Enoxaparin 40 mg subQ once daily Bilateral (unknown) (no (unknown) (unknown) VTE (units (unkno wn) date) unknown) (unknown) (no (unknown) (unknown) Vital Signs (units (un known) date) unknown) (unknown) (no (unknown) (unknown) WBC 8.1 (units (unkno wn) date) unknown) (unknown) (no (unknown) (unknown) WBC (units (unkno wn) date) unknown) (unknown) (no (unknown) (unknown) When the pandemic (units (unknown) date) hit, she states unknown) she put most of the weight back on due to (unknown) (no (unknown) (unknown) [DIPHENHYDRAMINE] (units (unknown) date) unknown) (unknown) (no (unknown) (unknown) [Embedded Image (units (unknown) date) Not Available] unknown) (unknown) (no (unknown) (unknown) [MAGNESIUM (units (unk nown) date) CITRATE] unknown) (unknown) (no (unknown) (unknown) [X] I have (units (unk nown) date) utilized all unknown) available immediate resources to obtain, update, or (unknown) (no (unknown) (unknown) abdominal and (units ( unknown) date) back cramping and unknown) bilateral leg pain. She states she has backed (unknown) (no (unknown) (unknown) alcohol intake (units (unknown) date) frequency 0-2 unknown) drinks per day (unknown) (no (unknown) (unknown) amoxicillin (units (un known) date) [AMOXICILLIN] unknown) Allergy Severe SWELLING Verified 07/17/22 18:24 (unknown) (no (unknown) (unknown) as 218/93. (units (unk nown) date) Currently her unknown) blood pressure is 126/64 she is afebrile heart rate 78 (unknown) (no (unknown) (unknown) blood pressure (units (unknown) date) and found it to be unknown) in the in the 220/120 range.? She did have a (unknown) (no (unknown) (unknown) carvedilol 12.5 (units (unknown) date) mg tablet 12.5 mg unknown) PO BID #60 tabs 07/17/22 Rx (unknown) (no (unknown) (unknown) carvedilol 6.25 (units (unknown) date) mg tablet 6.25 mg unknown) PO BID #180 tabs 05/14/22 06/04/22 Rx (unknown) (no (unknown) (unknown) company. (units (unkno wn) date) unknown) (unknown) (no (unknown) (unknown) complaints in (units ( unknown) date) February of last unknown) year with headache, blurred vision and chest (unknown) (no (unknown) (unknown) controlled (units (unk nown) date) hypertension unknown) presented to the ED with significantly elevated blood (unknown) (no (unknown) (unknown) diphenhydramine (units (unknown) date) Allergy Mild unknown) SWELLING. Verified 07/17/22 18:24 (unknown) (no (unknown) (unknown) disease, cardiac (units (unknown) date) drips and close unknown) monitoring, risks of further disease (unknown) (no (unknown) (unknown) dose of (units (unkno wn) date) amlopdipine 5 mg. unknown) Imaging studies ruled out any acute cardiopulmonary (unknown) (no (unknown) (unknown) enzymes, Mag, (units ( unknown) date) PT/INR unknown) (unknown) (no (unknown) (unknown) estradiol 0.1 (units ( unknown) date) mg/24 hr weekly unknown) 0.1 mg topical QWEEK #4 ea 06/04/22 06/04/22 Rx (unknown) (no (unknown) (unknown) for atorvastatin (units (unknown) date) 40 mg po starting unknown) tonight. (unknown) (no (unknown) (unknown) fraction (LVEF) (units (unknown) date) less than 40%, or unknown) moderate or severely depressed left (unknown) (no (unknown) (unknown) glasses of (units (unk nown) date) wine/day. 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 She had similar (unknown) (no (unknown) (unknown) latex [LATEX] (units ( unknown) date) Allergy Mild RASH unknown) Verified 07/17/22 18:24 (unknown) (no (unknown) (unknown) losartan 100 1 (units (unknown) date) tab PO DAILY #30 unknown) tabs 06/03/22 06/04/22 Rx (unknown) (no (unknown) (unknown) magnesium citrate (units (unknown) date) AdvReac Unknown unknown) VOMITING Verified 07/17/22 18:24 (unknown) (no (unknown) (unknown) medications had (units (unknown) date) been doubled, but unknown) that the EMT said he was concerned because he (unknown) (no (unknown) (unknown) mg-hydrochlorothi (units (unknown) date) azide 25 mg tablet unknown) (unknown) (no (unknown) (unknown) mother age (units (unknown) date) 57 of alcohol unknown) abuse. (unknown) (no (unknown) (unknown) mucosa pink and (units (unknown) date) moist unknown) (unknown) (no (unknown) (unknown) negative. (units (unkn own) date) Presenting blood unknown) pressure in the ED was 202/89 and trended up as high (unknown) (no (unknown) (unknown) of room/staff (units ( unknown) date) availability., She unknown) will likely become floor status by the am. (unknown) (no (unknown) (unknown) off on exersize (units (unknown) date) because she gets unknown) very short of breath. States she does get dizzy (unknown) (no (unknown) (unknown) otherwise (units (unkn own) date) documented unknown) (unknown) (no (unknown) (unknown) pain lasting from (units (unknown) date) 30-45 seconds. She unknown) endorses having nausea and vomiting, (unknown) (no (unknown) (unknown) pressure.? She (units (unknown) date) was having a tele unknown) video appointment with her primary care doctor (unknown) (no (unknown) (unknown) process, ruled (units (unknown) date) out PE, head CT unknown) was negative for CVA or injury, chest x-ray was (unknown) (no (unknown) (unknown) progression and (units (unknown) date) this stay is unknown) expected to exceed 2 midnights. (unknown) (no (unknown) (unknown) respiratory rate (units (unknown) date) 21 oxygen unknown) saturation of 94% on room air she weighs 106.14 kg (unknown) (no (unknown) (unknown) review of the (units ( unknown) date) patient's current unknown) medications (unknown) (no (unknown) (unknown) surrogate and (units ( unknown) date) POA. unknown) (unknown) (no (unknown) (unknown) thought her heart (units (unknown) date) rate was low and unknown) may be lowered. (unknown) (no (unknown) (unknown) to discuss her (units (unknown) date) hypertension and unknown) during that consultation she checked her home (unknown) (no (unknown) (unknown) to the point of (units (unknown) date) severe vertigo. unknown) She a a gastric bypass in 2016 and lost about (unknown) (no (unknown) (unknown) today; this time (units (unknown) date) is exclusive of unknown) procedural time. (unknown) (no (unknown) (unknown) transdermal patch (units (unknown) date) unknown) (unknown) (no (unknown) (unknown) ventricular (units (un known) date) systolic unknown) function.: No (unknown) (no (unknown) (unknown) with a BMI of (units ( unknown) date) 40.2. CBC is unknown) unremarkable, chemistry is unremarkable and COVID-19 (unknown) (no (unknown) (unknown) working at home (units (unknown) date) and not being able unknown) to exercise. She states one of her bp Result panel 537 (unknown) (no (unknown) (unknown) (no value) (units (unk nown) date) unknown) (unknown) (no (unknown) (unknown) (past 8 hours): (units (unknown) date) unknown) (unknown) (no (unknown) (unknown) * Echo in the am (units (unknown) date) unknown) (unknown) (no (unknown) (unknown) * Fasting lipids (units (unknown) date) in the am unknown) (unknown) (no (unknown) (unknown) * She had an A1c (units (unknown) date) in May 2022 unknown) and it was 5.0 (unknown) (no (unknown) (unknown) * She is admitted (units (unknown) date) to ICU status, unknown) however, she is boarding in the ED due to lack (unknown) (no (unknown) (unknown) * She is on a (units ( unknown) date) nifedipine drip unknown) which is cross tapored w/amlodipine 5 mg (unknown) (no (unknown) (unknown) * She is (units (unkno wn) date) recommended to unknown) cease estrogen patches and tobacco use. (unknown) (no (unknown) (unknown) * TSH (units (unkno wn) date) unknown) (unknown) (no (unknown) (unknown) ADDENDUM (units (u nknown) date) unknown) (unknown) (no (unknown) (unknown) .O.> 07/18/22 (units ( unknown) date) 1420 unknown) (unknown) (no (unknown) (unknown) [id number] (units (unkno wn) date) unknown) (unknown) (no (unknown) (unknown) 07/17/22 07/17/22 (units (unknown) date) 07/17/22 unknown) (unknown) (no (unknown) (unknown) 07/17/22 07/17/22 (units (unknown) date) unknown) (unknown) (no (unknown) (unknown) 07/17/22 18:49 (units (unknown) date) unknown) (unknown) (no (unknown) (unknown) 07/17/22 (units (unkno wn) date) unknown) (unknown) (no (unknown) (unknown) 07/18/22 0106 (units ( unknown) date) unknown) (unknown) (no (unknown) (unknown) 07/18/22 0621 (units ( unknown) date) unknown) (unknown) (no (unknown) (unknown) 07/18/22 1420 (units ( unknown) date) unknown) (unknown) (no (unknown) (unknown) 125 lbs, she (units (u nknown) date) attempted to unknown) increase her weight as she stated she looked poorly. (unknown) (no (unknown) (unknown) 18:20 07/17/22 (units (unknown) date) unknown) (unknown) (no (unknown) (unknown) 18:24 (units (unkno wn) date) unknown) (unknown) (no (unknown) (unknown) 18:38 (units (unkno wn) date) unknown) (unknown) (no (unknown) (unknown) 18:43 07/17/22 (units (unknown) date) unknown) (unknown) (no (unknown) (unknown) 18:49 07/17/22 (units (unknown) date) unknown) (unknown) (no (unknown) (unknown) 18:49 18:49 18:49 (units (unknown) date) unknown) (unknown) (no (unknown) (unknown) 19:00 07/17/22 (units (unknown) date) unknown) (unknown) (no (unknown) (unknown) 19:00 (units (unkno wn) date) unknown) (unknown) (no (unknown) (unknown) 19:09 07/17/22 (units (unknown) date) unknown) (unknown) (no (unknown) (unknown) 19:09 (units (unkno wn) date) unknown) (unknown) (no (unknown) (unknown) 19:30 07/17/22 (units (unknown) date) unknown) (unknown) (no (unknown) (unknown) 19:35 07/17/22 (units (unknown) date) unknown) (unknown) (no (unknown) (unknown) 19:35 (units (unkno wn) date) unknown) (unknown) (no (unknown) (unknown) 19:40 07/17/22 (units (unknown) date) unknown) (unknown) (no (unknown) (unknown) 19:50 07/17/22 (units (unknown) date) unknown) (unknown) (no (unknown) (unknown) 19:50 (units (unkno wn) date) unknown) (unknown) (no (unknown) (unknown) 20:00 07/17/22 (units (unknown) date) unknown) (unknown) (no (unknown) (unknown) 20:00 (units (unkno wn) date) unknown) (unknown) (no (unknown) (unknown) 20:10 07/17/22 (units (unknown) date) unknown) (unknown) (no (unknown) (unknown) 20:20 07/17/22 (units (unknown) date) unknown) (unknown) (no (unknown) (unknown) 20:20 (units (unkno wn) date) unknown) (unknown) (no (unknown) (unknown) 20:30 07/17/22 (units (unknown) date) unknown) (unknown) (no (unknown) (unknown) 20:30 (units (unkno wn) date) unknown) (unknown) (no (unknown) (unknown) 20:40 07/17/22 (units (unknown) date) unknown) (unknown) (no (unknown) (unknown) 21:00 (units (unkno wn) date) unknown) (unknown) (no (unknown) (unknown) 21:20 07/17/22 (units (unknown) date) unknown) (unknown) (no (unknown) (unknown) 21:25 07/17/22 (units (unknown) date) unknown) (unknown) (no (unknown) (unknown) 21:25 (units (unkno wn) date) unknown) (unknown) (no (unknown) (unknown) 21:30 07/17/22 (units (unknown) date) unknown) (unknown) (no (unknown) (unknown) 21:40 07/17/22 (units (unknown) date) unknown) (unknown) (no (unknown) (unknown) 21:40 (units (unkno wn) date) unknown) (unknown) (no (unknown) (unknown) 21:44 07/17/22 (units (unknown) date) unknown) (unknown) (no (unknown) (unknown) 21:44 (units (unkno wn) date) unknown) (unknown) (no (unknown) (unknown) 21:50 07/17/22 (units (unknown) date) unknown) (unknown) (no (unknown) (unknown) 22:00 07/17/22 (units (unknown) date) unknown) (unknown) (no (unknown) (unknown) 22:00 (units (unkno wn) date) unknown) (unknown) (no (unknown) (unknown) 22:11 07/17/22 (units (unknown) date) unknown) (unknown) (no (unknown) (unknown) 22:11 (units (unkno wn) date) unknown) (unknown) (no (unknown) (unknown) 22:20 07/17/22 (units (unknown) date) unknown) (unknown) (no (unknown) (unknown) 22:25 23:26 (units (un known) date) unknown) (unknown) (no (unknown) (unknown) 22:30 07/17/22 (units (unknown) date) unknown) (unknown) (no (unknown) (unknown) 22:30 (units (unkno wn) date) unknown) (unknown) (no (unknown) (unknown) 22:40 07/17/22 (units (unknown) date) unknown) (unknown) (no (unknown) (unknown) 22:40 (units (unkno wn) date) unknown) (unknown) (no (unknown) (unknown) 22:50 07/17/22 (units (unknown) date) unknown) (unknown) (no (unknown) (unknown) 23:02 (units (unkno wn) date) unknown) (unknown) (no (unknown) (unknown) 23:03 07/17/22 (units (unknown) date) unknown) (unknown) (no (unknown) (unknown) 23:10 07/17/22 (units (unknown) date) unknown) (unknown) (no (unknown) (unknown) 23:10 (units (unkno wn) date) unknown) (unknown) (no (unknown) (unknown) 23:20 07/17/22 (units (unknown) date) unknown) (unknown) (no (unknown) (unknown) 23:20 (units (unkno wn) date) unknown) (unknown) (no (unknown) (unknown) 23:30 07/17/22 (units (unknown) date) unknown) (unknown) (no (unknown) (unknown) 23:40 (units (unkno wn) date) unknown) (unknown) (no (unknown) (unknown) ALT 30 (units (unkno wn) date) unknown) (unknown) (no (unknown) (unknown) ALT (units (unkno wn) date) unknown) (unknown) (no (unknown) (unknown) APTT 32 (units (unkno wn) date) unknown) (unknown) (no (unknown) (unknown) APTT (units (unkno wn) date) unknown) (unknown) (no (unknown) (unknown) AST 24 (units (unkno wn) date) unknown) (unknown) (no (unknown) (unknown) AST (units (unkno wn) date) unknown) (unknown) (no (unknown) (unknown) Abd: soft, (units (unk nown) date) non-tender, unknown) normoactive BTs (unknown) (no (unknown) (unknown) Add new dx: (units (un known) date) unknown) (unknown) (no (unknown) (unknown) Addendum (units (unkno wn) date) Documented By: unknown) Clarissa Washington (unknown) (no (unknown) (unknown) Addendum (units (unkno wn) date) Documented By: unknown) Bj Snider D.O. (unknown) (no (unknown) (unknown) Addendum Signed (units (unknown) date) By: unknown) <Electronically signed by Clarissa Washington> (unknown) (no (unknown) (unknown) Addendum Signed (units (unknown) date) By: unknown) <Electronically signed by Robert Woodson (unknown) (no (unknown) (unknown) Advanced care (units ( unknown) date) planning [ ] unknown) minutes. (unknown) (no (unknown) (unknown) Age/Sex: 51 / F (units (unknown) date) unknown) (unknown) (no (unknown) (unknown) Albumin 4.1 (units (un known) date) unknown) (unknown) (no (unknown) (unknown) Albumin (units (unkno wn) date) unknown) (unknown) (no (unknown) (unknown) Albumin/Globulin (units (unknown) date) Ratio 1.3 unknown) (unknown) (no (unknown) (unknown) Albumin/Globulin (units (unknown) date) Ratio unknown) (unknown) (no (unknown) (unknown) Alkaline (units (unkno wn) date) Phosphatase 100 unknown) (unknown) (no (unknown) (unknown) Alkaline (units (unkno wn) date) Phosphatase unknown) (unknown) (no (unknown) (unknown) Allergies (units (unkn own) date) unknown) (unknown) (no (unknown) (unknown) Allergy/AdvReac (units (unknown) date) Type Severity unknown) Reaction Status Date / Time (unknown) (no (unknown) (unknown) Assessment + Plan (units (unknown) date) narrative: unknown) (unknown) (no (unknown) (unknown) Assessment + Plan (units (unknown) date) unknown) (unknown) (no (unknown) (unknown) BREATHING. (units (unk nown) date) unknown) (unknown) (no (unknown) (unknown) BUN 19 H (units (unkno wn) date) unknown) (unknown) (no (unknown) (unknown) BUN (units (unkno wn) date) unknown) (unknown) (no (unknown) (unknown) BUN/Creatinine (units (unknown) date) Ratio 25.7 H unknown) (unknown) (no (unknown) (unknown) BUN/Creatinine (units (unknown) date) Ratio unknown) (unknown) (no (unknown) (unknown) Baso # (Auto) 100 (units (unknown) date) unknown) (unknown) (no (unknown) (unknown) Baso # (Auto) (units ( unknown) date) unknown) (unknown) (no (unknown) (unknown) Baso % (Auto) 0.8 (units (unknown) date) unknown) (unknown) (no (unknown) (unknown) Baso % (Auto) (units ( unknown) date) unknown) (unknown) (no (unknown) (unknown) Been Physically (units (unknown) date) Hurt or No unknown) (unknown) (no (unknown) (unknown) Blood Pressure (units (unknown) date) 126/64 unknown) (unknown) (no (unknown) (unknown) Blood Pressure (units (unknown) date) 138/78 unknown) (unknown) (no (unknown) (unknown) Blood Pressure (units (unknown) date) 143/67 H unknown) (unknown) (no (unknown) (unknown) Blood Pressure (units (unknown) date) 144/90 H unknown) (unknown) (no (unknown) (unknown) Blood Pressure (units (unknown) date) 145/85 H 147/76 H unknown) (unknown) (no (unknown) (unknown) Blood Pressure (units (unknown) date) 147/80 H unknown) (unknown) (no (unknown) (unknown) Blood Pressure (units (unknown) date) 152/87 H unknown) (unknown) (no (unknown) (unknown) Blood Pressure (units (unknown) date) 153/87 H 147/83 H unknown) (unknown) (no (unknown) (unknown) Blood Pressure (units (unknown) date) 154/70 H 150/68 H unknown) (unknown) (no (unknown) (unknown) Blood Pressure (units (unknown) date) 157/68 H 155/68 H unknown) (unknown) (no (unknown) (unknown) Blood Pressure (units (unknown) date) 158/78 H unknown) (unknown) (no (unknown) (unknown) Blood Pressure (units (unknown) date) 167/80 H 169/78 H unknown) (unknown) (no (unknown) (unknown) Blood Pressure (units (unknown) date) 170/88 H unknown) (unknown) (no (unknown) (unknown) Blood Pressure (units (unknown) date) 171/89 H unknown) (unknown) (no (unknown) (unknown) Blood Pressure (units (unknown) date) 175/56 H unknown) (unknown) (no (unknown) (unknown) Blood Pressure (units (unknown) date) 177/81 H unknown) (unknown) (no (unknown) (unknown) Blood Pressure (units (unknown) date) 180/91 H 187/100 H unknown) (unknown) (no (unknown) (unknown) Blood Pressure (units (unknown) date) 202/79 H unknown) (unknown) (no (unknown) (unknown) Blood Pressure (units (unknown) date) 202/89 H 202/89 H unknown) (unknown) (no (unknown) (unknown) Blood Pressure (units (unknown) date) 210/84 H unknown) (unknown) (no (unknown) (unknown) Blood Pressure (units (unknown) date) 218/93 H 208/93 H unknown) (unknown) (no (unknown) (unknown) CK-MB (CK-2) Rel (units (unknown) date) Index TNP unknown) (unknown) (no (unknown) (unknown) CK-MB (CK-2) Rel (units (unknown) date) Index unknown) (unknown) (no (unknown) (unknown) CK-MB (CK-2) TNP (units (unknown) date) unknown) (unknown) (no (unknown) (unknown) CK-MB (CK-2) (units (u nknown) date) unknown) (unknown) (no (unknown) (unknown) COVID-19 status: (units (unknown) date) Negative unknown) (unknown) (no (unknown) (unknown) COVID-19 (units (unkno wn) date) unknown) (unknown) (no (unknown) (unknown) CV: RRR, no (units (un known) date) murmur or rubs unknown) (unknown) (no (unknown) (unknown) Calcium 9.2 (units (un known) date) unknown) (unknown) (no (unknown) (unknown) Calcium (units (unkno wn) date) unknown) (unknown) (no (unknown) (unknown) Carbon Dioxide 28 (units (unknown) date) unknown) (unknown) (no (unknown) (unknown) Carbon Dioxide (units (unknown) date) unknown) (unknown) (no (unknown) (unknown) Chief complaint: (units (unknown) date) Nausea and HTN unknown) (unknown) (no (unknown) (unknown) Chloride 104 (units (u nknown) date) unknown) (unknown) (no (unknown) (unknown) Chloride (units (unkno wn) date) unknown) (unknown) (no (unknown) (unknown) Code status: full (units (unknown) date) as discussed with unknown) the patient who identifies daughter as her (unknown) (no (unknown) (unknown) Consultants eICU (units (unknown) date) care and unknown) involvement in the patient?s care is appreciated. (unknown) (no (unknown) (unknown) Creatinine 0.74 (units (unknown) date) unknown) (unknown) (no (unknown) (unknown) Creatinine (units (unk nown) date) unknown) (unknown) (no (unknown) (unknown) Critical Care (units ( unknown) date) time: unknown) (unknown) (no (unknown) (unknown) : 1970 (units (unknown) date) Acct:[id number] unknown) (unknown) (no (unknown) (unknown) Date Patient (units (u nknown) date) Seen: 07/18/22 unknown) (unknown) (no (unknown) (unknown) Date of Service: (units (unknown) date) 07/17/22 unknown) (unknown) (no (unknown) (unknown) Nona Guzman is (units (unknown) date) a 51 y.o. female unknown) who with a history of severe and poorly (unknown) (no (unknown) (unknown) Nona Guzman is (units (unknown) date) admitted to ICU unknown) status for a hypertensive urgency. (unknown) (no (unknown) (unknown) Deep Vein (units (unkn own) date) Thrombosis/Pulmona unknown) ry Embolism Present on Admission: No (unknown) (no (unknown) (unknown) Discussion of (units ( unknown) date) results, plan of unknown) care with independent HCP/other ED provider (unknown) (no (unknown) (unknown) Dispo: probable (units (unknown) date) d/c to home unknown) (unknown) (no (unknown) (unknown) Environment (units (un known) date) unknown) (unknown) (no (unknown) (unknown) Eos # (Auto) 100 (units (unknown) date) unknown) (unknown) (no (unknown) (unknown) Eos # (Auto) (units (u nknown) date) unknown) (unknown) (no (unknown) (unknown) Eos % (Auto) 0.7 (units (unknown) date) L unknown) (unknown) (no (unknown) (unknown) Eos % (Auto) (units (u nknown) date) unknown) (unknown) (no (unknown) (unknown) Estimated GFR > (units (unknown) date) 60 unknown) (unknown) (no (unknown) (unknown) Estimated GFR (units ( unknown) date) unknown) (unknown) (no (unknown) (unknown) Exam Narrative: (units (unknown) date) unknown) (unknown) (no (unknown) (unknown) Exam (units (unkno wn) date) unknown) (unknown) (no (unknown) (unknown) Extremities: (units (u nknown) date) moves all 4 unknown) extremities, is ambulatory, negative Garret?s sign (unknown) (no (unknown) (unknown) FACE, (units (unkno wn) date) unknown) (unknown) (no (unknown) (unknown) FEN: IV fluids: (units (unknown) date) saline lock, diet: unknown) heart healthy, labs: CBC, C/BMP, liver (unknown) (no (unknown) (unknown) Family + Social (units (unknown) date) History unknown) (unknown) (no (unknown) (unknown) Feels Safe in (units ( unknown) date) Current Yes unknown) (unknown) (no (unknown) (unknown) Fibromyalgia (units (u nknown) date) unknown) (unknown) (no (unknown) (unknown) Gen: Alert, (units (un known) date) oriented, morbidly unknown) obese 51 y.o. female, NAD (unknown) (no (unknown) (unknown) Globulin 3.1 (units (u nknown) date) unknown) (unknown) (no (unknown) (unknown) Globulin (units (unkno wn) date) unknown) (unknown) (no (unknown) (unknown) Glucose 91 (units (unk nown) date) unknown) (unknown) (no (unknown) (unknown) Glucose (units (unkno wn) date) unknown) (unknown) (no (unknown) (unknown) H/O gastric (units (un known) date) bypass unknown) (unknown) (no (unknown) (unknown) HEENT: (units (unkno wn) date) normocephalic, unknown) atraumatic, conjunctiva clear, sclera non-icteric, oral (unknown) (no (unknown) (unknown) HIVES ALL (units (unkn own) date) unknown) (unknown) (no (unknown) (unknown) Hct 42.1 (units (unkno wn) date) unknown) (unknown) (no (unknown) (unknown) Hct (units (unkno wn) date) unknown) (unknown) (no (unknown) (unknown) Hgb 14.0 (units (unkno wn) date) unknown) (unknown) (no (unknown) (unknown) Hgb (units (unkno wn) date) unknown) (unknown) (no (unknown) (unknown) History + (units (unkn own) date) Physical Report unknown) (unknown) (no (unknown) (unknown) History of (units (unk nown) date) Present Illness unknown) (unknown) (no (unknown) (unknown) History of (units (unk nown) date) prediabetes unknown) (unknown) (no (unknown) (unknown) Home Medications (units (unknown) date) and Allergies unknown) (unknown) (no (unknown) (unknown) Home Medications (units (unknown) date) unknown) (unknown) (no (unknown) (unknown) Hyperlipidemia (units (unknown) date) unknown) (unknown) (no (unknown) (unknown) Hypertension (units (u nknown) date) unknown) (unknown) (no (unknown) (unknown) Hypertensive (units (u nknown) date) urgency, unknown) malignant, acute and present on admission (unknown) (no (unknown) (unknown) I confirm the (units (u nknown) date) patient?s Advance unknown) Care Plan is present, Code status is documented, (unknown) (no (unknown) (unknown) I spent a total (units (unknown) date) of [] minutes of unknown) critical care time on this patient's care (unknown) (no (unknown) (unknown) INR 0.9 (units (unkno wn) date) unknown) (unknown) (no (unknown) (unknown) INR (units (unkno wn) date) unknown) (unknown) (no (unknown) (unknown) In the ED, she (units (unknown) date) was started on a unknown) nifedipine drip, then administered a one time (unknown) (no (unknown) (unknown) [facility] (units (unknown) date) [address] unknown) [place] [address] (unknown) (no (unknown) (unknown) Laboratory (units (unk nown) date) Results - last 24 unknown) hr (unknown) (no (unknown) (unknown) Labs (units (unkno wn) date) unknown) (unknown) (no (unknown) (unknown) Labs: (units (unkno wn) date) unknown) (unknown) (no (unknown) (unknown) Lipase 185 (units (unk nown) date) unknown) (unknown) (no (unknown) (unknown) Lipase (units (unkno wn) date) unknown) (unknown) (no (unknown) (unknown) Lymph # (Auto) (units (unknown) date) 1900 unknown) (unknown) (no (unknown) (unknown) Lymph # (Auto) (units (unknown) date) unknown) (unknown) (no (unknown) (unknown) Lymph % (Auto) (units (unknown) date) 23.2 L unknown) (unknown) (no (unknown) (unknown) Lymph % (Auto) (units (unknown) date) unknown) (unknown) (no (unknown) (unknown) MCH 30.8 (units (unkno wn) date) unknown) (unknown) (no (unknown) (unknown) MCH (units (unkno wn) date) unknown) (unknown) (no (unknown) (unknown) MCHC 33.3 (units (unkn own) date) unknown) (unknown) (no (unknown) (unknown) MCHC (units (unkno wn) date) unknown) (unknown) (no (unknown) (unknown) MCV 92.5 (units (unkno wn) date) unknown) (unknown) (no (unknown) (unknown) MCV (units (unkno wn) date) unknown) (unknown) (no (unknown) (unknown) MIPS - Admit (units (u nknown) date) unknown) (unknown) (no (unknown) (unknown) MIPS - DC (units (unkn own) date) unknown) (unknown) (no (unknown) (unknown) Magnesium 2.0 (units ( unknown) date) unknown) (unknown) (no (unknown) (unknown) Magnesium (units (unkn own) date) unknown) (unknown) (no (unknown) (unknown) Medical History (units (unknown) date) (Reviewed 07/18/22 unknown) @ 00:52 by EDENILSON Amezquita) (unknown) (no (unknown) (unknown) Medication (units (unk nown) date) Instructions unknown) Recorded Confirmed Type (unknown) (no (unknown) (unknown) Meds (units (unkno wn) date) unknown) (unknown) (no (unknown) (unknown) Larue # (Auto) 400 (units (unknown) date) unknown) (unknown) (no (unknown) (unknown) Larue # (Auto) (units ( unknown) date) unknown) (unknown) (no (unknown) (unknown) Larue % (Auto) 5.4 (units (unknown) date) unknown) (unknown) (no (unknown) (unknown) Larue % (Auto) (units ( unknown) date) unknown) (unknown) (no (unknown) (unknown) Narrative (units (unkn own) date) unknown) (unknown) (no (unknown) (unknown) Narrative: (units (unk nown) date) unknown) (unknown) (no (unknown) (unknown) Neck: supple, (units ( unknown) date) full ROM, no JVD, unknown) trachea is midline (unknown) (no (unknown) (unknown) Neuro: Alert and (units (unknown) date) oriented X 4 w/no unknown) focal deficits. Speech clear and coherent. (unknown) (no (unknown) (unknown) Neut # (Auto) (units ( unknown) date) 5700 unknown) (unknown) (no (unknown) (unknown) Neut # (Auto) (units ( unknown) date) unknown) (unknown) (no (unknown) (unknown) Neut % (Auto) (units ( unknown) date) 69.9 unknown) (unknown) (no (unknown) (unknown) Neut % (Auto) (units ( unknown) date) unknown) (unknown) (no (unknown) (unknown) OVER. (units (unkno wn) date) unknown) (unknown) (no (unknown) (unknown) Objective (units (unkn own) date) unknown) (unknown) (no (unknown) (unknown) Other independent (units (unknown) date) historians: none unknown) (unknown) (no (unknown) (unknown) Oxygen Delivery (units (unknown) date) Method Room Air unknown) Room Air (unknown) (no (unknown) (unknown) Oxygen Delivery (units (unknown) date) Method Room Air unknown) (unknown) (no (unknown) (unknown) Oxygen Delivery (units (unknown) date) Method unknown) (unknown) (no (unknown) (unknown) PCR is negative. (units (unknown) date) unknown) (unknown) (no (unknown) (unknown) PT 10.7 (units (unkno wn) date) unknown) (unknown) (no (unknown) (unknown) PT (units (unkno wn) date) unknown) (unknown) (no (unknown) (unknown) Patient History (units (unknown) date) unknown) (unknown) (no (unknown) (unknown) Patient is (units (unk nown) date) admitted to the unknown) inpatient intensive service due to the severity of (unknown) (no (unknown) (unknown) Patient states (units (unknown) date) she uses estrogen unknown) patches, smokes 4 cigarrettes/day and drinks 2 (unknown) (no (unknown) (unknown) Patient: (units (unkno wn) date) Nona Guzman unknown) MR#: [id number] (unknown) (no (unknown) (unknown) Penicillins (units (un known) date) [PENICILLINS] unknown) Allergy Intermediate RASH/ITCHING, Verified 07/17/22 (unknown) (no (unknown) (unknown) Plt Count 229 (units ( unknown) date) unknown) (unknown) (no (unknown) (unknown) Plt Count (units (unkn own) date) unknown) (unknown) (no (unknown) (unknown) Potassium 3.7 (units ( unknown) date) unknown) (unknown) (no (unknown) (unknown) Potassium (units (unkn own) date) unknown) (unknown) (no (unknown) (unknown) Provider: (units (unkn own) date) Clarissa Washington unknown) (unknown) (no (unknown) (unknown) Psyche: normal (units (unknown) date) mood and affect. unknown) (unknown) (no (unknown) (unknown) Pulse Oximetry (units (unknown) date) 100 unknown) (unknown) (no (unknown) (unknown) Pulse Oximetry 94 (units (unknown) date) 94 unknown) (unknown) (no (unknown) (unknown) Pulse Oximetry 94 (units (unknown) date) 95 unknown) (unknown) (no (unknown) (unknown) Pulse Oximetry 94 (units (unknown) date) unknown) (unknown) (no (unknown) (unknown) Pulse Oximetry 95 (units (unknown) date) 94 unknown) (unknown) (no (unknown) (unknown) Pulse Oximetry 95 (units (unknown) date) 97 unknown) (unknown) (no (unknown) (unknown) Pulse Oximetry 95 (units (unknown) date) unknown) (unknown) (no (unknown) (unknown) Pulse Oximetry 96 (units (unknown) date) 94 unknown) (unknown) (no (unknown) (unknown) Pulse Oximetry 96 (units (unknown) date) 96 unknown) (unknown) (no (unknown) (unknown) Pulse Oximetry 96 (units (unknown) date) unknown) (unknown) (no (unknown) (unknown) Pulse Oximetry 97 (units (unknown) date) 97 unknown) (unknown) (no (unknown) (unknown) Pulse Oximetry 97 (units (unknown) date) unknown) (unknown) (no (unknown) (unknown) Pulse Oximetry 98 (units (unknown) date) 98 unknown) (unknown) (no (unknown) (unknown) Pulse Oximetry 98 (units (unknown) date) unknown) (unknown) (no (unknown) (unknown) Pulse Oximetry 99 (units (unknown) date) 95 unknown) (unknown) (no (unknown) (unknown) Pulse Oximetry 99 (units (unknown) date) 99 unknown) (unknown) (no (unknown) (unknown) Pulse Oximetry 99 (units (unknown) date) unknown) (unknown) (no (unknown) (unknown) Pulse Oximetry (units (unknown) date) unknown) (unknown) (no (unknown) (unknown) Pulse Rate 65 (units ( unknown) date) unknown) (unknown) (no (unknown) (unknown) Pulse Rate 67 65 (units (unknown) date) unknown) (unknown) (no (unknown) (unknown) Pulse Rate 67 77 (units (unknown) date) unknown) (unknown) (no (unknown) (unknown) Pulse Rate 68 68 (units (unknown) date) unknown) (unknown) (no (unknown) (unknown) Pulse Rate 70 78 (units (unknown) date) unknown) (unknown) (no (unknown) (unknown) Pulse Rate 71 65 (units (unknown) date) unknown) (unknown) (no (unknown) (unknown) Pulse Rate 71 67 (units (unknown) date) unknown) (unknown) (no (unknown) (unknown) Pulse Rate 72 75 (units (unknown) date) unknown) (unknown) (no (unknown) (unknown) Pulse Rate 76 (units ( unknown) date) unknown) (unknown) (no (unknown) (unknown) Pulse Rate 77 79 (units (unknown) date) unknown) (unknown) (no (unknown) (unknown) Pulse Rate 77 (units ( unknown) date) unknown) (unknown) (no (unknown) (unknown) Pulse Rate 78 87 (units (unknown) date) unknown) (unknown) (no (unknown) (unknown) Pulse Rate 78 (units ( unknown) date) unknown) (unknown) (no (unknown) (unknown) Pulse Rate 79 77 (units (unknown) date) unknown) (unknown) (no (unknown) (unknown) Pulse Rate 79 94 (units (unknown) date) H unknown) (unknown) (no (unknown) (unknown) Pulse Rate 79 (units ( unknown) date) unknown) (unknown) (no (unknown) (unknown) Pulse Rate 80 75 (units (unknown) date) unknown) (unknown) (no (unknown) (unknown) Pulse Rate 84 (units ( unknown) date) unknown) (unknown) (no (unknown) (unknown) Pulse Rate 91 H (units (unknown) date) 83 unknown) (unknown) (no (unknown) (unknown) Pulse Rate (units (unk nown) date) unknown) (unknown) (no (unknown) (unknown) RBC 4.56 (units (unkno wn) date) unknown) (unknown) (no (unknown) (unknown) RBC (units (unkno wn) date) unknown) (unknown) (no (unknown) (unknown) RDW 14.2 (units (unkno wn) date) unknown) (unknown) (no (unknown) (unknown) RDW (units (unkno wn) date) unknown) (unknown) (no (unknown) (unknown) ROS: Yes All (units (u nknown) date) systems reviewed unknown) with the patient and are negative except as (unknown) (no (unknown) (unknown) Resp: Lungs CTA, (units (unknown) date) non-labored unknown) breathing (unknown) (no (unknown) (unknown) Respiratory Rate (units (unknown) date) 14 unknown) (unknown) (no (unknown) (unknown) Respiratory Rate (units (unknown) date) 16 31 H unknown) (unknown) (no (unknown) (unknown) Respiratory Rate (units (unknown) date) 20 17 unknown) (unknown) (no (unknown) (unknown) Respiratory Rate (units (unknown) date) 20 20 unknown) (unknown) (no (unknown) (unknown) Respiratory Rate (units (unknown) date) 20 unknown) (unknown) (no (unknown) (unknown) Respiratory Rate (units (unknown) date) 21 unknown) (unknown) (no (unknown) (unknown) Respiratory Rate (units (unknown) date) 30 H 23 unknown) (unknown) (no (unknown) (unknown) Respiratory Rate (units (unknown) date) 35 H unknown) (unknown) (no (unknown) (unknown) Respiratory Rate (units (unknown) date) unknown) (unknown) (no (unknown) (unknown) Result date/Date (units (unknown) date) tested (Pos, unknown) Neg/Pending): 07/18/22 (unknown) (no (unknown) (unknown) Review of Systems (units (unknown) date) unknown) (unknown) (no (unknown) (unknown) Reviewed outside (units (unknown) date) records: PCP unknown) records (unknown) (no (unknown) (unknown) Risk (units (unkno wn) date) stratification unknown) (unknown) (no (unknown) (unknown) SARS-CoV-2 (PCR) (units (unknown) date) Negative unknown) (unknown) (no (unknown) (unknown) SARS-CoV-2 (PCR) (units (unknown) date) unknown) (unknown) (no (unknown) (unknown) SCDs (units (unkno wn) date) unknown) (unknown) (no (unknown) (unknown) Safety + (units (unkno wn) date) Behavioral: unknown) (unknown) (no (unknown) (unknown) Signed (units (unkno wn) date) By:<Electronically unknown) signed by Clarissa Washington> (unknown) (no (unknown) (unknown) Skin: trace edema (units (unknown) date) bilat. LE. No unknown) lesions or rashes, dry and intact (unknown) (no (unknown) (unknown) Smoking Status (units (unknown) date) Current every day unknown) smoker (unknown) (no (unknown) (unknown) Social (units (unkno wn) date) determinants of unknown) health: compliance, access to rx. (unknown) (no (unknown) (unknown) Sodium 139 (units (unk nown) date) unknown) (unknown) (no (unknown) (unknown) Sodium (units (unkno wn) date) unknown) (unknown) (no (unknown) (unknown) States her (units (unkn own) date) father's side has unknown) had heart disease, he at age 59 of asbestosis, (unknown) (no (unknown) (unknown) Substance Use (units ( unknown) date) Type does not use unknown) (unknown) (no (unknown) (unknown) Surgical History (units (unknown) date) (Reviewed 07/18/22 unknown) @ 00:52 by EDENILSON Amezquita) (unknown) (no (unknown) (unknown) Surrogate (units (unkn own) date) decision maker is unknown) in patient?s record: Yes (unknown) (no (unknown) (unknown) THROAT (units (unkno wn) date) unknown) (unknown) (no (unknown) (unknown) TROUBLE (units (unkno wn) date) unknown) (unknown) (no (unknown) (unknown) TTE reveals HOCM. (units (unknown) date) BP much improved, unknown) admitted to regular floor. Will continue to (unknown) (no (unknown) (unknown) Temperature 97.6 (units (unknown) date) F unknown) (unknown) (no (unknown) (unknown) Temperature (units (un known) date) unknown) (unknown) (no (unknown) (unknown) The patient has (units (unknown) date) current or prior unknown) documentation of left ventricular ejection (unknown) (no (unknown) (unknown) Threatened By a (units (unknown) date) Person unknown) (unknown) (no (unknown) (unknown) Time Patient (units (u nknown) date) Seen: 00:35 unknown) (unknown) (no (unknown) (unknown) Time Spent With (units (unknown) date) Patient unknown) (unknown) (no (unknown) (unknown) Tobacco + (units (unkn own) date) Substance use: unknown) (unknown) (no (unknown) (unknown) Total Bilirubin (units (unknown) date) 0.7 unknown) (unknown) (no (unknown) (unknown) Total Bilirubin (units (unknown) date) unknown) (unknown) (no (unknown) (unknown) Total Creatine (units (unknown) date) Kinase 35 unknown) (unknown) (no (unknown) (unknown) Total Creatine (units (unknown) date) Kinase unknown) (unknown) (no (unknown) (unknown) Total Protein 7.2 (units (unknown) date) unknown) (unknown) (no (unknown) (unknown) Total Protein (units ( unknown) date) unknown) (unknown) (no (unknown) (unknown) Total cholesterol (units (unknown) date) is 225, LDL 115 unknown) and triglycerides 105 HDL 89. She is ordered (unknown) (no (unknown) (unknown) Troponin I < (units (u nknown) date) 0.012 unknown) (unknown) (no (unknown) (unknown) VTE Prophylaxis: (units (unknown) date) Wells risk score 1 unknown) Enoxaparin 40 mg subQ once daily Bilateral (unknown) (no (unknown) (unknown) VTE (units (unkno wn) date) unknown) (unknown) (no (unknown) (unknown) Vital Signs (units (un known) date) unknown) (unknown) (no (unknown) (unknown) WBC 8.1 (units (unkno wn) date) unknown) (unknown) (no (unknown) (unknown) WBC (units (unkno wn) date) unknown) (unknown) (no (unknown) (unknown) When the pandemic (units (unknown) date) hit, she states unknown) she put most of the weight back on due to (unknown) (no (unknown) (unknown) [DIPHENHYDRAMINE] (units (unknown) date) unknown) (unknown) (no (unknown) (unknown) [Embedded Image (units (unknown) date) Not Available] unknown) (unknown) (no (unknown) (unknown) [MAGNESIUM (units (unk nown) date) CITRATE] unknown) (unknown) (no (unknown) (unknown) [X] I have (units (unk nown) date) utilized all unknown) available immediate resources to obtain, update, or (unknown) (no (unknown) (unknown) abdominal and (units ( unknown) date) back cramping and unknown) bilateral leg pain. She states she has backed (unknown) (no (unknown) (unknown) alcohol intake (units (unknown) date) frequency 0-2 unknown) drinks per day (unknown) (no (unknown) (unknown) amoxicillin (units (un known) date) [AMOXICILLIN] unknown) Allergy Severe SWELLING Verified 07/17/22 18:24 (unknown) (no (unknown) (unknown) as 218/93. (units (unk nown) date) Currently her unknown) blood pressure is 126/64 she is afebrile heart rate 78 (unknown) (no (unknown) (unknown) blood pressure (units (unknown) date) and found it to be unknown) in the in the 220/120 range.? She did have a (unknown) (no (unknown) (unknown) carvedilol 12.5 (units (unknown) date) mg tablet 12.5 mg unknown) PO BID #60 tabs 07/17/22 Rx (unknown) (no (unknown) (unknown) carvedilol 6.25 (units (unknown) date) mg tablet 6.25 mg unknown) PO BID #180 tabs 05/14/22 06/04/22 Rx (unknown) (no (unknown) (unknown) company. (units (unkno wn) date) unknown) (unknown) (no (unknown) (unknown) complaints in (units ( unknown) date) February of last unknown) year with headache, blurred vision and chest (unknown) (no (unknown) (unknown) controlled (units (unk nown) date) hypertension unknown) presented to the ED with significantly elevated blood (unknown) (no (unknown) (unknown) diphenhydramine (units (unknown) date) Allergy Mild unknown) SWELLING. Verified 07/17/22 18:24 (unknown) (no (unknown) (unknown) disease, cardiac (units (unknown) date) drips and close unknown) monitoring, risks of further disease (unknown) (no (unknown) (unknown) dose of (units (unkno wn) date) amlopdipine 5 mg. unknown) Imaging studies ruled out any acute cardiopulmonary (unknown) (no (unknown) (unknown) enzymes, Mag, (units ( unknown) date) PT/INR unknown) (unknown) (no (unknown) (unknown) estradiol 0.1 (units ( unknown) date) mg/24 hr weekly unknown) 0.1 mg topical QWEEK #4 ea 06/04/22 06/04/22 Rx (unknown) (no (unknown) (unknown) for atorvastatin (units (unknown) date) 40 mg po starting unknown) tonight. (unknown) (no (unknown) (unknown) fraction (LVEF) (units (unknown) date) less than 40%, or unknown) moderate or severely depressed left (unknown) (no (unknown) (unknown) glasses of (units (unk nown) date) wine/day. 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 She had similar (unknown) (no (unknown) (unknown) ideally beta (units (un known) date) nellie titrated unknown) to resting rate below 70. Coreg has been increased (unknown) (no (unknown) (unknown) latex [LATEX] (units ( unknown) date) Allergy Mild RASH unknown) Verified 07/17/22 18:24 (unknown) (no (unknown) (unknown) losartan 100 1 (units (unknown) date) tab PO DAILY #30 unknown) tabs 06/03/22 06/04/22 Rx (unknown) (no (unknown) (unknown) magnesium citrate (units (unknown) date) AdvReac Unknown unknown) VOMITING Verified 07/17/22 18:24 (unknown) (no (unknown) (unknown) medications had (units (unknown) date) been doubled, but unknown) that the EMT said he was concerned because he (unknown) (no (unknown) (unknown) mg-hydrochlorothi (units (unknown) date) azide 25 mg tablet unknown) (unknown) (no (unknown) (unknown) monitor BP (units (unk nown) date) overnight. unknown) Discussed with cardiology and recommended BP control, (unknown) (no (unknown) (unknown) mother age (units (unknown) date) 57 of alcohol unknown) abuse. (unknown) (no (unknown) (unknown) mucosa pink and (units (unknown) date) moist unknown) (unknown) (no (unknown) (unknown) negative. (units (unkn own) date) Presenting blood unknown) pressure in the ED was 202/89 and trended up as high (unknown) (no (unknown) (unknown) of room/staff (units ( unknown) date) availability., She unknown) will likely become floor status by the am. (unknown) (no (unknown) (unknown) off on exersize (units (unknown) date) because she gets unknown) very short of breath. States she does get dizzy (unknown) (no (unknown) (unknown) otherwise (units (unkn own) date) documented unknown) (unknown) (no (unknown) (unknown) outpatient follow (units (unknown) date) up with unknown) caridology. (unknown) (no (unknown) (unknown) pain lasting from (units (unknown) date) 30-45 seconds. She unknown) endorses having nausea and vomiting, (unknown) (no (unknown) (unknown) pressure.? She (units (unknown) date) was having a tele unknown) video appointment with her primary care doctor (unknown) (no (unknown) (unknown) process, ruled (units (unknown) date) out PE, head CT unknown) was negative for CVA or injury, chest x-ray was (unknown) (no (unknown) (unknown) progression and (units (unknown) date) this stay is unknown) expected to exceed 2 midnights. (unknown) (no (unknown) (unknown) respiratory rate (units (unknown) date) 21 oxygen unknown) saturation of 94% on room air she weighs 106.14 kg (unknown) (no (unknown) (unknown) review of the (units ( unknown) date) patient's current unknown) medications (unknown) (no (unknown) (unknown) surrogate and (units ( unknown) date) POA. unknown) (unknown) (no (unknown) (unknown) thought her heart (units (unknown) date) rate was low and unknown) may be lowered. (unknown) (no (unknown) (unknown) to 12.5 mg BID. (units (unknown) date) Most recent BP unknown) 127/70. Trops negative, ACS ruled out. Will need (unknown) (no (unknown) (unknown) to discuss her (units (unknown) date) hypertension and unknown) during that consultation she checked her home (unknown) (no (unknown) (unknown) to the point of (units (unknown) date) severe vertigo. unknown) She a a gastric bypass in 2016 and lost about (unknown) (no (unknown) (unknown) today; this time (units (unknown) date) is exclusive of unknown) procedural time. (unknown) (no (unknown) (unknown) transdermal patch (units (unknown) date) unknown) (unknown) (no (unknown) (unknown) ventricular (units (un known) date) systolic unknown) function.: No (unknown) (no (unknown) (unknown) with a BMI of (units ( unknown) date) 40.2. CBC is unknown) unremarkable, chemistry is unremarkable and COVID-19 (unknown) (no (unknown) (unknown) working at home (units (unknown) date) and not being able unknown) to exercise. She states one of her bp Result panel 538 (unknown) (no (unknown) (unknown) (no value) (units (unk nown) date) unknown) (unknown) (no (unknown) (unknown) <Electronically (units (unknown) date) signed by Marycruz Bear unknown) MD Julio> (unknown) (no (unknown) (unknown) [id number] (units (unkno wn) date) unknown) (unknown) (no (unknown) (unknown) 07/17/22 07/17/22 (units (unknown) date) 07/17/22 Range/Units unknown) (unknown) (no (unknown) (unknown) 07/17/22 18:49 (units (unknown) date) unknown) (unknown) (no (unknown) (unknown) 07/17/22 (units (unkno wn) date) unknown) (unknown) (no (unknown) (unknown) 07/19/22 0018 (units ( unknown) date) unknown) (unknown) (no (unknown) (unknown) 10pm imaging studies (uni ts (unknown) date) do not show acute unknown) abnormalities. She was inadvertently (unknown) (no (unknown) (unknown) 18:20 07/17/22 (units (unknown) date) unknown) (unknown) (no (unknown) (unknown) 18:38 (units (unkno wn) date) unknown) (unknown) (no (unknown) (unknown) 18:43 07/17/22 (units (unknown) date) unknown) (unknown) (no (unknown) (unknown) 18:49 07/17/22 (units (unknown) date) unknown) (unknown) (no (unknown) (unknown) 18:49 18:49 18:49 (units (unknown) date) unknown) (unknown) (no (unknown) (unknown) 19:00 07/17/22 (units (unknown) date) unknown) (unknown) (no (unknown) (unknown) 19:00 (units (unkno wn) date) unknown) (unknown) (no (unknown) (unknown) 19:09 07/17/22 (units (unknown) date) unknown) (unknown) (no (unknown) (unknown) 19:09 (units (unkno wn) date) unknown) (unknown) (no (unknown) (unknown) 19:30 07/17/22 (units (unknown) date) unknown) (unknown) (no (unknown) (unknown) 19:35 07/17/22 (units (unknown) date) unknown) (unknown) (no (unknown) (unknown) 19:35 (units (unkno wn) date) unknown) (unknown) (no (unknown) (unknown) 19:40 07/17/22 (units (unknown) date) unknown) (unknown) (no (unknown) (unknown) 19:50 07/17/22 (units (unknown) date) unknown) (unknown) (no (unknown) (unknown) 19:50 (units (unkno wn) date) unknown) (unknown) (no (unknown) (unknown) 20:00 07/17/22 (units (unknown) date) unknown) (unknown) (no (unknown) (unknown) 20:00 (units (unkno wn) date) unknown) (unknown) (no (unknown) (unknown) 20:10 07/17/22 (units (unknown) date) unknown) (unknown) (no (unknown) (unknown) 20:20 (units (unkno wn) date) unknown) (unknown) (no (unknown) (unknown) 242-260 systolic (units (unknown) date) range and 110-140 unknown) diastolic range. (unknown) (no (unknown) (unknown) 260/140 she was (units (unknown) date) started on a unknown) nicardipine drip with excellent response. It did (unknown) (no (unknown) (unknown) 51-year-old woman (units (unknown) date) with a history of unknown) severe and poorly controlled hypertension (unknown) (no (unknown) (unknown) 8pm blood pressures (unit s (unknown) date) come down nicely with unknown) nicardipine drip currently at 157/68 (unknown) (no (unknown) (unknown) ALT 30 (<35) IU/L (units (unknown) date) unknown) (unknown) (no (unknown) (unknown) APTT 32 (26-36) (units (unknown) date) SECONDS unknown) (unknown) (no (unknown) (unknown) AST 24 (14-36) IU/L (unit s (unknown) date) unknown) (unknown) (no (unknown) (unknown) Abdomen: Soft, (units (unknown) date) nontender, good bowel unknown) tones, no flank pain (unknown) (no (unknown) (unknown) Acetaminophen (units ( unknown) date) (Acetaminophen 325 Mg unknown) Tablet) 650 mg PO Q6H PRN (unknown) (no (unknown) (unknown) Acetaminophen (units ( unknown) date) (Acetaminophen 325 Mg unknown) Tablet) 975 mg PO NOW ONE (unknown) (no (unknown) (unknown) Admin: 07/17/22 (units (unknown) date) 19:09 Dose: 5 mg/hr, unknown) 50 mls/hr (unknown) (no (unknown) (unknown) Admin: 07/18/22 (units (unknown) date) 01:11 Dose: 5 mg/hr, unknown) 50 mls/hr (unknown) (no (unknown) (unknown) Admin: 07/18/22 (units (unknown) date) 06:07 Dose: 5 mg/hr, unknown) 50 mls/hr (unknown) (no (unknown) (unknown) Admin: 07/18/22 (units (unknown) date) 08:36 Dose: 12.5 mg unknown) (unknown) (no (unknown) (unknown) Admit Date/Time: (units (unknown) date) 07/17/22 22:04 unknown) (unknown) (no (unknown) (unknown) Admit Provider: (units (unknown) date) Clarissa Washington unknown) (unknown) (no (unknown) (unknown) Age/Sex: 51 / F (units (unknown) date) unknown) (unknown) (no (unknown) (unknown) Albumin 4.1 (units (un known) date) (3.5-5.0) g/dL unknown) (unknown) (no (unknown) (unknown) Albumin/Globulin (units (unknown) date) Ratio 1.3 (1.0-2.8) unknown) (unknown) (no (unknown) (unknown) Alkaline Phosphatase (uni ts (unknown) date) 100 (38-126) U/L unknown) (unknown) (no (unknown) (unknown) Allergies (units (unkn own) date) unknown) (unknown) (no (unknown) (unknown) Allergy/AdvReac Type (uni ts (unknown) date) Severity Reaction unknown) Status Date / Time (unknown) (no (unknown) (unknown) Amlodipine Besylate (unit s (unknown) date) (Amlodipine 5 Mg unknown) Tablet) 5 mg PO NOW ONE (unknown) (no (unknown) (unknown) Atorvastatin Calcium (uni ts (unknown) date) (Atorvastatin 20 Mg unknown) Tablet) 40 mg PO BEDTIME SHANA (unknown) (no (unknown) (unknown) Attestation: (units (u nknown) date) unknown) (unknown) (no (unknown) (unknown) BREATHING. (units (unk nown) date) unknown) (unknown) (no (unknown) (unknown) BUN 19 H (7-17) (units (unknown) date) mg/dL unknown) (unknown) (no (unknown) (unknown) BUN/Creatinine Ratio (uni ts (unknown) date) 25.7 H (6-22) unknown) (unknown) (no (unknown) (unknown) Baso # (Auto) 100 (units (unknown) date) (0-100) /uL unknown) (unknown) (no (unknown) (unknown) Baso % (Auto) 0.8 (units (unknown) date) (0-2) % unknown) (unknown) (no (unknown) (unknown) Blood Pressure (units (unknown) date) 154/70 H 150/68 H unknown) (unknown) (no (unknown) (unknown) Blood Pressure (units (unknown) date) 157/68 H 155/68 H unknown) (unknown) (no (unknown) (unknown) Blood Pressure (units (unknown) date) 175/56 H unknown) (unknown) (no (unknown) (unknown) Blood Pressure (units (unknown) date) 202/79 H unknown) (unknown) (no (unknown) (unknown) Blood Pressure (units (unknown) date) 202/89 H 07/17/22 unknown) 18:20 (unknown) (no (unknown) (unknown) Blood Pressure (units (unknown) date) 202/89 H 202/89 H unknown) (unknown) (no (unknown) (unknown) Blood Pressure (units (unknown) date) 210/84 H unknown) (unknown) (no (unknown) (unknown) Blood Pressure (units (unknown) date) 218/93 H 208/93 H unknown) (unknown) (no (unknown) (unknown) Blood Pressure (units (unknown) date) unknown) (unknown) (no (unknown) (unknown) CC: Hypertensive (units (unknown) date) crisis with headache unknown) and chest pain. New diagnosis, uncertain (unknown) (no (unknown) (unknown) CK-MB (CK-2) Rel (units (unknown) date) Index TNP unknown) (unknown) (no (unknown) (unknown) CK-MB (CK-2) TNP (units (unknown) date) unknown) (unknown) (no (unknown) (unknown) CT angiogram of the (unit s (unknown) date) chest abdomen and unknown) pelvis does not show dissection or other (unknown) (no (unknown) (unknown) Calcium 9.2 (units (un known) date) (8.4-10.2) mg/dL unknown) (unknown) (no (unknown) (unknown) Carbon Dioxide 28 (units (unknown) date) (22-32) mmol/L unknown) (unknown) (no (unknown) (unknown) Cardiac: Regular (units (unknown) date) rate and rhythm no unknown) murmurs no bruits (unknown) (no (unknown) (unknown) Carvedilol (units (unk nown) date) (Carvedilol 12.5 Mg unknown) Tablet) 12.5 mg PO BID SHANA (unknown) (no (unknown) (unknown) Chest pain type: (units (unknown) date) unspecified Qualified unknown) Code(s): R07.9 - Chest pain, unspecified (unknown) (no (unknown) (unknown) Chest pain (units (unk nown) date) unknown) (unknown) (no (unknown) (unknown) Chief complaint: (units (unknown) date) Hypertension unknown) (unknown) (no (unknown) (unknown) Chloride 104 (units (u nknown) date) (98-107) mmol/L unknown) (unknown) (no (unknown) (unknown) Clinical Impression: (uni ts (unknown) date) unknown) (unknown) (no (unknown) (unknown) Complicating (units (u nknown) date) co-morbidities: unknown) Baseline hypertension poorly controlled with (unknown) (no (unknown) (unknown) Consultations: Night (uni ts (unknown) date) [facility] hospitalist, unknown) accepts admit (unknown) (no (unknown) (unknown) Corroborating data: (unit s (unknown) date) unknown) (unknown) (no (unknown) (unknown) Course (units (unkno wn) date) unknown) (unknown) (no (unknown) (unknown) Creatinine 0.74 (units (unknown) date) (0.52-1.04) mg/dL unknown) (unknown) (no (unknown) (unknown) Critical Care Time (units (unknown) date) unknown) (unknown) (no (unknown) (unknown) Critical Care Time: (unit s (unknown) date) Yes unknown) (unknown) (no (unknown) (unknown) Critical care time (units (unknown) date) is separate from unknown) other billable procedures. There is a high (unknown) (no (unknown) (unknown) : 1970 (units (unknown) date) Acct:[id number] unknown) (unknown) (no (unknown) (unknown) Data collected from: (uni ts (unknown) date) patient, unknown) (unknown) (no (unknown) (unknown) Date of Service: (units (unknown) date) 07/17/22 unknown) (unknown) (no (unknown) (unknown) Departure (units (unkn own) date) unknown) (unknown) (no (unknown) (unknown) Differential (units (u nknown) date) considered: unknown) Hypertensive emergency, intracranial hemorrhage, (unknown) (no (unknown) (unknown) Discharge Plan (units (unknown) date) unknown) (unknown) (no (unknown) (unknown) Discontinued (units (u nknown) date) Medications unknown) (unknown) (no (unknown) (unknown) Discussion: (units (un known) date) 51-year-old woman unknown) with dramatically elevated blood pressure witn (unknown) (no (unknown) (unknown) Documented By: CLL (units (unknown) date) unknown) (unknown) (no (unknown) (unknown) Documented By: CTS (units (unknown) date) unknown) (unknown) (no (unknown) (unknown) Documented By: GC (units (unknown) date) unknown) (unknown) (no (unknown) (unknown) Documented By: KB (units (unknown) date) unknown) (unknown) (no (unknown) (unknown) Documented By: KB(2) (uni ts (unknown) date) unknown) (unknown) (no (unknown) (unknown) Documented By: MS (units (unknown) date) unknown) (unknown) (no (unknown) (unknown) ECG Data (units (unkno wn) date) unknown) (unknown) (no (unknown) (unknown) ER Physician: (units ( unknown) date) Marycruz Kim MD unknown) (unknown) (no (unknown) (unknown) Emergency Report (units (unknown) date) unknown) (unknown) (no (unknown) (unknown) Enoxaparin Sodium (units (unknown) date) (Enoxaparin 40 Mg/0.4 unknown) Ml Syringe) 40 mg SUBCUT BID SHANA (unknown) (no (unknown) (unknown) Enoxaparin Sodium (units (unknown) date) (Enoxaparin 40 Mg/0.4 unknown) Ml Syringe) 40 mg SUBCUT DAILY SHANA (unknown) (no (unknown) (unknown) Eos # (Auto) 100 (units (unknown) date) (0-450) /uL unknown) (unknown) (no (unknown) (unknown) Eos % (Auto) 0.7 L (units (unknown) date) (2-4) % unknown) (unknown) (no (unknown) (unknown) Estimated GFR > 60 (units (unknown) date) (>60) mL/min unknown) (unknown) (no (unknown) (unknown) Exam documented (units (unknown) date) above, pertinent unknown) findings include: Alert and appropriate, (unknown) (no (unknown) (unknown) Exam (units (unkno wn) date) unknown) (unknown) (no (unknown) (unknown) Extremities: No (units (unknown) date) trauma, well perfused unknown) (unknown) (no (unknown) (unknown) FACE, (units (unkno wn) date) unknown) (unknown) (no (unknown) (unknown) Fibromyalgia (units (u nknown) date) unknown) (unknown) (no (unknown) (unknown) Full and symmetrical (uni ts (unknown) date) air movement unknown) (unknown) (no (unknown) (unknown) General (units (unkno wn) date) unknown) (unknown) (no (unknown) (unknown) General: Healthy (units (unknown) date) appearing, in mild unknown) distress secondary to headache and chest (unknown) (no (unknown) (unknown) Globulin 3.1 (units (u nknown) date) (1.7-4.1) g/dL unknown) (unknown) (no (unknown) (unknown) Glucose 91 (70-100) (unit s (unknown) date) mg/dL unknown) (unknown) (no (unknown) (unknown) H/O gastric bypass (units (unknown) date) unknown) (unknown) (no (unknown) (unknown) HEENT: Moist mucous (unit s (unknown) date) membranes, normal unknown) sclera with reactive pupils, (unknown) (no (unknown) (unknown) HIVES ALL (units (unkn own) date) unknown) (unknown) (no (unknown) (unknown) HPI - General Adult (unit s (unknown) date) unknown) (unknown) (no (unknown) (unknown) HPI narrative: (units (unknown) date) unknown) (unknown) (no (unknown) (unknown) Hct 42.1 (36-46) % (units (unknown) date) unknown) (unknown) (no (unknown) (unknown) Headache type: (units (unknown) date) unspecified Headache unknown) chronicity pattern: acute headache (unknown) (no (unknown) (unknown) Headache (units (unkno wn) date) unknown) (unknown) (no (unknown) (unknown) Hgb 14.0 (12.0-16.0) (uni ts (unknown) date) g/dL unknown) (unknown) (no (unknown) (unknown) History of Present (units (unknown) date) Illness unknown) (unknown) (no (unknown) (unknown) History of (units (unk nown) date) prediabetes unknown) (unknown) (no (unknown) (unknown) Home Medications (units (unknown) date) unknown) (unknown) (no (unknown) (unknown) Hydrochlorothiazide (unit s (unknown) date) (Hydrochlorothiazide unknown) 25 Mg Tablet) 25 mg PO DAILY SHANA (unknown) (no (unknown) (unknown) Hydromorphone HCl (units (unknown) date) (Hydromorphone 0.5 Mg unknown) Inj) 0.5 mg IV Q15MIN PRN (unknown) (no (unknown) (unknown) Hydroxyzine Pamoate (unit s (unknown) date) (Hydroxyzine Pamoate unknown) 25 Mg Capsule) 25 mg PO Q6HR PRN (unknown) (no (unknown) (unknown) Hypertension (units (u nknown) date) unknown) (unknown) (no (unknown) (unknown) Hypertensive crisis (unit s (unknown) date) unknown) (unknown) (no (unknown) (unknown) INR 0.9 (0.9-1.3) (units (unknown) date) unknown) (unknown) (no (unknown) (unknown) Imaging studies (units (unknown) date) independently unknown) reviewed: CT head does not show any acute bleeds. (unknown) (no (unknown) (unknown) Independently (units ( unknown) date) reviewed EKG as above unknown) (unknown) (no (unknown) (unknown) Initial Vital Signs (unit s (unknown) date) unknown) (unknown) (no (unknown) (unknown) Initial Vital Signs: (uni ts (unknown) date) unknown) (unknown) (no (unknown) (unknown) Interpretation: (units (unknown) date) unknown) (unknown) (no (unknown) (unknown) Intractability: not (units (unknown) date) intractable Qualified unknown) Code(s): R51.9 - Headache, unspecified (unknown) (no (unknown) (unknown) [facility] [address] (uni ts (unknown) date) [address] unknown) [place] [id number] (unknown) (no (unknown) (unknown) Lab Data (units (unkno wn) date) unknown) (unknown) (no (unknown) (unknown) Lab Results (units (un known) date) unknown) (unknown) (no (unknown) (unknown) Lab Test results (units (unknown) date) independently unknown) reviewed as above. Pertinent findings: (unknown) (no (unknown) (unknown) Labs: (units (unkno wn) date) unknown) (unknown) (no (unknown) (unknown) Last Admin: 07/17/22 (uni ts (unknown) date) 18:43 Dose: 4 mg unknown) (unknown) (no (unknown) (unknown) Last Admin: 07/17/22 (uni ts (unknown) date) 18:43 Dose: 50 mg unknown) (unknown) (no (unknown) (unknown) Last Admin: 07/17/22 (uni ts (unknown) date) 18:43 Dose: 975 mg unknown) (unknown) (no (unknown) (unknown) Last Admin: 07/17/22 (uni ts (unknown) date) 21:26 Dose: 0.5 mg unknown) (unknown) (no (unknown) (unknown) Last Admin: 07/17/22 (uni ts (unknown) date) 22:05 Dose: 5 mg unknown) (unknown) (no (unknown) (unknown) Last Admin: 07/18/22 (uni ts (unknown) date) 01:13 Dose: 2 mg unknown) (unknown) (no (unknown) (unknown) Last Admin: 07/18/22 (uni ts (unknown) date) 01:43 Dose: 4 mg unknown) (unknown) (no (unknown) (unknown) Last Admin: 07/18/22 (uni ts (unknown) date) 08:35 Dose: 100 mg unknown) (unknown) (no (unknown) (unknown) Last Admin: 07/18/22 (uni ts (unknown) date) 08:35 Dose: 40 mg unknown) (unknown) (no (unknown) (unknown) Last Admin: 07/18/22 (uni ts (unknown) date) 08:36 Dose: 25 mg unknown) (unknown) (no (unknown) (unknown) Last Admin: 07/18/22 (uni ts (unknown) date) 13:38 Dose: 40 meq unknown) (unknown) (no (unknown) (unknown) Last Admin: 07/18/22 (uni ts (unknown) date) 13:40 Dose: 650 mg unknown) (unknown) (no (unknown) (unknown) Last Admin: 07/18/22 (uni ts (unknown) date) 20:54 Dose: 12.5 mg unknown) (unknown) (no (unknown) (unknown) Last Admin: 07/18/22 (uni ts (unknown) date) 20:54 Dose: 40 mg unknown) (unknown) (no (unknown) (unknown) Last Titration: (units (unknown) date) 07/18/22 10:53 Dose: unknown) 0 mg/hr, 0 mls/hr (unknown) (no (unknown) (unknown) Lipase 185 (23-300) (unit s (unknown) date) U/L unknown) (unknown) (no (unknown) (unknown) Losartan Potassium (units (unknown) date) (Losartan 50 Mg unknown) Tablet) 100 mg PO DAILY SHANA (unknown) (no (unknown) (unknown) Losartan Potassium (units (unknown) date) (Losartan 50 Mg unknown) Tablet) 50 mg PO NOW ONE (unknown) (no (unknown) (unknown) Lymph # (Auto) 1900 (unit s (unknown) date) (2021-8413) /uL unknown) (unknown) (no (unknown) (unknown) Lymph % (Auto) 23.2 (unit s (unknown) date) L (25-40) % unknown) (unknown) (no (unknown) (unknown) MCH 30.8 (26-34) PG (unit s (unknown) date) unknown) (unknown) (no (unknown) (unknown) MCHC 33.3 (30-36) % (unit s (unknown) date) unknown) (unknown) (no (unknown) (unknown) MCV 92.5 (80-100) fL (uni ts (unknown) date) unknown) (unknown) (no (unknown) (unknown) MDM Narrative (units ( unknown) date) unknown) (unknown) (no (unknown) (unknown) Magnesium 2.0 (units ( unknown) date) (1.6-2.3) mg/dL unknown) (unknown) (no (unknown) (unknown) Medical Decision (units (unknown) date) Making unknown) (unknown) (no (unknown) (unknown) Medical History (units (unknown) date) (Reviewed 07/18/22 @ unknown) 00:52 by EDENILSON Amezquita) (unknown) (no (unknown) (unknown) Medical decision (units (unknown) date) making narrative: unknown) (unknown) (no (unknown) (unknown) Medical records (units (unknown) date) reviewed: Primary unknown) care notes, today her carvedilol which had (unknown) (no (unknown) (unknown) Medication (units (unk nown) date) Instructions Recorded unknown) Confirmed (unknown) (no (unknown) (unknown) Medication (units (unk nown) date) Instructions Recorded unknown) (unknown) (no (unknown) (unknown) Mode of arrival: EMS (uni ts (unknown) date) unknown) (unknown) (no (unknown) (unknown) Larue # (Auto) 400 (units (unknown) date) (0-900) /uL unknown) (unknown) (no (unknown) (unknown) Larue % (Auto) 5.4 (units (unknown) date) (3-14) % unknown) (unknown) (no (unknown) (unknown) Morphine Sulfate (units (unknown) date) (Morphine 2 Mg/Ml unknown) Inj) 2 mg IV Q4HR PRN (unknown) (no (unknown) (unknown) Naloxone HCl (units (u nknown) date) (Naloxone 0.4 Mg/Ml unknown) Vial) 0.2 mg IV Q2MIN PRN (unknown) (no (unknown) (unknown) Narrative: (units (unk nown) date) unknown) (unknown) (no (unknown) (unknown) Neck: No JVD, supple (uni ts (unknown) date) unknown) (unknown) (no (unknown) (unknown) Neurologic: Grossly (unit s (unknown) date) neurologically intact unknown) with no obvious asymmetries or (unknown) (no (unknown) (unknown) Neut # (Auto) 5700 (units (unknown) date) (3903-7338) /uL unknown) (unknown) (no (unknown) (unknown) Neut % (Auto) 69.9 (units (unknown) date) (50-75) % unknown) (unknown) (no (unknown) (unknown) Nicardipine HCl 25 (units (unknown) date) mg/ Sodium (Chloride) unknown) 250 mls @ 50 mls/hr IV TITRATE SHANA; (unknown) (no (unknown) (unknown) Nitroglycerin (units ( unknown) date) (Nitroglycerin 0.4 Mg unknown) Sl Tab) 0.4 mg SL [id number] PRN (unknown) (no (unknown) (unknown) No acute ischemic (units (unknown) date) changes unknown) (unknown) (no (unknown) (unknown) Normal intervals, (units (unknown) date) normal axis unknown) (unknown) (no (unknown) (unknown) OVER. (units (unkno wn) date) unknown) (unknown) (no (unknown) (unknown) Ondansetron HCl (units (unknown) date) (Ondansetron 4 Mg/2 unknown) Ml Inj) 4 mg IV NOW ONE (unknown) (no (unknown) (unknown) Ondansetron HCl (units (unknown) date) (Ondansetron 4 Mg/2 unknown) Ml Inj) 4 mg IV Q6HR PRN (unknown) (no (unknown) (unknown) Ordered: (units (unkno wn) date) unknown) (unknown) (no (unknown) (unknown) Orders (units (unkno wn) date) unknown) (unknown) (no (unknown) (unknown) Oxygen Delivery (units (unknown) date) Method 07/17/22 18:20 unknown) (unknown) (no (unknown) (unknown) Oxygen Delivery (units (unknown) date) Method Room Air unknown) (unknown) (no (unknown) (unknown) Oxygen Delivery (units (unknown) date) Method unknown) (unknown) (no (unknown) (unknown) PRN Reason: Chest (units (unknown) date) Pain unknown) (unknown) (no (unknown) (unknown) PRN Reason: (units (un known) date) Fever/Mild Pain (1-3) unknown) (unknown) (no (unknown) (unknown) PRN Reason: Nausea (units (unknown) date) And Vomiting unknown) (unknown) (no (unknown) (unknown) PRN Reason: Nausea (units (unknown) date) unknown) (unknown) (no (unknown) (unknown) PRN Reason: Opiate (units (unknown) date) Reversal unknown) (unknown) (no (unknown) (unknown) PRN Reason: Pain, (units (unknown) date) Severe (7-10) unknown) (unknown) (no (unknown) (unknown) PRN Reason: Pain, (units (unknown) date) unknown) (unknown) (no (unknown) (unknown) PT 10.7 (10.1-12.7) (unit s (unknown) date) SECONDS unknown) (unknown) (no (unknown) (unknown) Patient Disposition: (uni ts (unknown) date) Admitted as unknown) Observation (unknown) (no (unknown) (unknown) Patient History (units (unknown) date) unknown) (unknown) (no (unknown) (unknown) Patient: (units (unkno wn) date) Nona Guzman MR#: unknown) M0 (unknown) (no (unknown) (unknown) Penicillins (units (un known) date) [PENICILLINS] Allergy unknown) Severe RASH/ITCHING, Verified 07/18/22 09:39 (unknown) (no (unknown) (unknown) Plt Count 229 (units ( unknown) date) (150-400) X103/uL unknown) (unknown) (no (unknown) (unknown) Potassium 3.7 (units ( unknown) date) (3.4-5.1) mmol/L unknown) (unknown) (no (unknown) (unknown) Potassium Chloride (units (unknown) date) (Potassium Chloride unknown) 20 Meq Tab) 40 meq PO NOW ONE (unknown) (no (unknown) (unknown) Previous Rx's (units ( unknown) date) unknown) (unknown) (no (unknown) (unknown) Protocol (units (unkno wn) date) unknown) (unknown) (no (unknown) (unknown) Psych: Cooperative, (unit s (unknown) date) appropriate insight unknown) and affect (unknown) (no (unknown) (unknown) Pulse Oximetry 100 (units (unknown) date) unknown) (unknown) (no (unknown) (unknown) Pulse Oximetry 95 (units (unknown) date) unknown) (unknown) (no (unknown) (unknown) Pulse Oximetry 96 96 (uni ts (unknown) date) unknown) (unknown) (no (unknown) (unknown) Pulse Oximetry 96 (units (unknown) date) unknown) (unknown) (no (unknown) (unknown) Pulse Oximetry 98 98 (uni ts (unknown) date) unknown) (unknown) (no (unknown) (unknown) Pulse Oximetry 99 (units (unknown) date) 07/17/22 18:20 unknown) (unknown) (no (unknown) (unknown) Pulse Oximetry 99 99 (uni ts (unknown) date) unknown) (unknown) (no (unknown) (unknown) Pulse Oximetry 99 (units (unknown) date) unknown) (unknown) (no (unknown) (unknown) Pulse Rate 65 (units ( unknown) date) unknown) (unknown) (no (unknown) (unknown) Pulse Rate 67 (units ( unknown) date) 07/17/22 18:20 unknown) (unknown) (no (unknown) (unknown) Pulse Rate 67 65 (units (unknown) date) unknown) (unknown) (no (unknown) (unknown) Pulse Rate 68 68 (units (unknown) date) unknown) (unknown) (no (unknown) (unknown) Pulse Rate 71 65 (units (unknown) date) unknown) (unknown) (no (unknown) (unknown) Pulse Rate 72 75 (units (unknown) date) unknown) (unknown) (no (unknown) (unknown) Pulse Rate 77 (units ( unknown) date) unknown) (unknown) (no (unknown) (unknown) Pulse Rate 78 (units ( unknown) date) unknown) (unknown) (no (unknown) (unknown) Qualifiers: (units (un known) date) unknown) (unknown) (no (unknown) (unknown) RBC 4.56 (4.0-5.2) (units (unknown) date) X106/uL unknown) (unknown) (no (unknown) (unknown) RDW 14.2 (11.6-14.8) (uni ts (unknown) date) % unknown) (unknown) (no (unknown) (unknown) Re-evaluations: (units (unknown) date) unknown) (unknown) (no (unknown) (unknown) Related Data (units (u nknown) date) unknown) (unknown) (no (unknown) (unknown) Remainder of (units (u nknown) date) complete review of unknown) systems is otherwise unremarkable except for (unknown) (no (unknown) (unknown) Respiratory Rate 14 (unit s (unknown) date) unknown) (unknown) (no (unknown) (unknown) Respiratory Rate 16 (unit s (unknown) date) 07/17/22 18:20 unknown) (unknown) (no (unknown) (unknown) Respiratory Rate 16 (unit s (unknown) date) 31 H unknown) (unknown) (no (unknown) (unknown) Respiratory Rate 20 (unit s (unknown) date) 17 unknown) (unknown) (no (unknown) (unknown) Respiratory Rate 20 (unit s (unknown) date) unknown) (unknown) (no (unknown) (unknown) Respiratory Rate 21 (unit s (unknown) date) unknown) (unknown) (no (unknown) (unknown) Respiratory Rate 30 (unit s (unknown) date) H 23 unknown) (unknown) (no (unknown) (unknown) Respiratory Rate 35 (unit s (unknown) date) H unknown) (unknown) (no (unknown) (unknown) Respiratory: Lungs (units (unknown) date) are clear to unknown) auscultation, no wheezing no rales no rhonchi. (unknown) (no (unknown) (unknown) Review of Systems (units (unknown) date) unknown) (unknown) (no (unknown) (unknown) Score 1-3) (units (unk nown) date) unknown) (unknown) (no (unknown) (unknown) Signed By: (units (unk nown) date) unknown) (unknown) (no (unknown) (unknown) Sinus rhythm at a (units (unknown) date) rate of 64 unknown) (unknown) (no (unknown) (unknown) Skin: Warm and dry, (unit s (unknown) date) no rashes unknown) (unknown) (no (unknown) (unknown) Smoking Status: (units (unknown) date) Current every day unknown) smoker (unknown) (no (unknown) (unknown) Social History (units (unknown) date) (Reviewed 03/09/22 @ unknown) 10:33 by Mariella Rico DO) (unknown) (no (unknown) (unknown) Sodium 139 (137-145) (uni ts (unknown) date) mmol/L unknown) (unknown) (no (unknown) (unknown) Source: patient and (unit s (unknown) date) EMS unknown) (unknown) (no (unknown) (unknown) Stated complaint: (units (unknown) date) Nausea and HTN unknown) (unknown) (no (unknown) (unknown) Stop: 07/17/22 18:31 (uni ts (unknown) date) unknown) (unknown) (no (unknown) (unknown) Stop: 07/17/22 22:04 (uni ts (unknown) date) unknown) (unknown) (no (unknown) (unknown) Stop: 07/18/22 12:20 (uni ts (unknown) date) unknown) (unknown) (no (unknown) (unknown) Substance Use Type: (unit s (unknown) date) does not use unknown) (unknown) (no (unknown) (unknown) Surgical History (units (unknown) date) (Reviewed 07/18/22 @ unknown) 00:52 by EDENILSON Amezquita) (unknown) (no (unknown) (unknown) THROAT (units (unkno wn) date) unknown) (unknown) (no (unknown) (unknown) TROUBLE (units (unkno wn) date) unknown) (unknown) (no (unknown) (unknown) Temperature 97.6 F (units (unknown) date) 07/17/22 18:20 unknown) (unknown) (no (unknown) (unknown) Temperature 97.6 F (units (unknown) date) unknown) (unknown) (no (unknown) (unknown) Temperature (units (un known) date) unknown) (unknown) (no (unknown) (unknown) This critical care (units (unknown) date) time includes unknown) consultation with family and other consulting (unknown) (no (unknown) (unknown) Time Seen by (units (u nknown) date) Provider: 07/17/22 unknown) 18:29 (unknown) (no (unknown) (unknown) Titration: 07/18/22 (unit s (unknown) date) 01:10 Dose: 0 mg/hr, unknown) 0 mls/hr (unknown) (no (unknown) (unknown) Titration: 07/18/22 (unit s (unknown) date) 06:07 Dose: 0 mg/hr, unknown) 0 mls/hr (unknown) (no (unknown) (unknown) Titration: 07/18/22 (unit s (unknown) date) 08:40 Dose: 2.5 unknown) mg/hr, 25 mls/hr (unknown) (no (unknown) (unknown) Titration: 07/18/22 (unit s (unknown) date) 10:47 Dose: 0 mg/hr, unknown) 0 mls/hr (unknown) (no (unknown) (unknown) Total Bilirubin 0.7 (unit s (unknown) date) (0.2-1.3) mg/dL unknown) (unknown) (no (unknown) (unknown) Total Creatine (units (unknown) date) Kinase 35 (30-135) unknown) U/L (unknown) (no (unknown) (unknown) Total Critical Care (unit s (unknown) date) Time: 36 unknown) (unknown) (no (unknown) (unknown) Total Protein 7.2 (units (unknown) date) (6.3-8.2) g/dL unknown) (unknown) (no (unknown) (unknown) Treatments: Upon (units (unknown) date) arrival complaining unknown) initially of hypertension with mild (unknown) (no (unknown) (unknown) Troponin I < 0.012 (units (unknown) date) (0.01-0.034) ng/mL unknown) (unknown) (no (unknown) (unknown) Vital Signs - 8 hr (units (unknown) date) unknown) (unknown) (no (unknown) (unknown) Vital Signs (units (un known) date) unknown) (unknown) (no (unknown) (unknown) Vital signs: (units (u nknown) date) unknown) (unknown) (no (unknown) (unknown) WBC 8.1 (4.5-11.0) (units (unknown) date) X103/uL unknown) (unknown) (no (unknown) (unknown) [DIPHENHYDRAMINE] (units (unknown) date) unknown) (unknown) (no (unknown) (unknown) [Embedded Image Not (unit s (unknown) date) Available] unknown) (unknown) (no (unknown) (unknown) [MAGNESIUM CITRATE] (unit s (unknown) date) unknown) (unknown) (no (unknown) (unknown) abnormalities (units ( unknown) date) unknown) (unknown) (no (unknown) (unknown) acetaminophen 325 mg (uni ts (unknown) date) tablet 325 mg PO QID unknown) PRN Pain (Scale 07/18/22 07/18/22 (unknown) (no (unknown) (unknown) alcohol intake (units (unknown) date) frequency: 0-2 drinks unknown) per day (unknown) (no (unknown) (unknown) alcohol intake: (units (unknown) date) current unknown) (unknown) (no (unknown) (unknown) amoxicillin (units (un known) date) [AMOXICILLIN] Allergy unknown) Severe SWELLING Verified 07/17/22 18:24 (unknown) (no (unknown) (unknown) and 25 mg of (units (u nknown) date) hydrochlorothiazide unknown) (unknown) (no (unknown) (unknown) and blood pressure (units (unknown) date) is 167/80. unknown) (unknown) (no (unknown) (unknown) angiogram from that (unit s (unknown) date) date does not support unknown) this. (unknown) (no (unknown) (unknown) associated severe (units (unknown) date) headache and then unknown) central chest pain radiating through to her (unknown) (no (unknown) (unknown) back concerning for (unit s (unknown) date) dissection. Imaging unknown) studies do not confirm stroke or (unknown) (no (unknown) (unknown) been 6.25 b.i.d. was (uni ts (unknown) date) increased to 12.5 unknown) b.i.d.. She remains on 100 of losartan (unknown) (no (unknown) (unknown) blood pressure (units (unknown) date) medication. Since unknown) that time she has been more consistent in his (unknown) (no (unknown) (unknown) carvedilol 12.5 mg (units (unknown) date) tablet 12.5 mg PO BID unknown) #60 tabs 07/17/22 (unknown) (no (unknown) (unknown) carvedilol 6.25 mg (units (unknown) date) tablet 6.25 mg PO BID unknown) #180 tabs 05/14/22 (unknown) (no (unknown) (unknown) chest pain through (units (unknown) date) the center of her unknown) body, GCS of 15 (unknown) (no (unknown) (unknown) chills recently. She (uni ts (unknown) date) has been checking her unknown) blood pressures recently and has (unknown) (no (unknown) (unknown) currently on losartan (uni ts (unknown) date) 100 mg with unknown) hydrochlorothiazide 25 mg and carvedilol today (unknown) (no (unknown) (unknown) developed (units (unkn own) date) unknown) (unknown) (no (unknown) (unknown) diphenhydramine (units (unknown) date) Allergy Mild unknown) SWELLING. Verified 07/17/22 18:24 (unknown) (no (unknown) (unknown) dissection, acute (units (unknown) date) coronary syndrome, unknown) reflux, medication noncompliance (unknown) (no (unknown) (unknown) dissection. She is (units (unknown) date) slightly more unknown) comfortable with nicardipine drip running. We (unknown) (no (unknown) (unknown) doctors, review of (units (unknown) date) records, and unknown) interpretation of data from labs, EKGs and (unknown) (no (unknown) (unknown) documented blood (units (unknown) date) pressures over the unknown) last number of months in the 220/140 range (unknown) (no (unknown) (unknown) during that (units (un known) date) consultation she unknown) checked her home blood pressure and found it to be (unknown) (no (unknown) (unknown) emergency department (uni ts (unknown) date) she is complaining of unknown) severe headache, slightly blurry (unknown) (no (unknown) (unknown) estradiol 0.1 mg/24 (unit s (unknown) date) hr weekly 0.1 mg unknown) topical QWEEK #4 ea 06/04/22 (unknown) (no (unknown) (unknown) extremity edema, no (unit s (unknown) date) nausea, vomiting, unknown) diarrhea. Has not been having fevers or (unknown) (no (unknown) (unknown) fairly (units (unkno wn) date) consistently,. Prior unknown) difficulties with hypertension, reported (unknown) (no (unknown) (unknown) headache she was (units (unknown) date) given an additional unknown) 50 mg of her losartan and Tylenol. When (unknown) (no (unknown) (unknown) help with (units (unkn own) date) transitioning to unknown) additional oral hypertensives for safe discharge (unknown) (no (unknown) (unknown) home. Second trop is (uni ts (unknown) date) ordered and 5mg of unknown) oral nifedipine is administered to help (unknown) (no (unknown) (unknown) household members: (units (unknown) date) significant other and unknown) children (unknown) (no (unknown) (unknown) imaging as well as (units (unknown) date) managements of unknown) hypertensive crisis with IV blood pressure (unknown) (no (unknown) (unknown) in the in the (units ( unknown) date) 220/120 range. She unknown) did have a headache and was instructed come to (unknown) (no (unknown) (unknown) intracranial bleed (units (unknown) date) associated with unknown) hypertensive urgency in February however CT (unknown) (no (unknown) (unknown) latex [LATEX] (units ( unknown) date) Allergy Mild RASH unknown) Verified 07/17/22 18:24 (unknown) (no (unknown) (unknown) losartan 100 1 tab (units (unknown) date) PO DAILY #30 tabs unknown) 06/03/22 (unknown) (no (unknown) (unknown) magnesium citrate (units (unknown) date) AdvReac Unknown unknown) VOMITING Verified 07/17/22 18:24 (unknown) (no (unknown) (unknown) management required (unit s (unknown) date) unknown) (unknown) (no (unknown) (unknown) mg-hydrochlorothiazi (uni ts (unknown) date) de 25 mg tablet unknown) (unknown) (no (unknown) (unknown) mortality (units (unkn own) date) unknown) (unknown) (no (unknown) (unknown) not alleviate her (units (unknown) date) headache to have her unknown) blood pressure in the 160/80 range. She (unknown) (no (unknown) (unknown) pain. Able to give a (uni ts (unknown) date) complete and coherent unknown) history. Well-nourished well (unknown) (no (unknown) (unknown) patient continues to (uni ts (unknown) date) complain of unknown) significant fatigue. Notes the headache is (unknown) (no (unknown) (unknown) photographs of the (units (unknown) date) device reading and unknown) blood pressures are consistently in the (unknown) (no (unknown) (unknown) presents with (units ( unknown) date) significantly unknown) elevated blood pressure. She was having a tele (unknown) (no (unknown) (unknown) probability of a (units (unknown) date) significant, sudden unknown) or life-threatening deterioration that (unknown) (no (unknown) (unknown) prognosis with (units (unknown) date) systemic symptoms and unknown) potential for significant morbidity and (unknown) (no (unknown) (unknown) reports chronic (units (unknown) date) headaches, occasional unknown) chest pain, no palpitations no lower (unknown) (no (unknown) (unknown) requires my full and (uni ts (unknown) date) direct attention, unknown) intervention and personal management. (unknown) (no (unknown) (unknown) sharp pain through (units (unknown) date) the center of her unknown) chest radiating through to her back. She (unknown) (no (unknown) (unknown) she began (units (unkn own) date) complaining of chest unknown) pain and her blood pressure was found to be (unknown) (no (unknown) (unknown) significantly (units (u nknown) date) elevated blood unknown) pressures even on repeat, complains of headache and (unknown) (no (unknown) (unknown) specific (units (unkno wn) date) abnormalities to unknown) explain her pain (unknown) (no (unknown) (unknown) still present even (units (unknown) date) after Tylenol. The unknown) central chest pain has resolved. (unknown) (no (unknown) (unknown) taken off her (units ( unknown) date) nicardipine for the unknown) 2nd imaging study and blood pressure was back (unknown) (no (unknown) (unknown) that included in the (uni ts (unknown) date) HPI. unknown) (unknown) (no (unknown) (unknown) the emergency (units ( unknown) date) department. She would unknown) similar complaints in February of last (unknown) (no (unknown) (unknown) transdermal patch (units (unknown) date) unknown) (unknown) (no (unknown) (unknown) up to 190/100 (units ( unknown) date) shortly after the unknown) nicardipine was discontinued. It is restarted (unknown) (no (unknown) (unknown) video appointment (units (unknown) date) with her primary care unknown) doctor to discuss her hypertension and (unknown) (no (unknown) (unknown) vision and shortly (units (unknown) date) after arrival with unknown) blood pressure appreciated 240/120 noted a (unknown) (no (unknown) (unknown) was given a dose of (unit s (unknown) date) hydromorphone with unknown) some relief. (unknown) (no (unknown) (unknown) was increased from (units (unknown) date) 6.25 mg b.i.d. up to unknown) 12.5 mg b.i.d.. On arrival in the (unknown) (no (unknown) (unknown) will recommend (units (unknown) date) hospitalization for unknown) management of her hypertensive crisis and (unknown) (no (unknown) (unknown) wtih weaning the IV (unit s (unknown) date) nicardipine over the unknown) next hours (unknown) (no (unknown) (unknown) year with headache (units (unknown) date) and blurry vision and unknown) notes that she had not been taking her Result panel 539 (unknown) (no date) (unknown) (unknown) 0 /ul (unkn own) (unknown) (no date) (unknown) (unknown) 0.4 % (unkn own) (unknown) (no date) (unknown) (unknown) 1.3 % (unkn own) (unknown) (no date) (unknown) (unknown) 100 /ul (unkn own) (unknown) (no date) (unknown) (unknown) 13.2 g/dl (unkn own) (unknown) (no date) (unknown) (unknown) 14.2 % (unkn own) (unknown) (no date) (unknown) (unknown) 1400 /ul (unkn own) (unknown) (no date) (unknown) (unknown) 201 x10 3/ul (unkn own) (unknown) (no date) (unknown) (unknown) 23.5 % (unkn own) (unknown) (no date) (unknown) (unknown) 30.8 pg (unkn own) (unknown) (no date) (unknown) (unknown) 33.9 % (unkn own) (unknown) (no date) (unknown) (unknown) 38.8 % (unkn own) (unknown) (no date) (unknown) (unknown) 4.27 x10 6/ul (unkn own) (unknown) (no date) (unknown) (unknown) 400 /ul (unkn own) (unknown) (no date) (unknown) (unknown) 4000 /ul (unkn own) (unknown) (no date) (unknown) (unknown) 5.9 x10 3/ul (unkn own) (unknown) (no date) (unknown) (unknown) 67.7 % (unkn own) (unknown) (no date) (unknown) (unknown) 7.1 % (unkn own) (unknown) (no date) (unknown) (unknown) 90.9 fl (unkn own) Result panel 540 (unknown) (no date) (unknown) (unknown) > 60 ml/min (unkn own) (unknown) (no date) (unknown) (unknown) > 60 ml/min (unkn own) (unknown) (no date) (unknown) (unknown) 0.66 mg/dl (unkn own) (unknown) (no date) (unknown) (unknown) 0.7 mg/dl (unkn own) (unknown) (no date) (unknown) (unknown) 1.3 (units unknown) (unknown) (unknown) (no date) (unknown) (unknown) 103 mmol/l (unkn own) (unknown) (no date) (unknown) (unknown) 137 mmol/l (unkn own) (unknown) (no date) (unknown) (unknown) 2.8 g/dl (unkn own) (unknown) (no date) (unknown) (unknown) 20 mg/dl (unkn own) (unknown) (no date) (unknown) (unknown) 23 iu/l (unkn own) (unknown) (no date) (unknown) (unknown) 26 iu/l (unkn own) (unknown) (no date) (unknown) (unknown) 28 mmol/l (unkn own) (unknown) (no date) (unknown) (unknown) 3.6 g/dl (unkn own) (unknown) (no date) (unknown) (unknown) 30.3 (units unknown) (unknown) (unknown) (no date) (unknown) (unknown) 4.0 mmol/l (unkn own) (unknown) (no date) (unknown) (unknown) 6.4 g/dl (unkn own) (unknown) (no date) (unknown) (unknown) 78 u/l (unkn own) (unknown) (no date) (unknown) (unknown) 8.9 mg/dl (unkn own) (unknown) (no date) (unknown) (unknown) 95 mg/dl (unkn own) (unknown) (no date) (unknown) (unknown) 95 mg/dl (unkn own) Result panel 541 (unknown) (no (unknown) (unknown) (no value) (units (unk nown) date) unknown) (unknown) (no (unknown) (unknown) (past 8 hours): (units (unknown) date) unknown) (unknown) (no (unknown) (unknown) 0.1 mg topical (units (unknown) date) QWEEK Qty: 4 2RF unknown) (unknown) (no (unknown) (unknown) [id number] (units (unkno wn) date) unknown) (unknown) (no (unknown) (unknown) 07/17/22 22:04 (units (unknown) date) unknown) (unknown) (no (unknown) (unknown) 07/19/22 07/19/22 (units (unknown) date) unknown) (unknown) (no (unknown) (unknown) 07/19/22 06:16 (units (unknown) date) unknown) (unknown) (no (unknown) (unknown) 07/19/22 (units (unkno wn) date) unknown) (unknown) (no (unknown) (unknown) 05:07 07/19/22 (units (unknown) date) unknown) (unknown) (no (unknown) (unknown) 06:16 06:16 (units (un known) date) unknown) (unknown) (no (unknown) (unknown) 08:07 07/19/22 (units (unknown) date) unknown) (unknown) (no (unknown) (unknown) 08:08 (units (unkno wn) date) unknown) (unknown) (no (unknown) (unknown) 09:00 (units (unkno wn) date) unknown) (unknown) (no (unknown) (unknown) 1 tab PO DAILY (units (unknown) date) Qty: 30 2RF unknown) (unknown) (no (unknown) (unknown) 12.5 mg PO BID (units (unknown) date) Qty: 60 1RF unknown) (unknown) (no (unknown) (unknown) 125 lbs, she (units (u nknown) date) attempted to unknown) increase her weight as she stated she looked poorly. (unknown) (no (unknown) (unknown) 325 mg PO QID PRN (units (unknown) date) (Reason: Pain unknown) (Scale Score 1-3)) (unknown) (no (unknown) (unknown) 6.25 mg PO BID (units (unknown) date) Qty: 180 1RF unknown) (unknown) (no (unknown) (unknown) ALT 26 (units (unkno wn) date) unknown) (unknown) (no (unknown) (unknown) AST 23 (units (unkno wn) date) unknown) (unknown) (no (unknown) (unknown) Age/Sex: 51 / F (units (unknown) date) unknown) (unknown) (no (unknown) (unknown) Albumin 3.6 (units (un known) date) unknown) (unknown) (no (unknown) (unknown) Albumin/Globulin (units (unknown) date) Ratio 1.3 unknown) (unknown) (no (unknown) (unknown) Alkaline (units (unkno wn) date) Phosphatase 78 unknown) (unknown) (no (unknown) (unknown) Apply 1 patch, (units (unknown) date) once a week unknown) (unknown) (no (unknown) (unknown) Attending (units (unkn own) date) Provider: unknown) Clarissa Washington (unknown) (no (unknown) (unknown) BUN 20 H (units (unkno wn) date) unknown) (unknown) (no (unknown) (unknown) BUN/Creatinine (units (unknown) date) Ratio 30.3 H unknown) (unknown) (no (unknown) (unknown) Baso # (Auto) 0 (units (unknown) date) unknown) (unknown) (no (unknown) (unknown) Baso % (Auto) 0.4 (units (unknown) date) unknown) (unknown) (no (unknown) (unknown) Blood Pressure (units (unknown) date) 140/89 unknown) (unknown) (no (unknown) (unknown) Blood Pressure (units (unknown) date) 150/82 H 140/89 unknown) 140/89 (unknown) (no (unknown) (unknown) Calcium 8.9 (units (un known) date) unknown) (unknown) (no (unknown) (unknown) Carbon Dioxide 28 (units (unknown) date) unknown) (unknown) (no (unknown) (unknown) Chief complaint: (units (unknown) date) Nausea and HTN unknown) (unknown) (no (unknown) (unknown) Chloride 103 (units (u nknown) date) unknown) (unknown) (no (unknown) (unknown) Creatinine 0.66 (units (unknown) date) unknown) (unknown) (no (unknown) (unknown) : 1970 (units (unknown) date) Acct:[id number] unknown) (unknown) (no (unknown) (unknown) Date Patient (units (u nknown) date) Seen: 07/19/22 unknown) (unknown) (no (unknown) (unknown) Date of Service: (units (unknown) date) 07/17/22 unknown) (unknown) (no (unknown) (unknown) Date of (units (unkno wn) date) admission: unknown) (unknown) (no (unknown) (unknown) Nona Guzman is (units (unknown) date) a 51 y.o. female unknown) who with a history of severe and poorly (unknown) (no (unknown) (unknown) Discharge Data (units (unknown) date) unknown) (unknown) (no (unknown) (unknown) Discharge Date: (units (unknown) date) 07/19/22 unknown) (unknown) (no (unknown) (unknown) Discharge Plan (units (unknown) date) unknown) (unknown) (no (unknown) (unknown) Discharge (units (unkn own) date) Providers unknown) (unknown) (no (unknown) (unknown) Discharge Summary (units (unknown) date) unknown) (unknown) (no (unknown) (unknown) Discharge orders (units (unknown) date) + Medications unknown) (unknown) (no (unknown) (unknown) Discharge (units (unkn own) date) provider: unknown) (unknown) (no (unknown) (unknown) Eos # (Auto) 100 (units (unknown) date) unknown) (unknown) (no (unknown) (unknown) Eos % (Auto) 1.3 (units (unknown) date) L unknown) (unknown) (no (unknown) (unknown) Estimated GFR > (units (unknown) date) 60 unknown) (unknown) (no (unknown) (unknown) Exam (units (unkno wn) date) unknown) (unknown) (no (unknown) (unknown) Fibromyalgia (units (u nknown) date) unknown) (unknown) (no (unknown) (unknown) Follow (units (unkno wn) date) up/Referrals: unknown) (unknown) (no (unknown) (unknown) Globulin 2.8 (units (u nknown) date) unknown) (unknown) (no (unknown) (unknown) Glucose 95 (units (unk nown) date) unknown) (unknown) (no (unknown) (unknown) H/O gastric (units (un known) date) bypass unknown) (unknown) (no (unknown) (unknown) Hct 38.8 (units (unkno wn) date) unknown) (unknown) (no (unknown) (unknown) Hgb 13.2 (units (unkno wn) date) unknown) (unknown) (no (unknown) (unknown) History of (units (unk nown) date) Present Illness unknown) (unknown) (no (unknown) (unknown) History of (units (unk nown) date) prediabetes unknown) (unknown) (no (unknown) (unknown) Hypertension (units (u nknown) date) unknown) (unknown) (no (unknown) (unknown) In the ED, she (units (unknown) date) was started on a unknown) nifedipine drip, then administered a one time (unknown) (no (unknown) (unknown) [facility] (units (unknown) date) [address] unknown) [place] [address] (unknown) (no (unknown) (unknown) Julio Sandoval, (units (unknown) date) DO unknown) (unknown) (no (unknown) (unknown) Label Comments: (units (unknown) date) unknown) (unknown) (no (unknown) (unknown) Laboratory (units (unk nown) date) Results - last 24 unknown) hr (unknown) (no (unknown) (unknown) Labs (units (unkno wn) date) unknown) (unknown) (no (unknown) (unknown) Labs: (units (unkno wn) date) unknown) (unknown) (no (unknown) (unknown) Lymph # (Auto) (units (unknown) date) 1400 unknown) (unknown) (no (unknown) (unknown) Lymph % (Auto) (units (unknown) date) 23.5 L unknown) (unknown) (no (unknown) (unknown) MCH 30.8 (units (unkno wn) date) unknown) (unknown) (no (unknown) (unknown) MCHC 33.9 (units (unkn own) date) unknown) (unknown) (no (unknown) (unknown) MCV 90.9 (units (unkno wn) date) unknown) (unknown) (no (unknown) (unknown) Medical History (units (unknown) date) (Reviewed 07/18/22 unknown) @ 00:52 by EDENILSON Amezquita) (unknown) (no (unknown) (unknown) Larue # (Auto) 400 (units (unknown) date) unknown) (unknown) (no (unknown) (unknown) Larue % (Auto) 7.1 (units (unknown) date) unknown) (unknown) (no (unknown) (unknown) Narrative: (units (unk nown) date) unknown) (unknown) (no (unknown) (unknown) Neut # (Auto) (units ( unknown) date) 4000 unknown) (unknown) (no (unknown) (unknown) Neut % (Auto) (units ( unknown) date) 67.7 unknown) (unknown) (no (unknown) (unknown) No Action (units (unkn own) date) unknown) (unknown) (no (unknown) (unknown) Objective (units (unkn own) date) unknown) (unknown) (no (unknown) (unknown) Oxygen Delivery (units (unknown) date) Method Room Air unknown) (unknown) (no (unknown) (unknown) Oxygen Flow Rate (units (unknown) date) 0 unknown) (unknown) (no (unknown) (unknown) Oxygen Flow Rate (units (unknown) date) unknown) (unknown) (no (unknown) (unknown) PCR is negative. (units (unknown) date) unknown) (unknown) (no (unknown) (unknown) PFSH (units (unkno wn) date) unknown) (unknown) (no (unknown) (unknown) Patient (units (unkno wn) date) Disposition: Home unknown) (unknown) (no (unknown) (unknown) Patient states (units (unknown) date) she uses estrogen unknown) patches, smokes 4 cigarrettes/day and drinks 2 (unknown) (no (unknown) (unknown) Patient: (units (unkno wn) date) Nona Guzman unknown) MR#: [id number] (unknown) (no (unknown) (unknown) Per admitting (units ( unknown) date) provider, unknown) (unknown) (no (unknown) (unknown) Julio Sandoval, (units (unknown) date) DO [Primary Care unknown) Provider] (unknown) (no (unknown) (unknown) Plt Count 201 (units ( unknown) date) unknown) (unknown) (no (unknown) (unknown) Potassium 4.0 (units ( unknown) date) unknown) (unknown) (no (unknown) (unknown) Prescriptions: (units (unknown) date) unknown) (unknown) (no (unknown) (unknown) Primary Care (units (u nknown) date) Provider: unknown) Julio Sandoval (unknown) (no (unknown) (unknown) Primary care (units (u nknown) date) physician: unknown) (unknown) (no (unknown) (unknown) Provider (units (unkno wn) date) unknown) (unknown) (no (unknown) (unknown) Provider: (units (unkn own) date) Bj Snider unknown) D.O. (unknown) (no (unknown) (unknown) Pulse Oximetry 97 (units (unknown) date) unknown) (unknown) (no (unknown) (unknown) Pulse Oximetry 98 (units (unknown) date) unknown) (unknown) (no (unknown) (unknown) Pulse Rate 64 (units ( unknown) date) unknown) (unknown) (no (unknown) (unknown) Pulse Rate 66 (units ( unknown) date) unknown) (unknown) (no (unknown) (unknown) RBC 4.27 (units (unkno wn) date) unknown) (unknown) (no (unknown) (unknown) RDW 14.2 (units (unkno wn) date) unknown) (unknown) (no (unknown) (unknown) Respiratory Rate (units (unknown) date) 16 unknown) (unknown) (no (unknown) (unknown) Respiratory Rate (units (unknown) date) 18 unknown) (unknown) (no (unknown) (unknown) Bj Snider, (units (unknown) date) DO unknown) (unknown) (no (unknown) (unknown) Rx Instructions: (units (unknown) date) unknown) (unknown) (no (unknown) (unknown) Signed By: (units (unk nown) date) unknown) (unknown) (no (unknown) (unknown) Smoking Status: (units (unknown) date) Current every day unknown) smoker (unknown) (no (unknown) (unknown) Social History (units (unknown) date) (Reviewed 03/09/22 unknown) @ 10:33 by Mariella Rico DO) (unknown) (no (unknown) (unknown) Sodium 137 (units (unk nown) date) unknown) (unknown) (no (unknown) (unknown) Stand Alone (units (un known) date) Forms: Patient unknown) Portal/API, Stroke Signs + Symptoms (unknown) (no (unknown) (unknown) States her (units (unkn own) date) father's side has unknown) had heart disease, he at age 59 of asbestosis, (unknown) (no (unknown) (unknown) Surgical History (units (unknown) date) (Reviewed 07/18/22 unknown) @ 00:52 by EDENILSON Amezquita) (unknown) (no (unknown) (unknown) Temperature 97.1 (units (unknown) date) F L unknown) (unknown) (no (unknown) (unknown) Temperature 97.2 (units (unknown) date) F L unknown) (unknown) (no (unknown) (unknown) Time Patient (units (u nknown) date) Seen: 09:22 unknown) (unknown) (no (unknown) (unknown) Total Bilirubin (units (unknown) date) 0.7 unknown) (unknown) (no (unknown) (unknown) Total Protein 6.4 (units (unknown) date) unknown) (unknown) (no (unknown) (unknown) Visit (units (unkno wn) date) Report/Discharge unknown) Packet (unknown) (no (unknown) (unknown) Vital Signs (units (un known) date) unknown) (unknown) (no (unknown) (unknown) WBC 5.9 (units (unkno wn) date) unknown) (unknown) (no (unknown) (unknown) When the pandemic (units (unknown) date) hit, she states unknown) she put most of the weight back on due to (unknown) (no (unknown) (unknown) [Embedded Image (units (unknown) date) Not Available] unknown) (unknown) (no (unknown) (unknown) abdominal and (units ( unknown) date) back cramping and unknown) bilateral leg pain. She states she has backed (unknown) (no (unknown) (unknown) acetaminophen 325 (units (unknown) date) mg Tablet unknown) (unknown) (no (unknown) (unknown) alcohol intake: (units (unknown) date) current unknown) (unknown) (no (unknown) (unknown) as 218/93. (units (unk n) date) Currently her unknown) blood pressure is 126/64 she is afebrile heart rate 78 (unknown) (no (unknown) (unknown) blood pressure (units (unknown) date) and found it to be unknown) in the in the 220/120 range.? She did have a (unknown) (no (unknown) (unknown) carvedilol 12.5 (units (unknown) date) mg tablet unknown) (unknown) (no (unknown) (unknown) carvedilol 6.25 (units (unknown) date) mg tablet unknown) (unknown) (no (unknown) (unknown) company. (units (unkno wn) date) unknown) (unknown) (no (unknown) (unknown) complaints in (units ( unknown) date) February of last unknown) year with headache, blurred vision and chest (unknown) (no (unknown) (unknown) controlled (units (unk n) date) hypertension unknown) presented to the ED with significantly elevated blood (unknown) (no (unknown) (unknown) dose of (units (unkno wn) date) amlopdipine 5 mg. unknown) Imaging studies ruled out any acute cardiopulmonary (unknown) (no (unknown) (unknown) estradiol 0.1 (units ( unknown) date) mg/24 hr patch unknown) weekly (unknown) (no (unknown) (unknown) glasses of (units (unk nown) date) wine/day. 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 She had similar (unknown) (no (unknown) (unknown) household (units (unkn own) date) members: unknown) significant other and children (unknown) (no (unknown) (unknown) losartan-hydrochl (units (unknown) date) orothiazide 100-25 unknown) mg tablet (unknown) (no (unknown) (unknown) medications had (units (unknown) date) been doubled, but unknown) that the EMT said he was concerned because he (unknown) (no (unknown) (unknown) mother age (units (unknown) date) 57 of alcohol unknown) abuse. (unknown) (no (unknown) (unknown) must administer (units (unknown) date) with a meal/food unknown) (unknown) (no (unknown) (unknown) negative. (units (unkn own) date) Presenting blood unknown) pressure in the ED was 202/89 and trended up as high (unknown) (no (unknown) (unknown) off on exersize (units (unknown) date) because she gets unknown) very short of breath. States she does get dizzy (unknown) (no (unknown) (unknown) pain lasting from (units (unknown) date) 30-45 seconds. She unknown) endorses having nausea and vomiting, (unknown) (no (unknown) (unknown) patient has yet (units (unknown) date) to start this unknown) increased dose. Was newly perscribed by (unknown) (no (unknown) (unknown) pressure.? She (units (unknown) date) was having a tele unknown) video appointment with her primary care doctor (unknown) (no (unknown) (unknown) process, ruled (units (unknown) date) out PE, head CT unknown) was negative for CVA or injury, chest x-ray was (unknown) (no (unknown) (unknown) provider prior to (units (unknown) date) coming to the unknown) hospital. (unknown) (no (unknown) (unknown) respiratory rate (units (unknown) date) 21 oxygen unknown) saturation of 94% on room air she weighs 106.14 kg (unknown) (no (unknown) (unknown) thought her heart (units (unknown) date) rate was low and unknown) may be lowered. (unknown) (no (unknown) (unknown) to discuss her (units (unknown) date) hypertension and unknown) during that consultation she checked her home (unknown) (no (unknown) (unknown) to the point of (units (unknown) date) severe vertigo. unknown) She a a gastric bypass in 2016 and lost about (unknown) (no (unknown) (unknown) with a BMI of (units ( unknown) date) 40.2. CBC is unknown) unremarkable, chemistry is unremarkable and COVID-19 (unknown) (no (unknown) (unknown) working at home (units (unknown) date) and not being able unknown) to exercise. She states one of her bp Result panel 542 (unknown) (no (unknown) (unknown) (no value) (units (unk nown) date) unknown) (unknown) (no (unknown) (unknown) (past 8 hours): (units (unknown) date) unknown) (unknown) (no (unknown) (unknown) 0.1 mg topical (units (unknown) date) QWEEK Qty: 4 2RF unknown) (unknown) (no (unknown) (unknown) [id number] (units (unkno wn) date) unknown) (unknown) (no (unknown) (unknown) 07/17/22 22:04 (units (unknown) date) unknown) (unknown) (no (unknown) (unknown) 07/19/22 07/19/22 (units (unknown) date) unknown) (unknown) (no (unknown) (unknown) 07/19/22 06:16 (units (unknown) date) unknown) (unknown) (no (unknown) (unknown) 07/19/22 (units (unkno wn) date) unknown) (unknown) (no (unknown) (unknown) 05:07 07/19/22 (units (unknown) date) unknown) (unknown) (no (unknown) (unknown) 06:16 06:16 (units (un known) date) unknown) (unknown) (no (unknown) (unknown) 08:07 07/19/22 (units (unknown) date) unknown) (unknown) (no (unknown) (unknown) 08:08 (units (unkno wn) date) unknown) (unknown) (no (unknown) (unknown) 09:00 (units (unkno wn) date) unknown) (unknown) (no (unknown) (unknown) 1 tab PO DAILY (units (unknown) date) Qty: 30 2RF unknown) (unknown) (no (unknown) (unknown) 12.5 mg PO BID (units (unknown) date) Qty: 60 1RF unknown) (unknown) (no (unknown) (unknown) 125 lbs, she (units (u nknown) date) attempted to unknown) increase her weight as she stated she looked poorly. (unknown) (no (unknown) (unknown) 25 mg PO BID 30 (units (unknown) date) Days Qty: 60 0RF unknown) (unknown) (no (unknown) (unknown) 325 mg PO QID PRN (units (unknown) date) (Reason: Pain unknown) (Scale Score 1-3)) (unknown) (no (unknown) (unknown) 6.25 mg PO BID (units (unknown) date) Qty: 180 1RF unknown) (unknown) (no (unknown) (unknown) ALT 26 (units (unkno wn) date) unknown) (unknown) (no (unknown) (unknown) AST 23 (units (unkno wn) date) unknown) (unknown) (no (unknown) (unknown) Activity: As (units (u nknown) date) tolerated, no unknown) heavy exercise recommended at this time. (unknown) (no (unknown) (unknown) Age/Sex: 51 / F (units (unknown) date) unknown) (unknown) (no (unknown) (unknown) Albumin 3.6 (units (un known) date) unknown) (unknown) (no (unknown) (unknown) Albumin/Globulin (units (unknown) date) Ratio 1.3 unknown) (unknown) (no (unknown) (unknown) Alkaline (units (unkno wn) date) Phosphatase 78 unknown) (unknown) (no (unknown) (unknown) Apply 1 patch, (units (unknown) date) once a week unknown) (unknown) (no (unknown) (unknown) Attending (units (unkn own) date) Provider: unknown) Clarissa Washington (unknown) (no (unknown) (unknown) BUN 20 H (units (unkno wn) date) unknown) (unknown) (no (unknown) (unknown) BUN/Creatinine (units (unknown) date) Ratio 30.3 H unknown) (unknown) (no (unknown) (unknown) Baso # (Auto) 0 (units (unknown) date) unknown) (unknown) (no (unknown) (unknown) Baso % (Auto) 0.4 (units (unknown) date) unknown) (unknown) (no (unknown) (unknown) Blood Pressure (units (unknown) date) 140/89 unknown) (unknown) (no (unknown) (unknown) Blood Pressure (units (unknown) date) 150/82 H 140/89 unknown) 140/89 (unknown) (no (unknown) (unknown) Calcium 8.9 (units (un known) date) unknown) (unknown) (no (unknown) (unknown) Carbon Dioxide 28 (units (unknown) date) unknown) (unknown) (no (unknown) (unknown) Chief complaint: (units (unknown) date) Nausea and HTN unknown) (unknown) (no (unknown) (unknown) Chloride 103 (units (u nknown) date) unknown) (unknown) (no (unknown) (unknown) Continued (units (unkn own) date) unknown) (unknown) (no (unknown) (unknown) Creatinine 0.66 (units (unknown) date) unknown) (unknown) (no (unknown) (unknown) : 1970 (units (unknown) date) Acct:[id number] unknown) (unknown) (no (unknown) (unknown) Date Patient (units (u nknown) date) Seen: 07/19/22 unknown) (unknown) (no (unknown) (unknown) Date of Service: (units (unknown) date) 07/17/22 unknown) (unknown) (no (unknown) (unknown) Date of (units (unkno wn) date) admission: unknown) (unknown) (no (unknown) (unknown) Nona Guzman is (units (unknown) date) a 51 y.o. female unknown) who with a history of severe and poorly (unknown) (no (unknown) (unknown) Diet/Activity/Ezio (units (unknown) date) atments unknown) (unknown) (no (unknown) (unknown) Diet: Diet as (units ( unknown) date) Tolerated unknown) (unknown) (no (unknown) (unknown) Discharge Data (units (unknown) date) unknown) (unknown) (no (unknown) (unknown) Discharge Date: (units (unknown) date) 07/19/22 unknown) (unknown) (no (unknown) (unknown) Discharge Health (units (unknown) date) Status unknown) (unknown) (no (unknown) (unknown) Discharge Plan (units (unknown) date) unknown) (unknown) (no (unknown) (unknown) Discharge (units (unkn own) date) Providers unknown) (unknown) (no (unknown) (unknown) Discharge Summary (units (unknown) date) unknown) (unknown) (no (unknown) (unknown) Discharge orders (units (unknown) date) + Medications unknown) (unknown) (no (unknown) (unknown) Discharge (units (unkn own) date) provider: unknown) (unknown) (no (unknown) (unknown) Discontinued (units (u nknown) date) unknown) (unknown) (no (unknown) (unknown) Do not do heavy (units (unknown) date) exercise until unknown) cleared by cardiology, 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 would (unknown) (no (unknown) (unknown) Eos # (Auto) 100 (units (unknown) date) unknown) (unknown) (no (unknown) (unknown) Eos % (Auto) 1.3 (units (unknown) date) L unknown) (unknown) (no (unknown) (unknown) Estimated GFR > (units (unknown) date) 60 unknown) (unknown) (no (unknown) (unknown) Exam (units (unkno wn) date) unknown) (unknown) (no (unknown) (unknown) Fibromyalgia (units (u nknown) date) unknown) (unknown) (no (unknown) (unknown) Follow (units (unkno wn) date) up/Referrals: unknown) (unknown) (no (unknown) (unknown) Globulin 2.8 (units (u nknown) date) unknown) (unknown) (no (unknown) (unknown) Glucose 95 (units (unk nown) date) unknown) (unknown) (no (unknown) (unknown) H/O gastric (units (un known) date) bypass unknown) (unknown) (no (unknown) (unknown) HOCM (units (unkno wn) date) unknown) (unknown) (no (unknown) (unknown) Hct 38.8 (units (unkno wn) date) unknown) (unknown) (no (unknown) (unknown) Health Concerns: (units (unknown) date) unknown) (unknown) (no (unknown) (unknown) Hgb 13.2 (units (unkno wn) date) unknown) (unknown) (no (unknown) (unknown) History of (units (unk nown) date) Present Illness unknown) (unknown) (no (unknown) (unknown) History of (units (unk nown) date) prediabetes unknown) (unknown) (no (unknown) (unknown) Hypertension (units (u nknown) date) unknown) (unknown) (no (unknown) (unknown) In the ED, she (units (unknown) date) was started on a unknown) nifedipine drip, then administered a one time (unknown) (no (unknown) (unknown) Instructions: (units ( unknown) date) Hypertrophic unknown) Cardiomyopathy -- Adult (unknown) (no (unknown) (unknown) [facility] (units (unknown) date) [address] [place] [address] unknown) [place] [address] (unknown) (no (unknown) (unknown) Julio Sandoval, (units (unknown) date) DO unknown) (unknown) (no (unknown) (unknown) Label Comments: (units (unknown) date) unknown) (unknown) (no (unknown) (unknown) Laboratory (units (unk nown) date) Results - last 24 unknown) hr (unknown) (no (unknown) (unknown) Labs (units (unkno wn) date) unknown) (unknown) (no (unknown) (unknown) Labs: (units (unkno wn) date) unknown) (unknown) (no (unknown) (unknown) Lymph # (Auto) (units (unknown) date) 1400 unknown) (unknown) (no (unknown) (unknown) Lymph % (Auto) (units (unknown) date) 23.5 L unknown) (unknown) (no (unknown) (unknown) MCH 30.8 (units (unkno wn) date) unknown) (unknown) (no (unknown) (unknown) MCHC 33.9 (units (unkn own) date) unknown) (unknown) (no (unknown) (unknown) MCV 90.9 (units (unkno wn) date) unknown) (unknown) (no (unknown) (unknown) Medical History (units (unknown) date) (Reviewed 07/18/22 unknown) @ 00:52 by EDENILSON Amezquita) (unknown) (no (unknown) (unknown) Larue # (Auto) 400 (units (unknown) date) unknown) (unknown) (no (unknown) (unknown) Larue % (Auto) 7.1 (units (unknown) date) unknown) (unknown) (no (unknown) (unknown) Narrative: (units (unk nown) date) unknown) (unknown) (no (unknown) (unknown) Neut # (Auto) (units ( unknown) date) 4000 unknown) (unknown) (no (unknown) (unknown) Neut % (Auto) (units ( unknown) date) 67.7 unknown) (unknown) (no (unknown) (unknown) New (units (unkno wn) date) unknown) (unknown) (no (unknown) (unknown) Objective (units (unkn own) date) unknown) (unknown) (no (unknown) (unknown) Oxygen Delivery (units (unknown) date) Method Room Air unknown) (unknown) (no (unknown) (unknown) Oxygen Flow Rate (units (unknown) date) 0 unknown) (unknown) (no (unknown) (unknown) Oxygen Flow Rate (units (unknown) date) unknown) (unknown) (no (unknown) (unknown) PCR is negative. (units (unknown) date) unknown) (unknown) (no (unknown) (unknown) PFSH (units (unkno wn) date) unknown) (unknown) (no (unknown) (unknown) Monika Truong MD (units (unknown) date) [Physician] - 1 unknown) Month (unknown) (no (unknown) (unknown) Patient (units (unkno wn) date) Disposition: Home unknown) (unknown) (no (unknown) (unknown) Patient states (units (unknown) date) she uses estrogen unknown) patches, smokes 4 cigarrettes/day and drinks 2 (unknown) (no (unknown) (unknown) Patient: (units (unkno wn) date) Nona Guzman M unknown) MR#: [id number] (unknown) (no (unknown) (unknown) Per admitting (units ( unknown) date) provider, unknown) (unknown) (no (unknown) (unknown) Julio Sandoval, (units (unknown) date) DO [Primary Care unknown) Provider] - 1 Week (unknown) (no (unknown) (unknown) Plt Count 201 (units ( unknown) date) unknown) (unknown) (no (unknown) (unknown) Potassium 4.0 (units ( unknown) date) unknown) (unknown) (no (unknown) (unknown) Prescriptions: (units (unknown) date) unknown) (unknown) (no (unknown) (unknown) Primary Care (units (u nknown) date) Provider: unknown) Julio Sandoval (unknown) (no (unknown) (unknown) Primary care (units (u nknown) date) physician: unknown) (unknown) (no (unknown) (unknown) Provider (units (unkno wn) date) Discharge Comment: unknown) You were admitted to the hospital with elevated (unknown) (no (unknown) (unknown) Provider (units (unkno wn) date) unknown) (unknown) (no (unknown) (unknown) Provider: (units (unkn own) date) Bj Snider unknown) D.O. (unknown) (no (unknown) (unknown) Pulse Oximetry 97 (units (unknown) date) unknown) (unknown) (no (unknown) (unknown) Pulse Oximetry 98 (units (unknown) date) unknown) (unknown) (no (unknown) (unknown) Pulse Rate 64 (units ( unknown) date) unknown) (unknown) (no (unknown) (unknown) Pulse Rate 66 (units ( unknown) date) unknown) (unknown) (no (unknown) (unknown) RBC 4.27 (units (unkno wn) date) unknown) (unknown) (no (unknown) (unknown) RDW 14.2 (units (unkno wn) date) unknown) (unknown) (no (unknown) (unknown) Respiratory Rate (units (unknown) date) 16 unknown) (unknown) (no (unknown) (unknown) Respiratory Rate (units (unknown) date) 18 unknown) (unknown) (no (unknown) (unknown) Bj Snider, (units (unknown) date) DO unknown) (unknown) (no (unknown) (unknown) Rx Instructions: (units (unknown) date) unknown) (unknown) (no (unknown) (unknown) Signed By: (units (unk nown) date) unknown) (unknown) (no (unknown) (unknown) Smoking Status: (units (unknown) date) Current every day unknown) smoker (unknown) (no (unknown) (unknown) Social History (units (unknown) date) (Reviewed 03/09/22 unknown) @ 10:33 by Mariella Rico DO) (unknown) (no (unknown) (unknown) Sodium 137 (units (unk nown) date) unknown) (unknown) (no (unknown) (unknown) Stand Alone (units (un known) date) Forms: Patient unknown) Portal/API, Stroke Signs + Symptoms (unknown) (no (unknown) (unknown) States her (units (unkn own) date) father's side has unknown) had heart disease, he at age 59 of asbestosis, (unknown) (no (unknown) (unknown) Surgical History (units (unknown) date) (Reviewed 07/18/22 unknown) @ 00:52 by EDENILSON Amezquita) (unknown) (no (unknown) (unknown) Temperature 97.1 (units (unknown) date) F L unknown) (unknown) (no (unknown) (unknown) Temperature 97.2 (units (unknown) date) F L unknown) (unknown) (no (unknown) (unknown) Time Patient (units (u nknown) date) Seen: 09:22 unknown) (unknown) (no (unknown) (unknown) Total Bilirubin (units (unknown) date) 0.7 unknown) (unknown) (no (unknown) (unknown) Total Protein 6.4 (units (unknown) date) unknown) (unknown) (no (unknown) (unknown) Visit (units (unkno wn) date) Report/Discharge unknown) Packet (unknown) (no (unknown) (unknown) Vital Signs (units (un known) date) unknown) (unknown) (no (unknown) (unknown) WBC 5.9 (units (unkno wn) date) unknown) (unknown) (no (unknown) (unknown) When the pandemic (units (unknown) date) hit, she states unknown) she put most of the weight back on due to (unknown) (no (unknown) (unknown) [Embedded Image (units (unknown) date) Not Available] unknown) (unknown) (no (unknown) (unknown) abdominal and (units ( unknown) date) back cramping and unknown) bilateral leg pain. She states she has backed (unknown) (no (unknown) (unknown) acetaminophen 325 (units (unknown) date) mg Tablet unknown) (unknown) (no (unknown) (unknown) alcohol intake: (units (unknown) date) current unknown) (unknown) (no (unknown) (unknown) as 218/93. (units (unk nown) date) Currently her unknown) blood pressure is 126/64 she is afebrile heart rate 78 (unknown) (no (unknown) (unknown) blood pressure (units (unknown) date) and found it to be unknown) in the in the 220/120 range.? She did have a (unknown) (no (unknown) (unknown) blood pressures. 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 unknown) (unknown) (no (unknown) (unknown) carvedilol 12.5 (units (unknown) date) mg tablet unknown) (unknown) (no (unknown) (unknown) carvedilol 25 mg (units (unknown) date) tablet unknown) (unknown) (no (unknown) (unknown) carvedilol 6.25 (units (unknown) date) mg tablet unknown) (unknown) (no (unknown) (unknown) company. (units (unkno wn) date) unknown) (unknown) (no (unknown) (unknown) complaints in (units ( unknown) date) February of last unknown) year with headache, blurred vision and chest (unknown) (no (unknown) (unknown) controlled (units (unk nown) date) hypertension unknown) presented to the ED with significantly elevated blood (unknown) (no (unknown) (unknown) dose of (units (unkno wn) date) amlopdipine 5 mg. unknown) Imaging studies ruled out any acute cardiopulmonary (unknown) (no (unknown) (unknown) estradiol 0.1 (units ( unknown) date) mg/24 hr patch unknown) weekly (unknown) (no (unknown) (unknown) follow up with (units ( unknown) date) your PCP office as unknown) soon as possible to review hospitalization and (unknown) (no (unknown) (unknown) glasses of (units (unk nown) date) wine/day. 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 She had similar (unknown) (no (unknown) (unknown) household (units (unkn own) date) members: unknown) significant other and children (unknown) (no (unknown) (unknown) like to see you (units (unknown) date) in their clinic, unknown) which you can call at [phone]. Please (unknown) (no (unknown) (unknown) losartan-hydrochl (units (unknown) date) orothiazide 100-25 unknown) mg tablet (unknown) (no (unknown) (unknown) medication (units (unk nown) date) changes. You may unknown) also need a referral from their office to be seen (unknown) (no (unknown) (unknown) medications had (units (unknown) date) been doubled, but unknown) that the EMT said he was concerned because he (unknown) (no (unknown) (unknown) mother age (units (unknown) date) 57 of alcohol unknown) abuse. (unknown) (no (unknown) (unknown) must administer (units (unknown) date) with a meal/food unknown) (unknown) (no (unknown) (unknown) negative. (units (unkn own) date) Presenting blood unknown) pressure in the ED was 202/89 and trended up as high (unknown) (no (unknown) (unknown) off on exersize (units (unknown) date) because she gets unknown) very short of breath. States she does get dizzy (unknown) (no (unknown) (unknown) pain lasting from (units (unknown) date) 30-45 seconds. She unknown) endorses having nausea and vomiting, (unknown) (no (unknown) (unknown) patient has yet (units (unknown) date) to start this unknown) increased dose. Was newly perscribed by (unknown) (no (unknown) (unknown) pressure.? She (units (unknown) date) was having a tele unknown) video appointment with her primary care doctor (unknown) (no (unknown) (unknown) process, ruled (units (unknown) date) out PE, head CT unknown) was negative for CVA or injury, chest x-ray was (unknown) (no (unknown) (unknown) provider prior to (units (unknown) date) coming to the unknown) hospital. (unknown) (no (unknown) (unknown) respiratory rate (units (unknown) date) 21 oxygen unknown) saturation of 94% on room air she weighs 106.14 kg (unknown) (no (unknown) (unknown) thought her heart (units (unknown) date) rate was low and unknown) may be lowered. (unknown) (no (unknown) (unknown) to discuss her (units (unknown) date) hypertension and unknown) during that consultation she checked her home (unknown) (no (unknown) (unknown) to the point of (units (unknown) date) severe vertigo. unknown) She a a gastric bypass in 2016 and lost about (unknown) (no (unknown) (unknown) with a BMI of (units ( unknown) date) 40.2. CBC is unknown) unremarkable, chemistry is unremarkable and COVID-19 (unknown) (no (unknown) (unknown) working at home (units (unknown) date) and not being able unknown) to exercise. She states one of her bp (unknown) (no (unknown) (unknown) your heart muscle (units (unknown) date) is enlarged and is unknown) causing abnormal blood flow in your heart. 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 (unknown) (no (unknown) (unknown) # tobacco use (units ( unknown) date) unknown) (unknown) (no (unknown) (unknown) #obesity (units (unkno wn) date) unknown) (unknown) (no (unknown) (unknown) (past 8 hours): (units (unknown) date) unknown) (unknown) (no (unknown) (unknown) 0.1 mg topical (units (unknown) date) QWEEK Qty: 4 2RF unknown) (unknown) (no (unknown) (unknown) [id number] (units (unkno wn) date) unknown) (unknown) (no (unknown) (unknown) 07/17/22 22:04 (units (unknown) date) unknown) (unknown) (no (unknown) (unknown) 07/19/22 07/19/22 (units (unknown) date) unknown) (unknown) (no (unknown) (unknown) 07/19/22 06:16 (units (unknown) date) unknown) (unknown) (no (unknown) (unknown) 07/19/22 1714 (units ( unknown) date) unknown) (unknown) (no (unknown) (unknown) 07/19/22 (units (unkno wn) date) unknown) (unknown) (no (unknown) (unknown) 05:07 07/19/22 (units (unknown) date) unknown) (unknown) (no (unknown) (unknown) 06:16 06:16 (units (un known) date) unknown) (unknown) (no (unknown) (unknown) 08:07 07/19/22 (units (unknown) date) unknown) (unknown) (no (unknown) (unknown) 08:08 (units (unkno wn) date) unknown) (unknown) (no (unknown) (unknown) 09:00 (units (unkno wn) date) unknown) (unknown) (no (unknown) (unknown) 1 tab PO DAILY (units (unknown) date) Qty: 30 2RF unknown) (unknown) (no (unknown) (unknown) 12.5 mg PO BID (units (unknown) date) Qty: 60 1RF unknown) (unknown) (no (unknown) (unknown) 125 lbs, she (units (u nknown) date) attempted to unknown) increase her weight as she stated she looked poorly. (unknown) (no (unknown) (unknown) 25 mg PO BID 30 (units (unknown) date) Days Qty: 60 0RF unknown) (unknown) (no (unknown) (unknown) 25 mg twice a (units ( unknown) date) day. Her blood unknown) pressure was markedly improved with the systolics (unknown) (no (unknown) (unknown) 325 mg PO QID PRN (units (unknown) date) (Reason: Pain unknown) (Scale Score 1-3)) (unknown) (no (unknown) (unknown) 6.25 mg PO BID (units (unknown) date) Qty: 180 1RF unknown) (unknown) (no (unknown) (unknown) ALT 26 (units (unkno wn) date) unknown) (unknown) (no (unknown) (unknown) AST 23 (units (unkno wn) date) unknown) (unknown) (no (unknown) (unknown) Abdomen: S NT ND. (units (unknown) date) No CVA tenderness. unknown) (unknown) (no (unknown) (unknown) Activity: As (units (u nknown) date) tolerated, no unknown) heavy exercise recommended at this time. (unknown) (no (unknown) (unknown) Age/Sex: 51 / F (units (unknown) date) unknown) (unknown) (no (unknown) (unknown) Albumin 3.6 (units (un known) date) unknown) (unknown) (no (unknown) (unknown) Albumin/Globulin (units (unknown) date) Ratio 1.3 unknown) (unknown) (no (unknown) (unknown) Alkaline (units (unkno wn) date) Phosphatase 78 unknown) (unknown) (no (unknown) (unknown) Apply 1 patch, (units (unknown) date) once a week unknown) (unknown) (no (unknown) (unknown) Attending (units (unkn own) date) Provider: unknown) Clarissa Washington (unknown) (no (unknown) (unknown) BUN 20 H (units (unkno wn) date) unknown) (unknown) (no (unknown) (unknown) BUN/Creatinine (units (unknown) date) Ratio 30.3 H unknown) (unknown) (no (unknown) (unknown) Baso # (Auto) 0 (units (unknown) date) unknown) (unknown) (no (unknown) (unknown) Baso % (Auto) 0.4 (units (unknown) date) unknown) (unknown) (no (unknown) (unknown) Blood Pressure (units (unknown) date) 140/89 unknown) (unknown) (no (unknown) (unknown) Blood Pressure (units (unknown) date) 150/82 H 140/89 unknown) 140/89 (unknown) (no (unknown) (unknown) Calcium 8.9 (units (un known) date) unknown) (unknown) (no (unknown) (unknown) Carbon Dioxide 28 (units (unknown) date) unknown) (unknown) (no (unknown) (unknown) Cardio:?RRR no (units (unknown) date) m/r/g. unknown) (unknown) (no (unknown) (unknown) Cardiology as (units ( unknown) date) recommended, as unknown) her symptoms should continue to improve with (unknown) (no (unknown) (unknown) Chest:? Normal AP (units (unknown) date) diameter and unknown) contour without kyphoscoliosis, no tachypnea, (unknown) (no (unknown) (unknown) Chief complaint: (units (unknown) date) Nausea and HTN unknown) (unknown) (no (unknown) (unknown) Chloride 103 (units (u nknown) date) unknown) (unknown) (no (unknown) (unknown) Continued (units (unkn own) date) unknown) (unknown) (no (unknown) (unknown) Creatinine 0.66 (units (unknown) date) unknown) (unknown) (no (unknown) (unknown) : 1970 (units (unknown) date) Acct:[id number] unknown) (unknown) (no (unknown) (unknown) Date Patient (units (u nknown) date) Seen: 07/19/22 unknown) (unknown) (no (unknown) (unknown) Date of Service: (units (unknown) date) 07/17/22 unknown) (unknown) (no (unknown) (unknown) Date of (units (unkno wn) date) admission: unknown) (unknown) (no (unknown) (unknown) Nona Guzman is (units (unknown) date) a 51 y.o. female unknown) who with a history of severe and poorly (unknown) (no (unknown) (unknown) Diet/Activity/Ezio (units (unknown) date) atments unknown) (unknown) (no (unknown) (unknown) Diet: Diet as (units ( unknown) date) Tolerated unknown) (unknown) (no (unknown) (unknown) Discharge Data (units (unknown) date) unknown) (unknown) (no (unknown) (unknown) Discharge Date: (units (unknown) date) 07/19/22 unknown) (unknown) (no (unknown) (unknown) Discharge (units (unkn own) date) Diagnosis: unknown) (unknown) (no (unknown) (unknown) Discharge Health (units (unknown) date) Status unknown) (unknown) (no (unknown) (unknown) Discharge Plan (units (unknown) date) unknown) (unknown) (no (unknown) (unknown) Discharge (units (unkn own) date) Providers unknown) (unknown) (no (unknown) (unknown) Discharge Summary (units (unknown) date) unknown) (unknown) (no (unknown) (unknown) Discharge orders (units (unknown) date) + Medications unknown) (unknown) (no (unknown) (unknown) Discharge (units (unkn own) date) provider: unknown) (unknown) (no (unknown) (unknown) Discontinued (units (u nknown) date) unknown) (unknown) (no (unknown) (unknown) Do not do heavy (units (unknown) date) exercise until unknown) cleared by cardiology, 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 No cyanosis or clubbing. (unknown) (no (unknown) (unknown) Fibromyalgia (units (u nknown) date) unknown) (unknown) (no (unknown) (unknown) Follow (units (unkno wn) date) up/Referrals: unknown) (unknown) (no (unknown) (unknown) General:? Patient (units (unknown) date) is well developed unknown) and well nourished, in no distress at this (unknown) (no (unknown) (unknown) Globulin 2.8 (units (u nknown) date) unknown) (unknown) (no (unknown) (unknown) Glucose 95 (units (unk nown) date) unknown) (unknown) (no (unknown) (unknown) H/O gastric (units (un known) date) bypass unknown) (unknown) (no (unknown) (unknown) HEENT:? (units (unkno wn) date) Normocephalic, unknown) atraumatic, extraocular muscles intact, oral pharynx is (unknown) (no (unknown) (unknown) HOCM (units (unkno wn) date) unknown) (unknown) (no (unknown) (unknown) Hct 38.8 (units (unkno wn) date) unknown) (unknown) (no (unknown) (unknown) Health Concerns: (units (unknown) date) unknown) (unknown) (no (unknown) (unknown) Hgb 13.2 (units (unkno wn) date) unknown) (unknown) (no (unknown) (unknown) History of (units (unk nown) date) Present Illness unknown) (unknown) (no (unknown) (unknown) History of (units (unk nown) date) prediabetes unknown) (unknown) (no (unknown) (unknown) Hospital Course (units (unknown) date) unknown) (unknown) (no (unknown) (unknown) Hospital Course: (units (unknown) date) unknown) (unknown) (no (unknown) (unknown) Hypertension (units (u nknown) date) unknown) (unknown) (no (unknown) (unknown) In the ED, she (units (unknown) date) was started on a unknown) nifedipine drip, then administered a one time (unknown) (no (unknown) (unknown) Instructions: (units ( unknown) date) Hypertrophic unknown) Cardiomyopathy -- Adult (unknown) (no (unknown) (unknown) Is a 51-year-old (units (unknown) date) female with a past unknown) medical history of uncontrolled hypertension (unknown) (no (unknown) (unknown) [facility] (units (unknown) date) [address] unknown) [place] [address] (unknown) (no (unknown) (unknown) Julio Sandoval, (units (unknown) date) DO unknown) (unknown) (no (unknown) (unknown) Label Comments: (units (unknown) date) unknown) (unknown) (no (unknown) (unknown) Laboratory (units (unk nown) date) Results - last 24 unknown) hr (unknown) (no (unknown) (unknown) Labs (units (unkno wn) date) unknown) (unknown) (no (unknown) (unknown) Labs: (units (unkno wn) date) unknown) (unknown) (no (unknown) (unknown) Lungs:? CTA b/l (units (unknown) date) no wheezing unknown) rhonchi or rales. (unknown) (no (unknown) (unknown) Lymph # (Auto) (units (unknown) date) 1400 unknown) (unknown) (no (unknown) (unknown) Lymph % (Auto) (units (unknown) date) 23.5 L unknown) (unknown) (no (unknown) (unknown) MCH 30.8 (units (unkno wn) date) unknown) (unknown) (no (unknown) (unknown) MCHC 33.9 (units (unkn own) date) unknown) (unknown) (no (unknown) (unknown) MCV 90.9 (units (unkno wn) date) unknown) (unknown) (no (unknown) (unknown) Medical History (units (unknown) date) (Reviewed 07/18/22 unknown) @ 00:52 by EDENILSON Amezquita) (unknown) (no (unknown) (unknown) Larue # (Auto) 400 (units (unknown) date) unknown) (unknown) (no (unknown) (unknown) Larue % (Auto) 7.1 (units (unknown) date) unknown) (unknown) (no (unknown) (unknown) Musculoskeletal:? (units (unknown) date) Muscle strength unknown) and tone are equal within normal limits, no (unknown) (no (unknown) (unknown) Narrative (units (unkn own) date) unknown) (unknown) (no (unknown) (unknown) Narrative: (units (unk nown) date) unknown) (unknown) (no (unknown) (unknown) Neck: supple and (units (unknown) date) symmetric, trachea unknown) is midline, no cervical adenopathy. Negative (unknown) (no (unknown) (unknown) Neuro:? Alert and (units (unknown) date) orientated x3,? unknown) sensation to touch intact in all extremities, (unknown) (no (unknown) (unknown) Neut # (Auto) (units ( unknown) date) 4000 unknown) (unknown) (no (unknown) (unknown) Neut % (Auto) (units ( unknown) date) 67.7 unknown) (unknown) (no (unknown) (unknown) New (units (unkno wn) date) unknown) (unknown) (no (unknown) (unknown) Objective (units (unkn own) date) unknown) (unknown) (no (unknown) (unknown) Oxygen Delivery (units (unknown) date) Method Room Air unknown) (unknown) (no (unknown) (unknown) Oxygen Flow Rate (units (unknown) date) 0 unknown) (unknown) (no (unknown) (unknown) Oxygen Flow Rate (units (unknown) date) unknown) (unknown) (no (unknown) (unknown) PCR is negative. (units (unknown) date) unknown) (unknown) (no (unknown) (unknown) PFSH (units (unkno wn) date) unknown) (unknown) (no (unknown) (unknown) Monika Truong MD (units (unknown) date) [Physician] - 1 unknown) Month (unknown) (no (unknown) (unknown) Patient (units (unkno wn) date) Disposition: Home unknown) (unknown) (no (unknown) (unknown) Patient states (units (unknown) date) she uses estrogen unknown) patches, smokes 4 cigarrettes/day and drinks 2 (unknown) (no (unknown) (unknown) Patient: (units (unkno wn) date) Nona Guzman M unknown) MR#: [id number] (unknown) (no (unknown) (unknown) Per admitting (units ( unknown) date) provider, unknown) (unknown) (no (unknown) (unknown) Julio Sandoval, (units (unknown) date) DO [Primary Care unknown) Provider] - 1 Week (unknown) (no (unknown) (unknown) Plt Count 201 (units ( unknown) date) unknown) (unknown) (no (unknown) (unknown) Potassium 4.0 (units ( unknown) date) unknown) (unknown) (no (unknown) (unknown) Prescriptions: (units (unknown) date) unknown) (unknown) (no (unknown) (unknown) Primary Care (units (u nknown) date) Provider: unknown) Julio Sandoval (unknown) (no (unknown) (unknown) Primary care (units (u nknown) date) physician: unknown) (unknown) (no (unknown) (unknown) Provider (units (unkno wn) date) Discharge Comment: unknown) You were admitted to the hospital with elevated (unknown) (no (unknown) (unknown) Provider (units (unkno wn) date) unknown) (unknown) (no (unknown) (unknown) Provider: (units (unkn own) date) Bj Snider unknown) D.O. (unknown) (no (unknown) (unknown) Psych:? Patient (units (unknown) date) has a well-kept unknown) appearance, appropriate affect, mental status (unknown) (no (unknown) (unknown) Pulse Oximetry 97 (units (unknown) date) unknown) (unknown) (no (unknown) (unknown) Pulse Oximetry 98 (units (unknown) date) unknown) (unknown) (no (unknown) (unknown) Pulse Rate 64 (units ( unknown) date) unknown) (unknown) (no (unknown) (unknown) Pulse Rate 66 (units ( unknown) date) unknown) (unknown) (no (unknown) (unknown) RBC 4.27 (units (unkno wn) date) unknown) (unknown) (no (unknown) (unknown) RDW 14.2 (units (unkno wn) date) unknown) (unknown) (no (unknown) (unknown) Respiratory Rate (units (unknown) date) 16 unknown) (unknown) (no (unknown) (unknown) Respiratory Rate (units (unknown) date) 18 unknown) (unknown) (no (unknown) (unknown) Bj Snider, (units (unknown) date) DO unknown) (unknown) (no (unknown) (unknown) Rx Instructions: (units (unknown) date) unknown) (unknown) (no (unknown) (unknown) Signed (units (unkno wn) date) By:<Electronically unknown) signed by Bj Snider D.O.> (unknown) (no (unknown) (unknown) Skin:? Pale,? (units ( unknown) date) Warm to touch,dry unknown) and intact without rashes, ulcerations or (unknown) (no (unknown) (unknown) Smoking Status: (units (unknown) date) Current every day unknown) smoker (unknown) (no (unknown) (unknown) Social History (units (unknown) date) (Reviewed 03/09/22 unknown) @ 10:33 by Mariella Rico DO) (unknown) (no (unknown) (unknown) Sodium 137 (units (unk nown) date) unknown) (unknown) (no (unknown) (unknown) Stand Alone (units (un known) date) Forms: Patient unknown) Portal/API, Stroke Signs + Symptoms (unknown) (no (unknown) (unknown) States her (units (unkn own) date) father's side has unknown) had heart disease, he at age 59 of asbestosis, (unknown) (no (unknown) (unknown) Summary (units (unkno wn) date) unknown) (unknown) (no (unknown) (unknown) Surgical History (units (unknown) date) (Reviewed 07/18/22 unknown) @ 00:52 by EDENILSON Amezquita) (unknown) (no (unknown) (unknown) Temperature 97.1 (units (unknown) date) F L unknown) (unknown) (no (unknown) (unknown) Temperature 97.2 (units (unknown) date) F L unknown) (unknown) (no (unknown) (unknown) Time Patient (units (u nknown) date) Seen: :22 unknown) (unknown) (no (unknown) (unknown) Time Spent with (units (unknown) date) Patient unknown) (unknown) (no (unknown) (unknown) Time spent: (units (un known) date) Greater than 30 unknown) minutes (unknown) (no (unknown) (unknown) Total Bilirubin (units (unknown) date) 0.7 unknown) (unknown) (no (unknown) (unknown) Total Protein 6.4 (units (unknown) date) unknown) (unknown) (no (unknown) (unknown) Visit (units (unkno wn) date) Report/Discharge unknown) Packet (unknown) (no (unknown) (unknown) Vital Signs (units (un known) date) unknown) (unknown) (no (unknown) (unknown) WBC 5.9 (units (unkno wn) date) unknown) (unknown) (no (unknown) (unknown) When the pandemic (units (unknown) date) hit, she states unknown) she put most of the weight back on due to (unknown) (no (unknown) (unknown) [Embedded Image (units (unknown) date) Not Available] unknown) (unknown) (no (unknown) (unknown) abdominal and (units ( unknown) date) back cramping and unknown) bilateral leg pain. She states she has backed (unknown) (no (unknown) (unknown) acetaminophen 325 (units (unknown) date) mg Tablet unknown) (unknown) (no (unknown) (unknown) additionally (units (u nknown) date) recommended. unknown) (unknown) (no (unknown) (unknown) admission (units (unkn own) date) revealed a normal unknown) ejection fraction but did reveal hypertrophic (unknown) (no (unknown) (unknown) admission. Close (units (unknown) date) outpatient unknown) follow-up with her primary care provider and (unknown) (no (unknown) (unknown) aggressive blood (units (unknown) date) pressure control unknown) with ideal resting heart rate below 70. Her (unknown) (no (unknown) (unknown) alcohol intake: (units (unknown) date) current unknown) (unknown) (no (unknown) (unknown) and hypertension, (units (unknown) date) as well as risk of unknown) sleep apnea. Outpatient sleep study is (unknown) (no (unknown) (unknown) and she was able (units (unknown) date) to be off of unknown) nicardipine and of her home medications as well as (unknown) (no (unknown) (unknown) as 218/93. (units (unk nown) date) Currently her unknown) blood pressure is 126/64 she is afebrile heart rate 78 (unknown) (no (unknown) (unknown) attitude thought (units (unknown) date) context and unknown) judgment are appropriate for age. (unknown) (no (unknown) (unknown) avoiding vigorous (units (unknown) date) exercise at this unknown) time. Obesity contriubtes to patient's risk (unknown) (no (unknown) (unknown) blood pressure (units (unknown) date) and found it to be unknown) in the in the 220/120 range.? She did have a (unknown) (no (unknown) (unknown) blood pressures. 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 unknown) (unknown) (no (unknown) (unknown) carvedilol 12.5 (units (unknown) date) mg tablet unknown) (unknown) (no (unknown) (unknown) carvedilol 25 mg (units (unknown) date) tablet unknown) (unknown) (no (unknown) (unknown) carvedilol 6.25 (units (unknown) date) mg tablet unknown) (unknown) (no (unknown) (unknown) clear and mucous (units (unknown) date) membranes are unknown) moist. (unknown) (no (unknown) (unknown) company. (units (unkno wn) date) unknown) (unknown) (no (unknown) (unknown) complaints in (units ( unknown) date) February of last unknown) year with headache, blurred vision and chest (unknown) (no (unknown) (unknown) controlled (units (unk nown) date) hypertension unknown) presented to the ED with significantly elevated blood (unknown) (no (unknown) (unknown) damage on further (units (unknown) date) evaluation, though unknown) initially she was started on nicardipine (unknown) (no (unknown) (unknown) deformity. (units (unk nown) date) unknown) (unknown) (no (unknown) (unknown) dose of (units (unkno wn) date) amlopdipine 5 mg. unknown) Imaging studies ruled out any acute cardiopulmonary (unknown) (no (unknown) (unknown) equal chest rise (units (unknown) date) bilaterally. unknown) (unknown) (no (unknown) (unknown) estradiol 0.1 (units ( unknown) date) mg/24 hr patch unknown) weekly (unknown) (no (unknown) (unknown) follow up with (units ( unknown) date) your PCP office as unknown) soon as possible to review hospitalization and (unknown) (no (unknown) (unknown) follow-up for her (units (unknown) date) hypertrophic unknown) obstructive cardiomyopathy. She was counseled on (unknown) (no (unknown) (unknown) for JVD (units (unkno wn) date) unknown) (unknown) (no (unknown) (unknown) glasses of (units (unk nown) date) wine/day. 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 She had similar (unknown) (no (unknown) (unknown) household (units (unkn own) date) members: unknown) significant other and children (unknown) (no (unknown) (unknown) in the 140s on (units (unknown) date) the day of unknown) discharge, much improved from the 200s initially on (unknown) (no (unknown) (unknown) increase in her (units (unknown) date) home carvedilol. unknown) Echocardiogram was performed the morning after (unknown) (no (unknown) (unknown) infusion given (units (unknown) date) her symptoms. Her unknown) blood pressure was controlled quite quickly (unknown) (no (unknown) (unknown) initiation of (units ( unknown) date) medical therapy, unknown) however if not she may need additional specialty (unknown) (no (unknown) (unknown) like to see you (units (unknown) date) in their clinic, unknown) which you can call at [phone]. Please (unknown) (no (unknown) (unknown) losartan-hydrochl (units (unknown) date) orothiazide 100-25 unknown) mg tablet (unknown) (no (unknown) (unknown) medication (units (unk nown) date) changes. You may unknown) also need a referral from their office to be seen (unknown) (no (unknown) (unknown) medications had (units (unknown) date) been doubled, but unknown) that the EMT said he was concerned because he (unknown) (no (unknown) (unknown) mother age (units (unknown) date) 57 of alcohol unknown) abuse. (unknown) (no (unknown) (unknown) must administer (units (unknown) date) with a meal/food unknown) (unknown) (no (unknown) (unknown) negative. (units (unkn own) date) Presenting blood unknown) pressure in the ED was 202/89 and trended up as high (unknown) (no (unknown) (unknown) no gross deficits (units (unknown) date) noted of cranial unknown) nerves. (unknown) (no (unknown) (unknown) obstructive (units (un known) date) cardiomyopathy. unknown) Cardiology was subsequently contacted and they (unknown) (no (unknown) (unknown) off on exersize (units (unknown) date) because she gets unknown) very short of breath. States she does get dizzy (unknown) (no (unknown) (unknown) pain lasting from (units (unknown) date) 30-45 seconds. She unknown) endorses having nausea and vomiting, (unknown) (no (unknown) (unknown) patient has yet (units (unknown) date) to start this unknown) increased dose. Was newly perscribed by (unknown) (no (unknown) (unknown) petechiae.? (units (un known) date) unknown) (unknown) (no (unknown) (unknown) pressure.? She (units (unknown) date) was having a tele unknown) video appointment with her primary care doctor (unknown) (no (unknown) (unknown) process, ruled (units (unknown) date) out PE, head CT unknown) was negative for CVA or injury, chest x-ray was (unknown) (no (unknown) (unknown) provider prior to (units (unknown) date) coming to the unknown) hospital. (unknown) (no (unknown) (unknown) recommended (units (un known) date) outpatient unknown) follow-up (for which clinic number was provided) and (unknown) (no (unknown) (unknown) respiratory rate (units (unknown) date) 21 oxygen unknown) saturation of 94% on room air she weighs 106.14 kg (unknown) (no (unknown) (unknown) resting heart (units ( unknown) date) rate was in the unknown) 60s after increasing her home carvedilol again to (unknown) (no (unknown) (unknown) thought her heart (units (unknown) date) rate was low and unknown) may be lowered. (unknown) (no (unknown) (unknown) time. (units (unkno wn) date) unknown) (unknown) (no (unknown) (unknown) to discuss her (units (unknown) date) hypertension and unknown) during that consultation she checked her home (unknown) (no (unknown) (unknown) to the point of (units (unknown) date) severe vertigo. unknown) She a a gastric bypass in 2016 and lost about (unknown) (no (unknown) (unknown) who was admitted (units (unknown) date) with concern for unknown) possible hypertensive emergency as she present (unknown) (no (unknown) (unknown) with a BMI of (units ( unknown) date) 40.2. CBC is unknown) unremarkable, chemistry is unremarkable and COVID-19 (unknown) (no (unknown) (unknown) with chest pain, (units (unknown) date) dizziness, and unknown) headache. There was no evidence of end-organ (unknown) (no (unknown) (unknown) working at home (units (unknown) date) and not being able unknown) to exercise. She states one of her bp (unknown) (no (unknown) (unknown) your heart muscle (units (unknown) date) is enlarged and is unknown) causing abnormal blood flow in your heart. Result panel 544 (unknown) (no (unknown) (unknown) (no value) (units (unk nown) date) unknown) (unknown) (no (unknown) (unknown) [id number] (units (unkno wn) date) unknown) (unknown) (no (unknown) (unknown) 08/06/22 16:16) (units (unknown) date) unknown) (unknown) (no (unknown) (unknown) 08/06/22 (units (unkno wn) date) unknown) (unknown) (no (unknown) (unknown) 08/06/22] (units (unkn own) date) unknown) (unknown) (no (unknown) (unknown) 06/03/22 [Rx (units (u nknown) date) Confirmed unknown) 08/06/22] (unknown) (no (unknown) (unknown) 06/04/22 [Rx (units (u nknown) date) Confirmed unknown) 08/06/22] (unknown) (no (unknown) (unknown) 16:17 (units (unkno wn) date) unknown) (unknown) (no (unknown) (unknown) Age/Sex: 51 / F (units (unknown) date) Date of Service: unknown) (unknown) (no (unknown) (unknown) Allergies (units (unkn own) date) unknown) (unknown) (no (unknown) (unknown) GWEN Lobo (units ( unknown) date) [id number] unknown) (unknown) (no (unknown) (unknown) Attending Dr: (units ( unknown) date) Amari Ngo MD unknown) (unknown) (no (unknown) (unknown) BMI 40.8 (units (unkno wn) date) unknown) (unknown) (no (unknown) (unknown) BP 140/90 (units (unkn own) date) unknown) (unknown) (no (unknown) (unknown) Blood Pressure (units (unknown) date) Location Lt unknown) brachial (unknown) (no (unknown) (unknown) : 1970 (units (unknown) date) Acct:[id number] unknown) (unknown) (no (unknown) (unknown) Dept at (units (unkno wn) date) . unknown) (unknown) (no (unknown) (unknown) Documented By: (units (unknown) date) Amari Ngo MD unknown) 08/06/22 1614 (unknown) (no (unknown) (unknown) Draft (units (unkno wn) date) unknown) (unknown) (no (unknown) (unknown) Fibromyalgia (units (u nknown) date) unknown) (unknown) (no (unknown) (unknown) [facility]) (unknown) (no (unknown) (unknown) H/O gastric (units (un known) date) bypass unknown) (unknown) (no (unknown) (unknown) Height 5 ft 4 in (units (unknown) date) unknown) (unknown) (no (unknown) (unknown) History of (units (unk nown) date) prediabetes unknown) (unknown) (no (unknown) (unknown) Hypertension (units (u nknown) date) unknown) (unknown) (no (unknown) (unknown) Intake Note: (units (u nknown) date) unknown) (unknown) (no (unknown) (unknown) Intake performed (units (unknown) date) by: Chad Mcwilliams unknown) (unknown) (no (unknown) (unknown) Intake (units (unkno wn) date) unknown) (unknown) (no (unknown) (unknown) Intake- Clincial (units (unknown) date) Staff unknown) (unknown) (no (unknown) (unknown) Internal Medicine (units (unknown) date) Office Visit unknown) (unknown) (no (unknown) (unknown) Loc: [facility] (units (unkno wn) date) unknown) (unknown) (no (unknown) (unknown) Medical History (units (unknown) date) (Reviewed 07/18/22 unknown) @ 00:52 by EDENILSON Amezquita) (unknown) (no (unknown) (unknown) Medications (units (un known) date) unknown) (unknown) (no (unknown) (unknown) Oxygen Delivery (units (unknown) date) Method room air unknown) (unknown) (no (unknown) (unknown) PFSH (units (unkno wn) date) unknown) (unknown) (no (unknown) (unknown) Patient: (units (unkno wn) date) Nona Guzman unknown) MR#: [id number] (unknown) (no (unknown) (unknown) Penicillins (units (un known) date) [PENICILLINS] unknown) Allergy (Severe, Verified 08/06/22 16:16) (unknown) (no (unknown) (unknown) Position Sitting (units (unknown) date) unknown) (unknown) (no (unknown) (unknown) Pt presents for (units (unknown) date) ED F/U for unknown) cardiomyopathy at . (unknown) (no (unknown) (unknown) Pulse 73 (units (unkno wn) date) unknown) (unknown) (no (unknown) (unknown) Pulse Oximetry (units (unknown) date) (%) 100 unknown) (unknown) (no (unknown) (unknown) Pulse Source (units (u nknown) date) Monitor unknown) (unknown) (no (unknown) (unknown) RASH (units (unkno wn) date) unknown) (unknown) (no (unknown) (unknown) RASH/ITCHING, (units ( unknown) date) TROUBLE BREATHING. unknown) (unknown) (no (unknown) (unknown) Reason For Visit (units (unknown) date) unknown) (unknown) (no (unknown) (unknown) SWELLING FACE, (units (unknown) date) THROAT + HIVES ALL unknown) OVER. (unknown) (no (unknown) (unknown) SWELLING. (units (unkn own) date) unknown) (unknown) (no (unknown) (unknown) Signed By: (units (unk nown) date) unknown) (unknown) (no (unknown) (unknown) Smoking Status: (units (unknown) date) Current every day unknown) smoker (unknown) (no (unknown) (unknown) Social History (units (unknown) date) unknown) (unknown) (no (unknown) (unknown) Surgical History (units (unknown) date) (Reviewed 07/18/22 unknown) @ 00:52 by EDENILSON Amezquita) (unknown) (no (unknown) (unknown) Temp 97.1 F L (units ( unknown) date) unknown) (unknown) (no (unknown) (unknown) Temp Source Skin (units (unknown) date) unknown) (unknown) (no (unknown) (unknown) This note may (units ( unknown) date) have been all or unknown) partially generated using voice recognition (unknown) (no (unknown) (unknown) Tobacco + (units (unkn own) date) Substance Use unknown) (unknown) (no (unknown) (unknown) Tobacco Status (units (unknown) date) unknown) (unknown) (no (unknown) (unknown) VOMITING (units (unkno wn) date) unknown) (unknown) (no (unknown) (unknown) Visit Reasons: (units (unknown) date) *Sandoval* unknown) Cardiomyopathy (unknown) (no (unknown) (unknown) Vitals (units (unkno wn) date) unknown) (unknown) (no (unknown) (unknown) Weight 238 lb 3 (units (unknown) date) oz unknown) (unknown) (no (unknown) (unknown) [History (units (unkno wn) date) Confirmed unknown) 08/06/22] (unknown) (no (unknown) (unknown) acetaminophen 325 (units (unknown) date) mg tablet 325 mg unknown) PO QID PRN Pain (Scale Score 1-3) 07/18/22 (unknown) (no (unknown) (unknown) alcohol intake: (units (unknown) date) current unknown) (unknown) (no (unknown) (unknown) amoxicillin (units (un known) date) [AMOXICILLIN] unknown) Allergy (Severe, Verified 08/06/22 16:16) (unknown) (no (unknown) (unknown) carvedilol 25 mg (units (unknown) date) tablet 25 mg PO unknown) BID 30 days #60 tabs 07/19/22 [Rx Confirmed (unknown) (no (unknown) (unknown) diphenhydramine (units (unknown) date) [DIPHENHYDRAMINE] unknown) Allergy (Mild, Verified 08/06/22 16:16) (unknown) (no (unknown) (unknown) estradiol 0.1 (units ( unknown) date) mg/24 hr weekly unknown) transdermal patch 0.1 mg topical QWEEK #4 ea (unknown) (no (unknown) (unknown) have occurred. If (units (unknown) date) there are any unknown) questions, please contact the Medical Records (unknown) (no (unknown) (unknown) household (units (unkn own) date) members: unknown) significant other and children (unknown) (no (unknown) (unknown) latex [LATEX] (units ( unknown) date) Allergy (Mild, unknown) Verified 08/06/22 16:16) (unknown) (no (unknown) (unknown) losartan 100 (units (u nknown) date) mg-hydrochlorothia unknown) zide 25 mg tablet 1 tab PO DAILY #30 tabs (unknown) (no (unknown) (unknown) magnesium citrate (units (unknown) date) [MAGNESIUM unknown) CITRATE] Adverse Reaction (Unknown, Verified (unknown) (no (unknown) (unknown) may occur. (units (unk nown) date) Occasional unknown) wrong-word or 'sound-alike' substitutions may have (unknown) (no (unknown) (unknown) occurred due to (units (unknown) date) the inherent unknown) limitations of voice recognition software. Please (unknown) (no (unknown) (unknown) read the note (units ( unknown) date) carefully and unknown) recognize, using context, where these substitutions (unknown) (no (unknown) (unknown) software. (units (unkn own) date) Although every unknown) effort is made to edit content, x ray examiner of aircraft errors Result panel 545 (unknown) (no (unknown) (unknown) (no value) (units (unk nown) date) unknown) (unknown) (no (unknown) (unknown) [id number] (units (unkno wn) date) unknown) (unknown) (no (unknown) (unknown) 08/06/22 16:16) (units (unknown) date) unknown) (unknown) (no (unknown) (unknown) 08/06/22 (units (unkno wn) date) unknown) (unknown) (no (unknown) (unknown) 08/06/22] (units (unkn own) date) unknown) (unknown) (no (unknown) (unknown) 06/03/22 [Rx (units (u nknown) date) Confirmed unknown) 08/06/22] (unknown) (no (unknown) (unknown) 06/04/22 [Rx (units (u nknown) date) Confirmed unknown) 08/06/22] (unknown) (no (unknown) (unknown) 16:17 (units (unkno wn) date) unknown) (unknown) (no (unknown) (unknown) Age/Sex: 51 / F (units (unknown) date) Date of Service: unknown) (unknown) (no (unknown) (unknown) Allergies (units (unkn own) date) unknown) (unknown) (no (unknown) (unknown) GWEN Lobo (units ( unknown) date) [id number] unknown) (unknown) (no (unknown) (unknown) Attending Dr: (units ( unknown) date) Amari Ngo MD unknown) (unknown) (no (unknown) (unknown) BMI 40.8 (units (unkno wn) date) unknown) (unknown) (no (unknown) (unknown) BP 140/90 (units (unkn own) date) unknown) (unknown) (no (unknown) (unknown) Blood Pressure (units (unknown) date) Location Lt unknown) brachial (unknown) (no (unknown) (unknown) Chief Complaint (units (unknown) date) unknown) (unknown) (no (unknown) (unknown) Chief Complaint: (units (unknown) date) Follow-up ED, unknown) hypertensive urgency (unknown) (no (unknown) (unknown) : 1970 (units (unknown) date) Acct:[id number] unknown) (unknown) (no (unknown) (unknown) Dept at (units (unkno wn) date) . unknown) (unknown) (no (unknown) (unknown) Documented By: (units (unknown) date) Amari Ngo MD unknown) 08/06/22 1614 (unknown) (no (unknown) (unknown) Draft (units (unkno wn) date) unknown) (unknown) (no (unknown) (unknown) Fibromyalgia (units (u nknown) date) unknown) (unknown) (no (unknown) (unknown) [facility]) (unknown) (no (unknown) (unknown) H/O gastric (units (un known) date) bypass unknown) (unknown) (no (unknown) (unknown) HPI (units (unkno wn) date) unknown) (unknown) (no (unknown) (unknown) Height 5 ft 4 in (units (unknown) date) unknown) (unknown) (no (unknown) (unknown) History of (units (unk nown) date) prediabetes unknown) (unknown) (no (unknown) (unknown) Hypertension (units (u nknown) date) unknown) (unknown) (no (unknown) (unknown) Intake Note: (units (u nknown) date) unknown) (unknown) (no (unknown) (unknown) Intake performed (units (unknown) date) by: Chad Mcwilliams unknown) (unknown) (no (unknown) (unknown) Intake (units (unkno wn) date) unknown) (unknown) (no (unknown) (unknown) Intake- Clincial (units (unknown) date) Staff unknown) (unknown) (no (unknown) (unknown) Internal Medicine (units (unknown) date) Office Visit unknown) (unknown) (no (unknown) (unknown) Loc: [facility] (units (unkno wn) date) unknown) (unknown) (no (unknown) (unknown) Medical History (units (unknown) date) (Reviewed 07/18/22 unknown) @ 00:52 by EDENILSON Amezquita) (unknown) (no (unknown) (unknown) Medications (units (un known) date) unknown) (unknown) (no (unknown) (unknown) Oxygen Delivery (units (unknown) date) Method room air unknown) (unknown) (no (unknown) (unknown) PFSH (units (unkno wn) date) unknown) (unknown) (no (unknown) (unknown) Patient: (units (unkno wn) date) Guzman,Nona M unknown) MR#: [id number] (unknown) (no (unknown) (unknown) Penicillins (units (un known) date) [PENICILLINS] unknown) Allergy (Severe, Verified 08/06/22 16:16) (unknown) (no (unknown) (unknown) Position Sitting (units (unknown) date) unknown) (unknown) (no (unknown) (unknown) Pt presents for (units (unknown) date) ED F/U for unknown) cardiomyopathy at [facility]. (unknown) (no (unknown) (unknown) Pulse 73 (units (unkno wn) date) unknown) (unknown) (no (unknown) (unknown) Pulse Oximetry (units (unknown) date) (%) 100 unknown) (unknown) (no (unknown) (unknown) Pulse Source (units (u nknown) date) Monitor unknown) (unknown) (no (unknown) (unknown) RASH (units (unkno wn) date) unknown) (unknown) (no (unknown) (unknown) RASH/ITCHING, (units ( unknown) date) TROUBLE BREATHING. unknown) (unknown) (no (unknown) (unknown) Reason For Visit (units (unknown) date) unknown) (unknown) (no (unknown) (unknown) SWELLING FACE, (units (unknown) date) THROAT + HIVES ALL unknown) OVER. (unknown) (no (unknown) (unknown) SWELLING. (units (unkn own) date) unknown) (unknown) (no (unknown) (unknown) Signed By: (units (unk nown) date) unknown) (unknown) (no (unknown) (unknown) Smoking Status: (units (unknown) date) Current every day unknown) smoker (unknown) (no (unknown) (unknown) Social History (units (unknown) date) unknown) (unknown) (no (unknown) (unknown) Surgical History (units (unknown) date) (Reviewed 07/18/22 unknown) @ 00:52 by EDENILSON Amezquita) (unknown) (no (unknown) (unknown) Temp 97.1 F L (units ( unknown) date) unknown) (unknown) (no (unknown) (unknown) Temp Source Skin (units (unknown) date) unknown) (unknown) (no (unknown) (unknown) This note may (units ( unknown) date) have been all or unknown) partially generated using voice recognition (unknown) (no (unknown) (unknown) Tobacco + (units (unkn own) date) Substance Use unknown) (unknown) (no (unknown) (unknown) Tobacco Status (units (unknown) date) unknown) (unknown) (no (unknown) (unknown) VOMITING (units (unkno wn) date) unknown) (unknown) (no (unknown) (unknown) Visit Reasons: (units (unknown) date) *Sandoval* unknown) Cardiomyopathy (unknown) (no (unknown) (unknown) Vitals (units (unkno wn) date) unknown) (unknown) (no (unknown) (unknown) Weight 238 lb 3 (units (unknown) date) oz unknown) (unknown) (no (unknown) (unknown) [History (units (unkno wn) date) Confirmed unknown) 08/06/22] (unknown) (no (unknown) (unknown) acetaminophen 325 (units (unknown) date) mg tablet 325 mg unknown) PO QID PRN Pain (Scale Score 1-3) 07/18/22 (unknown) (no (unknown) (unknown) alcohol intake: (units (unknown) date) current unknown) (unknown) (no (unknown) (unknown) amoxicillin (units (un known) date) [AMOXICILLIN] unknown) Allergy (Severe, Verified 08/06/22 16:16) (unknown) (no (unknown) (unknown) carvedilol 25 mg (units (unknown) date) tablet 25 mg PO unknown) BID 30 days #60 tabs 07/19/22 [Rx Confirmed (unknown) (no (unknown) (unknown) diphenhydramine (units (unknown) date) [DIPHENHYDRAMINE] unknown) Allergy (Mild, Verified 08/06/22 16:16) (unknown) (no (unknown) (unknown) estradiol 0.1 (units ( unknown) date) mg/24 hr weekly unknown) transdermal patch 0.1 mg topical QWEEK #4 ea (unknown) (no (unknown) (unknown) have occurred. If (units (unknown) date) there are any unknown) questions, please contact the Medical Records (unknown) (no (unknown) (unknown) household (units (unkn own) date) members: unknown) significant other and children (unknown) (no (unknown) (unknown) latex [LATEX] (units ( unknown) date) Allergy (Mild, unknown) Verified 08/06/22 16:16) (unknown) (no (unknown) (unknown) losartan 100 (units (u nknown) date) mg-hydrochlorothia unknown) zide 25 mg tablet 1 tab PO DAILY #30 tabs (unknown) (no (unknown) (unknown) magnesium citrate (units (unknown) date) [MAGNESIUM unknown) CITRATE] Adverse Reaction (Unknown, Verified (unknown) (no (unknown) (unknown) may occur. (units (unk nown) date) Occasional unknown) wrong-word or 'sound-alike' substitutions may have (unknown) (no (unknown) (unknown) occurred due to (units (unknown) date) the inherent unknown) limitations of voice recognition software. Please (unknown) (no (unknown) (unknown) read the note (units ( unknown) date) carefully and unknown) recognize, using context, where these substitutions (unknown) (no (unknown) (unknown) software. 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 Home blood (unknown) (no (unknown) (unknown) 08/06/22 16:16) (units (unknown) date) unknown) (unknown) (no (unknown) (unknown) 08/06/22 (units (unkno wn) date) unknown) (unknown) (no (unknown) (unknown) 08/06/22] (units (unkn own) date) unknown) (unknown) (no (unknown) (unknown) 08/09/22 1403 (units ( unknown) date) unknown) (unknown) (no (unknown) (unknown) 06/03/22 [Rx (units (u nknown) date) Confirmed unknown) 08/06/22] (unknown) (no (unknown) (unknown) 06/04/22 [Rx (units (u nknown) date) Confirmed unknown) 08/06/22] (unknown) (no (unknown) (unknown) 16:17 (units (unkno wn) date) unknown) (unknown) (no (unknown) (unknown) Affect: normal (units (unknown) date) affect unknown) (unknown) (no (unknown) (unknown) Age/Sex: 51 / F (units (unknown) date) Date of Service: unknown) (unknown) (no (unknown) (unknown) All systems (units (un known) date) reviewed + are unknown) unremarkable except as noted in HPI and below (unknown) (no (unknown) (unknown) Allergies (units (unkn own) date) unknown) (unknown) (no (unknown) (unknown) [place], [place] (units ( unknown) date) [id number] unknown) (unknown) (no (unknown) (unknown) Appearance: (units (un known) date) grossly normal unknown) (unknown) (no (unknown) (unknown) Assessment + Plan (units (unknown) date) unknown) (unknown) (no (unknown) (unknown) Attending Dr: (units ( unknown) date) Amari Ngo MD unknown) (unknown) (no (unknown) (unknown) Attitude: (units (unkn own) date) cooperative unknown) (unknown) (no (unknown) (unknown) BMI 40.8 (units (unkno wn) date) unknown) (unknown) (no (unknown) (unknown) BP 140/90 (units (unkn own) date) unknown) (unknown) (no (unknown) (unknown) Blood Pressure (units (unknown) date) Location Lt unknown) brachial (unknown) (no (unknown) (unknown) Chief Complaint (units (unknown) date) unknown) (unknown) (no (unknown) (unknown) Chief Complaint: (units (unknown) date) Follow-up ED, unknown) hypertensive urgency (unknown) (no (unknown) (unknown) Const (units (unkno wn) date) unknown) (unknown) (no (unknown) (unknown) : 1970 (units (unknown) date) Acct:[id number] unknown) (unknown) (no (unknown) (unknown) Dept at (units (unkno wn) date) . unknown) (unknown) (no (unknown) (unknown) Details: (units (unkno wn) date) unknown) (unknown) (no (unknown) (unknown) Discussed the (units ( unknown) date) pathophysiology of unknown) HOCM and hypertensive urgency. Recommended (unknown) (no (unknown) (unknown) Documented By: (units (unknown) date) Amari Ngo MD unknown) 08/06/22 1614 (unknown) (no (unknown) (unknown) Echocardiogram (units (unknown) date) done during the unknown) admission showed septal thickening suggestive of (unknown) (no (unknown) (unknown) Effort + (units (unkno wn) date) Inspection: normal unknown) respiratory effort, able to speak in complete (unknown) (no (unknown) (unknown) Exam (units (unkno wn) date) unknown) (unknown) (no (unknown) (unknown) Fibromyalgia (units (u nknown) date) unknown) (unknown) (no (unknown) (unknown) [facility]) (unknown) (no (unknown) (unknown) General: (units (unkno wn) date) cooperative, unknown) healthy appearing, comfortable and no acute distress (unknown) (no (unknown) (unknown) H/O gastric (units (un known) date) bypass unknown) (unknown) (no (unknown) (unknown) HPI (units (unkno wn) date) unknown) (unknown) (no (unknown) (unknown) Height 5 ft 4 in (units (unknown) date) unknown) (unknown) (no (unknown) (unknown) History of (units (unk nown) date) prediabetes unknown) (unknown) (no (unknown) (unknown) Hospital notes, (units (unknown) date) workup, and unknown) recommendations reviewed with the patient. (unknown) (no (unknown) (unknown) Hypertension (units (u nknown) date) unknown) (unknown) (no (unknown) (unknown) Intake Note: (units (u nknown) date) unknown) (unknown) (no (unknown) (unknown) Intake performed (units (unknown) date) by: Chad Mcwilliams unknown) (unknown) (no (unknown) (unknown) Intake (units (unkno wn) date) unknown) (unknown) (no (unknown) (unknown) Intake- Clincial (units (unknown) date) Staff unknown) (unknown) (no (unknown) (unknown) Internal Medicine (units (unknown) date) Office Visit unknown) (unknown) (no (unknown) (unknown) Judgment: (units (unkn own) date) judgment good unknown) (unknown) (no (unknown) (unknown) Loc: [facility] (units (unkno wn) date) unknown) (unknown) (no (unknown) (unknown) Medical History (units (unknown) date) (Reviewed 07/18/22 unknown) @ 00:52 by EDENILSON Amezquita) (unknown) (no (unknown) (unknown) Medications (units (un known) date) unknown) (unknown) (no (unknown) (unknown) Mental Status: (units (unknown) date) mental status unknown) grossly normal (unknown) (no (unknown) (unknown) Mood: congruent (units (unknown) date) mood unknown) (unknown) (no (unknown) (unknown) Ms. Guzman is (units ( unknown) date) here to follow-up unknown) a recent hospitalization for hypertensive (unknown) (no (unknown) (unknown) Nutritional (units (un known) date) Appearance: unknown) overweight (unknown) (no (unknown) (unknown) Orientation: (units (u nknown) date) oriented x3 unknown) (unknown) (no (unknown) (unknown) Oxygen Delivery (units (unknown) date) Method room air unknown) (unknown) (no (unknown) (unknown) PFSH (units (unkno wn) date) unknown) (unknown) (no (unknown) (unknown) Patient: (units (unkno wn) date) Nona Guzman unknown) MR#: [id number] (unknown) (no (unknown) (unknown) Penicillins (units (un known) date) [PENICILLINS] unknown) Allergy (Severe, Verified 08/06/22 16:16) (unknown) (no (unknown) (unknown) Plan (units (unkno wn) date) unknown) (unknown) (no (unknown) (unknown) Position Sitting (units (unknown) date) unknown) (unknown) (no (unknown) (unknown) Psych (units (unkno wn) date) unknown) (unknown) (no (unknown) (unknown) Pt presents for (units (unknown) date) ED F/U for unknown) cardiomyopathy at [facility]. (unknown) (no (unknown) (unknown) Pulse 73 (units (unkno wn) date) unknown) (unknown) (no (unknown) (unknown) Pulse Oximetry (units (unknown) date) (%) 100 unknown) (unknown) (no (unknown) (unknown) Pulse Source (units (u nknown) date) Monitor unknown) (unknown) (no (unknown) (unknown) RASH (units (unkno wn) date) unknown) (unknown) (no (unknown) (unknown) RASH/ITCHING, (units ( unknown) date) TROUBLE BREATHING. unknown) (unknown) (no (unknown) (unknown) ROS (units (unkno wn) date) unknown) (unknown) (no (unknown) (unknown) Reason For Visit (units (unknown) date) unknown) (unknown) (no (unknown) (unknown) Resp (units (unkno wn) date) unknown) (unknown) (no (unknown) (unknown) SWELLING FACE, (units (unknown) date) THROAT + HIVES ALL unknown) OVER. (unknown) (no (unknown) (unknown) SWELLING. (units (unkn own) date) unknown) (unknown) (no (unknown) (unknown) Signed By: (units (unk nown) date) <Electronically unknown) signed by Amari Ngo MD> (unknown) (no (unknown) (unknown) Signed (units (unkno wn) date) unknown) (unknown) (no (unknown) (unknown) Smoking Status: (units (unknown) date) Current every day unknown) smoker (unknown) (no (unknown) (unknown) Social History (units (unknown) date) unknown) (unknown) (no (unknown) (unknown) Speech and (units (unk nown) date) Movement: speech unknown) and movement normal (unknown) (no (unknown) (unknown) Status: Resolved (units (unknown) date) unknown) (unknown) (no (unknown) (unknown) Status: Suspected (units (unknown) date) unknown) (unknown) (no (unknown) (unknown) Surgical History (units (unknown) date) (Reviewed 07/18/22 unknown) @ 00:52 by EDENILSON Amezquita) (unknown) (no (unknown) (unknown) Temp 97.1 F L (units ( unknown) date) unknown) (unknown) (no (unknown) (unknown) Temp Source Skin (units (unknown) date) unknown) (unknown) (no (unknown) (unknown) This note may (units ( unknown) date) have been all or unknown) partially generated using voice recognition (unknown) (no (unknown) (unknown) Thought Content: (units (unknown) date) normal unknown) (unknown) (no (unknown) (unknown) Thought Process: (units (unknown) date) normal unknown) (unknown) (no (unknown) (unknown) Tobacco + (units (unkn own) date) Substance Use unknown) (unknown) (no (unknown) (unknown) Tobacco Status (units (unknown) date) unknown) (unknown) (no (unknown) (unknown) VOMITING (units (unkno wn) date) unknown) (unknown) (no (unknown) (unknown) Visit Reasons: (units (unknown) date) *[place]* unknown) Cardiomyopathy (unknown) (no (unknown) (unknown) Vitals (units (unkno wn) date) unknown) (unknown) (no (unknown) (unknown) Weight 238 lb 3 (units (unknown) date) oz unknown) (unknown) (no (unknown) (unknown) [History (units (unkno wn) date) Confirmed unknown) 08/06/22] (unknown) (no (unknown) (unknown) acetaminophen 325 (units (unknown) date) mg tablet 325 mg unknown) PO QID PRN Pain (Scale Score 1-3) 07/18/22 (unknown) (no (unknown) (unknown) alcohol intake: (units (unknown) date) current unknown) (unknown) (no (unknown) (unknown) amoxicillin (units (un known) date) [AMOXICILLIN] unknown) Allergy (Severe, Verified 08/06/22 16:16) (unknown) (no (unknown) (unknown) carvedilol 25 mg (units (unknown) date) tablet 25 mg PO unknown) BID 30 days #60 tabs 07/19/22 [Rx Confirmed (unknown) (no (unknown) (unknown) difficult to (units (u nknown) date) control in the unknown) hospital but she was discharged normotensive. (unknown) (no (unknown) (unknown) diphenhydramine (units (unknown) date) [DIPHENHYDRAMINE] unknown) Allergy (Mild, Verified 08/06/22 16:16) (unknown) (no (unknown) (unknown) estradiol 0.1 (units ( unknown) date) mg/24 hr weekly unknown) transdermal patch 0.1 mg topical QWEEK #4 ea (unknown) (no (unknown) (unknown) have occurred. 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 This is a new diagnosis for the (unknown) (no (unknown) (unknown) in getting her to (units (unknown) date) see a upholstery mechanic unknown) since discharge. Reports no headaches, (unknown) (no (unknown) (unknown) latex [LATEX] (units ( unknown) date) Allergy (Mild, unknown) Verified 08/06/22 16:16) (unknown) (no (unknown) (unknown) losartan 100 (units (u nknown) date) mg-hydrochlorothia unknown) zide 25 mg tablet 1 tab PO DAILY #30 tabs (unknown) (no (unknown) (unknown) magnesium citrate (units (unknown) date) [MAGNESIUM unknown) CITRATE] Adverse Reaction (Unknown, Verified (unknown) (no (unknown) (unknown) may occur. (units (unk nown) date) Occasional unknown) wrong-word or 'sound-alike' substitutions may have (unknown) (no (unknown) (unknown) neurological (units (u nknown) date) examination, unknown) normal CBC/CMP/cardiac enzymes, and normal EKG. She (unknown) (no (unknown) (unknown) nifedipine drip. (units (unknown) date) Admitted overnight unknown) for observation. Blood pressure was (unknown) (no (unknown) (unknown) occurred due to (units (unknown) date) the inherent unknown) limitations of voice recognition software. Please (unknown) (no (unknown) (unknown) patient. On (units (un known) date) discharge, home unknown) carvedilol was increased to 25 mg b.i.d. and she (unknown) (no (unknown) (unknown) pressure (units (unkno wn) date) medication unknown) consistently. Initial workup was significant for normal (unknown) (no (unknown) (unknown) pressure reading (units (unknown) date) was 220/120 at unknown) that time. She had not been taking her blood (unknown) (no (unknown) (unknown) read the note (units ( unknown) date) carefully and unknown) recognize, using context, where these substitutions (unknown) (no (unknown) (unknown) referral to (units (un known) date) cardiology on the unknown) patient's behalf. (unknown) (no (unknown) (unknown) requires the (units (u nknown) date) referral to come unknown) from the PCP and no significant progress was made (unknown) (no (unknown) (unknown) sentences and no (units (unknown) date) audible wheezes unknown) (unknown) (no (unknown) (unknown) software. (units (unkn own) date) Although every unknown) effort is made to edit content, x ray examiner of aircraft errors (unknown) (no (unknown) (unknown) some home blood (units (unknown) date) pressure unknown) monitoring. I spoke with her PCP and had him place the (unknown) (no (unknown) (unknown) urgency. Her (units (u nknown) date) regular provider unknown) is not available today. She was evaluated on (unknown) (no (unknown) (unknown) vision changes, (units (unknown) date) presyncope, falls, unknown) or ALOC. (unknown) (no (unknown) (unknown) was given doses (units (unknown) date) of her home blood unknown) pressure medications and started on a (unknown) (no (unknown) (unknown) was referred to (units (unknown) date) cardiology for unknown) further workup. However, her insurance carrier Result panel 547 (unknown) (no (unknown) (unknown) (no value) (units (unk nown) date) unknown) (unknown) (no (unknown) (unknown) [id number] (units (unkno wn) date) unknown) (unknown) (no (unknown) (unknown) 08/06/22 16:16) (units (unknown) date) unknown) (unknown) (no (unknown) (unknown) 08/10/22 (units (unkno wn) date) unknown) (unknown) (no (unknown) (unknown) 51yo woman with (units (unknown) date) hx of HTN and unknown) hypertrophic obstructive cardiomyopathy presents (unknown) (no (unknown) (unknown) Age/Sex: 51 / F (units (unknown) date) Date of Service: unknown) (unknown) (no (unknown) (unknown) Allergies (units (unkn own) date) unknown) (unknown) (no (unknown) (unknown) [place] (units ( unknown) date) [id number] unknown) (unknown) (no (unknown) (unknown) Attending Dr: (units ( unknown) date) Yeyo Hidalgo D.O. unknown) (unknown) (no (unknown) (unknown) : 1970 (units (unknown) date) Acct:[id number] unknown) (unknown) (no (unknown) (unknown) Dept at (units (unkno wn) date) . unknown) (unknown) (no (unknown) (unknown) Details: (units (unkno wn) date) unknown) (unknown) (no (unknown) (unknown) Documented By: (units (unknown) date) Yeyo Hidalgo D.O. unknown) 08/10/22 1046 (unknown) (no (unknown) (unknown) Draft (units (unkno wn) date) unknown) (unknown) (no (unknown) (unknown) Family [facility] (units (unknown) date) Office Visit unknown) (unknown) (no (unknown) (unknown) Fibromyalgia (units (u nknown) date) unknown) (unknown) (no (unknown) (unknown) [facility]) (unknown) (no (unknown) (unknown) H/O gastric (units (un known) date) bypass unknown) (unknown) (no (unknown) (unknown) HPI (units (unkno wn) date) unknown) (unknown) (no (unknown) (unknown) History of (units (unk nown) date) prediabetes unknown) (unknown) (no (unknown) (unknown) Hypertension (units (u nknown) date) unknown) (unknown) (no (unknown) (unknown) Intake (units (unkno wn) date) unknown) (unknown) (no (unknown) (unknown) Loc: [facility] (units (unkno wn) date) unknown) (unknown) (no (unknown) (unknown) Medical History (units (unknown) date) (Reviewed 07/18/22 unknown) @ 00:52 by EDENILSON Amezquita) (unknown) (no (unknown) (unknown) PFSH (units (unkno wn) date) unknown) (unknown) (no (unknown) (unknown) Patient: (units (unkno wn) date) Nona Guzman unknown) MR#: [id number] (unknown) (no (unknown) (unknown) Penicillins (units (un known) date) [PENICILLINS] unknown) Allergy (Severe, Verified 08/06/22 16:16) (unknown) (no (unknown) (unknown) RASH (units (unkno wn) date) unknown) (unknown) (no (unknown) (unknown) RASH/ITCHING, (units ( unknown) date) TROUBLE BREATHING. unknown) (unknown) (no (unknown) (unknown) Reason For Visit (units (unknown) date) unknown) (unknown) (no (unknown) (unknown) SWELLING FACE, (units (unknown) date) THROAT + HIVES ALL unknown) OVER. (unknown) (no (unknown) (unknown) SWELLING. (units (unkn own) date) unknown) (unknown) (no (unknown) (unknown) Signed By: (units (unk nown) date) unknown) (unknown) (no (unknown) (unknown) Smoking Status: (units (unknown) date) Current every day unknown) smoker (unknown) (no (unknown) (unknown) Social History (units (unknown) date) unknown) (unknown) (no (unknown) (unknown) Surgical History (units (unknown) date) (Reviewed 07/18/22 unknown) @ 00:52 by EDENILSON Amezquita) (unknown) (no (unknown) (unknown) This note may (units ( unknown) date) have been all or unknown) partially generated using voice recognition (unknown) (no (unknown) (unknown) Tobacco + (units (unkn own) date) Substance Use unknown) (unknown) (no (unknown) (unknown) Tobacco Status (units (unknown) date) unknown) (unknown) (no (unknown) (unknown) VOMITING (units (unkno wn) date) unknown) (unknown) (no (unknown) (unknown) Visit Reasons: (units (unknown) date) VID Low BP; med unknown) adjustment (unknown) (no (unknown) (unknown) a referral to (units ( unknown) date) cardiology made unknown) last week by Dr Bedolla. She feels (unknown) (no (unknown) (unknown) alcohol intake: (units (unknown) date) current unknown) (unknown) (no (unknown) (unknown) amoxicillin (units (un known) date) [AMOXICILLIN] unknown) Allergy (Severe, Verified 08/06/22 16:16) (unknown) (no (unknown) (unknown) better now lying (units (unknown) date) down, the chest unknown) pressure is gone, (unknown) (no (unknown) (unknown) breath. This (units (u nknown) date) happens a few unknown) times a day, heart beating hard but not fast, but (unknown) (no (unknown) (unknown) diphenhydramine (units (unknown) date) [DIPHENHYDRAMINE] unknown) Allergy (Mild, Verified 08/06/22 16:16) (unknown) (no (unknown) (unknown) have occurred. If (units (unknown) date) there are any unknown) questions, please contact the Medical Records (unknown) (no (unknown) (unknown) household (units (unkn own) date) members: unknown) significant other and children (unknown) (no (unknown) (unknown) latex [LATEX] (units ( unknown) date) Allergy (Mild, unknown) Verified 08/06/22 16:16) (unknown) (no (unknown) (unknown) magnesium citrate (units (unknown) date) [MAGNESIUM unknown) CITRATE] Adverse Reaction (Unknown, Verified (unknown) (no (unknown) (unknown) may occur. (units (unk nown) date) Occasional unknown) wrong-word or 'sound-alike' substitutions may have (unknown) (no (unknown) (unknown) occurred due to (units (unknown) date) the inherent unknown) limitations of voice recognition software. Please (unknown) (no (unknown) (unknown) read the note (units ( unknown) date) carefully and unknown) recognize, using context, where these substitutions (unknown) (no (unknown) (unknown) software. (units (unkn own) date) Although every unknown) effort is made to edit content, x ray examiner of aircraft errors (unknown) (no (unknown) (unknown) with complaints (units (unknown) date) of palpitations unknown) this morning and chest pressure, shortness of (unknown) (no (unknown) (unknown) worse today with (units (unknown) date) her pulse dropping unknown) to 52 and her BP dropping to 79/45. She has Result panel 548 (unknown) (no (unknown) (unknown) (no value) (units (unk nown) date) unknown) (unknown) (no (unknown) (unknown) (1) HOCM (units (unkno wn) date) (hypertrophic unknown) obstructive cardiomyopathy): (unknown) (no (unknown) (unknown) (2) Palpitations: (units (unknown) date) unknown) (unknown) (no (unknown) (unknown) (3) Chest (units (unkn own) date) pressure: unknown) (unknown) (no (unknown) (unknown) [id number] (units (unkno wn) date) unknown) (unknown) (no (unknown) (unknown) 08/06/22 16:16) (units (unknown) date) unknown) (unknown) (no (unknown) (unknown) 08/10/22 1407 (units ( unknown) date) unknown) (unknown) (no (unknown) (unknown) 08/10/22 (units (unkno wn) date) unknown) (unknown) (no (unknown) (unknown) 30 minutes (units (unk nown) date) unknown) (unknown) (no (unknown) (unknown) 51yo woman with (units (unknown) date) hx of HTN and unknown) hypertrophic obstructive cardiomyopathy (recent (unknown) (no (unknown) (unknown) Age/Sex: 51 / F (units (unknown) date) Date of Service: unknown) (unknown) (no (unknown) (unknown) All participants (units (unknown) date) + their role: unknown) (Providers,Parent, Spouse,etc): (unknown) (no (unknown) (unknown) Allergies (units (unkn own) date) unknown) (unknown) (no (unknown) (unknown) [place], [place] (units ( unknown) date) [id number] unknown) (unknown) (no (unknown) (unknown) Assessment + Plan (units (unknown) date) unknown) (unknown) (no (unknown) (unknown) Attending Dr: (units ( unknown) date) Yeyo Hidalgo D.O. unknown) (unknown) (no (unknown) (unknown) Chest pressure (units (unknown) date) unknown) (unknown) (no (unknown) (unknown) Chief Complaint (units (unknown) date) unknown) (unknown) (no (unknown) (unknown) Chief Complaint: (units (unknown) date) Palpitations unknown) (unknown) (no (unknown) (unknown) Conjunctivae: (units ( unknown) date) conjunctivae unknown) normal (unknown) (no (unknown) (unknown) : 1970 (units (unknown) date) Acct:[id number] unknown) (unknown) (no (unknown) (unknown) Dept at (units (unkno wn) date) . unknown) (unknown) (no (unknown) (unknown) Details: (units (unkno wn) date) unknown) (unknown) (no (unknown) (unknown) Documented By: (units (unknown) date) Yeyo Hidalgo D.O. unknown) 08/10/22 1046 (unknown) (no (unknown) (unknown) Exam Narrative (units (unknown) date) unknown) (unknown) (no (unknown) (unknown) Exam Narrative: (units (unknown) date) unknown) (unknown) (no (unknown) (unknown) Exam (units (unkno wn) date) unknown) (unknown) (no (unknown) (unknown) Eyelids: eyelids (units (unknown) date) normal unknown) (unknown) (no (unknown) (unknown) Eyes (units (unkno wn) date) unknown) (unknown) (no (unknown) (unknown) Family Practice (units (unknown) date) Office Visit unknown) (unknown) (no (unknown) (unknown) Fibromyalgia (units (u nknown) date) unknown) (unknown) (no (unknown) (unknown) [facility]) (unknown) (no (unknown) (unknown) General: (units (unkno wn) date) appearance normal, unknown) both eyes and all related structures (unknown) (no (unknown) (unknown) General: (units (unkno wn) date) cooperative, unknown) supine, and comfortable (unknown) (no (unknown) (unknown) H/O gastric (units (un known) date) bypass unknown) (unknown) (no (unknown) (unknown) HENMT (units (unkno wn) date) unknown) (unknown) (no (unknown) (unknown) HPI (units (unkno wn) date) unknown) (unknown) (no (unknown) (unknown) Head: normal to (units (unknown) date) inspection unknown) (unknown) (no (unknown) (unknown) History of (units (unk nown) date) prediabetes unknown) (unknown) (no (unknown) (unknown) Hypertension (units (u nknown) date) unknown) (unknown) (no (unknown) (unknown) I gave her return (units (unknown) date) precautions for unknown) the ER including chest pressure that does not (unknown) (no (unknown) (unknown) Intake (units (unkno wn) date) unknown) (unknown) (no (unknown) (unknown) Loc: [facility] (units (unkno wn) date) unknown) (unknown) (no (unknown) (unknown) Location of (units (un known) date) patient:: Home unknown) (unknown) (no (unknown) (unknown) Location of (units (un known) date[facility] (no (unknown) (unknown) Medical History (units (unknown) date) (Updated 08/10/22 unknown) @ 14:04 by Yeyo Hidalgo DO) (unknown) (no (unknown) (unknown) Neck: normal (units (u nknown) date) visual inspection unknown) (unknown) (no (unknown) (unknown) Neuro: alert and (units (unknown) date) oriented x3, unknown) normal cognition, speech normal (unknown) (no (unknown) (unknown) Nose: external (units (unknown) date) nose normal unknown) (unknown) (no (unknown) (unknown) Orientation: (units (u nknown) date) alert and oriented unknown) x3 (unknown) (no (unknown) (unknown) PFSH (units (unkno wn) date) unknown) (unknown) (no (unknown) (unknown) Palpitations (units (u nknown) date) unknown) (unknown) (no (unknown) (unknown) Patient and (units (un known) date) provider unknown) (unknown) (no (unknown) (unknown) Patient consented (units (unknown) date) to receive unknown) services via telehealth?: Yes (unknown) (no (unknown) (unknown) Patient does have (units (unknown) date) an urgent referral unknown) to Cardiology but no appointment yet. We (unknown) (no (unknown) (unknown) Patient: (units (unkno wn) date) Nona Guzman M unknown) MR#: [id number] (unknown) (no (unknown) (unknown) Penicillins (units (un known) date) [PENICILLINS] unknown) Allergy (Severe, Verified 08/06/22 16:16) (unknown) (no (unknown) (unknown) Plan (units (unkno wn) date) unknown) (unknown) (no (unknown) (unknown) Psych: grossly (units (unknown) date) normal and well unknown) kempt, mental status grossly normal, speech (unknown) (no (unknown) (unknown) RASH (units (unkno wn) date) unknown) (unknown) (no (unknown) (unknown) RASH/ITCHING, (units ( unknown) date) TROUBLE BREATHING. unknown) (unknown) (no (unknown) (unknown) Real-time,sychron (units (unknown) date) ous services were unknown) performed via:: [facility] (unknown) (no (unknown) (unknown) Reason For Visit (units (unknown) date) unknown) (unknown) (no (unknown) (unknown) Resp: normal (units (u nknown) date) respiratory effort unknown) and able to speak in complete sentences (unknown) (no (unknown) (unknown) SWELLING FACE, (units (unknown) date) THROAT + HIVES ALL unknown) OVER. (unknown) (no (unknown) (unknown) SWELLING. (units (unkn own) date) unknown) (unknown) (no (unknown) (unknown) Sclera: sclerae (units (unknown) date) normal unknown) (unknown) (no (unknown) (unknown) Signed By: (units (unk nown) date) <Electronically unknown) signed by Yeyo Hidalgo D.O.> (unknown) (no (unknown) (unknown) Signed (units (unkno wn) date) unknown) (unknown) (no (unknown) (unknown) Smoking Status: (units (unknown) date) Current every day unknown) smoker (unknown) (no (unknown) (unknown) Social History (units (unknown) date) unknown) (unknown) (no (unknown) (unknown) Status: Acute (units ( unknown) date) unknown) (unknown) (no (unknown) (unknown) Status: Suspected (units (unknown) date) unknown) (unknown) (no (unknown) (unknown) Surgical History (units (unknown) date) (Reviewed 07/18/22 unknown) @ 00:52 by EDENILSON Amezquita) (unknown) (no (unknown) (unknown) TeleHealth (units (unk nown) date) unknown) (unknown) (no (unknown) (unknown) This note may (units ( unknown) date) have been all or unknown) partially generated using voice recognition (unknown) (no (unknown) (unknown) Time Coding (units (un known) date) Minutes Spent: unknown) (must be on same date of service/appointmen t) (unknown) (no (unknown) (unknown) Time Spent (units (unk nown) date) unknown) (unknown) (no (unknown) (unknown) Tobacco + (units (unkn own) date) Substance Use unknown) (unknown) (no (unknown) (unknown) Tobacco Status (units (unknown) date) unknown) (unknown) (no (unknown) (unknown) VOMITING (units (unkno wn) date) unknown) (unknown) (no (unknown) (unknown) Visit Reasons: (units (unknown) date) VID Low BP; med unknown) adjustment (unknown) (no (unknown) (unknown) Were services (units ( unknown) date) performed via unknown) telephone only?: No (unknown) (no (unknown) (unknown) alcohol intake: (units (unknown) date) current unknown) (unknown) (no (unknown) (unknown) amoxicillin (units (un known) date) [AMOXICILLIN] unknown) Allergy (Severe, Verified 08/06/22 16:16) (unknown) (no (unknown) (unknown) diagnosis in the (units (unknown) date) ER by unknown) echocardiogram) presents via telehealth with complaints (unknown) (no (unknown) (unknown) did care with the (units (unknown) date) phone number and unknown) urged her to call today for that appointment. (unknown) (no (unknown) (unknown) diphenhydramine (units (unknown) date) [DIPHENHYDRAMINE] unknown) Allergy (Mild, Verified 08/06/22 16:16) (unknown) (no (unknown) (unknown) happens a few (units (u nknown) date) times a day, heart unknown) beating hard but not fast, but worse today with (unknown) (no (unknown) (unknown) have occurred. 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 pulse then (units (unknown) date) dropping to 52 and unknown) her BP dropping to 79/45. She has a referral (unknown) (no (unknown) (unknown) household (units (unkn own) date) members: unknown) significant other and children (unknown) (no (unknown) (unknown) latex [LATEX] (units ( unknown) date) Allergy (Mild, unknown) Verified 08/06/22 16:16) (unknown) (no (unknown) (unknown) magnesium citrate (units (unknown) date) [MAGNESIUM unknown) CITRATE] Adverse Reaction (Unknown, Verified (unknown) (no (unknown) (unknown) may occur. (units (unk nown) date) Occasional unknown) wrong-word or 'sound-alike' substitutions may have (unknown) (no (unknown) (unknown) normal, congruent (units (unknown) date) mood unknown) (unknown) (no (unknown) (unknown) now lying down, (units (unknown) date) the chest pressure unknown) is gone, and she is not lightheaded. (unknown) (no (unknown) (unknown) occurred due to (units (unknown) date) the inherent unknown) limitations of voice recognition software. Please (unknown) (no (unknown) (unknown) of palpitations (units (unknown) date) this morning and unknown) chest pressure, shortness of breath. This (unknown) (no (unknown) (unknown) pain. (units (unkno wn) date) unknown) (unknown) (no (unknown) (unknown) read the note (units ( unknown) date) carefully and unknown) recognize, using context, where these substitutions (unknown) (no (unknown) (unknown) resolve with (units (u nknown) date) rest, weakness, unknown) shortness of breath that does not resolve, chest (unknown) (no (unknown) (unknown) software. (units (unkn own) date) Although every unknown) effort is made to edit content, x ray examiner of aircraft errors (unknown) (no (unknown) (unknown) to cardiology (units ( unknown) date) made urgent last unknown) week by Dr Ngo and Jaime. 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): (unknown) (no (unknown) (unknown) (2) Hypertension: (units (unknown) date) unknown) (unknown) (no (unknown) (unknown) (3) Sleep apnea: (units (unknown) date) unknown) (unknown) (no (unknown) (unknown) [id number] (units (unkno wn) date) unknown) (unknown) (no (unknown) (unknown) 08/06/22 16:16) (units (unknown) date) unknown) (unknown) (no (unknown) (unknown) 08/25/22 (units (unkno wn) date) unknown) (unknown) (no (unknown) (unknown) Age/Sex: 51 / F (units (unknown) date) Date of Service: unknown) (unknown) (no (unknown) (unknown) Allergies (units (unkn own) date) unknown) (unknown) (no (unknown) (unknown) [place] (units ( unknown) date) [id number] unknown) (unknown) (no (unknown) (unknown) Assessment + Plan (units (unknown) date) unknown) (unknown) (no (unknown) (unknown) Attending Dr: Julio (units (unknown) date) Luann Sandoval D.O. unknown) (unknown) (no (unknown) (unknown) Chest pressure (units (unknown) date) unknown) (unknown) (no (unknown) (unknown) : 1970 (units (unknown) date) Acct:[id number] unknown) (unknown) (no (unknown) (unknown) Dept at (units (unkno wn) date) . unknown) (unknown) (no (unknown) (unknown) Documented By: (units (unknown) date) Julio Sandoval unknown) D.ONick 08/25/22 1357 (unknown) (no (unknown) (unknown) Draft (units (unkno wn) date) unknown) (unknown) (no (unknown) (unknown) Essential (units (unkn own) date) (primary) unknown) hypertension (unknown) (no (unknown) (unknown) Family Practice (units (unknown) date) Office Visit unknown) (unknown) (no (unknown) (unknown) Fibromyalgia (units (u nknown) date) unknown) (unknown) (no (unknown) (unknown) [facility]) (unknown) (no (unknown) (unknown) H/O gastric (units (un known) date) bypass unknown) (unknown) (no (unknown) (unknown) History of (units (unk nown) date) prediabetes unknown) (unknown) (no (unknown) (unknown) Hypertension (units (u nknown) date) type: primary unknown) hypertension Qualified Code(s): I10 (unknown) (no (unknown) (unknown) Hypertension (units (u nknown) date) unknown) (unknown) (no (unknown) (unknown) Intake (units (unkno wn) date) unknown) (unknown) (no (unknown) (unknown) Loc: [facility] (units (unkno wn) date) unknown) (unknown) (no (unknown) (unknown) Medical History (units (unknown) date) (Updated 08/25/22 unknown) @ 14:02 by Julio Sandoval DO) (unknown) (no (unknown) (unknown) PFSH (units (unkno wn) date) unknown) (unknown) (no (unknown) (unknown) Palpitations (units (u nknown) date) unknown) (unknown) (no (unknown) (unknown) Patient: (units (unkno wn) date) Nona Guzman unknown) MR#: [id number] (unknown) (no (unknown) (unknown) Penicillins (units (un known) date) [PENICILLINS] unknown) Allergy (Severe, Verified 08/06/22 16:16) (unknown) (no (unknown) (unknown) Qualifiers: (units (un known) date) unknown) (unknown) (no (unknown) (unknown) RASH (units (unkno wn) date) unknown) (unknown) (no (unknown) (unknown) RASH/ITCHING, (units ( unknown) date) TROUBLE BREATHING. unknown) (unknown) (no (unknown) (unknown) Reason For Visit (units (unknown) date) unknown) (unknown) (no (unknown) (unknown) SWELLING FACE, (units (unknown) date) THROAT + HIVES ALL unknown) OVER. (unknown) (no (unknown) (unknown) SWELLING. (units (unkn own) date) unknown) (unknown) (no (unknown) (unknown) Signed By: (units (unk nown) date) unknown) (unknown) (no (unknown) (unknown) Sleep apnea (units (un known) date) unknown) (unknown) (no (unknown) (unknown) Smoking Status: (units (unknown) date) Current every day unknown) smoker (unknown) (no (unknown) (unknown) Social History (units (unknown) date) unknown) (unknown) (no (unknown) (unknown) Status: Acute (units ( unknown) date) unknown) (unknown) (no (unknown) (unknown) Status: Suspected (units (unknown) date) unknown) (unknown) (no (unknown) (unknown) Surgical History (units (unknown) date) (Reviewed 07/18/22 unknown) @ 00:52 by EDENILSON Amezquita) (unknown) (no (unknown) (unknown) This note may (units ( unknown) date) have been all or unknown) partially generated using voice recognition (unknown) (no (unknown) (unknown) Tobacco + (units (unkn own) date) Substance Use unknown) (unknown) (no (unknown) (unknown) Tobacco Status (units (unknown) date) unknown) (unknown) (no (unknown) (unknown) VOMITING (units (unkno wn) date) unknown) (unknown) (no (unknown) (unknown) Visit Reasons: TH (units (unknown) date) 2 month f/u unknown) labs/HTN (unknown) (no (unknown) (unknown) alcohol intake: (units (unknown) date) current unknown) (unknown) (no (unknown) (unknown) amoxicillin (units (un known) date) [AMOXICILLIN] unknown) Allergy (Severe, Verified 08/06/22 16:16) (unknown) (no (unknown) (unknown) diphenhydramine (units (unknown) date) [DIPHENHYDRAMINE] unknown) Allergy (Mild, Verified 08/06/22 16:16) (unknown) (no (unknown) (unknown) have occurred. If (units (unknown) date) there are any unknown) questions, please contact the Medical Records (unknown) (no (unknown) (unknown) household (units (unkn own) date) members: unknown) significant other and children (unknown) (no (unknown) (unknown) latex [LATEX] (units ( unknown) date) Allergy (Mild, unknown) Verified 08/06/22 16:16) (unknown) (no (unknown) (unknown) magnesium citrate (units (unknown) date) [MAGNESIUM unknown) CITRATE] Adverse Reaction (Unknown, Verified (unknown) (no (unknown) (unknown) may occur. (units (unk nown) date) Occasional unknown) wrong-word or 'sound-alike' substitutions may have (unknown) (no (unknown) (unknown) occurred due to (units (unknown) date) the inherent unknown) limitations of voice recognition software. Please (unknown) (no (unknown) (unknown) read the note (units ( unknown) date) carefully and unknown) recognize, using context, where these substitutions (unknown) (no (unknown) (unknown) software. (units (unkn own) date) Although every unknown) effort is made to edit content, x ray examiner of aircraft errors Result panel 550 (unknown) (no (unknown) (unknown) (no value) (units (unk nown) date) unknown) (unknown) (no (unknown) (unknown) (1) HOCM (units (unkno wn) date) (hypertrophic unknown) obstructive cardiomyopathy): (unknown) (no (unknown) (unknown) (2) Hypertension: (units (unknown) date) unknown) (unknown) (no (unknown) (unknown) (3) Sleep apnea: (units (unknown) date) unknown) (unknown) (no (unknown) (unknown) [id number] (units (unkno wn) date) unknown) (unknown) (no (unknown) (unknown) 08/06/22 16:16) (units (unknown) date) unknown) (unknown) (no (unknown) (unknown) 08/25/22 1412 (units ( unknown) date) unknown) (unknown) (no (unknown) (unknown) 08/25/22 (units (unkno wn) date) unknown) (unknown) (no (unknown) (unknown) 24 minutes (units (unk nown) date) unknown) (unknown) (no (unknown) (unknown) Age/Sex: 51 / F Date (uni ts (unknown) date) of Service: unknown) (unknown) (no (unknown) (unknown) All participants + (units (unknown) date) their role: unknown) (Providers,Parent,Spo use,etc): (unknown) (no (unknown) (unknown) Allergies (units (unkn own) date) unknown) (unknown) (no (unknown) (unknown) [place] [id number] (unit s (unknown) date) unknown) (unknown) (no (unknown) (unknown) Assessment + Plan (units (unknown) date) unknown) (unknown) (no (unknown) (unknown) Assessment and Plan: (uni ts (unknown) date) unknown) (unknown) (no (unknown) (unknown) Attending Dr: Julio Kong (unit s (unknown) date) Jaime Nielsen unknown) (unknown) (no (unknown) (unknown) Cardiology on a (units (unknown) date) weekly basis with unknown) blood pressure numbers (unknown) (no (unknown) (unknown) Chest pressure (units (unknown) date) unknown) (unknown) (no (unknown) (unknown) Chief Complaint (units (unknown) date) unknown) (unknown) (no (unknown) (unknown) Chief Complaint: (units (unknown) date) Telemedicine unknown) follow-up chronic medical concerns (unknown) (no (unknown) (unknown) : 1970 (units (unknown) date) Acct:[id number] unknown) (unknown) (no (unknown) (unknown) Dept at (units (unkno wn) date) . unknown) (unknown) (no (unknown) (unknown) Details: (units (unkno wn) date) unknown) (unknown) (no (unknown) (unknown) Documented By: (units (unknown) date) Julio Sandoval D.O. unknown) 08/25/22 1357 (unknown) (no (unknown) (unknown) Essential (primary) (unit s (unknown) date) hypertension unknown) (unknown) (no (unknown) (unknown) Family Practice (units (unknown) date) Office Visit unknown) (unknown) (no (unknown) (unknown) Fibromyalgia (units (u nknown) date) unknown) (unknown) (no (unknown) (unknown) [facility]) (unknown) (no (unknown) (unknown) H/O gastric bypass (units (unknown) date) unknown) (unknown) (no (unknown) (unknown) HPI (units (unkno wn) date) unknown) (unknown) (no (unknown) (unknown) History of (units (unk nown) date) prediabetes unknown) (unknown) (no (unknown) (unknown) Hypertension type: (units (unknown) date) primary hypertension unknown) Qualified Code(s): I10 (unknown) (no (unknown) (unknown) Hypertension (units (u nknown) date) unknown) (unknown) (no (unknown) (unknown) Intake (units (unkno wn) date) unknown) (unknown) (no (unknown) (unknown) Loc: [facility] (units (unkno wn) date) unknown) (unknown) (no (unknown) (unknown) Location of (units (un known) date) patient:: Home unknown) (unknown) (no (unknown) (unknown) Location of (units (un known) date) provider:: Clinic unknown) (unknown) (no (unknown) (unknown) Medical History (units (unknown) date) (Reviewed 08/25/22 @ unknown) 14:11 by Julio Sandoval DO) (unknown) (no (unknown) (unknown) Modification of her (unit s (unknown) date) regimen is been unknown) undertaken recent numbers of the (unknown) (no (unknown) (unknown) Ongoing clinical (units (unknown) date) concerns regarding unknown) sleep apnea as a comorbid condition of been (unknown) (no (unknown) (unknown) Orders: (units (unkno wn) date) unknown) (unknown) (no (unknown) (unknown) PFSH (units (unkno wn) date) unknown) (unknown) (no (unknown) (unknown) Palpitations (units (u nknown) date) unknown) (unknown) (no (unknown) (unknown) Patient consented to (uni ts (unknown) date) receive services via unknown) telehealth?: Yes (unknown) (no (unknown) (unknown) Patient will be (units (unknown) date) referred on to sleep unknown) apnea for further evaluation assessment and (unknown) (no (unknown) (unknown) Patient: (units (unkno wn) date) Nona Guzman MR#: unknown) M0 (unknown) (no (unknown) (unknown) Penicillins (units (un known) date) [PENICILLINS] Allergy unknown) (Severe, Verified 08/06/22 16:16) (unknown) (no (unknown) (unknown) Physician and (units ( unknown) date) patient unknown) (unknown) (no (unknown) (unknown) Qualifiers: (units (un known) date) unknown) (unknown) (no (unknown) (unknown) RASH (units (unkno wn) date) unknown) (unknown) (no (unknown) (unknown) RASH/ITCHING, (units ( unknown) date) TROUBLE BREATHING. unknown) (unknown) (no (unknown) (unknown) ROS Narrative (units ( unknown) date) unknown) (unknown) (no (unknown) (unknown) ROS Narrative: (units (unknown) date) unknown) (unknown) (no (unknown) (unknown) ROS per HPI patient (unit s (unknown) date) denies any unknown) palpitations headache syncopal episodes but does (unknown) (no (unknown) (unknown) ROS (units (unkno wn) date) unknown) (unknown) (no (unknown) (unknown) Real-time,sychronous (uni ts (unknown) date) services were unknown) performed via:: [facility] (unknown) (no (unknown) (unknown) Reason For Visit (units (unknown) date) unknown) (unknown) (no (unknown) (unknown) Referral Sleep (units (unknown) date) Medicine G47.30 - unknown) Sleep apnea, unspecified, R53.82 - Chronic (unknown) (no (unknown) (unknown) Referrals (units (unkn own) date) unknown) (unknown) (no (unknown) (unknown) SWELLING FACE, (units (unknown) date) THROAT + HIVES ALL unknown) OVER. (unknown) (no (unknown) (unknown) SWELLING. (units (unkn own) date) unknown) (unknown) (no (unknown) (unknown) Signed By: (units (unk nown) date) <Electronically unknown) signed by Julio Sandoval D.O.> (unknown) (no (unknown) (unknown) Signed (units (unkno wn) date) unknown) (unknown) (no (unknown) (unknown) Sleep apnea type: (units (unknown) date) obstructive Qualified unknown) Code(s): G47.33 - Obstructive (unknown) (no (unknown) (unknown) Sleep apnea (units (un known) date) unknown) (unknown) (no (unknown) (unknown) Smoking Status: (units (unknown) date) Current every day unknown) smoker (unknown) (no (unknown) (unknown) Social History (units (unknown) date) unknown) (unknown) (no (unknown) (unknown) Status: Acute (units ( unknown) date) unknown) (unknown) (no (unknown) (unknown) Status: Suspected (units (unknown) date) unknown) (unknown) (no (unknown) (unknown) Surgical History (units (unknown) date) (Reviewed 07/18/22 @ unknown) 00:52 by EDENILSON Amezquita) (unknown) (no (unknown) (unknown) TeleHealth (units (unk nown) date) unknown) (unknown) (no (unknown) (unknown) The patient does (units (unknown) date) have some issues unknown) related to fatigue and concerns regarding (unknown) (no (unknown) (unknown) The patient is seen (unit s (unknown) date) 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) modification of medications has been (unknown) (no (unknown) (unknown) This 51-year-old (units (unknown) date) female with acquired unknown) history of hypertrophic obstructive (unknown) (no (unknown) (unknown) This note may have (units (unknown) date) been all or partially unknown) generated using voice recognition (unknown) (no (unknown) (unknown) Time Coding Minutes (unit s (unknown) date) Spent: (must be on unknown) same date of service/appointment) (unknown) (no (unknown) (unknown) Time Spent (units (unk nown) date) unknown) (unknown) (no (unknown) (unknown) Tobacco + Substance (unit s (unknown) date) Use unknown) (unknown) (no (unknown) (unknown) Tobacco Status (units (unknown) date) unknown) (unknown) (no (unknown) (unknown) VOMITING (units (unkno wn) date) unknown) (unknown) (no (unknown) (unknown) Visit Reasons: TH 2 (unit s (unknown) date) month f/u labs/HTN unknown) (unknown) (no (unknown) (unknown) Were services (units ( unknown) date) performed via unknown) telephone only?: No (unknown) (no (unknown) (unknown) a requested (units (un known) date) overnight oximetry unknown) will be also getting performed (unknown) (no (unknown) (unknown) alcohol intake: (units (unknown) date) current unknown) (unknown) (no (unknown) (unknown) amoxicillin (units (un known) date) [AMOXICILLIN] Allergy unknown) (Severe, Verified 08/06/22 16:16) (unknown) (no (unknown) (unknown) blood pressures been (uni ts (unknown) date) somewhat elevated unknown) recently in modifications of her blood (unknown) (no (unknown) (unknown) upholstery mechanic were (units (unknown) date) elevated she has been unknown) continued on the losartan with changes (unknown) (no (unknown) (unknown) cardiomyopathy (units (unknown) date) hypertension and unknown) clinical sleep apnea presents via telemedicine (unknown) (no (unknown) (unknown) completed the (units ( unknown) date) transition from unknown) losartan to metoprolol as of yet. The patient's (unknown) (no (unknown) (unknown) diphenhydramine (units (unknown) date) [DIPHENHYDRAMINE] unknown) Allergy (Mild, Verified 08/06/22 16:16) (unknown) (no (unknown) (unknown) elevated. On today's (uni ts (unknown) date) visit via unknown) telemedicine patient has not been compliant to (unknown) (no (unknown) (unknown) fatigue, unspecified (uni ts (unknown) date) unknown) (unknown) (no (unknown) (unknown) follow back up with (unit s (unknown) date) acquiring her unknown) medications will follow back up with (unknown) (no (unknown) (unknown) have occurred. 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 upholstery mechanic (units (unknown) date) with numbers and unknown) weekly basis (unknown) (no (unknown) (unknown) household members: (units (unknown) date) significant other and unknown) children (unknown) (no (unknown) (unknown) hydrochlorothiazide (unit s (unknown) date) and then add unknown) amlodipine if her blood pressure remains (unknown) (no (unknown) (unknown) latex [LATEX] (units ( unknown) date) Allergy (Mild, unknown) Verified 08/06/22 16:16) (unknown) (no (unknown) (unknown) magnesium citrate (units (unknown) date) [MAGNESIUM CITRATE] unknown) Adverse Reaction (Unknown, Verified (unknown) (no (unknown) (unknown) may occur. (units (unk nown) date) Occasional wrong-word unknown) or 'sound-alike' substitutions may have (unknown) (no (unknown) (unknown) medication therapy (units (unknown) date) have been performed unknown) primary switching her losartan to b.i.d., (unknown) (no (unknown) (unknown) note significant (units (unknown) date) exertional fatigue unknown) with simple things even climbing 3 steps (unknown) (no (unknown) (unknown) occurred due to the (unit s (unknown) date) inherent limitations unknown) of voice recognition software. Please (unknown) (no (unknown) (unknown) raised with this (units (unknown) date) patient with her unknown) hypertrophic obstructive cardiomyopathy. (unknown) (no (unknown) (unknown) read the note (units ( unknown) date) carefully and unknown) recognize, using context, where these substitutions (unknown) (no (unknown) (unknown) sleep apnea (adult) (unit s (unknown) date) (pediatric) unknown) (unknown) (no (unknown) (unknown) sleep apnea were (units (unknown) date) also addressed at unknown) today's visit (unknown) (no (unknown) (unknown) software. Although (units (unknown) date) every effort is made unknown) to edit content, x ray examiner of aircraft errors (unknown) (no (unknown) (unknown) switching from (units (unknown) date) carvedilol back over unknown) to metoprolol continue with the losartan (unknown) (no (unknown) (unknown) to follow-up (units (u nknown) date) regarding her unknown) underlying health concerns. Patient has not (unknown) (no (unknown) (unknown) transitioning from (units (unknown) date) carvedilol metoprolol unknown) and added adding amlodipine at bedtime. (unknown) (no (unknown) (unknown) undertaken but the (units (unknown) date) patient has not unknown) picked them up as of yet. She will be (unknown) (no (unknown) (unknown) with metoprolol and (unit s (unknown) date) amlodipine she will unknown) continue to follow will report back to Social History date description facility 2022-07-17 00:00 Unknown if ever smoked All 2022-07-17 00:00 Smokes tobacco daily (finding) [facility] 2022-07-18 00:00 Smokes tobacco daily (finding) [facility] 2022-07-22 00:00 Unknown if ever smoked All 2022-08-06 00:00 Smokes tobacco daily (finding) [facility] 2022-08-10 00:00 Smokes tobacco daily (finding) [facility] 2022-08-25 00:00 Smokes tobacco daily (finding) [facility] Vital Signs date measurement value units 2022-07-17 00:00 BMI 41.07 kg/m2 2022-07-17 00:00 BP_diastolic 106 mmHg 2022-07-17 00:00 BP_systolic 176 mmHg 2022-07-17 00:00 heart_rate 72 /min 2022-07-17 00:00 height_metric 162.56 cm 2022-07-17 00:00 height_standard 64 in 2022-07-17 00:00 respiration_rate 18 /min 2022-07-17 00:00 temperature_metric 36.78 C 2022-07-17 00:00 temperature_standard 98.2 F 2022-07-17 00:00 weight_metric 108.14 kg 2022-07-17 00:00 weight_standard 238.4 lb 2022-07-17 00:00 BMI 40.1 kg/m2 2022-07-17 00:00 height_metric 162.56 cm 2022-07-17 00:00 height_standard 64 in 2022-07-17 00:00 weight_metric 106.14 kg 2022-07-17 00:00 weight_standard 234 lb 2022-07-18 00:00 BP_diastolic 70 mmHg 2022-07-18 00:00 BP_systolic 127 mmHg 2022-07-18 00:00 heart_rate 69 /min 2022-07-18 00:00 height_metric 162.56 cm 2022-07-18 00:00 height_standard 64 in 2022-07-18 00:00 o2_saturation 98 % 2022-07-18 00:00 respiration_rate 18 /min 2022-07-18 00:00 temperature_metric 36.5 C 2022-07-18 00:00 temperature_standard 97.7 F 2022-07-19 00:00 BP_diastolic 89 mmHg 2022-07-19 00:00 BP_systolic 140 mmHg 2022-07-19 00:00 heart_rate 66 /min 2022-07-19 00:00 o2_saturation 97 % 2022-07-19 00:00 respiration_rate 18 /min 2022-07-19 00:00 temperature_metric 36.17 C 2022-07-19 00:00 temperature_standard 97.1 F 2022-07-19 00:00 weight_metric 106.7 kg 2022-07-19 00:00 weight_standard 235.23 lb 2022-08-06 00:00 BMI 40.8 kg/m2 2022-08-06 00:00 BP_diastolic 90 mmHg 2022-08-06 00:00 BP_systolic 140 mmHg 2022-08-06 00:00 heart_rate 73 /min 2022-08-06 00:00 height_metric 162.56 cm 2022-08-06 00:00 height_standard 64 in 2022-08-06 00:00 o2_saturation 100 % 2022-08-06 00:00 temperature_metric 36.17 C 2022-08-06 00:00 temperature_standard 97.1 F 2022-08-06 00:00 weight_metric 108.04 kg 2022-08-06 00:00 weight_standard 238.19 lb
[2022-10-08 19:02] LABS: ALBUMIN 4.2 g/dL (3.2-5.5); ALBUMIN/GLOBULIN RATIO 1.4 (1.0-2.2); BILIRUBIN,TOTAL 0.5 mg/dL (0.2-1.0); CALCIUM 9.6 mg/dL (8.5-10.3); CREATININE 1.1 mg/dL (0.4-1.0); POTASSIUM 3.8 mmol/L (3.5-5.0); TOTAL PROTEIN 7.3 g/dL (6.7-8.2)
[2022-10-08 19:47] VITALS: BP 110/61
== END 2022-10-08 19:47 | disposition home or self-care (01) ==
LOC: ED 18:05
DX: E86.0 Dehydration (principal); R42 Dizziness and giddiness
CPT/HCPCS: 36415; 80053; 83735; 85025; 93005; 96360; 99283